=== PATIENT | female | born 1975 | race Caucasian/White ===

== ENCOUNTER 2017-05-04 18:22 | Emergency (ER) | payer MEDICARE, MEDICAID ==
[~2017-05-04] VITALS: Ht 162.6 cm; Wt 65.1 kg
[~2017-05-04 18:22] MED LIST: /CELE20CA OR; /DULO30CA OR; ALLEGRA; AMBI10TA OR; AMBI12.52 PO; AMBI5TAB PO; ATARAX OR; BCP PO; BUPRPOW2; BUTRAN PO; BUTRANS PATCH TOP; CALC500T49; CELE50CA PO; CLOB-25 TOP; COLA100C2 OR; COLA100C5 PO; COLO500C PO; CYPROHEPTADINE PO; DHA; DIFLUCAN; DOCU10ELUD PO; ELID1CRE11 TOP; EVENING PRIMROSE; FLEXERIL PO; GABA300C2 PO; GLUCPOW24 PO; HYALCAP PO; HYDR25TA8; HYDR50TA8; IBUP600T OR; IMIT5SPR; IRON27TA2 PO; LAMO10TA PO; LIDO5DIS; LIDO5DIS EX; LIDO5DIS TOP; LOCO0.1C TOP; LUTEIN; LYRI150C; LYRI150C PO; MAGN400C2 PO; MILK140C PO; MULTLIQ7 PO; NAPR500T OR; NORT75CA2 PO; PREG25CA; PROV90AE; ROZE8TAB16 PO; SINGULAR; SOMA350T; SOMA350T PO; STROCRY11 PO; SUBO4MIS PO; SUBOXONE; SUBOXONE PO; Suboxone PO; THERGRAN; TOPI25TA2 PO; TUMERIC PO; VIIBRYD PO; VITA100054 PO; VOLT1GEL EXT; VYVA30CA4 PO; Z PACK PO; ZANA4CAP OR; ZANA4CAP PO; [UNRECOGNIZED DRUG - CODE] PO; [UNRECOGNIZED DRUG - OTHER]; [UNRECOGNIZED DRUG - OTHER] PO
[2017-05-04] MEDS ORDERED: SILVER SULFADIAZINE 1% CR 50 GM JAR TOP ONE (20:15)
[2017-05-04 20:27] VITALS: BP 111/77
[2017-09-05] MEDS ORDERED: MICR1TAB16 PO (10:22)
[2017-09-05] MEDS ORDERED: AMBI5TAB PO (10:22)
[2017-09-05] MEDS ORDERED: OMEP20TA PO (10:24)
[2017-09-05] MEDS ORDERED: PROBCAP4 PO (10:24)
== END 2017-05-04 20:34 | disposition home or self-care (01) ==
LOC: M ED 20:08
DX: J02.9 Acute pharyngitis, unspecified (principal); T24.131A Burn of first degree of right lower leg, initial encounter; X19.XXXA Contact with other heat and hot substances, initial encounter; Y92.89 Other specified places as the place of occurrence of the external cause; Y93.89 Activity, other specified; Y99.8 Other external cause status; F99 Mental disorder, not otherwise specified; G89.4 Chronic pain syndrome; Z79.899 Other long term (current) drug therapy; Z88.8 Allergy status to other drugs, medicaments and biological substances

== ENCOUNTER → 2017-08-06 | Outpatient (CLI) | payer MEDICARE, MEDICAID ==
[~2017-08-06] MED LIST changes: +E-Z-GAS II EFFERVESCENT PACKET (SODIUM BICARB./CITRIC ACID/SIMETHICONE) As Ordered ONE; +E-Z-HD 98% w/w 340GM SUSP BTL As Ordered ONE; +E-Z-PAQUE 96% w/w SUSP 176GM BTL As Ordered ONE; +MICR1TAB16 PO; +OMEP20TA PO; +PROBCAP4 PO
--- NOTE | 2017-08-06 10:01 | REP ---
GALLBLADDER ULTRASOUND: HISTORY: Epigastric pain. There are no filling defects in the gallbladder. The gallbladder wall measures 2.2 mm. The common bile duct measures 5.3 mm. The liver and pancreas are normal in echogenicity. The right kidney measures 4.7 cm in transverse by 4.1 cm in AP by 9.2 cm in cephalocaudal dimensions. There is no hydronephrosis or mass. IMPRESSION: Normal gallbladder ultrasound. Signed by Daniel Bhagat MD 08/06/2017 10:19 A
--- NOTE | 2017-08-08 17:03 | REP ---
UPPER GI SERIES: The procedure was performed by ARPIT Decker under the direct supervision of Dr. Flores. All imaging was reviewed with Dr. Flores prior to dictation. The pattern lease inspector film showed no organomegaly or pathological masses. The patient was able to ingest liquid barium and air in a quantity sufficient to produce a double contrast examination. The oral and pharyngeal stages of deglutition appeared unremarkable. Esophageal transport was prompt and efficient. There was no evidence of esophagitis, stricture, or mucosal ring. There was a small hiatal hernia. Gastroesophageal reflux was not observed on this exam. The stomach aguero were normally outlined. The rugal folds were smooth and regular. There was no evidence of gastritis, neoplasm or ulcerative disease. The duodenal aguero were normally outlined. There was no evidence of duodenitis, peptic ulcer disease, or neoplasm. The visualized portion of the proximal small bowel was normal in course and caliber. IMPRESSION: Small sliding hiatal hernia, otherwise unremarkable double-contrast upper GI examination. Fluoroscopy time: 2 minutes and 57 seconds. Reviewed by ARPIT Moore 08/08/2017 05:10 PEdited and Signed by Shar Flores MD 08/08/2017 08:02 P
== END ==
LOC: M RAD 08:34
PROVIDERS: ATTEND Family Medicine
DX: K46.0 Unspecified abdominal hernia with obstruction, without gangrene (principal); R10.13 Epigastric pain

== ENCOUNTER → 2017-08-30 | Outpatient (REF) | payer MEDICARE ==
[~2017-08-30] MED LIST changes: -E-Z-GAS II EFFERVESCENT PACKET (SODIUM BICARB./CITRIC ACID/SIMETHICONE) As Ordered ONE; -E-Z-HD 98% w/w 340GM SUSP BTL As Ordered ONE; -E-Z-PAQUE 96% w/w SUSP 176GM BTL As Ordered ONE
[2017-08-30 12:19] LABS: MEAN CORPUSCULAR HEMOGLOBIN 30.5 pg (27.0-33.0); MEAN CORPUSCULAR HGB CONC 32.3 g/dl (32.0-36.5); MEAN CORPUSCULAR VOLUME 94.5 fl (80.0-96.0); PLATELET COUNT, AUTOMATED 227 10^3/uL (150-450); RED CELL DISTRIBUTION WIDTH 12.8 % (11.5-14.5); WHITE BLOOD COUNT 6.5 10^3/uL (4.0-10.0)
[2017-08-30 13:21] LABS: ALBUMIN 4.2 GM/DL (3.2-5.2); ALKALINE PHOSPHATASE 59 U/L (45-117); ALT/SGPT 23 U/L (12-78); ANION GAP 11 MEQ/L (8-16); AST/SGOT 11 U/L (15-37); BILIRUBIN,TOTAL 0.5 MG/DL (0.2-1.0); BLOOD UREA NITROGEN 11 MG/DL (7-18); CALCIUM LEVEL 9.9 MG/DL (8.5-10.1); CARBON DIOXIDE LEVEL 25 MEQ/L (21-32); CHLORIDE LEVEL 104 MEQ/L (98-107); CHOLESTEROL LEVEL 272 MG/DL (<200); CREATININE FOR GFR 0.96 MG/DL (0.55-1.02); GLOMERULAR FILTRATION RATE > 60.0 (>58); GLUCOSE, FASTING 78 MG/DL (70-105); PERCENT SATURATION 38.7 % (13.2-45.0); POTASSIUM SERUM 3.9 MEQ/L (3.5-5.1); SODIUM LEVEL 140 MEQ/L (136-145); TOTAL IRON BINDING CAPACITY 318 UG/DL (250-450); TOTAL PROTEIN 7.7 GM/DL (6.4-8.2); TRIGLYCERIDES LEVEL 162 MG/DL (<150)
== END ==
LOC: M LABDRAW1 08:07
PROVIDERS: ATTEND Family Medicine
DX: D64.9 Anemia, unspecified (principal); R53.83 Other fatigue

== ENCOUNTER 2018-01-15 01:21 | Inpatient (IN) | payer MEDICARE, MEDICAID ==
[2018-01-15] MEDS: CHARCOAL ACTIVATED LIQUID 25 GM/120 ML BTL PO (01:45)
[2018-01-15 02:02] LABS: BASO % 0.3 % (0.0-1.0); EOS % 0.2 % (0.0-3.0); HEMATOCRIT 38.8 % (36.0-47.0); HEMOGLOBIN 13.3 g/dl (12.0-16.0); IMMATURE GRANULOCYTE % 0.3 % (0-3.0); LYMPH # 1.1 10^3/uL (1.5-4.5); LYMPH % 16.7 % (24.0-44.0); MEAN CORPUSCULAR HEMOGLOBIN 30.4 pg (27.0-33.0); MEAN CORPUSCULAR HGB CONC 34.3 g/dl (32.0-36.5); MEAN CORPUSCULAR VOLUME 88.6 fl (80.0-96.0); MONO # 0.3 10^3/uL (0.0-0.8); NEUTROPHILS # 5.1 10^3/uL (1.8-7.7); NEUTROPHILS % 78.5 % (36.0-66.0); PLATELET COUNT, AUTOMATED 281 10^3/uL (150-450); RED BLOOD COUNT 4.38 10^6/uL (4.00-5.40); RED CELL DISTRIBUTION WIDTH 12.6 % (11.5-14.5); WHITE BLOOD COUNT 6.5 10^3/uL (4.0-10.0)
[2018-01-15 02:07] LABS: BEDSIDE GLUCOSE 115 MG/DL (70-105)
[2018-01-15 02:26] LABS: ALBUMIN 3.9 GM/DL (3.2-5.2); ALBUMIN/GLOBULIN RATIO 1.18 (1.00-1.93); ALKALINE PHOSPHATASE 62 U/L (45-117); ALT/SGPT 12 U/L (12-78); ANION GAP 11 MEQ/L (8-16); AST/SGOT 15 U/L (7-37); BILIRUBIN,DIRECT 0.1 MG/DL (0.0-0.2); BILIRUBIN,TOTAL 0.3 MG/DL (0.2-1.0); BLOOD UREA NITROGEN 11 MG/DL (7-18); CALCIUM LEVEL 8.8 MG/DL (8.5-10.1); CARBON DIOXIDE LEVEL 22 MEQ/L (21-32); CHLORIDE LEVEL 102 MEQ/L (98-107); CPK CREATINE PHOSPHOKINASE 70 U/L (26-192); CREATININE FOR GFR 0.76 MG/DL (0.55-1.30); ETHYL ALCOHOL (ETHANOL) < 0.003 % (0.000-0.010); GLOMERULAR FILTRATION RATE > 60.0 (>58); GLUCOSE, FASTING 109 MG/DL (70-100); POTASSIUM SERUM 3.8 MEQ/L (3.5-5.1); SALICYLATE LEVEL < 1.7 MG/DL (5.0-30.0); SODIUM LEVEL 135 MEQ/L (136-145); TOTAL PROTEIN 7.2 GM/DL (6.4-8.2)
[2018-01-15 02:31] LABS: ACETAMINOPHEN LEVEL < 2.0 UG/ML (10.0-30.0)
[2018-01-15 02:35] LABS: THYROID STIMULATING HORMONE 0.753 uIU/ML (0.358-3.740)
[2018-01-15 02:35] LABS: AMPHETAMINES LEVEL URINE NEGATIVE (NEGATIVE); BARBITURATES URINE NEGATIVE (NEGATIVE); BENZODIAZEPINES URINE POSITIVE (NEGATIVE); CANNABINOIDS URINE NEGATIVE (NEGATIVE); COCAINE METABOLITE URINE NEGATIVE (NEGATIVE); METHADONE URINE NEGATIVE (NEGATIVE); OPIATES URINE NEGATIVE (NEGATIVE); PHENCYCLIDINE URINE NEGATIVE (NEGATIVE)
[2018-01-15] MEDS: ONDANSETRON 4 MG ORAL DISINTEGRATING TAB (S0181) PO (07:31)
[2018-01-15] MEDS ORDERED: MOM 30ML SUSPENSION UDC PO (12:00)
[2018-01-15] MEDS ORDERED: MAALOX 30 ML SUSP *UDC PO (12:00)
[2018-01-15] MEDS ORDERED: OLANZapine ORAL DISINTEGRATING TAB 5MG PO (12:00)
[2018-01-15] MEDS ORDERED: ACETAMINOPHEN TAB 650MG DOSE (2X325MG) PO (12:00)
[2018-01-15] MEDS: EXCEDRIN MIGRAINE TABLET PO (22:35)
[2018-01-16] MEDS: OMEPRAZOLE 20 MG CAP PO (08:50)
[2018-01-16 10:13] LABS: CONTROL LINE HCG INT CTR LINE PRESENT; HCG, SERUM QUALITATIVE NEGATIVE (NEGATIVE)
[2018-01-16] MEDS ORDERED: traZODone 50 MG TAB PO (11:15)
[2018-01-16 11:17] LABS: ESTIMATED AVERAGE GLUCOSE 105 MG/DL (60-110); HEMOGLOBIN A1c 5.3 %
[2018-01-16] MEDS: EXCEDRIN MIGRAINE TABLET PO (12:27)
[2018-01-17] MEDS ORDERED: ENTER DRUG NAME HERE (PATIENT'S OWN MED) PO (09:00)
[2018-01-18] MEDS ORDERED: EXCEDRIN MIGRAINE TABLET PO (21:00)
[2018-01-18] MEDS ORDERED: MOM 30ML SUSPENSION UDC PO (21:00)
[2018-01-18] MEDS ORDERED: OLANZapine ORAL DISINTEGRATING TAB 5MG PO (21:00)
[2018-01-18] MEDS ORDERED: MAALOX 30 ML SUSP *UDC PO (21:00)
[2018-01-19] MEDS: OMEPRAZOLE 20 MG CAP PO (08:36)
[2018-01-19] MEDS: OXAZEPAM 10 MG CAP PO ×2 (08:36→22:11)
[2018-01-19] MEDS: carBAMazepine XR 200 MG TAB PO ×2 (08:36→22:11)
[2018-01-19] MEDS: K-PHOS NEUTRAL 250MG TABLET (SOD.PHOSPHATE/POT.PHOSPHATE) PO ×3 (08:36→22:11)
[2018-01-19] MEDS: MICROGESTIN FE PO (08:37)
[2018-01-19] MEDS ORDERED: BUTRANS 20 MCG/HR TD (09:00)
[2018-01-19 12:03] LABS: BEDSIDE GLUCOSE 131 MG/DL (70-105)
[2018-01-19] MEDS: traZODone 50 MG TAB PO (22:12)
[2018-01-20] MEDS: MICROGESTIN FE PO (08:34)
[2018-01-20] MEDS: carBAMazepine XR 200 MG TAB PO ×2 (08:34→21:15)
[2018-01-20] MEDS: OXAZEPAM 10 MG CAP PO (08:34)
[2018-01-20] MEDS: OMEPRAZOLE 20 MG CAP PO (08:34)
[2018-01-20] MEDS: K-PHOS NEUTRAL 250MG TABLET (SOD.PHOSPHATE/POT.PHOSPHATE) PO ×3 (08:34→21:15)
[2018-01-20] MEDS: chlordiazePOXIDE 25 MG CAP PO (21:15)
[2018-01-20] MEDS: traZODone 50 MG TAB PO (21:15)
[2018-01-20] MEDS: IBUPROFEN 400 MG TAB PO (21:16)
[2018-01-21] MEDS: carBAMazepine XR 200 MG TAB PO ×2 (08:54→21:16)
[2018-01-21] MEDS: MICROGESTIN FE PO (08:54)
[2018-01-21] MEDS: K-PHOS NEUTRAL 250MG TABLET (SOD.PHOSPHATE/POT.PHOSPHATE) PO ×3 (08:54→21:16)
[2018-01-21] MEDS: chlordiazePOXIDE 25 MG CAP PO ×2 (08:54→21:16)
[2018-01-21] MEDS: OMEPRAZOLE 20 MG CAP PO (08:54)
[2018-01-21] MEDS: IBUPROFEN 400 MG TAB PO ×2 (14:27→21:16)
[2018-01-21] MEDS: traZODone 50 MG TAB PO (21:16)
[2018-01-22] MEDS: MICROGESTIN FE PO (10:03)
[2018-01-22] MEDS: chlordiazePOXIDE 25 MG CAP PO (10:03)
[2018-01-22] MEDS: IBUPROFEN 400 MG TAB PO ×3 (10:03→22:55)
[2018-01-22] MEDS: OMEPRAZOLE 20 MG CAP PO (10:03)
[2018-01-22] MEDS: K-PHOS NEUTRAL 250MG TABLET (SOD.PHOSPHATE/POT.PHOSPHATE) PO ×3 (10:03→21:42)
[2018-01-22] MEDS: carBAMazepine XR 200 MG TAB PO ×2 (10:03→21:42)
[2018-01-22] MEDS: traZODone 50 MG TAB PO (22:54)
[2018-01-23] MEDS: carBAMazepine XR 200 MG TAB PO (08:23)
[2018-01-23] MEDS: MICROGESTIN FE PO (08:23)
[2018-01-23] MEDS: K-PHOS NEUTRAL 250MG TABLET (SOD.PHOSPHATE/POT.PHOSPHATE) PO ×2 (08:23→14:45)
[2018-01-23] MEDS: OMEPRAZOLE 20 MG CAP PO (08:23)
[2018-01-23] MEDS: IBUPROFEN 400 MG TAB PO (08:23)
[2018-01-24] MEDS ORDERED: BUTRANS 20 MCG/HR TD (09:00)
== END 2018-01-23 15:35 | disposition home or self-care (01) | DRG 881 ==
LOC: M PSY 01-19 03:41 → M ED 01:21 → M ED INP 11:51 → M PSY 13:00
PROVIDERS: Psychiatry & Neurology Psychiatry
DX: F32.9 Major depressive disorder, single episode, unspecified (principal); F11.20 Opioid dependence, uncomplicated; F19.94 Other psychoactive substance use, unspecified with psychoactive substance-induced mood disorder; G89.29 Other chronic pain; G43.909 Migraine, unspecified, not intractable, without status migrainosus; K21.9 Gastro-esophageal reflux disease without esophagitis; D64.9 Anemia, unspecified; F41.9 Anxiety disorder, unspecified; J45.909 Unspecified asthma, uncomplicated; M54.5 Low back pain; G47.00 Insomnia, unspecified; L40.8 Other psoriasis; Z79.899 Other long term (current) drug therapy; Z88.8 Allergy status to other drugs, medicaments and biological substances

== ENCOUNTER 2018-01-16 17:52 | Observation (INO) | payer MEDICARE, MEDICAID ==
[2018-01-16] MEDS: D5W/0.45% SODIUM CHLORIDE 1,000 ML IV (16:16)
[2018-01-16 18:41] LABS: HEMATOCRIT 37.8 % (36.0-47.0); HEMOGLOBIN 12.8 g/dl (12.0-16.0); MEAN CORPUSCULAR HEMOGLOBIN 31.5 pg (27.0-33.0); MEAN CORPUSCULAR HGB CONC 33.9 g/dl (32.0-36.5); MEAN CORPUSCULAR VOLUME 93.1 fl (80.0-96.0); PLATELET COUNT, AUTOMATED 295 10^3/uL (150-450); RED BLOOD COUNT 4.06 10^6/uL (4.00-5.40); WHITE BLOOD COUNT 12.6 10^3/uL (4.0-10.0)
[2018-01-16 19:07] LABS: AMMONIA 23 uMOL/L (<32)
[2018-01-16 19:10] LABS: ALBUMIN 4.1 GM/DL (3.2-5.2); ALBUMIN/GLOBULIN RATIO 1.14 (1.00-1.93); ALKALINE PHOSPHATASE 67 U/L (45-117); ALT/SGPT 13 U/L (12-78); ANION GAP 12 MEQ/L (8-16); AST/SGOT 11 U/L (7-37); BILIRUBIN,TOTAL 0.4 MG/DL (0.2-1.0); BLOOD UREA NITROGEN 14 MG/DL (7-18); CALCIUM LEVEL 9.4 MG/DL (8.5-10.1); CARBON DIOXIDE LEVEL 20 MEQ/L (21-32); CHLORIDE LEVEL 107 MEQ/L (98-107); CPK CREATINE PHOSPHOKINASE 99 U/L (26-192); GLOMERULAR FILTRATION RATE > 60.0 (>58); GLUCOSE, FASTING 120 MG/DL (70-100); MAGNESIUM LEVEL 2.3 MG/DL (1.8-2.4); POTASSIUM SERUM 3.8 MEQ/L (3.5-5.1); SODIUM LEVEL 139 MEQ/L (136-145); TOTAL PROTEIN 7.7 GM/DL (6.4-8.2); TROPONIN I < 0.02 NG/ML (< 0.10)
[2018-01-16 19:14] LABS: PROLACTIN 5.8 NG/ML
[2018-01-16 19:16] LABS: CK-MB VALUE MASS 1.8 NG/ML (0.0-3.6); MB/CK RELATIVE INDEX 1.81 (< OR =4); THYROID STIMULATING HORMONE 0.356 uIU/ML (0.358-3.740)
[2018-01-16] MEDS: ONDANSETRON 4MG/2ML VIAL (J2405) IV (20:18)
[2018-01-16] MEDS ORDERED: MAALOX 30 ML SUSP *UDC PO (22:15)
[2018-01-16] MEDS ORDERED: OLANZapine ORAL DISINTEGRATING TAB 5MG PO (22:15)
[2018-01-16] MEDS ORDERED: EXCEDRIN MIGRAINE TABLET PO (22:15)
[2018-01-16] MEDS ORDERED: traZODone 50 MG TAB PO ×2 (22:15→22:30)
[2018-01-17] MEDS: LORazepam 2 MG/ML VIAL (J2060) IV (00:24)
[2018-01-17 00:45] LABS: BEDSIDE GLUCOSE 154 MG/DL (70-105)
[2018-01-17] MEDS: levETIRAcetam INJection 1,000 MG in D5W 100 ML IV (01:08)
[2018-01-17] MEDS: D5W/0.45% SODIUM CHLORIDE 1,000 ML IV (05:22)
[2018-01-17 06:05] LABS: HEMOGLOBIN 11.9 g/dl (12.0-16.0); MEAN CORPUSCULAR HEMOGLOBIN 30.8 pg (27.0-33.0); MEAN CORPUSCULAR VOLUME 90.7 fl (80.0-96.0); PLATELET COUNT, AUTOMATED 298 10^3/uL (150-450); RED BLOOD COUNT 3.86 10^6/uL (4.00-5.40); RED CELL DISTRIBUTION WIDTH 12.9 % (11.5-14.5); WHITE BLOOD COUNT 11.2 10^3/uL (4.0-10.0)
[2018-01-17 06:21] LABS: ANION GAP 11 MEQ/L (8-16); BLOOD UREA NITROGEN 12 MG/DL (7-18); CALCIUM LEVEL 8.9 MG/DL (8.5-10.1); CARBON DIOXIDE LEVEL 21 MEQ/L (21-32); CHLORIDE LEVEL 108 MEQ/L (98-107); CREATININE FOR GFR 0.63 MG/DL (0.55-1.30); GLOMERULAR FILTRATION RATE > 60.0 (>58); GLUCOSE, FASTING 128 MG/DL (70-100); POTASSIUM SERUM 3.1 MEQ/L (3.5-5.1); SODIUM LEVEL 140 MEQ/L (136-145)
[2018-01-17] MEDS: ENOXAPARIN 40 MG/0.4 ML SYRINGE (J1650) SC (09:00)
[2018-01-17] MEDS: MICROGESTIN FE PO (09:00)
[2018-01-17] MEDS ORDERED: ENOXAPARIN 40 MG/0.4 ML SYRINGE (J1650) SC (09:00)
[2018-01-17] MEDS: BUTRANS 20 MCG/HR TOP (09:00)
[2018-01-17 09:29] LABS: MAGNESIUM LEVEL 2.1 MG/DL (1.8-2.4); PHOSPHORUS LEVEL 1.3 MG/DL (2.5-4.9)
[2018-01-17] MEDS: OXAZEPAM 10 MG CAP PO ×2 (09:53→20:26)
[2018-01-17] MEDS: carBAMazepine XR 200 MG TAB PO ×2 (09:53→20:26)
[2018-01-17] MEDS: OMEPRAZOLE 20 MG CAP PO (09:53)
[2018-01-17] MEDS: POTASSIUM CHLORIDE 10 MEQ SR TABLET PO (09:54)
[2018-01-17] MEDS ORDERED: levETIRAcetam 250MG TABLET (KEPPRA) PO (12:00)
[2018-01-17 13:01] LABS: APPEARANCE, URINE CLEAR (CLEAR); BACTERIA, URINE AUTO 2+ (NEGATIVE); BILIRUBIN, URINE AUTO NEGATIVE (NEGATIVE); BLOOD, URINE BLOOD NEGATIVE (NEGATIVE); COLOR, URINE STRAW (YELLOW); GLUCOSE, URINE (UA) AUTO NEGATIVE (NEGATIVE); KETONE, URINE AUTO NEGATIVE (NEGATIVE); LEUKOCYTE ESTERASE, URINE AUTO NEGATIVE (NEGATIVE); NITRITE, URINE AUTO NEGATIVE (NEGATIVE); PROTEIN, URINE AUTO NEGATIVE (NEGATIVE); RBC, URINE AUTO 1 /HPF (0-3); SPECIFIC GRAVITY URINE AUTO 1.004 (1.002-1.035); SQUAMOUS EPITHELIAL CELL UR AU 1 /HPF (0-6); UROBILINOGEN, URINE AUTO 0.2 mg/dL (0.0-2.0); WBC, URINE AUTO 4 /HPF (0-3)
[2018-01-17] MEDS: K-PHOS NEUTRAL 250MG TABLET (SOD.PHOSPHATE/POT.PHOSPHATE) PO ×2 (17:37→20:26)
[2018-01-18 05:53] LABS: HEMATOCRIT 34.4 % (36.0-47.0); HEMOGLOBIN 11.5 g/dl (12.0-16.0); MEAN CORPUSCULAR HEMOGLOBIN 30.5 pg (27.0-33.0); MEAN CORPUSCULAR HGB CONC 33.4 g/dl (32.0-36.5); MEAN CORPUSCULAR VOLUME 91.2 fl (80.0-96.0); PLATELET COUNT, AUTOMATED 278 10^3/uL (150-450); RED BLOOD COUNT 3.77 10^6/uL (4.00-5.40); WHITE BLOOD COUNT 6.7 10^3/uL (4.0-10.0)
[2018-01-18 06:14] LABS: ANION GAP 9 MEQ/L (8-16); BLOOD UREA NITROGEN 14 MG/DL (7-18); CALCIUM LEVEL 8.7 MG/DL (8.5-10.1); CARBON DIOXIDE LEVEL 24 MEQ/L (21-32); CHLORIDE LEVEL 110 MEQ/L (98-107); CREATININE FOR GFR 0.55 MG/DL (0.55-1.30); GLOMERULAR FILTRATION RATE > 60.0 (>58); GLUCOSE, FASTING 87 MG/DL (70-100); MAGNESIUM LEVEL 2.1 MG/DL (1.8-2.4); PHOSPHORUS LEVEL 2.8 MG/DL (2.5-4.9); SODIUM LEVEL 143 MEQ/L (136-145)
[2018-01-18] MEDS: POTASSIUM CHLORIDE 10 MEQ SR TABLET PO ×2 (08:59→12:26)
[2018-01-18] MEDS: OMEPRAZOLE 20 MG CAP PO (09:00)
[2018-01-18] MEDS: ENOXAPARIN 40 MG/0.4 ML SYRINGE (J1650) SC (09:00)
[2018-01-18] MEDS: MICROGESTIN FE PO (09:00)
[2018-01-18] MEDS: K-PHOS NEUTRAL 250MG TABLET (SOD.PHOSPHATE/POT.PHOSPHATE) PO ×3 (09:00→20:09)
[2018-01-18] MEDS: OXAZEPAM 10 MG CAP PO ×2 (09:01→20:09)
[2018-01-18] MEDS: carBAMazepine XR 200 MG TAB PO ×2 (09:01→20:09)
== END 2018-01-18 20:13 ==
LOC: M MSPAV 17:52
DX: G40.89 Other seizures (principal); F13.230 Sedative, hypnotic or anxiolytic dependence with withdrawal, uncomplicated; G43.709 Chronic migraine without aura, not intractable, without status migrainosus; G89.29 Other chronic pain; F32.9 Major depressive disorder, single episode, unspecified; K21.9 Gastro-esophageal reflux disease without esophagitis; E83.39 Other disorders of phosphorus metabolism; E87.6 Hypokalemia; T42.4X2A Poisoning by benzodiazepines, intentional self-harm, initial encounter; T42.8X2A Poisoning by antiparkinsonism drugs and other central muscle-tone depressants, intentional self-harm, initial encounter; X58.XXXA Exposure to other specified factors, initial encounter; Y92.89 Other specified places as the place of occurrence of the external cause; F41.9 Anxiety disorder, unspecified; D64.9 Anemia, unspecified; M54.9 Dorsalgia, unspecified; M79.7 Fibromyalgia; Z87.19 Personal history of other diseases of the digestive system; K59.00 Constipation, unspecified; G47.00 Insomnia, unspecified; L40.9 Psoriasis, unspecified; J45.909 Unspecified asthma, uncomplicated; Z87.891 Personal history of nicotine dependence; Z79.899 Other long term (current) drug therapy; Z88.8 Allergy status to other drugs, medicaments and biological substances; Z91.5 Personal history of self-harm
CPT/HCPCS: J2405

== ENCOUNTER → 2018-05-02 | Outpatient (CLI) | payer MEDICARE, MEDICAID | LOC: M PAIN 15:00 | DX: M96.1 Postlaminectomy syndrome, not elsewhere classified (principal); M54.5 Low back pain; G89.29 Other chronic pain; G43.909 Migraine, unspecified, not intractable, without status migrainosus; G62.9 Polyneuropathy, unspecified; J45.909 Unspecified asthma, uncomplicated; R56.9 Unspecified convulsions; G47.00 Insomnia, unspecified; F32.9 Major depressive disorder, single episode, unspecified; Q79.6 Ehlers-Danlos syndromes; Z79.899 Other long term (current) drug therapy; Z88.8 Allergy status to other drugs, medicaments and biological substances; Z86.59 Personal history of other mental and behavioral disorders | CPT/HCPCS: G0463 ==

== ENCOUNTER → 2018-07-01 | Outpatient (CLI) | payer MEDICARE, MEDICAID ==
[~2018-07-01] MED LIST changes: -/CELE20CA OR; -/DULO30CA OR; -ALLEGRA; -AMBI10TA OR; -AMBI12.52 PO; -AMBI5TAB PO; -ATARAX OR; -BCP PO; +BUPIVACAINE HCL 0.25% 10 ML VIAL As Ordered; +BUPIVACAINE HCL 0.25% 30 ML VIAL As Ordered; -BUPRPOW2; -BUTRAN PO; -BUTRANS PATCH TOP; -CALC500T49; -CELE50CA PO; -CLOB-25 TOP; -COLA100C2 OR; -COLA100C5 PO; -COLO500C PO; -CYPROHEPTADINE PO; -DHA; -DIFLUCAN; -DOCU10ELUD PO; -ELID1CRE11 TOP; -EVENING PRIMROSE; -FLEXERIL PO; -GABA300C2 PO; -GLUCPOW24 PO; -HYALCAP PO; -HYDR25TA8; -HYDR50TA8; -IBUP600T OR; -IMIT5SPR; -IRON27TA2 PO; -LAMO10TA PO; -LIDO5DIS; -LIDO5DIS EX; -LIDO5DIS TOP; -LOCO0.1C TOP; -LUTEIN; -LYRI150C; -LYRI150C PO; -MAGN400C2 PO; -MICR1TAB16 PO; -MILK140C PO; -MULTLIQ7 PO; -NAPR500T OR; -NORT75CA2 PO; -OMEP20TA PO; -PREG25CA; -PROBCAP4 PO; -PROV90AE; -ROZE8TAB16 PO; -SINGULAR; -SOMA350T; -SOMA350T PO; -STROCRY11 PO; -SUBO4MIS PO; -SUBOXONE; -SUBOXONE PO; -Suboxone PO; -THERGRAN; -TOPI25TA2 PO; +TRIAMCINOLONE ACETONIDE SUSP 40 MG/ML VIAL (J3301) As Ordered; -TUMERIC PO; -VIIBRYD PO; -VITA100054 PO; -VOLT1GEL EXT; -VYVA30CA4 PO; -Z PACK PO; -ZANA4CAP OR; -ZANA4CAP PO; -[UNRECOGNIZED DRUG - CODE] PO; -[UNRECOGNIZED DRUG - OTHER]; -[UNRECOGNIZED DRUG - OTHER] PO; +diazePAM 5 MG TAB As Ordered; +diphenhydrAMINE 25 MG CAP As Ordered; +oxyCODONE 5MG TAB As Ordered
== END ==
LOC: M PAIN 14:15
DX: M79.1 Myalgia (principal); G43.709 Chronic migraine without aura, not intractable, without status migrainosus; M54.5 Low back pain; G62.9 Polyneuropathy, unspecified; G47.00 Insomnia, unspecified; F32.9 Major depressive disorder, single episode, unspecified; J45.909 Unspecified asthma, uncomplicated; R56.9 Unspecified convulsions; M54.2 Cervicalgia; Q79.6 Ehlers-Danlos syndromes; Z79.899 Other long term (current) drug therapy; Z88.8 Allergy status to other drugs, medicaments and biological substances
CPT/HCPCS: J3301

== ENCOUNTER 2018-08-01 09:49 | Inpatient (IN) | payer MEDICARE, MEDICAID ==
[2018-08-01 10:35] LABS: BASO % 0.6 % (0.0-1.0); EOS # 0.2 10^3/uL (0.0-0.50); EOS % 2.6 % (0.0-3.0); HEMATOCRIT 32.7 % (36.0-47.0); HEMOGLOBIN 10.8 g/dl (12.0-15.5); IMMATURE GRANULOCYTE % 0.5 % (0-3.0); LYMPH % 30.6 % (24.0-44.0); MEAN CORPUSCULAR HEMOGLOBIN 31.9 pg (27.0-33.0); MEAN CORPUSCULAR VOLUME 96.5 fl (80.0-96.0); MONO # 0.5 10^3/uL (0.0-0.8); NEUTROPHILS # 3.8 10^3/uL (1.8-7.7); NEUTROPHILS % 57.7 % (36.0-66.0); PLATELET COUNT, AUTOMATED 241 10^3/uL (150-450); RED BLOOD COUNT 3.39 10^6/uL (4.00-5.40); RED CELL DISTRIBUTION WIDTH 14.2 % (11.5-14.5); WHITE BLOOD COUNT 6.5 10^3/uL (4.0-10.0)
[2018-08-01 10:50] LABS: AMPHETAMINES LEVEL URINE NEGATIVE (NEGATIVE); BARBITURATES URINE NEGATIVE (NEGATIVE); BENZODIAZEPINES URINE POSITIVE (NEGATIVE); CANNABINOIDS URINE NEGATIVE (NEGATIVE); COCAINE METABOLITE URINE NEGATIVE (NEGATIVE); METHADONE URINE NEGATIVE (NEGATIVE); OPIATES URINE NEGATIVE (NEGATIVE); PHENCYCLIDINE URINE NEGATIVE (NEGATIVE)
[2018-08-01 11:06] LABS: ACETAMINOPHEN LEVEL 2.3 UG/ML (10.0-30.0); ALBUMIN 3.2 GM/DL (3.2-5.2); ALKALINE PHOSPHATASE 45 U/L (45-117); ALT/SGPT 42 U/L (12-78); ANION GAP 9 MEQ/L (8-16); AST/SGOT 22 U/L (7-37); BILIRUBIN,DIRECT < 0.1 MG/DL (0.0-0.2); BILIRUBIN,TOTAL 0.2 MG/DL (0.2-1.0); BLOOD UREA NITROGEN 13 MG/DL (7-18); CALCIUM LEVEL 8.9 MG/DL (8.5-10.1); CARBON DIOXIDE LEVEL 25 MEQ/L (21-32); CHLORIDE LEVEL 107 MEQ/L (98-107); CPK CREATINE PHOSPHOKINASE 50 U/L (26-192); CREATININE FOR GFR 0.64 MG/DL (0.55-1.30); ETHYL ALCOHOL (ETHANOL) < 0.003 % (0.000-0.010); GLOMERULAR FILTRATION RATE > 60.0 (>58); GLUCOSE, FASTING 83 MG/DL (70-100); POTASSIUM SERUM 4.2 MEQ/L (3.5-5.1); SALICYLATE LEVEL < 1.7 MG/DL (5.0-30.0); SODIUM LEVEL 141 MEQ/L (136-145); TOTAL PROTEIN 6.1 GM/DL (6.4-8.2)
[2018-08-01 11:28] LABS: CARBAMAZEPINE (TEGRETOL) LEVEL 8.9 UG/ML (4.0-10.0)
[2018-08-01 11:45] LABS: KETONE, URINE AUTO RFX NEGATIVE (NEGATIVE); LEUKOCYTE ESTERASE UR AUTO RFX NEGATIVE (NEGATIVE); MUCUS, URINE RFX SMALL (NEGATIVE); NITRITE, URINE AUTO RFX NEGATIVE (NEGATIVE); RBC, URINE AUTO RFX 4 /HPF (0-3); SPECIFIC GRAVITY UR AUTO RFX 1.012 (1.002-1.035); SQUAM EPITHELIAL CELL UR AURFX 0 /HPF (0-6); WBC, URINE AUTO RFX 0 /HPF (0-3)
[2018-08-01] MEDS: NS 1,000 ML IV ×3 (11:45→16:53)
[2018-08-01 14:59] LABS: LACTIC ACID SEPSIS PROTOCOL 1.7 MMOL/L (0.4-2.0)
[2018-08-01] MEDS ORDERED: ONDANSETRON 4MG/2ML VIAL (J2405) IV (16:00)
[2018-08-01] MEDS: OXcarbazepine 300 MG TAB PO (23:55)
[2018-08-02] MEDS: NS 1,000 ML IV ×3 (03:11→10:18)
[2018-08-02 05:31] LABS: BASO % 0.7 % (0.0-1.0); EOS # 0.1 10^3/uL (0.0-0.50); EOS % 2.5 % (0.0-3.0); HEMATOCRIT 31.9 % (36.0-47.0); HEMOGLOBIN 10.5 g/dl (12.0-15.5); IMMATURE GRANULOCYTE % 0.4 % (0-3.0); LYMPH # 2.2 10^3/uL (1.5-4.5); MEAN CORPUSCULAR HEMOGLOBIN 31.9 pg (27.0-33.0); MEAN CORPUSCULAR HGB CONC 32.9 g/dl (32.0-36.5); MONO # 0.4 10^3/uL (0.0-0.8); MONO % 7.2 % (0.0-5.0); NEUTROPHILS # 2.9 10^3/uL (1.8-7.7); NEUTROPHILS % 50.2 % (36.0-66.0); PLATELET COUNT, AUTOMATED 231 10^3/uL (150-450); RED BLOOD COUNT 3.29 10^6/uL (4.00-5.40); WHITE BLOOD COUNT 5.7 10^3/uL (4.0-10.0)
[2018-08-02 05:49] LABS: ALBUMIN 2.9 GM/DL (3.2-5.2); ALKALINE PHOSPHATASE 47 U/L (45-117); ALT/SGPT 38 U/L (12-78); ANION GAP 8 MEQ/L (8-16); AST/SGOT 20 U/L (7-37); BILIRUBIN,TOTAL 0.2 MG/DL (0.2-1.0); BLOOD UREA NITROGEN 10 MG/DL (7-18); CALCIUM LEVEL 8.4 MG/DL (8.5-10.1); CARBON DIOXIDE LEVEL 24 MEQ/L (21-32); CHLORIDE LEVEL 108 MEQ/L (98-107); CREATININE FOR GFR 0.46 MG/DL (0.55-1.30); GLOMERULAR FILTRATION RATE > 60.0 (>58); GLUCOSE, FASTING 79 MG/DL (70-100); MAGNESIUM LEVEL 2.2 MG/DL (1.8-2.4); SODIUM LEVEL 140 MEQ/L (136-145); TOTAL PROTEIN 5.8 GM/DL (6.4-8.2)
[2018-08-02 08:01] LABS: AMMONIA 33 uMOL/L (<32)
[2018-08-02] MEDS: OXcarbazepine 300 MG TAB PO ×2 (08:33→20:14)
[2018-08-02] MEDS: IBUPROFEN 600 MG TAB PO (22:20)
[2018-08-03 06:21] LABS: BASO # 0.1 10^3/uL (0.0-0.2); BASO % 0.8 % (0.0-1.0); EOS # 0.1 10^3/uL (0.0-0.50); EOS % 1.5 % (0.0-3.0); HEMATOCRIT 44.2 % (36.0-47.0); IMMATURE GRANULOCYTE % 0.8 % (0-3.0); LYMPH # 1.9 10^3/uL (1.5-4.5); LYMPH % 27.2 % (24.0-44.0); MEAN CORPUSCULAR HEMOGLOBIN 31.6 pg (27.0-33.0); MEAN CORPUSCULAR HGB CONC 32.4 g/dl (32.0-36.5); MEAN CORPUSCULAR VOLUME 97.6 fl (80.0-96.0); MONO # 0.5 10^3/uL (0.0-0.8); MONO % 6.7 % (0.0-5.0); NEUTROPHILS # 4.5 10^3/uL (1.8-7.7); PLATELET COUNT, AUTOMATED 248 10^3/uL (150-450); RED BLOOD COUNT 4.53 10^6/uL (4.00-5.40); RED CELL DISTRIBUTION WIDTH 13.5 % (11.5-14.5); WHITE BLOOD COUNT 7.1 10^3/uL (4.0-10.0)
[2018-08-03 06:29] LABS: HEMOGLOBIN 14.3 g/dl (12.0-15.5)
[2018-08-03 06:36] LABS: ALBUMIN 3.9 GM/DL (3.2-5.2); ALBUMIN/GLOBULIN RATIO 1.05 (1.00-1.93); ALKALINE PHOSPHATASE 64 U/L (45-117); ALT/SGPT 49 U/L (12-78); ANION GAP 8 MEQ/L (8-16); AST/SGOT 28 U/L (7-37); BILIRUBIN,TOTAL 0.1 MG/DL (0.2-1.0); BLOOD UREA NITROGEN 12 MG/DL (7-18); CALCIUM LEVEL 8.8 MG/DL (8.5-10.1); CARBON DIOXIDE LEVEL 23 MEQ/L (21-32); CHLORIDE LEVEL 108 MEQ/L (98-107); CREATININE FOR GFR 0.61 MG/DL (0.55-1.30); GLOMERULAR FILTRATION RATE > 60.0 (>58); GLUCOSE, FASTING 95 MG/DL (70-100); MAGNESIUM LEVEL 2.5 MG/DL (1.8-2.4); POTASSIUM SERUM 3.8 MEQ/L (3.5-5.1); SODIUM LEVEL 139 MEQ/L (136-145); TOTAL PROTEIN 7.6 GM/DL (6.4-8.2)
[2018-08-03] MEDS: OXcarbazepine 300 MG TAB PO (08:44)
== END 2018-08-03 09:40 | disposition home or self-care (01) | DRG 918 ==
LOC: M MSPAV 08-02 16:17 → M ED 09:49 → M ED INP 16:00 → M PCU 23:17
DX: T42.4X1A Poisoning by benzodiazepines, accidental (unintentional), initial encounter (principal); F11.20 Opioid dependence, uncomplicated; I95.9 Hypotension, unspecified; F32.9 Major depressive disorder, single episode, unspecified; F41.9 Anxiety disorder, unspecified; M79.7 Fibromyalgia; G40.909 Epilepsy, unspecified, not intractable, without status epilepticus; R41.82 Altered mental status, unspecified; Z79.899 Other long term (current) drug therapy; Z88.8 Allergy status to other drugs, medicaments and biological substances

== ENCOUNTER 2018-08-12 15:44 | Emergency (ER) | payer MEDICARE, MEDICAID ==
[2018-08-12 16:59] LABS: HEMATOCRIT 40.8 % (36.0-47.0); HEMOGLOBIN 13.7 g/dl (12.0-15.5); MEAN CORPUSCULAR HEMOGLOBIN 32.2 pg (27.0-33.0); MEAN CORPUSCULAR HGB CONC 33.6 g/dl (32.0-36.5); MEAN CORPUSCULAR VOLUME 95.8 fl (80.0-96.0); PLATELET COUNT, AUTOMATED 335 10^3/uL (150-450); RED BLOOD COUNT 4.26 10^6/uL (4.00-5.40); RED CELL DISTRIBUTION WIDTH 12.4 % (11.5-14.5); WHITE BLOOD COUNT 8.4 10^3/uL (4.0-10.0)
[2018-08-12 17:27] LABS: AMPHETAMINES LEVEL URINE NEGATIVE (NEGATIVE); BARBITURATES URINE NEGATIVE (NEGATIVE); BENZODIAZEPINES URINE POSITIVE (NEGATIVE); CANNABINOIDS URINE NEGATIVE (NEGATIVE); COCAINE METABOLITE URINE NEGATIVE (NEGATIVE); METHADONE URINE NEGATIVE (NEGATIVE); OPIATES URINE NEGATIVE (NEGATIVE); PHENCYCLIDINE URINE NEGATIVE (NEGATIVE)
[2018-08-12 17:57] LABS: ACETAMINOPHEN LEVEL < 2.0 UG/ML (10.0-30.0); ALBUMIN 4.6 GM/DL (3.2-5.2); ALBUMIN/GLOBULIN RATIO 1.28 (1.00-1.93); ALKALINE PHOSPHATASE 70 U/L (45-117); ALT/SGPT 16 U/L (12-78); ANION GAP 12 MEQ/L (8-16); AST/SGOT 11 U/L (7-37); BILIRUBIN,DIRECT 0.1 MG/DL (0.0-0.2); BILIRUBIN,TOTAL 0.3 MG/DL (0.2-1.0); BLOOD UREA NITROGEN 7 MG/DL (7-18); CALCIUM LEVEL 9.8 MG/DL (8.5-10.1); CARBON DIOXIDE LEVEL 23 MEQ/L (21-32); CHLORIDE LEVEL 106 MEQ/L (98-107); CREATININE FOR GFR 0.66 MG/DL (0.55-1.30); ETHYL ALCOHOL (ETHANOL) < 0.003 % (0.000-0.010); GLOMERULAR FILTRATION RATE > 60.0 (>58); GLUCOSE, FASTING 107 MG/DL (70-100); POTASSIUM SERUM 3.7 MEQ/L (3.5-5.1); SALICYLATE LEVEL 2.2 MG/DL (5.0-30.0); SODIUM LEVEL 141 MEQ/L (136-145); THYROID STIMULATING HORMONE 0.429 uIU/ML (0.358-3.740); TOTAL PROTEIN 8.2 GM/DL (6.4-8.2)
== END 2018-08-12 21:31 | disposition home or self-care (01) ==
LOC: M ED 15:44
DX: F11.20 Opioid dependence, uncomplicated (principal); F31.9 Bipolar disorder, unspecified; F25.9 Schizoaffective disorder, unspecified; Z88.8 Allergy status to other drugs, medicaments and biological substances; Z79.899 Other long term (current) drug therapy
CPT/HCPCS: G0480

== ENCOUNTER → 2018-08-12 | Outpatient (CLI) | payer MEDICARE, MEDICAID | LOC: M PAIN 14:15 | DX: M96.1 Postlaminectomy syndrome, not elsewhere classified (principal); M54.5 Low back pain; G89.29 Other chronic pain; G43.909 Migraine, unspecified, not intractable, without status migrainosus; F32.9 Major depressive disorder, single episode, unspecified; J45.909 Unspecified asthma, uncomplicated; R56.9 Unspecified convulsions; M79.7 Fibromyalgia; G47.00 Insomnia, unspecified; G62.9 Polyneuropathy, unspecified; Q79.6 Ehlers-Danlos syndromes; Z79.899 Other long term (current) drug therapy; Z88.8 Allergy status to other drugs, medicaments and biological substances; Z86.59 Personal history of other mental and behavioral disorders | CPT/HCPCS: G0463 ==

== ENCOUNTER 2018-08-18 21:27 | Inpatient (IN) | payer MEDICARE, MEDICAID ==
[2018-08-18 22:43] LABS: KETONE, URINE AUTO RFX NEGATIVE (NEGATIVE); LEUKOCYTE ESTERASE UR AUTO RFX NEGATIVE (NEGATIVE); MUCUS, URINE RFX SMALL (NEGATIVE); NITRITE, URINE AUTO RFX NEGATIVE (NEGATIVE); RBC, URINE AUTO RFX 1 /HPF (0-3); SPECIFIC GRAVITY UR AUTO RFX 1.013 (1.002-1.035); SQUAM EPITHELIAL CELL UR AURFX 0 /HPF (0-6); WBC, URINE AUTO RFX 1 /HPF (0-3)
[2018-08-18 22:44] LABS: BEDSIDE GLUCOSE 60 MG/DL (70-105)
[2018-08-18 22:46] LABS: ABG BASE EXCESS -3.3 (-2.0-2.0); ABG HCO3 20.5 MEQ/L (22.0-26.0); ABG O2 SATURATION 99.9 % (95.0-99.0); ABG PARTIAL PRESSURE CO2 32.8 mmHg (35.0-45.0); ABG PARTIAL PRESSURE O2 470.4 mmHg (75.0-100.0); ABG STANDARD HCO3 21.8 MEQ/L (22.0-26.0); ABG TOTAL CO2 21.5 MEQ/L (22.0-29.0); ABG pH (ARTERIAL) 7.414 UNITS (7.350-7.450)
[2018-08-18 23:00] LABS: AMPHETAMINES LEVEL URINE NEGATIVE (NEGATIVE); BARBITURATES URINE NEGATIVE (NEGATIVE); BENZODIAZEPINES URINE POSITIVE (NEGATIVE); CANNABINOIDS URINE NEGATIVE (NEGATIVE); COCAINE METABOLITE URINE NEGATIVE (NEGATIVE); METHADONE URINE NEGATIVE (NEGATIVE); OPIATES URINE NEGATIVE (NEGATIVE); PHENCYCLIDINE URINE NEGATIVE (NEGATIVE)
[2018-08-18] MEDS: DEXTROSE 50% 50 ML SYRINGE IV (23:00)
[2018-08-18] MEDS: NS 1,000 ML IV (23:00)
[2018-08-18 23:02] LABS: BASO % 0.5 % (0.0-1.0); EOS # 0.2 10^3/uL (0.0-0.50); EOS % 2.5 % (0.0-3.0); HEMATOCRIT 32.3 % (36.0-47.0); HEMOGLOBIN 10.9 g/dl (12.0-15.5); IMMATURE GRANULOCYTE % 0.3 % (0-3.0); LYMPH % 32.7 % (24.0-44.0); MEAN CORPUSCULAR HEMOGLOBIN 32.1 pg (27.0-33.0); MEAN CORPUSCULAR HGB CONC 33.7 g/dl (32.0-36.5); MONO # 0.5 10^3/uL (0.0-0.8); MONO % 7.8 % (0.0-5.0); NEUTROPHILS # 3.4 10^3/uL (1.8-7.7); NEUTROPHILS % 56.2 % (36.0-66.0); PLATELET COUNT, AUTOMATED 191 10^3/uL (150-450); RED CELL DISTRIBUTION WIDTH 12.2 % (11.5-14.5); WHITE BLOOD COUNT 6.1 10^3/uL (4.0-10.0)
[2018-08-18 23:25] LABS: CONTROL LINE HCG INT CTR LINE PRESENT; HCG, SERUM QUALITATIVE NEGATIVE (NEGATIVE)
[2018-08-18 23:33] LABS: ALKALINE PHOSPHATASE 42 U/L (45-117); ALT/SGPT 11 U/L (12-78); ANION GAP 7 MEQ/L (8-16); AST/SGOT 9 U/L (7-37); BILIRUBIN,DIRECT < 0.1 MG/DL (0.0-0.2); BILIRUBIN,TOTAL 0.2 MG/DL (0.2-1.0); BLOOD UREA NITROGEN 7 MG/DL (7-18); CALCIUM LEVEL 7.4 MG/DL (8.5-10.1); CARBON DIOXIDE LEVEL 22 MEQ/L (21-32); CHLORIDE LEVEL 110 MEQ/L (98-107); CPK CREATINE PHOSPHOKINASE 92 U/L (26-192); CREATININE FOR GFR 0.49 MG/DL (0.55-1.30); ETHYL ALCOHOL (ETHANOL) < 0.003 % (0.000-0.010); GLOMERULAR FILTRATION RATE > 60.0 (>58); GLUCOSE, FASTING 82 MG/DL (70-100); POTASSIUM SERUM 3.6 MEQ/L (3.5-5.1); SALICYLATE LEVEL < 1.7 MG/DL (5.0-30.0); SODIUM LEVEL 139 MEQ/L (136-145); THYROID STIMULATING HORMONE 0.427 uIU/ML (0.358-3.740); TOTAL PROTEIN 5.5 GM/DL (6.4-8.2)
[2018-08-18 23:53] LABS: BEDSIDE GLUCOSE 117 MG/DL (70-105)
[2018-08-19 00:43] LABS: BEDSIDE GLUCOSE 133 MG/DL (70-105)
[2018-08-19 01:40] LABS: BEDSIDE GLUCOSE 95 MG/DL (70-105)
[2018-08-19] MEDS: NS 1,000 ML IV (02:25)
[2018-08-19 02:47] LABS: BEDSIDE GLUCOSE 82 MG/DL (70-105)
[2018-08-19 04:13] LABS: BEDSIDE GLUCOSE 60 MG/DL (70-105)
[2018-08-19] MEDS ORDERED: GLUCOSE 4 GM CHEW TABLET PO (04:30)
[2018-08-19] MEDS ORDERED: DEXTROSE 50% 50 ML SYRINGE IV (04:30)
[2018-08-19] MEDS ORDERED: GLUCAGON FOR INJ 1 MG VIAL (J1610) SC (04:30)
[2018-08-19] MEDS: D5W/0.45% SODIUM CHLORIDE 1,000 ML IV (04:41)
[2018-08-19 05:11] LABS: HEMATOCRIT 39.2 % (36.0-47.0); HEMOGLOBIN 12.8 g/dl (12.0-15.5); MEAN CORPUSCULAR HEMOGLOBIN 31.4 pg (27.0-33.0); MEAN CORPUSCULAR HGB CONC 32.7 g/dl (32.0-36.5); MEAN CORPUSCULAR VOLUME 96.3 fl (80.0-96.0); PLATELET COUNT, AUTOMATED 223 10^3/uL (150-450); RED BLOOD COUNT 4.07 10^6/uL (4.00-5.40); RED CELL DISTRIBUTION WIDTH 12.1 % (11.5-14.5); WHITE BLOOD COUNT 5.8 10^3/uL (4.0-10.0)
[2018-08-19 05:36] LABS: BEDSIDE GLUCOSE 92 MG/DL (70-105)
[2018-08-19 05:38] LABS: ALBUMIN 3.4 GM/DL (3.2-5.2); ALKALINE PHOSPHATASE 49 U/L (45-117); ALT/SGPT 13 U/L (12-78); ANION GAP 8 MEQ/L (8-16); AST/SGOT 14 U/L (7-37); BILIRUBIN,TOTAL 0.2 MG/DL (0.2-1.0); BLOOD UREA NITROGEN 5 MG/DL (7-18); CALCIUM LEVEL 8.1 MG/DL (8.5-10.1); CARBON DIOXIDE LEVEL 22 MEQ/L (21-32); CHLORIDE LEVEL 113 MEQ/L (98-107); CREATININE FOR GFR 0.57 MG/DL (0.55-1.30); GLOMERULAR FILTRATION RATE > 60.0 (>58); GLUCOSE, FASTING 69 MG/DL (70-100); POTASSIUM SERUM 3.8 MEQ/L (3.5-5.1); SODIUM LEVEL 143 MEQ/L (136-145); TOTAL PROTEIN 6.5 GM/DL (6.4-8.2)
[2018-08-19] MEDS ORDERED: ACETAMINOPHEN TAB 650MG DOSE (2X325MG) PO (05:45)
[2018-08-19] MEDS: NAPROXEN 250 MG TAB PO (06:08)
[2018-08-19 07:39] LABS: BEDSIDE GLUCOSE 145 MG/DL (70-105)
[2018-08-19] MEDS: THIAMINE 100 MG TAB PO ×2 (09:00→09:35)
[2018-08-19] MEDS: FOLIC ACID 1 MG TAB PO ×2 (09:00→09:35)
[2018-08-19] MEDS: HEPARIN SOD (PORCINE) 5000 UNITS/ML VIAL SQ (09:00)
[2018-08-19] MEDS: MULTIVITAMINS/MINERALS THERAP 1 TAB PO (09:35)
[2018-08-19] MEDS: PREGABALIN 75 MG CAP(LYRICA) PO ×2 (09:35→15:44)
[2018-08-19 10:06] LABS: CPK CREATINE PHOSPHOKINASE 132 U/L (26-192); MB/CK RELATIVE INDEX 0.76 (< OR =4); TROPONIN I < 0.02 NG/ML (< 0.10)
[2018-08-19] MEDS: OXcarbazepine 300 MG TAB PO (10:20)
[2018-08-19 15:12] LABS: CPK CREATINE PHOSPHOKINASE 135 U/L (26-192); MB/CK RELATIVE INDEX 0.74 (< OR =4); TROPONIN I < 0.02 NG/ML (< 0.10)
[2018-08-19] MEDS ORDERED: MELOXICAM (MOBIC) 7.5 MG TAB PO (21:00)
== END 2018-08-19 20:43 | DRG 917 ==
LOC: M ED INP 08-19 02:25 → M ICU 08-19 03:54 → M MSPAV 08-19 14:36 → M ED 21:27
DX: T42.4X1A Poisoning by benzodiazepines, accidental (unintentional), initial encounter (principal); G92 Toxic encephalopathy; F33.2 Major depressive disorder, recurrent severe without psychotic features; F11.20 Opioid dependence, uncomplicated; F41.1 Generalized anxiety disorder; F60.3 Borderline personality disorder; G89.29 Other chronic pain; G40.909 Epilepsy, unspecified, not intractable, without status epilepticus; Z88.8 Allergy status to other drugs, medicaments and biological substances; Z79.899 Other long term (current) drug therapy; Z79.1 Long term (current) use of non-steroidal anti-inflammatories (NSAID)

== ENCOUNTER 2018-08-19 20:50 | Inpatient (IN) | payer MEDICARE, MEDICAID ==
[~2018-08-19 20:50] MED LIST changes: -BUPIVACAINE HCL 0.25% 10 ML VIAL As Ordered; -BUPIVACAINE HCL 0.25% 30 ML VIAL As Ordered; +MAALOX 30 ML SUSP *UDC PO; +MOM 30ML SUSPENSION UDC PO; -TRIAMCINOLONE ACETONIDE SUSP 40 MG/ML VIAL (J3301) As Ordered; -diazePAM 5 MG TAB As Ordered; -diphenhydrAMINE 25 MG CAP As Ordered; -oxyCODONE 5MG TAB As Ordered
[2018-08-19] MEDS: OXcarbazepine 300 MG TAB PO (22:07)
[2018-08-19] MEDS: MELOXICAM (MOBIC) 7.5 MG TAB PO (22:08)
[2018-08-19] MEDS: PREGABALIN 75 MG CAP(LYRICA) PO (22:08)
[2018-08-19] MEDS: ACETAMINOPHEN TAB 650MG DOSE (2X325MG) PO (22:09)
[2018-08-20] MEDS: PREGABALIN 75 MG CAP(LYRICA) PO ×3 (09:00→21:42)
[2018-08-20] MEDS: MULTIVITAMINS/MINERALS THERAP 1 TAB PO (13:56)
[2018-08-20] MEDS: MELOXICAM (MOBIC) 7.5 MG TAB PO ×2 (13:56→21:42)
[2018-08-20] MEDS: DULoxetine 30 MG CAP (CYMBALTA) PO (13:56)
[2018-08-20] MEDS: OXcarbazepine 300 MG TAB PO ×2 (13:56→21:42)
[2018-08-20] MEDS: THIAMINE 100 MG TAB PO (13:57)
[2018-08-20] MEDS: traZODone 50 MG TAB PO (21:42)
[2018-08-21] MEDS: MULTIVITAMINS/MINERALS THERAP 1 TAB PO (09:00)
[2018-08-21] MEDS: THIAMINE 100 MG TAB PO (09:00)
[2018-08-21] MEDS: MELOXICAM (MOBIC) 7.5 MG TAB PO ×2 (09:38→21:05)
[2018-08-21] MEDS: DULoxetine 30 MG CAP (CYMBALTA) PO (09:38)
[2018-08-21] MEDS: OXcarbazepine 300 MG TAB PO ×2 (09:38→21:05)
[2018-08-21] MEDS: PREGABALIN 75 MG CAP(LYRICA) PO ×3 (09:39→21:04)
[2018-08-21] MEDS: COAL TAR 1% SHAMPOO 180 ML BTL TOP (14:05)
[2018-08-21] MEDS: IBUPROFEN 600 MG TAB PO ×2 (15:52→21:59)
[2018-08-21] MEDS: traZODone 100 MG TAB PO (21:04)
[2018-08-22] MEDS: MULTIVITAMINS/MINERALS THERAP 1 TAB PO (09:00)
[2018-08-22] MEDS: THIAMINE 100 MG TAB PO (09:00)
[2018-08-22] MEDS: DULoxetine 30 MG CAP (CYMBALTA) PO ×2 (09:27→21:42)
[2018-08-22] MEDS: MELOXICAM (MOBIC) 7.5 MG TAB PO ×2 (09:27→21:43)
[2018-08-22] MEDS: PREGABALIN 75 MG CAP(LYRICA) PO ×3 (09:27→21:42)
[2018-08-22] MEDS: OXcarbazepine 300 MG TAB PO ×2 (09:27→21:43)
[2018-08-22] MEDS: ACETAMINOPHEN TAB 650MG DOSE (2X325MG) PO ×2 (14:37→22:24)
[2018-08-22] MEDS: COAL TAR 1% SHAMPOO 180 ML BTL TOP (21:43)
[2018-08-22] MEDS: traZODone 50 MG TAB PO (22:22)
[2018-08-23] MEDS: MULTIVITAMINS/MINERALS THERAP 1 TAB PO (09:00)
[2018-08-23] MEDS ORDERED: DULoxetine 30 MG CAP (CYMBALTA) PO (09:00)
[2018-08-23] MEDS: THIAMINE 100 MG TAB PO (09:00)
[2018-08-23] MEDS: MELOXICAM (MOBIC) 7.5 MG TAB PO ×2 (09:13→21:20)
[2018-08-23] MEDS: PREGABALIN 75 MG CAP(LYRICA) PO ×3 (09:14→21:20)
[2018-08-23] MEDS: OXcarbazepine 300 MG TAB PO ×2 (09:14→21:20)
[2018-08-23] MEDS: DULoxetine 30 MG CAP (CYMBALTA) PO ×2 (09:14→21:20)
[2018-08-23] MEDS: ACETAMINOPHEN TAB 650MG DOSE (2X325MG) PO (17:13)
[2018-08-24] MEDS: traZODone 50 MG TAB PO ×2 (00:02→22:49)
[2018-08-24] MEDS: ACETAMINOPHEN TAB 650MG DOSE (2X325MG) PO ×4 (00:03→22:50)
[2018-08-24] MEDS: MULTIVITAMINS/MINERALS THERAP 1 TAB PO (09:00)
[2018-08-24] MEDS: THIAMINE 100 MG TAB PO (09:00)
[2018-08-24] MEDS: DULoxetine 30 MG CAP (CYMBALTA) PO ×2 (09:14→21:09)
[2018-08-24] MEDS: PREGABALIN 75 MG CAP(LYRICA) PO ×3 (09:15→21:09)
[2018-08-24] MEDS: OXcarbazepine 300 MG TAB PO ×2 (09:15→21:09)
[2018-08-24] MEDS: MELOXICAM (MOBIC) 7.5 MG TAB PO ×2 (09:15→21:09)
[2018-08-24] MEDS: CICLOPIROX TOP (21:08)
[2018-08-24] MEDS: JUNEL FE PO (21:08)
[2018-08-24] MEDS: KETOCONAZOLE 2% TOP (21:08)
[2018-08-25] MEDS: MULTIVITAMINS/MINERALS THERAP 1 TAB PO (08:13)
[2018-08-25] MEDS: THIAMINE 100 MG TAB PO (08:13)
[2018-08-25] MEDS: JUNEL FE PO (08:16)
[2018-08-25] MEDS: OXcarbazepine 300 MG TAB PO ×2 (08:16→20:56)
[2018-08-25] MEDS: PREGABALIN 75 MG CAP(LYRICA) PO ×3 (08:16→20:55)
[2018-08-25] MEDS: MELOXICAM (MOBIC) 7.5 MG TAB PO ×2 (08:16→20:56)
[2018-08-25] MEDS: DULoxetine 30 MG CAP (CYMBALTA) PO ×2 (08:16→20:56)
[2018-08-25] MEDS: ACETAMINOPHEN TAB 650MG DOSE (2X325MG) PO ×3 (08:26→22:15)
[2018-08-25] MEDS: KETOCONAZOLE 2% TOP (20:56)
[2018-08-25] MEDS: CICLOPIROX TOP (20:56)
[2018-08-25] MEDS: [UNRECOGNIZED DRUG - OTHER] TOP (20:57)
[2018-08-25] MEDS: traZODone 50 MG TAB PO (22:14)
[2018-08-26] MEDS: MULTIVITAMINS/MINERALS THERAP 1 TAB PO (09:00)
[2018-08-26] MEDS: THIAMINE 100 MG TAB PO (09:00)
[2018-08-26] MEDS: DULoxetine 30 MG CAP (CYMBALTA) PO (09:39)
[2018-08-26] MEDS: OXcarbazepine 300 MG TAB PO (09:39)
[2018-08-26] MEDS: JUNEL FE PO (09:39)
[2018-08-26] MEDS: MELOXICAM (MOBIC) 7.5 MG TAB PO (09:39)
[2018-08-26] MEDS: PREGABALIN 75 MG CAP(LYRICA) PO (09:39)
== END 2018-08-26 12:00 | disposition home or self-care (01) | DRG 885 ==
LOC: M PSY 20:50
DX: F33.1 Major depressive disorder, recurrent, moderate (principal); F40.01 Agoraphobia with panic disorder; F41.1 Generalized anxiety disorder; F60.3 Borderline personality disorder; F11.10 Opioid abuse, uncomplicated; M79.7 Fibromyalgia; G89.29 Other chronic pain; L40.9 Psoriasis, unspecified; G47.00 Insomnia, unspecified; G40.909 Epilepsy, unspecified, not intractable, without status epilepticus; Z91.5 Personal history of self-harm; Z79.899 Other long term (current) drug therapy; Z88.8 Allergy status to other drugs, medicaments and biological substances

== ENCOUNTER 2018-09-02 18:05 | Observation (INO) | payer MEDICARE, MEDICAID ==
[2018-09-02] MEDS: NS 1,000 ML IV ×3 (18:20→22:37)
[2018-09-02 18:26] LABS: BASO % 0.2 % (0.0-1.0); EOS # 0.2 10^3/uL (0.0-0.50); EOS % 2.1 % (0.0-3.0); HEMATOCRIT 33.4 % (36.0-47.0); IMMATURE GRANULOCYTE % 0.3 % (0-3.0); LYMPH # 2.5 10^3/uL (1.5-4.5); LYMPH % 28.7 % (24.0-44.0); MEAN CORPUSCULAR HEMOGLOBIN 32.2 pg (27.0-33.0); MEAN CORPUSCULAR HGB CONC 32.9 g/dl (32.0-36.5); MEAN CORPUSCULAR VOLUME 97.7 fl (80.0-96.0); MONO # 0.5 10^3/uL (0.0-0.8); MONO % 5.2 % (0.0-5.0); NEUTROPHILS # 5.6 10^3/uL (1.8-7.7); NEUTROPHILS % 63.5 % (36.0-66.0); PLATELET COUNT, AUTOMATED 203 10^3/uL (150-450); RED BLOOD COUNT 3.42 10^6/uL (4.00-5.40); WHITE BLOOD COUNT 8.8 10^3/uL (4.0-10.0)
[2018-09-02 18:36] LABS: BEDSIDE GLUCOSE 85 MG/DL (70-105)
[2018-09-02 18:37] LABS: ABG BASE EXCESS -2.8 (-2.0-2.0); ABG O2 SATURATION 98.2 % (95.0-99.0); ABG PARTIAL PRESSURE CO2 32.9 mmHg (35.0-45.0); ABG STANDARD HCO3 22.2 MEQ/L (22.0-26.0); ABG pH (ARTERIAL) 7.422 UNITS (7.350-7.450)
[2018-09-02 18:51] LABS: CONTROL LINE HCG INT CTR LINE PRESENT; HCG, SERUM QUALITATIVE NEGATIVE (NEGATIVE)
[2018-09-02 19:47] LABS: BLOOD UREA NITROGEN 16 MG/DL (7-18); CREATININE FOR GFR 0.61 MG/DL (0.55-1.30); GLOMERULAR FILTRATION RATE > 60.0 (>58); GLUCOSE, FASTING 90 MG/DL (70-100); POTASSIUM SERUM 4.4 MEQ/L (3.5-5.1); SODIUM LEVEL 143 MEQ/L (136-145)
[2018-09-02 19:48] LABS: ALKALINE PHOSPHATASE 45 U/L (45-117); ALT/SGPT 21 U/L (12-78); AST/SGOT 12 U/L (7-37); BILIRUBIN,DIRECT < 0.1 MG/DL (0.0-0.2); BILIRUBIN,TOTAL 0.1 MG/DL (0.2-1.0); CALCIUM LEVEL 8.7 MG/DL (8.5-10.1); CARBON DIOXIDE LEVEL 27 MEQ/L (21-32); CHLORIDE LEVEL 110 MEQ/L (98-107)
[2018-09-02 19:49] LABS: ALBUMIN 3.4 GM/DL (3.2-5.2); ALBUMIN/GLOBULIN RATIO 1.31 (1.00-1.93); ANION GAP 6 MEQ/L (8-16)
[2018-09-02 19:59] LABS: AMPHETAMINES LEVEL URINE NEGATIVE (NEGATIVE); BARBITURATES URINE NEGATIVE (NEGATIVE); BENZODIAZEPINES URINE POSITIVE (NEGATIVE); CANNABINOIDS URINE NEGATIVE (NEGATIVE); COCAINE METABOLITE URINE NEGATIVE (NEGATIVE); METHADONE URINE NEGATIVE (NEGATIVE); OPIATES URINE NEGATIVE (NEGATIVE); PHENCYCLIDINE URINE NEGATIVE (NEGATIVE)
[2018-09-02] MEDS ORDERED: NALOXONE INJ 0.4 MG/1 ML VIAL (J2310) IV (20:09)
[2018-09-02 20:15] LABS: ACETAMINOPHEN LEVEL < 2.0 UG/ML (10.0-30.0); CPK CREATINE PHOSPHOKINASE 34 U/L (26-192); ETHYL ALCOHOL (ETHANOL) < 0.003 % (0.000-0.010); SALICYLATE LEVEL < 1.7 MG/DL (5.0-30.0); THYROID STIMULATING HORMONE 0.383 uIU/ML (0.358-3.740)
[2018-09-02 21:06] LABS: LACTIC ACID SEPSIS PROTOCOL 2.7 MMOL/L (0.4-2.0)
[2018-09-02] MEDS: NS IV (21:15)
[2018-09-02] MEDS: DILUENT IV (21:15)
[2018-09-02] MEDS: CEFEPIME HCL 2 GM in D5W MINI-BAG PLUS 50 ML IV (21:29)
[2018-09-02 21:32] LABS: AMORPHOUS SEDIMENT RFX SMALL (NEGATIVE); CALCIUM OXALATE CRYSTALS RFX SMALL; KETONE, URINE AUTO RFX NEGATIVE (NEGATIVE); LEUKOCYTE ESTERASE UR AUTO RFX NEGATIVE (NEGATIVE); MUCUS, URINE RFX SMALL (NEGATIVE); NITRITE, URINE AUTO RFX NEGATIVE (NEGATIVE); RBC, URINE AUTO RFX 1 /HPF (0-3); SPECIFIC GRAVITY UR AUTO RFX 1.027 (1.002-1.035); SQUAM EPITHELIAL CELL UR AURFX 2 /HPF (0-6); WBC, URINE AUTO RFX 1 /HPF (0-3)
[2018-09-02 22:09] LABS: C REACTIVE PROTEIN QUANTITATIV < 0.30 MG/DL (0.00-0.30)
[2018-09-02 22:09] LABS: AMYLASE 56 U/L (25-115)
[2018-09-02 23:32] LABS: INR 0.97
[2018-09-02 23:33] LABS: PARTIAL THROMBOPLASTIN TIME 26.8 SECONDS (25.4-37.6)
[2018-09-03 07:34] LABS: HEMATOCRIT 31.4 % (36.0-47.0); HEMOGLOBIN 10.4 g/dl (12.0-15.5); MEAN CORPUSCULAR HEMOGLOBIN 31.8 pg (27.0-33.0); MEAN CORPUSCULAR HGB CONC 33.1 g/dl (32.0-36.5); PLATELET COUNT, AUTOMATED 183 10^3/uL (150-450); RED BLOOD COUNT 3.27 10^6/uL (4.00-5.40); RED CELL DISTRIBUTION WIDTH 12.9 % (11.5-14.5)
[2018-09-03 08:07] LABS: ANION GAP 7 MEQ/L (8-16); BLOOD UREA NITROGEN 8 MG/DL (7-18); CARBON DIOXIDE LEVEL 23 MEQ/L (21-32); CHLORIDE LEVEL 114 MEQ/L (98-107); CREATININE FOR GFR 0.49 MG/DL (0.55-1.30); GLOMERULAR FILTRATION RATE > 60.0 (>58); GLUCOSE, FASTING 83 MG/DL (70-100); POTASSIUM SERUM 4.2 MEQ/L (3.5-5.1); SODIUM LEVEL 144 MEQ/L (136-145)
[2018-09-03] MEDS: ACETAMINOPHEN TAB 650MG DOSE (2X325MG) PO (18:52)
[2018-09-04] MEDS: ACETAMINOPHEN TAB 650MG DOSE (2X325MG) PO ×2 (03:03→07:56)
[2018-09-04] MEDS: INFLUENZA QUADRIVALENT PF VACCINE 0.5ML SYRINGE (90686) IM (09:00)
[2018-09-04] MEDS: traZODone 50 MG TAB PO (20:47)
[2018-09-04] MEDS: DULoxetine 30 MG CAP (CYMBALTA) PO (20:47)
[2018-09-04] MEDS: hydrOXYzine 50 MG TAB PO (20:48)
[2018-09-04] MEDS: MELOXICAM (MOBIC) 7.5 MG TAB PO (20:48)
[2018-09-04] MEDS: OXcarbazepine 150 MG TAB PO (20:48)
[2018-09-04] MEDS ORDERED: PREGABALIN 75 MG CAP(LYRICA) PO (21:00)
[2018-09-04] MEDS ORDERED: CARISOPRODOL 350 MG TAB PO (21:00)
[2018-09-04] MEDS: IBUPROFEN 800 MG TAB PO (23:21)
[2018-09-05] MEDS: DULoxetine 30 MG CAP (CYMBALTA) PO (08:28)
[2018-09-05] MEDS: hydrOXYzine 50 MG TAB PO (08:28)
[2018-09-05] MEDS: OXcarbazepine 150 MG TAB PO (08:28)
[2018-09-05] MEDS: MELOXICAM (MOBIC) 7.5 MG TAB PO (08:28)
== END 2018-09-05 14:39 | disposition other institution (70) ==
LOC: M MS5PR 09-03 16:30 → M ED 18:05 → M ED INP 22:37
DX: T42.4X2A Poisoning by benzodiazepines, intentional self-harm, initial encounter (principal); F41.9 Anxiety disorder, unspecified; F32.9 Major depressive disorder, single episode, unspecified; T14.91XA Suicide attempt, initial encounter; R45.851 Suicidal ideations; Z79.899 Other long term (current) drug therapy; Z88.8 Allergy status to other drugs, medicaments and biological substances
CPT/HCPCS: J0692

== ENCOUNTER 2018-09-05 14:44 | Inpatient (IN) | payer MEDICARE, MEDICAID ==
[2018-09-05] MEDS: ACETAMINOPHEN TAB 650MG DOSE (2X325MG) PO (17:56)
[2018-09-05] MEDS ORDERED: MAALOX 30 ML SUSP *UDC PO (18:00)
[2018-09-05] MEDS ORDERED: MOM 30ML SUSPENSION UDC PO (18:00)
[2018-09-05] MEDS: DULoxetine 30 MG CAP (CYMBALTA) PO ×4 (21:00→22:46)
[2018-09-05] MEDS: hydrOXYzine 50 MG TAB PO (22:17)
[2018-09-05] MEDS: OXcarbazepine 150 MG TAB PO (22:17)
[2018-09-05] MEDS: MELOXICAM (MOBIC) 7.5 MG TAB PO (22:18)
[2018-09-05] MEDS: IBUPROFEN 800 MG TAB PO (22:45)
[2018-09-06] MEDS: hydrOXYzine 50 MG TAB PO ×3 (09:16→21:31)
[2018-09-06] MEDS: MELOXICAM (MOBIC) 7.5 MG TAB PO ×2 (09:16→21:31)
[2018-09-06] MEDS: OXcarbazepine 150 MG TAB PO ×2 (09:16→21:31)
[2018-09-06] MEDS: IBUPROFEN 800 MG TAB PO (15:13)
[2018-09-06] MEDS: traZODone 50 MG TAB PO (21:31)
[2018-09-06] MEDS: DULoxetine 30 MG CAP (CYMBALTA) PO ×2 (21:32)
[2018-09-07] MEDS: OXcarbazepine 150 MG TAB PO ×2 (09:03→21:03)
[2018-09-07] MEDS: MELOXICAM (MOBIC) 7.5 MG TAB PO ×2 (09:03→21:03)
[2018-09-07] MEDS: hydrOXYzine 50 MG TAB PO ×3 (09:03→21:03)
[2018-09-07] MEDS: INFLUENZA QUADRIVALENT PF VACCINE 0.5ML SYRINGE (90686) IM (09:04)
[2018-09-07] MEDS: IBUPROFEN 800 MG TAB PO ×2 (10:21→21:03)
[2018-09-07] MEDS: DULoxetine 30 MG CAP (CYMBALTA) PO ×2 (21:03→21:04)
[2018-09-07] MEDS: traZODone 50 MG TAB PO (21:05)
[2018-09-08] MEDS: OXcarbazepine 150 MG TAB PO ×2 (09:51→20:28)
[2018-09-08] MEDS: PILL CRUSHER/CUTTER 1 EACH XX (09:51)
[2018-09-08] MEDS: hydrOXYzine 50 MG TAB PO ×3 (09:51→20:27)
[2018-09-08] MEDS: MELOXICAM (MOBIC) 7.5 MG TAB PO ×2 (09:51→20:28)
[2018-09-08] MEDS: GABAPENTIN 100 MG CAP PO ×2 (15:38→20:28)
[2018-09-08] MEDS: DULoxetine 30 MG CAP (CYMBALTA) PO (20:28)
[2018-09-08] MEDS: traZODone 50 MG TAB PO (20:29)
[2018-09-08] MEDS: ACETAMINOPHEN TAB 650MG DOSE (2X325MG) PO (20:29)
[2018-09-08] MEDS ORDERED: DULoxetine 30 MG CAP (CYMBALTA) PO (21:00)
[2018-09-09] MEDS ORDERED: CICLOPIROX TOP (07:00)
[2018-09-09] MEDS: GABAPENTIN 100 MG CAP PO ×3 (09:28→21:05)
[2018-09-09] MEDS: DULoxetine 30 MG CAP (CYMBALTA) PO ×2 (09:29→21:05)
[2018-09-09] MEDS: OXcarbazepine 150 MG TAB PO ×2 (09:29→21:04)
[2018-09-09] MEDS: hydrOXYzine 50 MG TAB PO ×3 (09:29→21:05)
[2018-09-09] MEDS: MELOXICAM (MOBIC) 7.5 MG TAB PO ×2 (09:29→21:04)
[2018-09-09] MEDS: ACETAMINOPHEN TAB 650MG DOSE (2X325MG) PO (09:30)
[2018-09-09] MEDS: [UNRECOGNIZED DRUG - OTHER] TOP (22:42)
[2018-09-09] MEDS: KETOCONAZOLE SHAMPOO TOP (22:42)
[2018-09-10] MEDS: GABAPENTIN 100 MG CAP PO ×3 (08:08→21:12)
[2018-09-10] MEDS: MELOXICAM (MOBIC) 7.5 MG TAB PO ×2 (08:08→21:12)
[2018-09-10] MEDS: DULoxetine 30 MG CAP (CYMBALTA) PO ×2 (08:08→21:12)
[2018-09-10] MEDS: OXcarbazepine 150 MG TAB PO ×2 (08:09→21:12)
[2018-09-10] MEDS: ACETAMINOPHEN TAB 650MG DOSE (2X325MG) PO ×3 (08:09→21:12)
[2018-09-10] MEDS: hydrOXYzine 50 MG TAB PO ×3 (08:09→21:12)
[2018-09-10] MEDS: traZODone 50 MG TAB PO (21:12)
[2018-09-11] MEDS: MELOXICAM (MOBIC) 7.5 MG TAB PO (08:01)
[2018-09-11] MEDS: DULoxetine 30 MG CAP (CYMBALTA) PO ×2 (08:01→22:05)
[2018-09-11] MEDS: hydrOXYzine 50 MG TAB PO ×3 (08:01→22:03)
[2018-09-11] MEDS: OXcarbazepine 150 MG TAB PO ×2 (08:01→22:05)
[2018-09-11] MEDS: GABAPENTIN 100 MG CAP PO ×2 (08:01→15:07)
[2018-09-11] MEDS: ACETAMINOPHEN TAB 650MG DOSE (2X325MG) PO ×2 (08:02→15:07)
[2018-09-11] MEDS ORDERED: IBUPROFEN 800 MG TAB PO (16:30)
[2018-09-11] MEDS: IBUPROFEN 800 MG TAB PO (22:04)
[2018-09-11] MEDS: GABAPENTIN 300 MG CAP PO (22:05)
[2018-09-11] MEDS: traZODone 50 MG TAB PO (23:24)
[2018-09-12] MEDS: DULoxetine 30 MG CAP (CYMBALTA) PO ×2 (08:06→21:07)
[2018-09-12] MEDS: OXcarbazepine 150 MG TAB PO ×2 (08:06→21:07)
[2018-09-12] MEDS: hydrOXYzine 50 MG TAB PO (08:06)
[2018-09-12] MEDS: GABAPENTIN 300 MG CAP PO (08:06)
[2018-09-12] MEDS: IBUPROFEN 800 MG TAB PO ×2 (08:07→14:31)
[2018-09-12] MEDS: hydrOXYzine 25 MG TAB PO (15:24)
[2018-09-12] MEDS: GABAPENTIN 400 MG CAP PO ×2 (15:24→21:07)
[2018-09-12] MEDS: KETOCONAZOLE SHAMPOO TOP (21:09)
[2018-09-12] MEDS: [UNRECOGNIZED DRUG - OTHER] TOP (21:09)
[2018-09-13] MEDS: hydrOXYzine 25 MG TAB PO ×4 (00:06→23:52)
[2018-09-13] MEDS: traZODone 50 MG TAB PO ×2 (00:06→23:52)
[2018-09-13] MEDS: IBUPROFEN 800 MG TAB PO ×4 (00:07→23:54)
[2018-09-13] MEDS: DULoxetine 30 MG CAP (CYMBALTA) PO ×2 (09:33→23:53)
[2018-09-13] MEDS: GABAPENTIN 400 MG CAP PO ×3 (09:33→23:53)
[2018-09-13] MEDS: OXcarbazepine 150 MG TAB PO ×2 (09:33→23:53)
[2018-09-13] MEDS ORDERED: hydrOXYzine 25 MG TAB PO (12:00)
[2018-09-14] MEDS: DULoxetine 30 MG CAP (CYMBALTA) PO ×2 (08:57→21:16)
[2018-09-14] MEDS: hydrOXYzine 25 MG TAB PO ×2 (08:58→21:16)
[2018-09-14] MEDS: GABAPENTIN 400 MG CAP PO ×3 (08:58→21:16)
[2018-09-14] MEDS: IBUPROFEN 800 MG TAB PO ×2 (08:59→15:56)
[2018-09-14] MEDS: OXcarbazepine 150 MG TAB PO ×2 (08:59→21:15)
[2018-09-14] MEDS: [UNRECOGNIZED DRUG - OTHER] TOP (09:01)
[2018-09-14] MEDS: KETOCONAZOLE SHAMPOO TOP (09:01)
[2018-09-14] MEDS: traZODone 50 MG TAB PO (22:22)
[2018-09-15] MEDS: GABAPENTIN 400 MG CAP PO ×3 (08:03→20:46)
[2018-09-15] MEDS: OXcarbazepine 150 MG TAB PO ×2 (08:03→20:46)
[2018-09-15] MEDS: DULoxetine 30 MG CAP (CYMBALTA) PO ×2 (08:03→20:46)
[2018-09-15] MEDS: hydrOXYzine 25 MG TAB PO ×3 (08:04→21:48)
[2018-09-15] MEDS: IBUPROFEN 800 MG TAB PO ×3 (08:04→22:10)
[2018-09-15] MEDS: traZODone 50 MG TAB PO (21:48)
[2018-09-16] MEDS: IBUPROFEN 800 MG TAB PO ×2 (08:05→20:56)
[2018-09-16] MEDS: OXcarbazepine 150 MG TAB PO ×2 (08:05→20:54)
[2018-09-16] MEDS: hydrOXYzine 25 MG TAB PO ×2 (08:05→20:55)
[2018-09-16] MEDS: GABAPENTIN 400 MG CAP PO ×3 (08:05→20:55)
[2018-09-16] MEDS: DULoxetine 30 MG CAP (CYMBALTA) PO ×2 (08:05→20:55)
[2018-09-16] MEDS: traZODone 50 MG TAB PO (20:55)
[2018-09-17] MEDS: DULoxetine 30 MG CAP (CYMBALTA) PO (08:48)
[2018-09-17] MEDS: OXcarbazepine 150 MG TAB PO (08:48)
[2018-09-17] MEDS: IBUPROFEN 800 MG TAB PO (08:49)
[2018-09-17] MEDS: hydrOXYzine 25 MG TAB PO (08:49)
[2018-09-17] MEDS: GABAPENTIN 400 MG CAP PO (08:49)
== END 2018-09-17 11:55 | DRG 885 ==
LOC: M PSY 14:44
DX: F33.1 Major depressive disorder, recurrent, moderate (principal); F40.01 Agoraphobia with panic disorder; F60.3 Borderline personality disorder; F11.10 Opioid abuse, uncomplicated; F41.1 Generalized anxiety disorder; G40.909 Epilepsy, unspecified, not intractable, without status epilepticus; G89.29 Other chronic pain; Z88.8 Allergy status to other drugs, medicaments and biological substances; Z81.8 Family history of other mental and behavioral disorders; Z79.899 Other long term (current) drug therapy

== ENCOUNTER → 2018-11-13 | Outpatient (CLI) | payer MEDICARE, MEDICAID ==
[~2018-11-13] MED LIST changes: +/CELE20CA OR; +/DULO30CA OR; +ALLEGRA; +ALPR0.5T3 PO; +ALPR2TAB3 PO; +AMBI10TA OR; +AMBI12.52 PO; +AMBI5TAB PO; +ATARAX OR; +Acetaminophen Tab PO; +BCP PO; +BUPRPOW2; +BUTR20DI TD; +BUTR20DI TOP; +BUTRAN PO; +BUTRANS PATCH TOP; +CALC500T49; +CARB20TAXR PO; +CARI1TAB7 PO; +CELE50CA PO; +CHLOR5CA PO; +CLOB-25 TOP; +COLA100C2 OR; +COLA100C5 PO; +COLO500C PO; +CYPROHEPTADINE PO; +DHA; +DIFLUCAN; +DOCU10ELUD PO; +DULO1CAP2 PO; +DULO1CAP3 PO; +DULO30CA PO; +ELID1CRE11 TOP; +EVENING PRIMROSE; +EXCEDTAB PO; +EXCETAB80 PO; +FLEXERIL PO; +GABA-845 PO; +GABA300C2 PO; +GLUCPOW24 PO; +HYALCAP PO; +HYDR-3363 PO; +HYDR25TA8; +HYDR50TA8; +IBUP-1114 PO; +IBUP600T OR; +IBUP80TA PO; +IMIT5SPR; +IRON27TA2 PO; +JUNE1TAB PO; +KETO2SH TOP; +LAMO10TA PO; +LIDO5DIS; +LIDO5DIS EX; +LIDO5DIS TOP; +LOCO0.1C TOP; +LUNE2TAB23 PO; +LUTEIN; +LYRI150C; +LYRI150C PO; -MAALOX 30 ML SUSP *UDC PO; +MAG-LIQ PO; +MAGN400C2 PO; +MELO7.5T7 PO; +MICR1TAB16 PO; +MILK120011 PO; +MILK140C PO; -MOM 30ML SUSPENSION UDC PO; +MULTLIQ7 PO; +MYLASSUD PO; +NAPR500T OR; +NORT75CA2 PO; +OLAN5ZYD PO; +OMEP20CA3 PO; +OMEP20TA PO; +OXAZ10CA3 PO; +OXCA150T21 PO; +OXCA300T14 PO; +PHOS1TAB3 PO; +PREG25CA; +PROBCAP4 PO; +PROV90AE; +Patient Own Medication TD; +ROZE8TAB16 PO; +SINGULAR; +SOMA350T; +SOMA350T PO; +STROCRY11 PO; +SUBO4MIS PO; +SUBOXONE; +SUBOXONE PO; +SUMA6INJ16 PO; +SUMA6INJ16 SC; +Suboxone PO; +THERGRAN; +TOPI25TA2 PO; +TRAZ-160 PO; +TRAZ1TAB14 PO; +TRAZO50TA PO; +TUMERIC PO; +VIIBRYD PO; +VITA100054 PO; +VOLT1GEL EXT; +VYVA30CA4 PO; +XANA0.25 PO; +Z PACK PO; +ZANA4CAP OR; +ZANA4CAP PO; +[UNRECOGNIZED DRUG - CODE] PO; +[UNRECOGNIZED DRUG - OTHER]; +[UNRECOGNIZED DRUG - OTHER] PO
--- NOTE | 2018-12-03 00:33 | ECWPNPC ---
PATIENT NAME: ASHWINI YOUNGBLOOD : 1975 GENDER: FEMALE VISIT DATE: 11/13/2018 DISCHARGE DATE: 11/13/18 1411 VISIT LOCKED DATE TIME: PHYSICIAN: MOOK MACKEY RESOURCE: MOOK MACKEY REASON FOR APPOINTMENT 1. SW PATIENT,NOT BE LOOKING TO USE ANY PHARMACOLOGICAL AGENTS BACK PAIN HISTORY OF PRESENT ILLNESS HISTORY OF PRESENT ILLNESS: HERE FOR F/U OF CHRONIC NECK AND HEAD PAIN.ALSO SUFFERS FROM CHRONIC LOW BACK AND RIGHT LEG PAIN.HISTORY OF MIGRAINE HEADACHE AND WAS RESPONDING WELL TO BOTOX INJECTIONS IN PAST BUT HAD TO STOP DUE TO MISSING AN APPOINTMENT.HAS TRIALED MULTIPLE MEDICATIONS TO INCLUDE TRYPTAN CLASS,ANTIDEPRESSANTS,ABORTIVES AND PAIN MEDICATION WITHOUT IMPROVEMENT OR WITH SIDE EFFECTS.TRYPTANS CAUSE INCREASE IN HEADACHES OTHERS ARE INEFFECTIVE.REPORTS >14 HEADACHE DAYS PER MONTH WITH HEADACHES LASTING >4HRS.RATING HEADACHE PAIN 6/10 VAS. PAIN THE PATIENT DESCRIBES THE PAIN... FALL RISK SCREENING: SCREENING :NO FALLS IN THE PAST YEAR CURRENT MEDICATIONS TAKING IBUPROFEN 200 MG TABLET 1 TABLET WITH FOOD OR MILK NEEDED ORALLY THREE TIMES A DAY TAKING LIDODERM 5 % PATCH 1 PATCH TO INTACT SKIN REMOVE AFTER 12 HOURS EXTERNALLY DIRECTED TAKING LYRICA 150 MG CAPSULE 1 CAPSULE ORALLY THREE TIMES A DAY TAKING SOMA 350 MG 30 350 MG TQBLET ONE TABLET ORALLY EVERY 8 HOURS NEEDED FOR PAIN TAKING DULOXETINE HCL 60 MG CAPSULE DELAYED RELEASE PARTICLES 1 TAB ORALLY BID TAKING GABAPENTIN 800 MG TABLET 1 TAB ORALLY TID NOT-TAKING BUTRANS 20 MCG/HR PATCH WEEKLY 1 PATCH TO SKIN TRANSDERMAL EVERY 7 DAYS NOT-TAKING COLACE 100 MG CAPSULE 1 CAPSULE NEEDED ORALLY TID NOT-TAKING XANAX 1 MG TABLET 1 TABLET ORALLY QID NOT-TAKING AMBIEN CR 12.5 MG TABLET EXTENDED RELEASE 1 TABLET AT BEDTIME NEEDED ORALLY PRN NOT-TAKING CELEBREX 100 MG CAPSULE 1 CAPSULE ORALLY TWICE A DAY NOT-TAKING FLEXERIL 10 MG TABLET 1 TABLET ORALLY BID PRN NOT-TAKING SUBOXONE 8.5MG TABLET SUBLINGUAL 1 TABLET UNDER THE TONGUE AND ALLOW TO DISSOLVE SUBLINGUAL TID NOT-TAKING TOPAMAX 100 MG TABLET 1 TABLET ORALLY BID NOT-TAKING VIIBRYD 40 MG TABLET 1 TAB WITH FOOD PO ONCE DAILY NOT-TAKING PROBIOTIC CAPSULE DIRECTED ORALLY NOT-TAKING VALIUM 10 MG TABLET 1 TABLET NEEDED ORALLY 1 HOUR PRIOR MRI NOT-TAKING OXYCODONE HCL 5 MG TABLET 1 TABLET NEEDED ORALLY 1 HOUR PRIOR MRI MEDICATION LIST REVIEWED AND RECONCILED WITH THE PATIENT PAST MEDICAL HISTORY CHRONIC MIGRAINE HEADACHES CHRONIC LOW BACK PAIN NEUROPATHY DRUG ABUSE- 2006 INSOMNIA DEPRESSION ASTHMA SEIZURES CHRONIC NECK PAIN FIBROMYALGIA TRISTIN- DANLOS SYNDROME ALLERGIES CELEXA: HIVES: ALLERGY WELLBUTRIN: SEIZURES: ALLERGY SEASONAL ALLERGIES: RUNNY NOSE, ITCHY EYES, ASTHMA LAMICTAL: NEUROLOGICAL DISRUPTION: ALLERGY SURGICAL HISTORY BACK SURGERY 03/2007 TONSILLECTOMY 1989 ADENOIDECTOMY- TUBES PLACED 1981 BILAT BREAST REDUCTION SOCIAL HISTORY GENERAL: TOBACCO USE ARE YOU A:: NEVER SMOKER . RECREATIONAL DRUG USE DENIES- CURRENT. HAD PAST DRUG ADDICTION IN 2006. CAFFEINE NONE. UATSDIN [id number] OTHER LANGUAGE LANGUAGES SPOKEN:ALGERIAN EDUCATION LEVEL OF EDUCATION:PROFESSIONAL SCHOOLS/MASTERS/PHD LEARNING BARRIERS / SPECIAL NEEDS BARRIERS TO LEARNING?NO HEARING IMPAIRED?NO VISION IMPAIRED?YES :CORRECTIVE LENSES COGNITIVELY IMPAIRED?NO READINESS TO LEARN?YES LEARNING PREFERENCES?NO EMOTIONAL BARRIERS?NO SPECIAL DEVICES?YES :CANE OCCUPATION: UNEMPLOYED. EXERCISE: NONE. MARITAL STATUS: SINGLE X1 CHILD. PAIN CLINIC PFS, CLERGY, PUBLIC HEALTH REFERRALS HAS THE PATIENT BEEN EDUCATED REGARDING HIS/HER PLAN OF CARE?YES HAS THE PATIENT BEEN EDUCATED REGARDING PAIN, THE RISK FOR PAIN, THE IMPORTANCE OF EFFECTIVE PAIN MANAGEMENT, AND THE PAIN ASSESSMENT PROCESS?YES ADVANCE DIRECTIVE ADVANCE DIRECTIVE DISCUSSED WITH PATIENT:YES DECLINED REVIEWED WITH PT 07/01/18 1505 LASREVIEWED WITH PATIENT 08/12/18 1421 JS. HOSPITALIZATION/MAJOR DIAGNOSTIC PROCEDURE SURGERY RELATED SEIZURES 2003 DETOX 03/2007 FALL/LOW BP 07/2018 IMHU 07/2018 SEIZURE 07/2018 REVIEW OF SYSTEMS REVIEWED BY: PROVIDER: MOOK CRISTINA . CONSTITUTIONAL: ANY CHANGE IN YOUR MEDICAL CONDITION? NO . CHILLS NO . FEVER NO . INFECTION: DO YOU HAVE NEW INFECTIONS? NO . DO YOU HAVE HISTORY OF MRSA? NO . MUSCULOSKELETAL: ANY NEW PATTERNS OF PAIN OR NUMBNESS? NO . GASTROENTEROLOGY: ANY NEW CHANGE IN BOWEL CONTROL? NO . GENITOURINARY: ANY NEW CHANGE IN BLADDER CONTROL? NO . IS THERE A CHANCE YOU COULD BE ? NO . HEMATOLOGY/LYMPH: DO YOU TAKE ANY BLOOD THINNERS? (FOR EXAMPLE- COUMADIN, PLAVIX, AGGRENOX, PLATEL, PRADAXA, OR XARELTO) NO . WHEN WAS YOUR LAST DOSE? DATE: TIME: . NEUROLOGY: HAVE YOU FALLEN IN THE PAST 6 MONTHS? YES, FELL 09/2018 FROM WEAKNESS, DENIES INJURIES . ANY NEW EXTREMITY NUMBNESS OR WEAKNESS? NO . CARDIOLOGY: DO YOU HAVE A PACEMAKER OR DEFIBRILLATOR? NO . RESPIRATORY: HAVE YOU BEEN SICK IN THE PAST WEEK? YES . FEVER NO . FLU LIKE SYMPTOMS? NO . COUGH YES, PRODUCTIVE GREEN MUCOUS . INTEGUMENTARY: DO YOU HAVE ANY RASHES OR OPEN SORES? NO . ALLERGIC/IMMUNO: ARE YOU ALLERGIC TO SHELLFISH OR IV DYE? NO . ANY NEW ALLERGIES? NO . PSYCHIATRIC: DO YOU HAVE THOUGHTS OF HURTING YOURSELF OR SOMEONE ELSE? NO . ARE YOU ABUSED, NEGLECTED, OR IN AN UNSAFE ENVIRONMENT? NO . ENDOCRINOLOGY: ARE YOU DIABETIC? NO . OTHER: DO YOU NEED ANY PRESCRIPTIONS? NO . IF YES, PLEASE LIST: ____ . ANY NEW PROBLEMS WITH YOUR MEDICATIONS? NO . WHEN DID YOU LAST EAT? ____ . WHEN DID YOU LAST DRINK? ____ . WHAT DID YOU LAST DRINK? ____ . NAME OF PERSON DRIVING YOU HOME? ____ . DO YOU HAVE ANY OTHER QUESTIONS OR CONCERNS NO . VITAL SIGNS WT 165.2 LBS, HT 5'3" 1/, BMI 29.26 INDEX, BP 134/79 MM HG, HR 113 /MIN, RR 16 /MIN, TEMP 97.9 F, OXYGEN SAT % 97%, NA INITIALS SC 13:04. EXAMINATION GENERAL EXAMINATION: GENERAL APPEARANCE:ALERT.ORIENTED . PSYCHAFFECT NORMAL . HEENT:ATRAUMATIC, WITHIN NORMAL LIMITS . NECK:TRACHEA MIDLINE. NO CERVICAL OR SUPRACLAVICULAR LYMPHADENOPATHY NOTED . LUNGS:LUNG TALLEY ARE CLEAR TO AUSCULTATION BILATERALLY. GOOD MOVEMENT OF AIR . HEART:S1, S2 IN A REGULAR RATE AND RHYTHM. NO SIGNIFICANT MURMURS, RUBS OR GALLOPS NOTED . ABDOMEN:SOFT, NON-TENDER/NON-DISTENDED, BOWEL SOUNDS PRESENT . NEUROLOGIC EXAM:CN'S II-XII GROSSLY INTACT . ASSESSMENTS CHRONIC MIGRAINE WITHOUT AURA WITHOUT STATUS MIGRAINOSUS, NOT INTRACTABLE - G43.709 (PRIMARY) TREATMENT CHRONIC MIGRAINE WITHOUT AURA WITHOUT STATUS MIGRAINOSUS, NOT INTRACTABLE NOTES: BOTOX. PROCEDURE CODES FA211 ESTABILISHED PATIENT [facility] FACILITY CHARGE DISPOSITION & COMMUNICATION FOLLOW UP 3 MONTHS (REASON: BOTOX) ELECTRONICALLY SIGNED BY IBETH TRUONG ON 12/02/2018 AT 04:22 PM EST DISCLAIMER : THIS IS A VISIT SUMMARY EXTRACTED FROM THE [employer] CHART. IT IS NOT A COPY OF THE [employer] PROGRESS NOTE. ANTOINE
== END ==
LOC: M PAIN 13:00
PROVIDERS: ATTEND Nurse Practitioner Family
DX: G43.709 Chronic migraine without aura, not intractable, without status migrainosus (principal); G62.9 Polyneuropathy, unspecified; J45.909 Unspecified asthma, uncomplicated; R56.9 Unspecified convulsions; M79.7 Fibromyalgia; F32.9 Major depressive disorder, single episode, unspecified; Q79.6 Ehlers-Danlos syndromes; Z79.899 Other long term (current) drug therapy; Z88.8 Allergy status to other drugs, medicaments and biological substances; Z86.59 Personal history of other mental and behavioral disorders

== ENCOUNTER → 2018-12-10 | Outpatient (CLI) | payer MEDICARE, MEDICAID ==
[~2018-12-10] MED LIST changes: +BOTULINUM INJ 100 UNITS (J0585) IM ONE
--- NOTE | 2018-12-27 23:53 | ECWPNPC ---
PATIENT NAME: ASHWINI YOUNGBLOOD : 1975 GENDER: FEMALE VISIT DATE: 12/10/2018 DISCHARGE DATE: 12/10/18 1521 VISIT LOCKED DATE TIME: PHYSICIAN: CAROL BERRIOS MD RESOURCE: CAROL BERRIOS MD REASON FOR APPOINTMENT 1. BOTOX HISTORY OF PRESENT ILLNESS HISTORY OF PRESENT ILLNESS: PAIN THE PATIENT DESCRIBES THE PAIN... FALL RISK SCREENING: SCREENING :NO FALLS IN THE PAST YEAR CURRENT MEDICATIONS TAKING IBUPROFEN 200 MG TABLET 1 TABLET WITH FOOD OR MILK NEEDED ORALLY THREE TIMES A DAY, NOTES: 12/10/18929 TAKING LIDODERM 5 % PATCH 1 PATCH TO INTACT SKIN REMOVE AFTER 12 HOURS EXTERNALLY DIRECTED, NOTES: NONE LATELY TAKING LYRICA 150 MG CAPSULE 1 CAPSULE ORALLY THREE TIMES A DAY, NOTES: 12/10/18929 TAKING SOMA 350 MG 30 350 MG TQBLET ONE TABLET ORALLY EVERY 8 HOURS NEEDED FOR PAIN, NOTES: 12/10/18929 TAKING DULOXETINE HCL 60 MG CAPSULE DELAYED RELEASE PARTICLES 1 TAB ORALLY BID, NOTES: 12/10/18929 TAKING GABAPENTIN 800 MG TABLET 1 TAB ORALLY TID, NOTES: NONE LATELY TAKING LIDOCAINE 4 % CREAM SMALL AMOUNT EXTERNALLY DIRECTED, NOTES: 12/10/18 1130 NOT-TAKING BUTRANS 20 MCG/HR PATCH WEEKLY 1 PATCH TO SKIN TRANSDERMAL EVERY 7 DAYS NOT-TAKING COLACE 100 MG CAPSULE 1 CAPSULE NEEDED ORALLY TID NOT-TAKING XANAX 1 MG TABLET 1 TABLET ORALLY QID NOT-TAKING AMBIEN CR 12.5 MG TABLET EXTENDED RELEASE 1 TABLET AT BEDTIME NEEDED ORALLY PRN NOT-TAKING CELEBREX 100 MG CAPSULE 1 CAPSULE ORALLY TWICE A DAY NOT-TAKING FLEXERIL 10 MG TABLET 1 TABLET ORALLY BID PRN NOT-TAKING SUBOXONE 8.5MG TABLET SUBLINGUAL 1 TABLET UNDER THE TONGUE AND ALLOW TO DISSOLVE SUBLINGUAL TID NOT-TAKING TOPAMAX 100 MG TABLET 1 TABLET ORALLY BID NOT-TAKING VIIBRYD 40 MG TABLET 1 TAB WITH FOOD PO ONCE DAILY NOT-TAKING PROBIOTIC CAPSULE DIRECTED ORALLY NOT-TAKING VALIUM 10 MG TABLET 1 TABLET NEEDED ORALLY 1 HOUR PRIOR MRI NOT-TAKING OXYCODONE HCL 5 MG TABLET 1 TABLET NEEDED ORALLY 1 HOUR PRIOR MRI MEDICATION LIST REVIEWED AND RECONCILED WITH THE PATIENT PAST MEDICAL HISTORY CHRONIC MIGRAINE HEADACHES CHRONIC LOW BACK PAIN NEUROPATHY DRUG ABUSE- 2007 INSOMNIA DEPRESSION ASTHMA SEIZURES CHRONIC NECK PAIN FIBROMYALGIA TRISTIN- DANLOS SYNDROME ALLERGIES CELEXA: HIVES: ALLERGY WELLBUTRIN: SEIZURES: ALLERGY SEASONAL ALLERGIES: RUNNY NOSE, ITCHY EYES, ASTHMA LAMICTAL: NEUROLOGICAL DISRUPTION: ALLERGY SURGICAL HISTORY BACK SURGERY 03/2007 TONSILLECTOMY 1989 ADENOIDECTOMY- TUBES PLACED 1981 BILAT BREAST REDUCTION FAMILY HISTORY FATHER: ALIVE 61 YRS, DIAGNOSED WITH HYPERTENSION MOTHER: ALIVE 62 YRS, HTN, DIAGNOSED WITH DIABETES, HYPERTENSION, PSYCHIATRIC CONDITIONS, SUBSTANCE ABUSE MATERNAL GRAND MOTHER: DIABETES MATERNAL AUNT: CERVICAL CANCER 1 SISTER(S) . 1 SON(S) . NO FAMILY HX OF BLADDER OR KIDNEY DANIELLE HAS TRISTIN-DANLOS SYNDROME. SOCIAL HISTORY GENERAL: TOBACCO USE ARE YOU A:: NEVER SMOKER . RECREATIONAL DRUG USE DENIES- CURRENT. HAD PAST DRUG ADDICTION IN 2006. CAFFEINE NONE. ZOROASTRIANISM [id number] OTHER LANGUAGE LANGUAGES SPOKEN:CROATIAN EDUCATION LEVEL OF EDUCATION:PROFESSIONAL SCHOOLS/MASTERS/PHD LEARNING BARRIERS / SPECIAL NEEDS BARRIERS TO LEARNING?NO HEARING IMPAIRED?NO VISION IMPAIRED?YES :CORRECTIVE LENSES COGNITIVELY IMPAIRED?NO READINESS TO LEARN?YES LEARNING PREFERENCES?NO EMOTIONAL BARRIERS?NO SPECIAL DEVICES?YES :CANE OCCUPATION: UNEMPLOYED. EXERCISE: NONE. MARITAL STATUS: SINGLE X1 CHILD. PAIN CLINIC PFS, CLERGY, PUBLIC HEALTH REFERRALS HAS THE PATIENT BEEN EDUCATED REGARDING HIS/HER PLAN OF CARE?YES HAS THE PATIENT BEEN EDUCATED REGARDING PAIN, THE RISK FOR PAIN, THE IMPORTANCE OF EFFECTIVE PAIN MANAGEMENT, AND THE PAIN ASSESSMENT PROCESS?YES ADVANCE DIRECTIVE ADVANCE DIRECTIVE DISCUSSED WITH PATIENT:YES DECLINED REVIEWED WITH PT 07/01/18 1505 LASREVIEWED WITH PATIENT 08/12/18 1429 JS. HOSPITALIZATION/MAJOR DIAGNOSTIC PROCEDURE SURGERY RELATED SEIZURES 2003 DETOX 03/2007 FALL/LOW BP 07/2018 IMHU 07/2018 SEIZURE 07/2018 REVIEW OF SYSTEMS REVIEWED BY: PROVIDER: . CONSTITUTIONAL: ANY CHANGE IN YOUR MEDICAL CONDITION? NO . CHILLS NO . FEVER NO . INFECTION: DO YOU HAVE NEW INFECTIONS? NO . DO YOU HAVE HISTORY OF MRSA? NO . MUSCULOSKELETAL: ANY NEW PATTERNS OF PAIN OR NUMBNESS? NO . GASTROENTEROLOGY: ANY NEW CHANGE IN BOWEL CONTROL? NO . GENITOURINARY: ANY NEW CHANGE IN BLADDER CONTROL? NO . IS THERE A CHANCE YOU COULD BE ? NO . HEMATOLOGY/LYMPH: DO YOU TAKE ANY BLOOD THINNERS? (FOR EXAMPLE- COUMADIN, PLAVIX, AGGRENOX, PLATEL, PRADAXA, OR XARELTO) NO . WHEN WAS YOUR LAST DOSE? DATE: TIME: . NEUROLOGY: HAVE YOU FALLEN IN THE PAST 12 MONTHS? YES, PT STATES SHE FELL 11/2018 FROM PAIN, WEAKNESS, LOSS OF BALANCE. PT DENIES INJURIES REQUIRING MEDICAL [place] . ANY NEW EXTREMITY NUMBNESS OR WEAKNESS? NO . CARDIOLOGY: DO YOU HAVE A PACEMAKER OR DEFIBRILLATOR? NO . RESPIRATORY: HAVE YOU BEEN SICK IN THE PAST WEEK? NO . FEVER NO . FLU LIKE SYMPTOMS? NO . COUGH NO . INTEGUMENTARY: DO YOU HAVE ANY RASHES OR OPEN SORES? NO . ALLERGIC/IMMUNO: ARE YOU ALLERGIC TO IV DYE? NO . ANY NEW ALLERGIES? NO . PSYCHIATRIC: DO YOU HAVE THOUGHTS OF HURTING YOURSELF OR SOMEONE ELSE? NO . ARE YOU ABUSED, NEGLECTED, OR IN AN UNSAFE ENVIRONMENT? NO . ENDOCRINOLOGY: ARE YOU DIABETIC? NO . OTHER: DO YOU NEED ANY PRESCRIPTIONS? NO . IF YES, PLEASE LIST: ____ . ANY NEW PROBLEMS WITH YOUR MEDICATIONS? NO . WHEN DID YOU LAST EAT? 12-10-18 1130 . WHEN DID YOU LAST DRINK? 12-10-18 1150 . WHAT DID YOU LAST DRINK? DIET PEPSI . NAME OF PERSON DRIVING YOU HOME? ZAK DOTSON . DO YOU HAVE ANY OTHER QUESTIONS OR CONCERNS NO . VITAL SIGNS WT 160.6 LBS, HT 5'3" 1/2, BMI 28.45 INDEX, BP 119/68 MM HG, HR 94 /MIN, RR 16 /MIN, TEMP 98.3 F, OXYGEN SAT % 97%, NA INITIALS SC 11:42, REVIEWED BY: LS. ASSESSMENTS CHRONIC MIGRAINE - G43.709 (PRIMARY) PROCEDURES PN BOTOX INJECTIONS FIRST INJECTION PRE PROCEDURE DIAGNOSIS CHRONIC MIGRAINE HEADACHES. POST PROCEDURE DIAGNOSIS CHRONIC MIGRAINE HEADACHES. PROCEDURE BOTOX INJECTION AT THE HEAD, NECK AND SHOULDERS SURGEON DR. CAROL BERRIOS PARALEGAL INSTRUCTOR NONE ANESTHESIA NONE PRE PROCEDURE NOTE THE PATIENT WITH HISTORY OF CHRONIC MIGRAINE HEADACHES. I EVALUATE THE PATIENT AND REVIEWED THE CHART. I WENT OVER THE RISKS, ALTERNATIVES, AND BENEFITS ASSOCIATED WITH THIS PROCEDURE. THE PATIENT WOULD LIKE TO PROCEED AND GIVE CONSENT TO PERFORMED THE PROCEDURE. THE PATIENT DENIES UNEXPLAINABLE WEIGHT LOSS, FEVER, CHILLS, OR NEW CHANGES IN URINARY OR BOWEL CONTROL. THE PATIENT EXPRESSED SUFFERING OF HEADACHES EVERY DAY OF THE MONTH. THESE HEADACHES LAST MORE THAN 4 HOURS PER DAY. THE PATIENT HAS USED THE MEDICATIONS LISTED IN THE CHART TO TREAT THE HEADACHES FOR MANY MONTHS AND THE HEADACHES PERSIST DESCRIBED ABOVE DESCRIPTION OF PROCEDURE THE PATIENTS WAS BROUGHT TO THE PROCEDURE ROOM AND PLACED IN THE SUPINE POSITION. I CHECKED LATERALITY AND THE AREAS WHERE THE PROCEDURE WAS GOING TO BE PERFORMED WITH THE PATIENT AND THE SUPPORTING STAFF AT THE MOMENT OF THE TIME OUT IN THE PROCEDURE ROOM. FOR THE PROCEDURE I USED A SOLUTION OF 5 UNITS OF BOTOX PER EACH 0.1 ML OF THE SOLUTION. I USED A 30-GAUGE NEEDLE TO INJECT THE SOLUTION AT THE SELECTED LOCATIONS. I INJECTED FIRST THE RIGHT AND LEFT CONGRESSIONAL REPRESENTATIVE MUSCLES. THE LANDMARK FOR BOTH INJECTIONS WAS APPROXIMATELY 1 CM ABOVE THE SUPERIOR MEDIAL EDGE OF THE EYEBROW. AFTER THESE TWO INJECTIONS, I INJECTED THE PROCERUS MUSCLE AT THE MIDLINE POINT BETWEEN THESE FIRST TWO INJECTIONS. THEN I PROCEEDED TO INJECT THE RIGHT AND LEFT FRONTALIS MUSCLE. TWO INJECTIONS WERE DONE IN EACH SIDE. THE FIRST INJECTION WAS DONE APPROXIMATELY 2 CM ABOVE THE FIRST INJECTION OF THE CONGRESSIONAL REPRESENTATIVE. THE SECOND INJECTION WAS DONE APPROXIMATELY 1.5 CM LATERAL TO THIS FIST INJECTION OF THE FRONTALIS OF EACH SIDE. AFTER THE INJECTIONS OVER THE FOREHEAD WERE DONE, THE PATIENT'S HEAD WAS TURNED TO THE LEFT SIDE AND WE STARTED TO WORK WITH THE RIGHT TEMPORALIS MUSCLE. FIRST INJECTION WAS DONE IN A VERTICAL LINE OF THE TRAGUS APPROXIMATELY 3 CM ABOVE THE TRAGUS. THE SECOND INJECTION WAS DONE APPROXIMATELY 2 CM ABOVE THE FIRST INJECTION. THE THIRD INJECTION WAS DONE APPROXIMATELY 1 CM FRONT FAYE FROM THIS VERTICAL LINE CREATED AT THE LEVEL OF THE TRAGUS, USP BETWEEN THESE TWO INJECTIONS. THE FOURTH INJECTION WAS DONE APPROXIMATELY 1.5 CM BACK FROM THE SECOND INJECTION TO THE TEMPORALIS IN LINE TO THE MIDPORTION OF THE EAR. THEN, WE PROCEEDED TO INJECT THE LEFT TEMPORALIS MUSCLE. WE CLEANED THE AREA WITH ALCOHOL AND PROCEEDED TO PERFORM THE SAME FOR INJECTIONS DESCRIBED ABOVE BUT IN THE LEFT TEMPORALIS MUSCLE USING THE SAME LANDMARKS. AFTER THESE INJECTIONS WERE DONE, THE PATIENT WAS SEATED. FIRST, WE STARTED TO INJECT THE LEFT AND RIGHT OCCIPITALIS MUSCLE. I INJECTED AT THE FOLLOWING PLACES IN THE RIGHT AND LEFT MUSCLE. THE FIRST INJECTION WAS DONE AT THE MIDPOINT POSITION BETWEEN THE MASTOID PROCESS AND THE INION OF THE OCCIPITAL PROTUBERANCE. THE SECOND INJECTION WAS DONE APPROXIMATELY 1.5 CM SUPERIOR AND LATERAL OF THIS POINT. THE THIRD INJECTION WAS DONE APPROXIMATELY 1.5 CM SUPERIOR AND MEDIAL TO THIS FIRST INJECTION. THEN, I PROCEEDED TO INJECT THE RIGHT AND LEFT PARASPINAL MUSCLES. LANDMARK OF THE INJECTION WERE APPROXIMATELY: FIRST INJECTION 3 CM BELOW THE INION AND 1 CM LATERAL TO THE MIDLINE AND SECOND INJECTION AT EACH SIDE WAS DONE APPROXIMATELY 1.5 CM SUPERIOR AND LATERAL OF THE FIRST INJECTION. THE LAST GROUP OF INJECTIONS WAS DONE OVER THE RIGHT AND LEFT TRAPEZIUS MUSCLE OVER THE SHOULDERS AREA. THE FIRST INJECTION WAS DONE AT THE MIDPOINT BETWEEN THE INFLECTION POINT BETWEEN THE NECK AND SHOULDER AND THE ACROMION. THE SECOND AND THIRD INJECTIONS WERE DONE APPROXIMATELY 2.5 CM LATERAL AND MEDIAL FROM THIS FIRST INJECTION. SAME TARGETS WERE USED IN THE RIGHT AND LEFT SIDE. IN TOTAL, I INJECTED 155 UNITS OF BOTOX. PROCEDURE WAS DONE WITHOUT EVIDENCE OF PARESTHESIA, PNEUMOTHORAX, OR ANY COMPLICATIONS. THE PATIENT TOLERATED THE PROCEDURE VERY WELL. THE PATIENT WAS SENT TO THE RECOVERY ROOM FOR OBSERVATIONS. INJECTIONS WERE DONE AFTER CLEANING WITH ALCOHOL, USING ASEPTIC TECHNIQUES POST PROCEDURE NOTE THE PROCEDURE DONE WAS DISCUSSED WITH THE PATIENT. THE PATIENT WILL BE SEEN IN A FOLLOW UP IN THE NEXT FEW WEEKS. INSTRUCTIONS WERE GIVEN, QUESTIONS WERE ANSWERED, AND THE PATIENT EXPRESSED UNDERSTANDING AND AGREES WITH THE PLAN. I, NANCIE DESOUZA, DOCUMENTED THE ABOVE INFORMATION ACTING A SCRIBE FOR DR. BERRIOS. I HAVE REVIEWED THE ABOVE DOCUMENT, WRITTEN BY NANCIE DIANEIBPeggy AND I VERIFY THAT IT IS ACCURATE. PROCEDURE CODES 66039 CHEMODENERV [facility] MIGRAINE DISPOSITION & COMMUNICATION FOLLOW UP 3 WEEKS ELECTRONICALLY SIGNED BY CAROL BERRIOS MD, MD ON 12/27/2018 AT 03:53 PM EST DISCLAIMER : THIS IS A VISIT SUMMARY EXTRACTED FROM THE [employer] CHART. IT IS NOT A COPY OF THE [employer] PROGRESS NOTE. ANTOINE
== END ==
LOC: M PAIN 11:30
PROVIDERS: ATTEND Anesthesiology
DX: G43.709 Chronic migraine without aura, not intractable, without status migrainosus (principal); J45.909 Unspecified asthma, uncomplicated; R56.9 Unspecified convulsions; M79.7 Fibromyalgia; F41.9 Anxiety disorder, unspecified; G47.00 Insomnia, unspecified; Q79.6 Ehlers-Danlos syndromes; Z79.899 Other long term (current) drug therapy; Z88.8 Allergy status to other drugs, medicaments and biological substances; Z86.59 Personal history of other mental and behavioral disorders
CPT/HCPCS: 64615; J0585

== ENCOUNTER 2019-02-02 12:52 | Inpatient (IN) | payer MEDICARE, MEDICAID ==
[~2019-02-02] VITALS: Ht 162.6 cm; Wt 79.4 kg
[~2019-02-02 12:52] MED LIST changes: -BOTULINUM INJ 100 UNITS (J0585) IM ONE
--- NOTE | 2019-02-02 13:47 | REP ---
CT Head without contrast HISTORY: Altered mental status COMPARISON: None There is no intraparenchymal hemorrhage, acute infarct, mass or midline shift. The ventricular system is normal in appearance. There is no extra cerebral collection. There is no fracture. The visualized sinuses are clear. IMPRESSION: There is no intracranial lesion. Electronically Signed by Daniel Bhagat MD 02/02/2019 01:39 P
[2019-02-02 14:18] LABS: BASO % 0.5 % (0.0-1.0); EOS # 0.1 10^3/uL (0.0-0.50); EOS % 1.5 % (0.0-3.0); HEMATOCRIT 37.3 % (36.0-47.0); HEMOGLOBIN 12.2 g/dl (12.0-15.5); LYMPH # 1.7 10^3/uL (1.5-4.5); LYMPH % 29.2 % (24.0-44.0); MEAN CORPUSCULAR HGB CONC 32.7 g/dl (32.0-36.5); MEAN CORPUSCULAR VOLUME 94.9 fl (80.0-96.0); MONO # 0.5 10^3/uL (0.0-0.8); MONO % 8.5 % (0.0-5.0); NEUTROPHILS # 3.5 10^3/uL (1.8-7.7); NEUTROPHILS % 59.8 % (36.0-66.0); PLATELET COUNT, AUTOMATED 308 10^3/uL (150-450); RED BLOOD COUNT 3.93 10^6/uL (4.00-5.40); WHITE BLOOD COUNT 5.9 10^3/uL (4.0-10.0)
--- NOTE | 2019-02-02 14:40 | REP ---
Oral chest x-ray: Single view. History: Altered mental status. Comparison chest x-ray: September 02, 2018. Findings: EKG monitoring electrodes overlie the chest. Heart is not felt to be enlarged. Today's views exposed at a lesser level of inspiration. Pleural angles are sharp. Impression: Low level of inspiration. Otherwise no acute disease. Electronically Signed by Kalyan Gupta MD 02/02/2019 02:31 P
[2019-02-02 14:47] LABS: AMPHETAMINES LEVEL URINE NEGATIVE (NEGATIVE); BARBITURATES URINE NEGATIVE (NEGATIVE); BENZODIAZEPINES URINE NEGATIVE (NEGATIVE); CANNABINOIDS URINE NEGATIVE (NEGATIVE); COCAINE METABOLITE URINE NEGATIVE (NEGATIVE); METHADONE URINE NEGATIVE (NEGATIVE); OPIATES URINE NEGATIVE (NEGATIVE); PHENCYCLIDINE URINE NEGATIVE (NEGATIVE)
[2019-02-02 14:55] LABS: ACETAMINOPHEN LEVEL < 2.0 UG/ML (10.0-30.0); ALBUMIN 3.8 GM/DL (3.2-5.2); ALT/SGPT 21 U/L (12-78); BILIRUBIN,DIRECT < 0.1 MG/DL (0.0-0.2); BILIRUBIN,TOTAL 0.3 MG/DL (0.2-1.0); BLOOD UREA NITROGEN 13 MG/DL (7-18); CALCIUM LEVEL 8.5 MG/DL (8.5-10.1); CARBON DIOXIDE LEVEL 26 MEQ/L (21-32); CHLORIDE LEVEL 107 MEQ/L (98-107); CPK CREATINE PHOSPHOKINASE 245 U/L (26-192); ETHYL ALCOHOL (ETHANOL) < 0.003 % (0.000-0.010); GLOMERULAR FILTRATION RATE > 60.0 (>58); GLUCOSE, FASTING 99 MG/DL (70-100); MB/CK RELATIVE INDEX 0.49 (< OR =4); POTASSIUM SERUM 3.8 MEQ/L (3.5-5.1); SALICYLATE LEVEL < 1.7 MG/DL (5.0-30.0); SODIUM LEVEL 139 MEQ/L (136-145); THYROID STIMULATING HORMONE 0.789 uIU/ML (0.358-3.740); TOTAL PROTEIN 6.9 GM/DL (6.4-8.2); TROPONIN I < 0.02 NG/ML (< 0.10)
[2019-02-02] MEDS ORDERED: NS 1,000 ML IV ONE (15:00)
[2019-02-02] MEDS ORDERED: LYRI150C PO (15:30)
[2019-02-02] MEDS ORDERED: MICR1TAB18 PO (15:30)
[2019-02-02] MEDS ORDERED: CARI1TAB7 PO (15:30)
[2019-02-02] MEDS ORDERED: GABA800T4 PO (15:30)
[2019-02-02] MEDS ORDERED: SUMA6KIT SC (15:30)
[2019-02-02] MEDS ORDERED: CYCL10TA PO (15:30)
[2019-02-02] MEDS ORDERED: DULO1CAP2 PO (15:30)
[2019-02-02] MEDS ORDERED: IBUP80TA PO (15:30)
[2019-02-02] MEDS ORDERED: RISP0.5T3 PO (15:30)
[2019-02-02] MEDS ORDERED: MED REC COMMENT (15:33)
[2019-02-02] MEDS ORDERED: NS 1,000 ML IV SCH (16:52)
[2019-02-02 17:55] VITALS: BP 129/83
--- NOTE | 2019-02-02 18:30 | HPEPDOC ---
[facility] Medical History & Physical Date of Admission Feb 02, 2019 Attending Physician: FARRUKH RIDDLE MD History and Physical CHIEF COMPLAINT: Altered Mental Status HISTORY OF PRESENT ILLNESS: Patient is a 43 year old female with a past medical history significant for multiple psychiatric hospitalizations due to benzodiazep ine and opiate overdoses, major depression, panic and anxiety disorder, borderline personality disorder, and chronic pain of back who presented to the [facility] Emergency Department by EMS after being found by family to have altered mental status. The patient herself is unable to give a history as she is confused and speaking incoherently and tangentially. Her father is present in the room but is unable to provide much of a history other than stating that this is different from her baseline and she has a history of drug overdose. A review of the patients medical record shows that she was last admitted to [facility] on September 05 2018 for drug overdose. At that time her medications were changed to Lyrica, Gabapentin, Cymbalta, Atarax, and Trazadone. In the Emergency room she did receive a toxicology which was overall negative. She received a head CT which was negative as well as a chest X-ray which did not demonstrate acute disease. It was suspected that the patient may have over dosed on her prescribed medications. Poison Control was contacted and recommended 24 hour observation. Hospitalist service was contacted and the patient was admitted for further evaluation and treatment. PAST MEDICAL HISTORY: 1. History of Benzodiazepine and Opiate overdose 2. Major Depression 3. Panic and Anxiety Disorder 4. Borderline Personality Disorder 5. Chronic Pain Back PAST SURGICAL HISTORY: 1. Tonsillectomy 2. Discectomy 3. Laminectomy 4. Breast Reduction Surgery SOCIAL HISTORY: Patient is altered and unable to provide FAMILY HISTORY: Noncontributory ALLERGIES: Please see below. REVIEW OF SYSTEMS: Unable to obtain patient altered mental status HOME MEDICATIONS: Please see below. PHYSICAL EXAMINATION: VITAL SIGNS: Temperature 97.7, pulse 94, respiratory rate 20, blood pressure 106/66, pulse oximetry 100% on room air. GENERAL APPEARANCE: Patient is awake and alert. She is oriented to person. She is not oriented to place and time. She is lying in bed comfortably. She is not in acute distress HEENT: Atraumatic normocephalic. Eyes are non-icteric. Trachea is midline. Mucous membranes are pink and moist bilaterally. CARDIOVASCULAR: Normal S1, S2. Slightly tachycardic. Regular rhythm. No clicks, rubs, murmurs. LUNGS: Clear vesicular lung sounds bilaterally with good respiratory effort. No wheezes, rhonci, or rales. ABDOMEN: Soft, nondistended. Nontender to palpation in all 4 quadrants. Positive bowel sounds. EXTREMITIES: No edema NEUROLOGICAL: Patient has altered mental status. No focal neurological deficits PSYCHIATRIC: Tangential thought process. LABORATORY DATA: See below. IMAGING: CT Head without contrast HISTORY: Altered mental status COMPARISON: None There is no intraparenchymal hemorrhage, acute infarct, mass or midline shift. The ventricular system is normal in appearance. There is no extra cerebral collection. There is no fracture. The visualized sinuses are clear. IMPRESSION: There is no intracranial lesion. Electronically Signed by Daniel Bhagat MD 02/02/2019 01:39 P Oral chest x-ray: Single view. History: Altered mental status. Comparison chest x-ray: September 02, 2018. Findings: EKG monitoring electrodes overlie the chest. Heart is not felt to be enlarged. Today's views exposed at a lesser level of inspiration. Pleural angles are sharp. Impression: Low level of inspiration. Otherwise no acute disease. Electronically Signed by Kalyan Gupta MD 02/02/2019 02:31 P MICROBIOLOGY: Please see below. ASSESSMENT: Patient is a 43year old female with a past medical history significant for multiple psychiatric hospitalizations for drug overdose, borderline personality disorder, anxiety and panic disorder, and major depression who presented to the [facility] ER with altered mental status. Patient was believed to have overdosed on her home medications. She had a negative drug screen in the ER. . PLAN: 1. Metabolic Encephalopathy vs hypoactive delirium secondary to medication -Patient has a history of drug overdose. She is currently on Trazodone, Attarax, and Gabapentin. -Patient does not appear lethargic but does appear to have hypoactive delirium -Poison control was contacted and suggested 24 hour observation -Patient has sitter -Psych consultation once medically cleared -Patient is currently on Risperdone. She does not have a history of Bipolar or Schizophrenia although she does appear to have tangential thinking. Will continue Risperdone. Consider acute psychosis as a differential 2. Panic and Anxiety disorder -Holding sedative medications due to possible drug overdose 3. Chronic Pain -Currently holding Gabapentin and Lyrica Disposition: Likely 24 hour observation with psych evaluation and consult in AM Vital Signs Vital Signs Date Time Temp Pulse Resp B/P (MAP) Pulse Ox O2 Delivery O2 Flow Rate FiO2 02/02/19 17:33 98.7 103 17 106/66 (79) 100 Room Air Laboratory Data Labs 24H Laboratory Tests 2 02/02/19 13:27: Bedside Glucose (Misc Panel) 87 02/02/19 14:08: Immature Granulocyte % (Auto) 0.5, White Blood Count 5.9, Red Blood Count 3.93L, Hemoglobin 12.2, Hematocrit 37.3, Mean Corpuscular Volume 94.9, Mean Corpuscular Hemoglobin 31.0, Mean Corpuscular Hemoglobin Concent 32.7, Red Cell Distribution Width 13.2, Platelet Count 308, Neutrophils (%) (Auto) 59.8, Lymphocytes (%) (Auto) 29.2, Monocytes (%) (Auto) 8.5H, Eosinophils (%) (Auto) 1.5, Basophils (%) (Auto) 0.5, Neutrophils # (Auto) 3.5, Lymphocytes # (Auto) 1.7, Monocytes # (Auto) 0.5, Eosinophils # (Auto) 0.1, Basophils # (Auto) 0.0, Nucleated Red Blood Cells % (auto) 0.0, Anion Gap 6L, Glomerular Filtration Rate > 60.0, Calcium Level 8.5, Aspartate Amino Transf (AST/SGOT) 21, Alanine Aminotransferase (ALT/SGPT) 21, Alkaline Phosphatase 50, Total Bilirubin 0.3, Direct Bilirubin < 0.1, Total Creatine Kinase 245H, Creatine Kinase MB 1.0, Creatine Kinase MB Relative Index 0.49, Troponin I < 0.02, Total Protein 6.9, Albumin 3.8, Albumin/Globulin Ratio 1.23, Thyroid Stimulating Hormone (TSH) 0.789, Salicylates Level < 1.7L, Acetaminophen Level < 2.0L, Ethyl Alcohol Level < 0.003 02/02/19 14:17: Urine Amphetamines Screen NEGATIVE, Urine Benzodiazepines Screen NEGATIVE, Urine Opiates Screen NEGATIVE, Urine Methadone Screen NEGATIVE, Urine Barbiturates Screen NEGATIVE, Urine Phencyclidine Screen NEGATIVE, Urine Cocaine Metabolite Screen NEGATIVE, Urine Cannabinoids Screen NEGATIVE CBC/BMP Laboratory Tests 02/02/19 14:08 Red Blood Count 3.93 L, Mean Corpuscular Volume 94.9, Mean Corpuscular Hemoglobin 31.0, Mean Corpuscular Hemoglobin Concent 32.7, Red Cell Distribution Width 13.2, Neutrophils (%) (Auto) 59.8, Lymphocytes (%) (Auto) 29.2, Monocytes (%) (Auto) 8.5 H, Eosinophils (%) (Auto) 1.5, Basophils (%) (Auto) 0.5, Ne utrophils # (Auto) 3.5, Lymphocytes # (Auto) 1.7, Monocytes # (Auto) 0.5, Eosinophils # (Auto) 0.1, Basophils # (Auto) 0.0 Home Medications Scheduled (Risperidone) 0.5 Mg Tab, 0.5 MG PO DAILY (Microgestin 1.5/30 1.5-30 mg-Mcg) 1 Tab Tab, 1 TAB PO DAILY Carisoprodol (Carisoprodol) 350 Mg Tab, 350 MG PO TID Cyclobenzaprine HCl (Cyclobenzaprine HCl) 10 Mg Tab, 10 MG PO TID Duloxetine Hcl (Duloxetine HCl) 30 Mg Cap, 30 MG PO BID Gabapentin (Gabapentin) 800 Mg Tab, 800 MG PO TID Ibuprofen (Ibuprofen) 800 Mg Tab, 800 MG PO TID Pregabalin (Lyrica) 150 Mg Cap, 150 MG PO BID Scheduled PRN Sumatriptan Succinate (Sumatriptan Succinate Ref) 6 Mg/0.5 Ml Inj, 6 MG SC for MIGRAINE Miscellaneous Medications [Med Rec Comment] OBTAINED LIST FROM PHARMACY Allergies Coded Allergies: Citalopram (Verified Allergy, Intermediate, HIVES, 09/05/17) Bupropion (Verified Adverse Reaction, Intermediate, SEIZURE, 09/05/17) Lamotrigine (Verified Adverse Reaction, Intermediate, VISUAL DISTURBANCE AT HIGH DOSES, 02/02/19) Diphenhydramine (Verified Adverse Reaction, Mild, ITCHING IN 2006,BUT HAS TAKEN SINCE W/NO PROB, 02/02/19) GME ATTESTATION GME ATTESTATION My faculty preceptor for this patient encounter was physically present during the encounter and was fully available. All aspects of the patient interview, examination, medical decision making process, and medical care plan development were reviewed and approved by the faculty preceptor. The faculty preceptor is aware and concurs with the plan as stated in the body of this note and will attest to such by his/her cosignature. KASSIDY MANCILLA DO Feb 02, 2019 18:29
[2019-02-02 20:30] VITALS: BP 110/59
--- NOTE | 2019-02-02 21:17 | ECGEPIP ---
Stationary ECG Study [facility] - ED Test Date: 2019-02-02 Pat Name: ASHWINI YOUNGBLOOD Department: Room: - Gender: F Mail Officer: ONELIA : 1975 Requested By: Silvano Carter Order Number: [id number] Reading MD: Tigist Ovalles Measurements Intervals [place] Rate: 97 P: 32 VT: 165 QRS: 19 QRSD: 94 T: 30 QT: 357 QTc: 455 Interpretive Statements SINUS RHYTHM NONSPECIFIC T-WAVE ABNORMALITY SIMILAR 09/02/18 Electronically Signed On 02-02-2019 21:17:21 EDT by Tigist Ovalles
[2019-02-02] MEDS: HEPARIN SOD (PORCINE) 5000 UNITS/ML VIAL SC SCH (22:38)
[2019-02-02 22:40] VITALS: BP 110/64
[2019-02-03] MEDS: HEPARIN SOD (PORCINE) 5000 UNITS/ML VIAL SC SCH ×3 (05:22→21:47)
[2019-02-03 06:00] VITALS: BP 111/54; O2SAT 97
[2019-02-03 06:36] LABS: BASO % 0.5 % (0.0-1.0); EOS # 0.1 10^3/uL (0.0-0.50); HEMATOCRIT 32.5 % (36.0-47.0); HEMOGLOBIN 10.4 g/dl (12.0-15.5); LYMPH # 1.9 10^3/uL (1.5-4.5); LYMPH % 43.2 % (24.0-44.0); MEAN CORPUSCULAR HEMOGLOBIN 30.8 pg (27.0-33.0); MEAN CORPUSCULAR VOLUME 96.2 fl (80.0-96.0); MONO # 0.4 10^3/uL (0.0-0.8); MONO % 9.2 % (0.0-5.0); NEUTROPHILS # 1.9 10^3/uL (1.8-7.7); NEUTROPHILS % 43.6 % (36.0-66.0); PLATELET COUNT, AUTOMATED 264 10^3/uL (150-450); RED BLOOD COUNT 3.38 10^6/uL (4.00-5.40); WHITE BLOOD COUNT 4.3 10^3/uL (4.0-10.0)
[2019-02-03 06:57] LABS: BLOOD UREA NITROGEN 12 MG/DL (7-18); CALCIUM LEVEL 7.9 MG/DL (8.5-10.1); CARBON DIOXIDE LEVEL 22 MEQ/L (21-32); CHLORIDE LEVEL 116 MEQ/L (98-107); CREATININE FOR GFR 0.66 MG/DL (0.55-1.30); GLOMERULAR FILTRATION RATE > 60.0 (>58); GLUCOSE, FASTING 93 MG/DL (70-100); POTASSIUM SERUM 3.9 MEQ/L (3.5-5.1); SODIUM LEVEL 145 MEQ/L (136-145)
[2019-02-03] MEDS: risperiDONE 0.5 MG TAB PO SCH (09:03)
[2019-02-03 14:00] VITALS: BP 117/72
--- NOTE | 2019-02-03 14:32 | IPNPDOC ---
Date Seen The patient was seen on 02/03/19. Progress Note SUBJECTIVE: Patient was seen and examined this morning. She is awake this morning although she is drowsy. She states that she does not feel confused this morning. She states that before coming into the hospital she had not taken any medication other than what she was prescribed. She also states that she has not had any thoughts of hurting herself or others in the past 30 days. Overnight, nursing had noticed that the patient was more lethargic than her initial presentation at beginning of shift. The patient was arousable at the time and was oriented to person place and time however, this was inconsistent. OBJECTIVE PHYSICAL EXAMINATION: VITAL SIGNS: Please see below. GENERAL: Awake, alert, and oriented to person, place, and time. She appears in no acute distress. She does not appears confused as she did on previous exam. She does appear tired HEENT: Atraumatic, normocephalic. Trachea is midline. Eyes nonicteric CARDIOVASCULAR: Normal S1, S2, regular rate and rhythm. No clicks, rubs or murmurs. RESPIRATORY:. Clear vesicular lung sounds bilaterally with good respiratory effort. No wheezes, rhonchi or rales. ABDOMINAL:. Soft, nondistended, nontender. Palpation of 4 quadrants. Positive bowel sounds EXTREMITIES:. No edema, 2+ posterior tibial pulses bilaterally, 2+ radial pulses bilaterally NEUROLOGICAL:. No focal neurological deficits. Patient appears less lethargic today. Patient does not appear to be delirious this morning PSYCHOLOGICAL:. Insight and judgment questionable. mood and affect appears normal LABORATORY DATA, IMAGING STUDIES, MICROBIOLOGY: Please see below. DVT prophylaxis ordered?: YES ASSESSMENT AND PLAN: Patient is a 43year old female with a past medical history significant for multiple psychiatric hospitalizations for drug overdose, borderline personality disorder, anxiety and panic disorder, and major depression who presented to the [facility] ER with altered mental status. Patient was believed to have overdosed on her home medications. She had a negative drug screen in the ER. PROBLEMS: 1. Metabolic Encephalopathy vs hypoactive delirium secondary to medication -Patient has a history of drug overdose. She is currently on Trazodone, Atarax, and Gabapentin. -Patient does not appear lethargic but does appear to have hypoactive delirium -Poison control was contacted and suggested 24 hour observation -Patient has sitter -Psych consultation was placed and Psychiatry will evaluate the patient -Autism Tutor consult placed to determine which medications the patient is prescribed and how long and from where she is getting these medications -Patient is currently on Risperdone. She does not have a history of Bipolar or Schizophrenia although she does appear to have tangential thinking. Will continue Risperdone. -Patient toxicology was negative however this does not exclude synthetics 2. Panic and Anxiety disorder -Holding sedative medications due to possible drug overdose 3. Chronic Pain -Currently holding Gabapentin and Lyrica DISPOSITION: Pending Psychiatric evaluation VS, I&O, 24H, Fishbone Vital Signs/I&O Vital Signs Date Time Temp Pulse Resp B/P (MAP) Pulse Ox O2 Delivery O2 Flow Rate FiO2 02/03/19 06:00 97 Room Air 02/03/19 06:00 98.6 85 18 111/54 (73) I&O- Last 24 Hours up to 6 AM 02/03/19 06:00 Intake Total 2120 ml Balance 2120 ml Laboratory Data 24H LABS Laboratory Tests 2 02/02/19 13:27: Bedside Glucose (Misc Panel) 87 02/02/19 14:08: Immature Granulocyte % (Auto) 0.5, White Blood Count 5.9, Red Blood Count 3.93L, Hemoglobin 12.2, Hematocrit 37.3, Mean Corpuscular Volume 94.9, Mean Corpuscular Hemoglobin 31.0, Mean Corpuscular Hemoglobin Concent 32.7, Red Cell Distribution Width 13.2, Platelet Count 308, Neutrophils (%) (Auto) 59.8, Lymphocytes (%) (Auto) 29.2, Monocytes (%) (Auto) 8.5H, Eosinophils (%) (Auto) 1.5, Basophils (%) (Auto) 0.5, Neutrophils # (Auto) 3.5, Lymphocytes # (Auto) 1.7, Monocytes # (Auto) 0.5, Eosinophils # (Auto) 0.1, Basophils # (Auto) 0.0, Nucleated Red Blood Cells % (auto) 0.0, Anion Gap 6L, Glomerular Filtration Rate > 60.0, Calcium Level 8.5, Aspartate Amino Transf (AST/SGOT) 21, Alanine Aminotransferase (ALT/SGPT) 21, Alkaline Phosphatase 50, Total Bilirubin 0.3, Direct Bilirubin < 0.1, Total Creatine Kinase 245H, Creatine Kinase MB 1.0, C reatine Kinase MB Relative Index 0.49, Troponin I < 0.02, Total Protein 6.9, Albumin 3.8, Albumin/Globulin Ratio 1.23, Thyroid Stimulating Hormone (TSH) 0.789, Salicylates Level < 1.7L, Acetaminophen Level < 2.0L, Ethyl Alcohol Level < 0.003 02/02/19 14:17: Urine Amphetamines Screen NEGATIVE, Urine Benzodiazepines Screen NEGATIVE, Urine Opiates Screen NEGATIVE, Urine Methadone Screen NEGATIVE, Urine Barbiturates Screen NEGATIVE, Urine Phencyclidine Screen NEGATIVE, Urine Cocaine Metabolite Screen NEGATIVE, Urine Cannabinoids Screen NEGATIVE 02/03/19 05:53: Immature Granulocyte % (Auto) 0.5, White Blood Count 4.3, Red Blood Count 3.38L, Hemoglobin 10.4L, Hematocrit 32.5L, Mean Corpuscular Volume 96.2H, Mean Corpuscular Hemoglobin 30.8, Mean Corpuscular Hemoglobin Concent 32.0, Red Cell Distribution Width 13.5, Platelet Count 264, Neutrophils (%) (Auto) 43.6, Lymphocytes (%) (Auto) 43.2, Monocytes (%) (Auto) 9.2H, Eosinophils (%) (Auto) 3.0, Basophils (%) (Auto) 0.5, Neutrophils # (Auto) 1.9, Lymphocytes # (Auto) 1.9, Monocytes # (Auto) 0.4, Eosinophils # (Auto) 0.1, Basophils # (Auto) 0.0, Nucleated Red Blood Cells % (auto) 0.0, Anion Gap 7L, Glomerular Filtration Rate > 60.0, Calcium Level 7.9L, Blood Urea Nitrogen 12, Creatinine 0.66, Sodium Level 145, Potassium Level 3.9, Chloride Level 116H, Carbon Dioxide Level 22 CBC/BMP Laboratory Tests 02/02/19 14:08 Red Blood Count 3.93 L, Mean Corpuscular Volume 94.9, Mean Corpuscular Hemoglobin 31.0, Mean Corpuscular Hemoglobin Concent 32.7, Red Cell Distribution Width 13.2, Neutrophils (%) (Auto) 59.8, Lymphocytes (%) (Auto) 29.2, Monocytes (%) (Auto) 8.5 H, Eosinophils (%) (Auto) 1.5, Basophils (%) (Auto) 0.5, Neutrophils # (Auto) 3.5, Lymphocytes # (Auto) 1.7, Monocytes # (Auto) 0.5, Eosinophils # (Auto) 0.1, Basophils # (Auto) 0.0 02/03/19 05:53 Red Blood Count 3.38 L, Mean Corpuscular Volume 96.2 H, Mean Corpuscular Hemoglobin 30.8, Mean Corpuscular Hemoglobin Concent 32.0, Red Cell Distribution Width 13.5, Neutrophils (%) (Auto) 43.6, Lymphocytes (%) (Auto) 43.2, Monocytes (%) (Auto) 9.2 H, Eosinophils (%) (Auto) 3.0, Basophils (%) (Auto) 0.5, Neutrophils # (Auto) 1.9, Lymphocytes # (Auto) 1.9, Monocytes # (Auto) 0.4, Eosinophils # (Auto) 0.1, Basophils # (Auto) 0.0, Calcium Level 7.9 L GME ATTESTATION GME ATTESTATION My faculty preceptor for this patient encounter was physically present during the encounter and was fully available. All aspects of the patient interview, examination, medical decision making process, and medical care plan development were reviewed and approved by the faculty preceptor. The faculty preceptor is aware and concurs with the plan as stated in the body of this note and will attest to such by his/her cosignature. ATTENDING NOTE I, Lay Riddle, have both independently examined this patient as well as reviewed the documentation. I have discussed in detail with the resident the findings and plan of treatment as documented in the residents documentation. I will continue to follow the patient and offer further guidance to the patients care as necessary during this hospital stay. KASSIDY MANCILLA DO Feb 03, 2019 13:08 LAY RIDDLE MD Feb 03, 2019 20:29
[2019-02-03 16:22] VITALS: O2SAT 99
[2019-02-03] MEDS: ACETAMINOPHEN TAB 650MG DOSE (2X325MG) PO PRN (21:47)
[2019-02-03 22:00] VITALS: BP 124/68
[2019-02-04 05:09] VITALS: O2SAT 99
[2019-02-04 06:00] VITALS: BP 122/75
[2019-02-04] MEDS: ACETAMINOPHEN TAB 650MG DOSE (2X325MG) PO PRN ×2 (06:20→12:49)
[2019-02-04] MEDS: HEPARIN SOD (PORCINE) 5000 UNITS/ML VIAL SC SCH ×2 (06:20→14:54)
[2019-02-04 06:55] LABS: BASO % 0.4 % (0.0-1.0); EOS # 0.2 10^3/uL (0.0-0.50); EOS % 3.2 % (0.0-3.0); HEMATOCRIT 34.3 % (36.0-47.0); HEMOGLOBIN 11.2 g/dl (12.0-15.5); LYMPH # 2.3 10^3/uL (1.5-4.5); LYMPH % 40.1 % (24.0-44.0); MEAN CORPUSCULAR HEMOGLOBIN 30.4 pg (27.0-33.0); MEAN CORPUSCULAR HGB CONC 32.7 g/dl (32.0-36.5); MEAN CORPUSCULAR VOLUME 93.2 fl (80.0-96.0); MONO # 0.4 10^3/uL (0.0-0.8); NEUTROPHILS # 2.8 10^3/uL (1.8-7.7); NEUTROPHILS % 48.9 % (36.0-66.0); PLATELET COUNT, AUTOMATED 280 10^3/uL (150-450); RED BLOOD COUNT 3.68 10^6/uL (4.00-5.40); WHITE BLOOD COUNT 5.6 10^3/uL (4.0-10.0)
[2019-02-04 07:18] LABS: BLOOD UREA NITROGEN 12 MG/DL (7-18); CALCIUM LEVEL 8.2 MG/DL (8.5-10.1); CARBON DIOXIDE LEVEL 22 MEQ/L (21-32); CHLORIDE LEVEL 113 MEQ/L (98-107); CREATININE FOR GFR 0.74 MG/DL (0.55-1.30); GLOMERULAR FILTRATION RATE > 60.0 (>58); GLUCOSE, FASTING 96 MG/DL (70-100); POTASSIUM SERUM 3.7 MEQ/L (3.5-5.1); SODIUM LEVEL 143 MEQ/L (136-145)
[2019-02-04] MEDS: risperiDONE 0.5 MG TAB PO SCH (08:43)
--- NOTE | 2019-02-04 10:12 | CR ---
DATE OF CONSULTATION: 02/03/2019 CHIEF COMPLAINT: Feels okay. SUBJECTIVE: She is 43 years old. Has a history of psychiatric difficulties, major depressive disorder, panic disorder, has also been diagnosed with borderline personality disorder and benzodiazepine and opiates use disorder. Has had multiple presentations in the past with overdosing on benzodiazepines and opiates, seen for chronic back pain at the pain clinic, sees Dr. Hernandez, and just started receiving Botox injections, says she have received in the past as well for her headaches. She attends [facility], goes there daily, at the intensive outpatient portion, and was there yesterday, but she was found to be quite confused without shoes, lethargic, distinct altered mental status, and the ambulance was called and she was brought to the hospital. She was found to be confused, speaking coherently, tangentially. Per the record, her father was present in the room, and could not provide much of a history, other than this was different from her baseline, and that she has a history of overdosing. It should be noted, has had several inpatient hospitalizations in psychiatry last year, most recently late August, discharged in September, after a drug overdose. She is currently on risperidone, says it is relatively new and was also prescribed Lyrica, gabapentin, Cymbalta, Atarax and trazodone. Urine toxicology was negative upon admission. Says she does not remember much of the last couple of days, vaguely remembers being at her place, stays at a hotel, at a room at the [facility], has been there for almost a month, and says just recently found an apartment, which she will be moving into. Says remembers feeling tired the better part of last week, and toward the end as well. Says is starting to work her way to getting to see her son, who is 10 and lives with the boy's father, so she can see him unsupervised. Currently, has supervised visits, sees him regularly, says gets along reasonably well with the boy's father. Says sees her parents as well, and siblings but was vague on how often she tends to do that. Please refer to the previous summaries, including Dr. Perales's summary, from last year, also, and Dr. Pedro and Dr. Turcois and Dr. Malloy's assessment, all when she was admitted to the inpatient psychiatric unit on several occasions last year. Says moods have been okay, denies that she has felt suicidal, denies that she overdosed. She also suggests that she may have been confused after starting risperidone, she takes it at night. She was seen for her psychiatric at [facility] as well, in addition to substance abuse. The medication list includes: Gabapentin 800 mg three times a day, Ibuprofen 800 mg three times a day, rizatriptan 6 mg subcutaneous, risperidone 2.5 mg daily, Lyrica 150 mg twice a day, carisoprodol 350 mg three times a day, cyclobenzaprine 10 mg three times a day. This list apparently was obtained from the pharmacy, it also includes duloxetine at 30 mg twice a day. PAST PSYCHIATRIC HISTORY: As indicated above, has had several inpatient hospitalizations, last year most recent was discharged in September. Goes to outpatient care [facility]. PAST MEDICAL HISTORY: As indicated above, has chronic back pain, also has headaches, is treated at the pain clinic. SOCIAL HISTORY: Lives on her own in a room at the [facility], says found an apartment, which she will be moving into soon. Has a child who is 10, whom she does not have unsupervised access, only supervised. She gets along reasonably well with his father. MENTAL STATUS EXAMINATION: She is lying in bed. She is cooperative, no agitation, no psychomotor retardation, no abnormal movement noted. Appears a bit guarded, possibly disinterested, answers questions briefly, logically, coherently, affect is restricted in range, it is incongruent with mood. She denies any suicidal thoughts or intents. No homicidal ideas or intents. Currently, there is no evidence of any psychosis. Cognition is grossly intact. She is able to maintain and shifts attention adequately. Intellect average. No fluctuation of consciousness. Judgment and insight are quite questionable. ASSESSMENT: Delirium possibly secondary to overdose. Major depressive disorder. Panic disorder. Benzodiazepine use disorder. Opiate use disorder. She has been depressed, anxious, currently denies any suicidal thoughts or intents. The current presentation, with delirium is quite in keeping with previous ones, when she has overdosed, including the recent past over the last few months. Collateral information is not available at present. Has limited contact with others, seemingly. It is quite possible she may have overdosed on her regular medications, which could present with this picture of delirium, and not on any benzodiazepines, urine toxicology was negative. Was quite confused, delirious, lethargic when seen at [facility], brought here, does not remember much of the last few days. She denies taking an overdose, or feeling suicidal. She is currently alert and oriented, appears depressed, denies suicidal thoughts or intents. Judgment and insight are compromised. This is similar to previous presentations when she has overdosed, and the picture upon this presentation may well be secondary to the overdose, on her medicines. RECOMMENDATION: Given the above, and limited supports, previous recent presentations, poor insight, I would suggest inpatient psychiatric hospitalizations for further evaluation and management, when she is fully medically cleared. A DCS application will be made. Thank you for the consult. If you have any questions please call. The assessment took 35 minutes.
--- NOTE | 2019-02-04 11:35 | IPNPDOC ---
Date Seen The patient was seen on 02/04/19. Progress Note SUBJECTIVE: Patient patient was seen and examined this morning. She currently reports no complaints. She was evaluated by psychiatry yesterday believe that her delirium was possible secondary to overdose. However, she does have compromised insight and judgment and recommendations for inpatient psychiatric Hospitalization was made. Patient currently denies any confusion. OBJECTIVE PHYSICAL EXAMINATION: VITAL SIGNS: Please see below. GENERAL: Awake, alert, and oriented to person, place, and time. She appears in no acute distress. She does not appears confused as she did on previous exam. S he does appear tired HEENT: Atraumatic, normocephalic. Trachea is midline. Eyes nonicteric CARDIOVASCULAR: Normal S1, S2, regular rate and rhythm. No clicks, rubs or murmurs. RESPIRATORY:. Clear vesicular lung sounds bilaterally with good respiratory effort. No wheezes, rhonchi or rales. ABDOMINAL:. Soft, nondistended, nontender. Palpation of 4 quadrants. Positive bowel sounds EXTREMITIES:. No edema, 2+ posterior tibial pulses bilaterally, 2+ radial pulses bilaterally NEUROLOGICAL:. No focal neurological deficits. Patient appears less lethargic today. Patient does not appear to be delirious this morning PSYCHOLOGICAL:. Insight and judgment poor. Patient seems irritated by questions. Answers are short and often deflected LABORATORY DATA, IMAGING STUDIES, MICROBIOLOGY: Please see below. DVT prophylaxis ordered?: YES ASSESSMENT AND PLAN: Patient is a 43year old female with a past medical history significant for multiple psychiatric hospitalizations for drug overdose, borderline personality disorder, anxiety and panic disorder, and major depression who presented to the [facility] ER with altered mental status. Patient was believed to have overdosed on her home medications. She had a negative drug screen in the ER. PROBLEMS: 1. Metabolic Encephalopathy vs hypoactive delirium secondary to medication -Patient has a history of drug overdose. -Patient no longer appears to be delirious. However, her insight and judgment continued to appear impaired -Patient has sitter -In Store Marketer consult placed to determine which medications the patient is prescribed and how long and from where she is getting these medications -Patient is currently on Risperdone. She does not have a history of Bipolar or Schizophrenia although she does appear to have tangential thinking. Will continue Risperdone. -Patient toxicology was negative however this does not exclude synthetics -Psychiatry has seen and evaluated the patient with recommendations for inpatient psychiatric hospitalization when medically cleared. The patient has been medically cleared and is currently awaiting a bed at the inpatient mental health unit. 2. Panic and Anxiety disorder -Holding sedative medications due to possible drug overdose 3. Chronic Pain -Currently holding Gabapentin and Lyrica DISPOSITION: Currently awaiting an available bed at the inpatient health unit at which time patient will be discharged to [facility] VS, I&O, 24H, Fishbone Vital Signs/I&O Vital Signs Date Time Temp Pulse Resp B/P (MAP) Pulse Ox O2 Delivery O2 Flow Rate FiO2 02/04/19 06:00 99.2 64 18 122/75 (91) 97 02/04/19 05:09 Room Air I&O- Last 24 Hours up to 6 AM 02/04/19 06:00 Intake Total 1800 ml Output Total 1500 ml Balance 300 ml Laboratory Data 24H LABS Laboratory Tests 2 02/04/19 06:42: Immature Granulocyte % (Auto) 0.4, White Blood Count 5.6, Red Blood Count 3.68L, Hemoglobin 11.2L, Hematocrit 34.3L, Mean Corpuscular Volume 93.2, Mean Corpuscular Hemoglobin 30.4, Mean Corpuscular Hemoglobin Concent 32.7, Red Cell Distribution Width 13.3, Platelet Count 280, Neutrophils (%) (Auto) 48.9, Lymphocytes (%) (Auto) 40.1, Monocytes (%) (Auto) 7.0H, Eosinophils (%) (Auto) 3.2H, Basophils (%) (Auto) 0.4, Neutrophils # (Auto) 2.8, Lymphocytes # (Auto) 2.3, Monocytes # (Auto) 0.4, Eosinophils # (Auto) 0.2, Basophils # (Auto) 0.0, Nucleated Red Blood Cells % (auto) 0.0, Anion Gap 8, Glomerular Filtration Rate > 60.0, Blood Urea Nitrogen 12, Creatinine 0.74, Sodium Level 143, Potassium Level 3.7, Chloride Level 113H, Carbon Dioxide Level 22, Calcium Level 8.2L CBC/BMP Laboratory Tests 02/04/19 06:42 Red Blood Count 3.68 L, Mean Corpuscular Volume 93.2, Mean Corpuscular Hemoglobin 30.4, Mean Corpuscular Hemoglobin Concent 32.7, Red Cell Distribution Width 13.3, Neutrophils (%) (Auto) 48.9, Lymphocytes (%) (Auto) 40.1, Monocytes (%) (Auto) 7.0 H, Eosinophils (%) (Auto) 3.2 H, Basophils (%) (Auto) 0.4, Neutrophils # (Auto) 2.8, Lymphocytes # (Auto) 2.3, Monocytes # (Auto) 0.4, Eosinophils # (Auto) 0.2, Basophils # (Auto) 0.0, Calcium Level 8.2 L GME ATTESTATION GME ATTESTATION My faculty preceptor for this patient encounter was physically present during t he encounter and was fully available. All aspects of the patient interview, examination, medical decision making process, and medical care plan development were reviewed and approved by the faculty preceptor. The faculty preceptor is aware and concurs with the plan as stated in the body of this note and will attest to such by his/her cosignature. KASSIDY MANCILLA DO Feb 04, 2019 11:35
--- NOTE | 2019-02-04 13:25 | DS.PDOC ---
Discharge Summary General Date of Admission Feb 02, 2019 at 16:20 Date of Discharge 02/04/19 Attending Physician: FARRUKH RIDDLE MD Specialist/Consultants Involve: Soco Aguilar MD Discharge Summary PROCEDURES PERFORMED DURING STAY: [None]. ADMITTING DIAGNOSES: 1. Hypomanic Delirium secondary to likely drug overdose DISCHARGE DIAGNOSES: 1. Hypoactive Delirium 2/2 drug overdose 2. Borderline Personality Disorder 3. Major Depression COMPLICATIONS/CHIEF COMPLAINT: Altered Mental Status. HISTORY OF PRESENT ILLNESS: Patient is a 43 year old female with a past medical history significant for multiple psychiatric hospitalizations due to benzodiazepine and opiate overdoses, major depression, panic and anxiety disorder, borderline personality disorder, and chronic pain of back who presented to the [facility] Emergency Department by EMS after being found by family to have altered mental status. At the time of presentation, the patient was unable to provide a history as she was speaking incoherently and tangentially. The patient was found to be prescribed several medications with sedating effects including gabapentin, lyrica, soma, and attarax. Her toxicology screen in the ER was negative however, this did not include synthetics. In the emergency department, poison control was contacted who suggested 24 hour observation. Patient was subsequently admitted to hospitalist service for medical management. HOSPITAL COURSE: The following day, the patient appeared less lethargic and less confused. She had denied taking any illicit drugs or overdosing on any of her home medications. She stated that the previous day she had gone to [facility] at which point she was confused and found to be without shoes. The patient was medically cleared however, continued to exhibit poor insight and judgement. Psychiatric consultation was placed. The patient was evaluated by Psychiatry who suggested based on exam that the patient be admitted to the [facility] for further evaluation and management. DISCHARGE MEDICATIONS: Please see below. ALLERGIES: Please see below. PHYSICAL EXAMINATION ON DISCHARGE: VITAL SIGNS: Please see below. GENERAL: Awake, alert, and oriented to person, place, and time. She appears in no acute distress. She does not appears confused as she did on previous exam. She does appear tired HEENT: Atraumatic, normocephalic. Trachea is midline. Eyes nonicteric CARDIOVASCULAR: Normal S1, S2, regular rate and rhythm. No clicks, rubs or murmurs. RESPIRATORY:. Clear vesicular lung sounds bilaterally with good respiratory effo rt. No wheezes, rhonchi or rales. ABDOMINAL:. Soft, nondistended, nontender. Palpation of 4 quadrants. Positive bowel sounds EXTREMITIES:. No edema, 2+ posterior tibial pulses bilaterally, 2+ radial pulses bilaterally NEUROLOGICAL:. No focal neurological deficits. Patient appears less lethargic today. Patient does not appear to be delirious this morning PSYCHIATRIC EXAMINATION:. Insight and judgment poor. Patient seems irritated by questions. Answers are short and often deflected LABORATORY DATA: Please see below. IMAGING: CT Head without contrast HISTORY: Altered mental status COMPARISON: None There is no intraparenchymal hemorrhage, acute infarct, mass or midline shift. The ventricular system is normal in appearance. There is no extra cerebral collection. There is no fracture. The visualized sinuses are clear. IMPRESSION: There is no intracranial lesion. Electronically Signed by Daniel Bhagat MD 02/02/2019 01:39 P Oral chest x-ray: Single view. History: Altered mental status. Comparison chest x-ray: September 02, 2018. Findings: EKG monitoring electrodes overlie the chest. Heart is not felt to be enlarged. Today's views exposed at a lesser level of inspiration. Pleural angles are sharp. Impression: Low level of inspiration. Otherwise no acute disease. Electronically Signed by Kalyan Gupta MD 02/02/2019 02:31 P PROGNOSIS: GOOD ACTIVITY: [As tolerated]. DIET: As tolerated DISCHARGE PLAN: Patient is to be discharged to [facility] for further evaluation and management. Her sedating medications have been discontinued until further evaluation by psychiatry. She is to F/U with her PCP upon discharge from [facility]. She is to follow up with Mental Health as directed. DISPOSITION: . DISCHARGE INSTRUCTIONS: 1. Discharge to [facility] 2. F/U with PCP upon discharge from [facility] DISCHARGE CONDITION: [Stable]. TIME SPENT ON DISCHARGE: Greater than 45 minutes. Vital Signs/I&Os Vital Signs Date Time Temp Pulse Resp B/P (MAP) Pulse Ox O2 Delivery O2 Flow Rate FiO2 02/04/19 06:00 99.2 64 18 122/75 (91) 97 02/04/19 05:09 Room Air I&O- Last 24 Hours up to 6 AM 02/04/19 06:00 Intake Total 1800 ml Output Total 1500 ml Balance 300 ml Laboratory Data Labs 24H Laboratory Tests 2 02/04/19 06:42: Immature Granulocyte % (Auto) 0.4, White Blood Count 5.6, Red Blood Count 3.68L, Hemoglobin 11.2L, Hematocrit 34.3L, Mean Corpuscular Volume 93.2, Mean Corpuscular Hemoglobin 30.4, Mean Corpuscular Hemoglobin Concent 32.7, Red Cell Distribution Width 13.3, Platelet Count 280, Neutrophils (%) (Auto) 48.9, Lymphocytes (%) (Auto) 40.1, Monocytes (%) (Auto) 7.0H, Eosinophils (%) (Auto) 3.2H, Basophils (%) (Auto) 0.4, Neutrophils # (Auto) 2.8, Lymphocytes # (Auto) 2.3, Monocytes # (Auto) 0.4, Eosinophils # (Auto) 0.2, Basophils # (Auto) 0.0, Nucleated Red Blood Cells % (auto) 0.0, Anion Gap 8, Glomerular Filtration Rate > 60.0, Blood Urea Nitrogen 12, Creatinine 0.74, Sodium Level 143, Potassium Level 3.7, Chloride Level 113H, Carbon Dioxide Level 22, Calcium Level 8.2L CBC/BMP Laboratory Tests 02/04/19 06:42 Red Blood Count 3.68 L, Mean Corpuscular Volume 93.2, Mean Corpuscular Hemoglobin 30.4, Mean Corpuscular Hemoglobin Concent 32.7, Red Cell Distribution Width 13.3, Neutrophils (%) (Auto) 48.9, Lymphocytes (%) (Auto) 40.1, Monocytes (%) (Auto) 7.0 H, Eosinophils (%) (Auto) 3.2 H, Basophils (%) (Auto) 0.4, Neutrophils # (Auto) 2.8, Lymphocytes # (Auto) 2.3, Monocytes # (Auto) 0.4, Eosinophils # (Auto) 0.2, Basophils # (Auto) 0.0, Calcium Level 8.2 L Discharge Medications Scheduled (Risperidone) 0.5 Mg Tab, 0.5 MG PO DAILY, (Reported) (Microgestin 1.5/30 1.5-30 mg-Mcg) 1 Tab Tab, 1 TAB PO DAILY, (Reported) Duloxetine Hcl (Duloxetine HCl) 30 Mg Cap, 30 MG PO BID, (Reported) Ibuprofen (Ibuprofen) 800 Mg Tab, 800 MG PO TID, (Reported) Miscellaneous Medications [Med Rec Comment] , (Reported) OBTAINED LIST FROM PHARMACY Allergies Coded Allergies: citalopram (Verified Allergy, Intermediate, hives, 02/04/19) diphenhydramine (Verified Allergy, Mild, itching in 2006, but pt has taken since w/ no issues, 02/04/19) bupropion (Verified Adverse Reaction, Severe, seizure, 02/04/19) lamotrigine (Verified Adverse Reaction, Intermediate, visual disturbances at high doses, 02/04/19) GME ATTESTATION GME ATTESTATION My faculty preceptor for this patient encounter was physically present during the encounter and was fully available. All aspects of the patient interview, examination, medical decision making process, and medical care plan development were reviewed and approved by the faculty preceptor. The faculty preceptor is aware and concurs with the plan as stated in the body of this note and will attest to such by his/her cosignature. KASSIDY MANCILLA DO Feb 04, 2019 13:25
[2019-02-04 14:00] VITALS: BP 132/88
[2019-02-04] MEDS ORDERED: ACETAMINOPHEN TAB 650MG DOSE (2X325MG) PO PRN (15:45)
[2019-02-04] MEDS ORDERED: traZODone 50 MG TAB PO PRN (15:45)
[2019-02-04] MEDS ORDERED: MOM 30ML SUSPENSION UDC PO PRN (15:45)
[2019-02-04] MEDS ORDERED: MAALOX 30 ML SUSP *UDC PO PRN (15:45)
[2019-02-05 11:54] LABS: HCG, SERUM QUALITATIVE NEGATIVE (NEGATIVE)
== END 2019-02-04 16:18 | DRG 918 ==
LOC: M ED 12:52 → EDBD 12:52 → M ED INP 16:20 → M MSPAV 17:46
PROVIDERS: ADMIT Internal Medicine; ATTEND Internal Medicine
DX: T50.904A Poisoning by unspecified drugs, medicaments and biological substances, undetermined, initial encounter (principal); F19.921 Other psychoactive substance use, unspecified with intoxication with delirium; F32.9 Major depressive disorder, single episode, unspecified; F41.0 Panic disorder [episodic paroxysmal anxiety]; F60.3 Borderline personality disorder; M54.9 Dorsalgia, unspecified; F11.10 Opioid abuse, uncomplicated; G89.29 Other chronic pain; Z79.1 Long term (current) use of non-steroidal anti-inflammatories (NSAID); Z79.899 Other long term (current) drug therapy; Z88.8 Allergy status to other drugs, medicaments and biological substances; Y92.9 Unspecified place or not applicable

== ENCOUNTER 2019-02-04 15:19 | Inpatient (IN) | payer MEDICARE, MEDICAID ==
[~2019-02-04] VITALS: Ht 162.6 cm; Wt 77.7 kg
[~2019-02-04 15:19] MED LIST changes: -/CELE20CA OR; -/DULO30CA OR; +CELE1CAP4 OR; +CYCL10TA PO; +CYMB1CAP5 OR; -DOCU10ELUD PO; +DOCU5LIQ PO; -DULO30CA PO; +DULO30CA9 PO; +GABA800T4 PO; +LAMO100T80 PO; -LAMO10TA PO; +MED REC COMMENT; +MICR1TAB18 PO; +RISP0.5T3 PO; +SUMA6KIT SC
[2019-02-04 16:20] VITALS: BP 138/84
[2019-02-04] MEDS ORDERED: MAALOX 30 ML SUSP *UDC PO PRN (18:45)
[2019-02-04] MEDS ORDERED: ACETAMINOPHEN TAB 650MG DOSE (2X325MG) PO PRN (18:45)
[2019-02-04] MEDS ORDERED: MOM 30ML SUSPENSION UDC PO PRN (18:45)
[2019-02-04] MEDS ORDERED: traZODone 50 MG TAB PO PRN (18:45)
[2019-02-04] MEDS ORDERED: QUEtiapine FUMARATE 25 MG TAB PO SCH (21:00)
[2019-02-04] MEDS: GABAPENTIN 400 MG CAP PO SCH (21:34)
[2019-02-04] MEDS: IBUPROFEN 800 MG TAB PO PRN (21:34)
[2019-02-05 06:24] VITALS: BP 100/53
[2019-02-05] MEDS ORDERED: DULoxetine 30 MG CAP (CYMBALTA) PO SCH (09:00)
[2019-02-05] MEDS: GABAPENTIN 400 MG CAP PO SCH ×3 (09:07→22:05)
[2019-02-05] MEDS: IBUPROFEN 800 MG TAB PO PRN ×2 (09:08→22:06)
--- NOTE | 2019-02-05 10:24 | HPEPDOC ---
[facility] Medical History & Physical Date of Admission Feb 04, 2019 History and Physical PCP: Dr. Nhan Myers ATTENDING: Dr. Yahaira Olivia HPI: 43 yo F admitted to [facility] for unspecified depressive disorder, being medically examined today. No acute medical complaints today. Patient was admitted 02/02/19-02/04/19 at [facility] related to altered mental status. The patient was medically stabilized, poison control was consulted, the patient was transferred to [facility] 02/04/19. The patient is noted to be a poor historian. Provides little history. States she does not recall when she had her last seizure. Avoids eye contact. Denies any fevers, chills, weakness, fatigue, MCHUGH, CP, SOB, cough, palpitations, abdominal pain, N/V/D or changes in bowel or bladder habits. PAST MEDICAL HISTORY: 1. History of Benzodiazepine and Opiate overdose 2. Major Depression 3. Panic and Anxiety Disorder 4. Borderline Personality Disorder 5. Chronic Pain, Back pain. PAST SURGICAL HISTORY: 1. Tonsillectomy. 2. Discectomy. 3. Laminectomy. 4. Breast reduction surgery. Family history Mother. Diabetes, hypertension Father. COPD, hypertension One sister, well Child well SOCHX: Resides in: [facility] Marital Status: Single Employment: Unemployed Tobacco use: Denies ETOH: Denies Illicit Drugs: Denies IV Drug Use: Denies Tattoos done unprofessionally: Denies ROS: As noted in HPI, otherwise 11pt ROS of systems reviewed and unremarkable. LMP unknown. PE: GEN: 43 yo F, appears stated age. Appears unkept. No acute distress. Alert and oriented x 3. Provide short answers, avoids eye contact, appears agitated. HEENT: Normocephalic, atraumatic. Pupils are equal, round, and reactive to light. Extraocular movements are intact. No nystagmus appreciated. Sclera are nonicteric. Conjunctiva without injection. Nose midline. Nasal turbinates without bogginess. EACs both patent BL. TMs both visualized and prado with good cone of light, no bulging or erythema. No facial asymmetry. Moist mucous membranes. Dentition fair. Pharynx pink and moist, no cobblestoning. Neck supple, trachea midline. No lymphadenopathy or thyromegaly appreciated. CHEST: Regular rate and rhythm, +S1, +S2 LUNGS: Clear to auscultation bilaterally. No wheezes, rales, or rhonchi. Breathing appears symmetric and easy. Patient is speaking in full sentences. No accessory muscle use. ABD: Round, soft, non-tender, non-distended. +Bowel sounds throughout. No rebound or guarding. No costovertebral angle tenderness. EXT: Pulses 2+ bilaterally dorsalis pedis and radial. No lower extremity edema appreciated. SKIN: [place], dry, warm. Capillary refill <2sec. No rashes. NEURO: Alert and oriented x 3. Cranial nerves III-XII are intact. No focal deficits appreciated. EKG: SINUS RHYTHM NONSPECIFIC T-WAVE ABNORMALITY SIMILAR 09/02/18 Electronically Signed On 02-02-2019 21:17:21 EDT by Tigist Ovalles CXR Low level of inspiration. Otherwise no acute disease. Electronically Signed by Kalyan Gupta MD 02/02/2019 02:31 P CTH There is no intracranial lesion. Electronically Signed by Daniel Bhagat MD 02/02/2019 01:39 P A&P: 42 yo F admitted to [facility] for unspecified depressive disorder 1. Psych. Plan per Psychiatry. EKG on file. 2. Add Hcg to adm labs. 3. Chronic pain. Continue Tylenol 650 mg every 6 hours as needed. Continue ibuprofen 800 mg every 8 hours as needed. Patient remains on Cymbalta 30 mg daily and gabapentin 400 mg by mouth 3 times a day. Consider pain management consultation if needed. 4. Follow up with PCP on discharge. 5. Substance use. Management per psychiatry. Continue with MVI, Thiamine, and Folic Acid supplementation. 6. Staff member Sharmaine BEVERLY present throughout exam. Vital Signs Vital Signs Date Time Temp Pulse Resp B/P (MAP) Pulse Ox O2 Delivery O2 Flow Rate FiO2 02/05/19 06:24 99.2 82 12 100/53 (69) Laboratory Data Labs 24H Item Value Date Time White Blood Count 5.6 10^3/uL 02/04/19 0642 Red Blood Count 3.68 10^6/uL L 02/04/19 0642 Hemoglobin 11.2 g/dl L 02/04/19 0642 Hematocrit 34.3 % L 02/04/19 06 Mean Corpuscular Volume 93.2 fl 02/04/19 0642 Mean Corpuscular Hemoglobin 30.4 pg 02/04/19 0642 Mean Corpuscular Hemoglobin Concent 32.7 g/dl 02/04/19 0642 Red Cell Distribution Width 13.3 % 02/04/19 0642 Platelet Count 280 10^3/uL 02/04/19 0642 Sodium Level 143 MEQ/L 02/04/19 0642 Potassium Level 3.7 MEQ/L 02/04/19 0642 Chloride Level 113 MEQ/L H 02/04/19 0642 Carbon Dioxide Level 22 MEQ/L 02/04/19 0642 Anion Gap 8 MEQ/L 02/04/19 0642 Blood Urea Nitrogen 12 MG/DL 02/04/19 0642 Creatinine 0.74 MG/DL 02/04/19 0642 Glomerular Filtration Rate > 60.0 02/04/19 0642 Fasting Glucose 96 MG/DL 02/04/19 0642 Calcium Level 8.2 MG/DL L 02/04/19 0642 Total Bilirubin 0.3 MG/DL 02/02/19 1408 Direct Bilirubin < 0.1 MG/DL 02/02/19 1408 Aspartate Amino Transf (AST/SGOT) 21 U/L 02/02/19 1408 Alanine Aminotransferase (ALT/SGPT) 21 U/L 02/02/19 1408 Alkaline Phosphatase 50 U/L 02/02/19 1408 Total Creatine Kinase 245 U/L H 02/02/19 1408 Creatine Kinase MB 1.0 NG/ML 02/02/19 1408 Creatine Kinase MB Relative Index 0.49 02/02/19 1408 Troponin I < 0.02 NG/ML 02/02/19 1408 Total Protein 6.9 GM/DL 02/02/19 1408 Albumin 3.8 GM/DL 02/02/19 1408 Albumin/Globulin Ratio 1.23 02/02/19 1408 Thyroid Stimulating Hormone (TSH) 0.789 uIU/ML 02/02/19 1408 Home Medications Scheduled (Risperidone) 0.5 Mg Tab, 0.5 MG PO DAILY (Microgestin 1.530 1.5-30 mg-Mcg) 1 Tab Tab, 1 TAB PO DAILY Duloxetine Hcl (Duloxetine HCl) 30 Mg Cap, 30 MG PO BID Ibuprofen (Ibuprofen) 800 Mg Tab, 800 MG PO TID Miscellaneous Medications [Med Rec Comment] OBTAINED LIST FROM PHARMACY Allergies Coded Allergies: citalopram (Verified Allergy, Intermediate, hives, 02/04/19) diphenhydramine (Verified Allergy, Mild, itching in 2006, but pt has taken since w/ no issues, 02/04/19) bupropion (Verified Adverse Reaction, Severe, seizure, 02/04/19) lamotrigine (Verified Adverse Reaction, Intermediate, visual disturbances at high doses, 02/04/19) Maria Luisa Trujillo Feb 05, 2019 10:24
--- NOTE | 2019-02-05 12:17 | MHHPEPDOC ---
General Date Of Admission: Feb 04, 2019 Legal Status: 9.39 Chief Complaint Altered Mental Status History of Present Illness HISTORY OF THE PRESENT ILLNESS: Patient is a 43 -year-old , female, who as per Dr. Bowling: "Patient is a 43 year old female with a past medical history significant for multiple psychiatric hospitalizations due to benzodiazepine and opiate overdoses, major depression, panic and anxiety disorder, borderline personality disorder, and chronic pain of back who presented to the [facility] Emergency Department by EMS after being found by family to have altered mental status. The patient herself is unable to give a history as she is confused and speaking incoherently and tangentially. Her father is present in the room but is unable to provide much of a history other than stating that this is different from her baseline and she has a history of drug overdose. A review of the patients medical record shows that she was last admitted to [facility] on September 05 2018 for drug overdose. At that time her medications were changed to Lyrica, Gabapentin, Cymbalta, Atarax, and Trazadone. In the Emergency room she did receive a toxicology which was overall negative. She received a head CT which was negative as well as a chest X-ray which did not demonstrate acute d isease. It was suspected that the patient may have over dosed on her prescribed medications. Poison Control was contacted and recommended 24 hour observation. Hospitalist service was contacted and the patient was admitted for further evaluation and treatment. " Psychiatric Review of Systems Depression (2 or more weeks): insomnia/hypersomnia, feelings of excess/guilt, decreased energy (from not sleepinh), difficulty concentrating (sometimes-she thinks it is secondary to pain. Pain takes over) Ivanna (4 or more days of): denies Psychosis: denies PTSD: denies Anxiety: gen/non-specific anxiety, situational anxiety, stressor related anxiety, panic attacks (She had one last week (at least)) Anxiety/ 6 months or more of: restlessness, keyed up, easily fatigued, difficulty concentrating, irritability (usually with his ex, she says she doesn't feel irritable all time), sleep disturbance Past Psychiatric History Previous Psychiatric Diagnosis: Borderline personality, PTSD, depression, anxiety, panic attacks Previous Psychiatric Admissions: August-September 2018 Suicide Attempts: yes but she denies. she says the previous overdoses were accidental Psychiatric Follow-up: [facility] Psychiatric medications: has been compliant: Cymbalta, Gabapentin. Tried Risperdal for sleep, it didn't work. Had Soma, Lyrica and Ibuprofen Past Medical History Head Injury: Yes (At a young age. She doesn't remember if she lost consciousness) Seizures: Yes (yes, with Wellbutrin) Hospitalizations: Yes Surgeries: Yes (back surgery, breast reduction, tubes put in her ears, tonsillectomy, adenoidectomy) Family Medical/Psychiatric HX Medical Problems diabetes, high blood pressure Psychiatric Disorders: Yes (Mom diagnosed with depression and patient thinks she has a personality disorder, she thinks her mom is "super narcissistic') Addiction: Yes (Mom and dad. Dad had 5 DWI's. Dad doesn't drin but mom does and she says that one glass of wine just goes to her head and then she becomes beligerent) Suicide Attemps/Completions: No Addiction History cocaine (when she was in her 20's she did cocaine), opioids (prescribed opioids) Social History Childhood: Not supervised very much. she considered that her neighbors two houses down from her's were unsupervised too, she grew up very close to them and she considers that they were like one big family.His father worked for months in a row and be laid off for months in a row. Mom had issues with pain (a bad back) and she always was laying back, always had an ice pack on. It was her grandparents who supervised them. she has one sister, they get along, the relationship has gotten better. Abuse/Trauma: Neglected by mother, she describes than when she goes in her parents house, she clenches, she doesn't like going there because her parents used to fight a lot. Her father would come home drunk and he would wake them up because he was teaching them karate, he used to share marijuana with her and alcohol too. Current Living Situation: Lives by herself, has an apartment. 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 Employment: Disability, unemployed for several years. Social Support: "several friends that I can talk to" Legal: Denies Marital: single, from ex boyfriend, her son stays between her parents house and his ex boyfriend's house.. Mental Status Examination General Appearance: well groomed, appears stated age, hospital scubs/clothing Build: average Demeanor: average Eye Contact: average Activity: average Behavior: cooperative Speech: clear, spontaneous, reg/rate,rhythm,volume Mood: depressed, anxious Affect: appropriate, congruent, anxious Thought Process: logical/linear Thought Content (Delusions): none reported Thought Content (Other): none reported Thought Content (Aggressive): none reported Perception (Hallucinations): none reported Perception (Other): none reported Cognition (Impairment of): none reported Cognition(Intelligence Est.): average Oriented: Awake, Alert, Oriented times three Insight: fair Judgment: Poor Psychosis: Denies Diagnoses Persistent depressive disorder, r/o other specified depressive disorder Panic disorder Agoraphobia. Generalized anxiety disorder. Borderline personality disorder. Benzodiazepine use disorder Opioid use disorder by history Assessment Patient seems to be doing fine, she doesn't look depressed, she is not as anxious asn she was on previous admissions. miguelangel has a history of OD Initial Treatment Plan 1. Patient was admitted on a [9.39] status. 2. Complete history was obtained. 3. With patients permission, family will be contacted and database will be expanded. 4. Patients medication regimen will be reviewed and changed accordingly. 5. Patient will be provided with protected environment. 6. Patient will be treated with individual, group, and milieu therapies. 7. Patient will receive supportive psych-education. 8. Discharge planning will commence immediately. 9. Outpatient follow-up treatment will be strongly recommended. 10. The initial treatment plan will focus initially on: * Depression. * Risk for suicide. * Substance abuse. ESTIMATED LENGTH OF STAY: - DAYS. TIME SPENT COUNSELING AND COORDINATING INITIAL CARE: minutes. Vital Signs Vital Signs Date Time Temp Pulse Resp B/P (MAP) Pulse Ox O2 Delivery O2 Flow Rate FiO2 02/05/19 06:24 99.2 82 12 100/53 (69) Medications Scheduled (Risperidone) 0.5 Mg Tab, 0.5 MG PO DAILY, (Reported) (Microgestin 1.5/30 1.5-30 mg-Mcg) 1 Tab Tab, 1 TAB PO DAILY, (Reported) Duloxetine Hcl (Duloxetine HCl) 30 Mg Cap, 30 MG PO BID, (Reported) Ibuprofen (Ibuprofen) 800 Mg Tab, 800 MG PO TID, (Reported) Miscellaneous Medications [Med Rec Comment] , (Reported) OBTAINED LIST FROM PHARMACY Allergies Coded Allergies: citalopram (Verified Allergy, Intermediate, hives, 02/04/19) diphenhydramine (Verified Allergy, Mild, itching in 2006, but pt has taken since w/ no issues, 02/04/19) bupropion (Verified Adverse Reaction, Severe, seizure, 02/04/19) lamotrigine (Verified Adverse Reaction, Intermediate, visual disturbances at high doses, 02/04/19) PEREZ GUEVARA MD Feb 05, 2019 12:17
[2019-02-05] MEDS ORDERED: KETOCONAZOLE SHAMPOO TOP PRN (13:00)
[2019-02-05] MEDS: risperiDONE 1 MG TAB PO PRN ×2 (16:16→22:05)
[2019-02-05 18:00] VITALS: BP 124/76
[2019-02-05] MEDS ORDERED: QUEtiapine FUMARATE 100 MG TAB PO SCH (21:00)
[2019-02-06 06:45] VITALS: BP 136/71
[2019-02-06] MEDS: GABAPENTIN 400 MG CAP PO SCH (08:46)
[2019-02-06] MEDS: IBUPROFEN 800 MG TAB PO PRN (08:47)
[2019-02-06] MEDS ORDERED: CICLOPIROX TOP PRN (09:00)
[2019-02-06] MEDS ORDERED: CICLOPIROX TOP SCH (09:00)
[2019-02-06] MEDS ORDERED: DULoxetine 30 MG CAP (CYMBALTA) PO SCH (09:00)
[2019-02-06] MEDS ORDERED: GABA-845 PO (11:15)
[2019-02-06] MEDS ORDERED: QUET1TAB8 PO (11:15)
[2019-02-06] MEDS ORDERED: DULO1CAP2 PO (11:15)
[2019-02-06] MEDS ORDERED: RISP1TAB42 PO (11:15)
--- NOTE | 2019-02-14 13:51 | MHDSPDOC ---
[facility] Discharge Summary Discharge Summary DATE OF ADMISSION: Feb 04, 2019 at 16:29 DATE OF DISCHARGE: Feb 06, 2019 at 14:35 DISCHARGE DIAGNOSES: Persistent depressive disorder, r/o other specified depressive disorder Panic disorder Agoraphobia. Generalized anxiety disorder. Borderline personality disorder. Benzodiazepine use disorder Opioid use disorder by history REASON FOR ADMISSION: Patient is a 43 -year-old , female, who as per Dr. Bowling: "Patient is a 43 year old female with a past medical history significant for multiple psychiatric hospitalizations due to benzodiazepine and opiate overdoses, major depression, panic and anxiety disorder, borderline personality disorder, and chronic pain of back who presented to the [facility] Emergency Department by EMS after being found by family to have altered mental status. The patient herself is unable to give a history as she is confused and speaking incoherently and tangentially. Her father is present in the room but is unable to provide much of a history other than stating that this is different from her baseline and she has a history of drug overdose. A review of the patients medical record shows that she was last admitted to [facility] on September 05 2018 for drug overdose. At that time her medications were changed to Lyrica, Gabapentin, Cymbalta, Atarax, and Trazadone. In the Emergency room she did receive a toxicology which was overall negative. She received a head CT which was negative as well as a chest X-ray which did not demonstrate acute disease. It was suspected that the patient may have over dosed on her prescribed medications. Poison Control was contacted and recommended 24 hour observation. Hospitalist service was contacted and the patient was admitted for further evaluation and treatment. " CONSULTANTS INVOLVED: None TREATMENT AND PROGRESS ON THE UNIT : Mrs. Bobby, presented fairly stable this time, compared to previous hospitalizations. She was not anxious, was calm, did n't exhibit drug seeking behavior. She adamantly denied that she had tried to kill herself, said she had been Ok since she was on Cymbalta (since last hospitalization during the fall). She said she didn't know why she had experienced altered mental status and nothing was found on CT scan of her head, her urine toxicology was negative and her x rays were negative. She said she had been attending [facility], denied feeling depressed, denied feeling anxious, denied PTSD or psychotic symptoms. She was not suicidal/homicidal ideation. she was not responding to internal stimuli, was not violent, aggressive, didn't exhibit angry outbursts, didn't exhibit splitting behavior. HOSPITAL COURSE: As above DISCHARGE ASSESSMENT: At the time of her discharge, she was not suicidal/homicidal ideation. She was not responding to internal stimuli, was not violent, aggressive, didn't exhibit angry outbursts, didn't exhibit splitting behavior. She denied medication side effects, including but not limited to EPS or NMS. she was goal oriented and her mood and affect were bright. MENTAL STATUS EXAMINATION ON DISCHARGE: General Appearance: well groomed, appears stated age, hospital scubs/clothing Build: average Demeanor: average Eye Contact: average Activity: average Behavior: cooperative Speech: clear, spontaneous, reg/rate,rhythm,volume Mood: depressed, anxious Affect: appropriate, congruent, anxious Thought Process: logical/linear Thought Content (Delusions): none reported Thought Content (Other): none reported Thought Content (Aggressive): none reported Perception (Hallucinations): none reported Perception (Other): none reported Cognition (Impairment of): none reported Cognition(Intelligence Est.): average Oriented: Awake, Alert, Oriented times three Insight: fair Judgment: Poor Psychosis: Denies MEDICATIONS ON DISCHARGE: Scheduled (Microgestin 1.5/30 1.5-30 mg-Mcg) 1 Tab Tab, 1 TAB PO DAILY, (Reported) Duloxetine Hcl (Duloxetine HCl) 30 Mg Cap, 30 MG PO BID for DEPRESSION AND PAIN, #14 Gabapentin (Gabapentin) 400 Mg Cap, 800 MG PO TID for PAIN/ANXIETY, #21 Ibuprofen (Ibuprofen) 800 Mg Tab, 800 MG PO TID, (Reported) Quetiapine Fumerate (Quetiapine Fumarate) 100 Mg Tab, 100 MG PO QHS for IN SOMNIA/MOOD, #7 Scheduled PRN Risperidone (Risperdal) 1 Mg Tab, 1 MG PO TIDP PRN for anxiety/agitaton for 7 Days, #21 Miscellaneous Medications [Med Rec Comment] , (Reported) OBTAINED LIST FROM PHARMACY PLAN/FOLLOWUP ARRANGEMENTS: Follow Up Care Education Label * Mental Health Appt 1 * Mental Health [facility] * Established With This Provider Yes Follow Up Care Education Label * Medical * Medical Follow Up DR. WALTER MERCER * Established With This Provider Yes * Therapist DR. WALTER MERCER * Phone Number [phone] * Additional information Your doctor's office is closed today (02/06/19). We will call first thing Saturday morning (02/09/19) to get your medical appointment scheduled. Once we have the appointment, we will contact you to let you know the appointment date/time. The amount of time spent in the coordination of care for this patient was approximately 30 minutes. Medications Scheduled (Microgestin .5/30 1.5-30 mg-Mcg) 1 Tab Tab, 1 TAB PO DAILY, (Reported) Duloxetine Hcl (Duloxetine HCl) 30 Mg Cap, 30 MG PO BID for DEPRESSION AND PAIN, #14 Gabapentin (Gabapentin) 400 Mg Cap, 800 MG PO TID for PAIN/ANXIETY, #21 Ibuprofen (Ibuprofen) 800 Mg Tab, 800 MG PO TID, (Reported) Quetiapine Fumerate (Quetiapine Fumarate) 100 Mg Tab, 100 MG PO QHS for INSOMNIA/MOOD, #7 Scheduled PRN Risperidone (Risperdal) 1 Mg Tab, 1 MG PO TIDP PRN for anxiety/agitaton for 7 Days, #21 Miscellaneous Medications [Med Rec Comment] , (Reported) OBTAINED LIST FROM PHARMACY Allergies Coded Allergies: citalopram (Verified Allergy, Intermediate, hives, 02/04/19) diphenhydramine (Verified Allergy, Mild, itching in 2006, but pt has taken since w/ no issues, 02/04/19) bupropion (Verified Adverse Reaction, Severe, seizure, 02/04/19) lamotrigine (Verified Adverse Reaction, Intermediate, visual disturbances at high doses, 02/04/19) PEREZ GUEVARA MD Feb 14, 2019 13:42
== END 2019-02-06 14:35 | disposition home or self-care (01) | DRG 881 ==
LOC: M PSY 16:29
PROVIDERS: ADMIT Psychiatry & Neurology Psychiatry; ATTEND Psychiatry & Neurology Psychiatry
DX: F34.1 Dysthymic disorder (principal); F40.01 Agoraphobia with panic disorder; F41.1 Generalized anxiety disorder; G89.29 Other chronic pain; F60.3 Borderline personality disorder; F11.10 Opioid abuse, uncomplicated; F19.10 Other psychoactive substance abuse, uncomplicated; Z81.8 Family history of other mental and behavioral disorders; Z79.899 Other long term (current) drug therapy; Z88.6 Allergy status to analgesic agent; Z88.8 Allergy status to other drugs, medicaments and biological substances

== ENCOUNTER → 2019-03-04 | Outpatient (CLI) | payer MEDICARE, MEDICAID ==
[~2019-03-04] MED LIST changes: -KETO2SH TOP; +KETO2SHA9 TOP; +QUET1TAB8 PO; +RISP1TAB42 PO
--- NOTE | 2019-03-18 23:55 | ECWPNPC ---
PATIENT NAME: ASHWINI YOUNGBLOOD : 1975 GENDER: FEMALE VISIT DATE: 03/04/2019 DISCHARGE DATE: 03/04/19 1403 VISIT LOCKED DATE TIME: PHYSICIAN: MOOK MACKEY RESOURCE: MOOK MACKEY DISCLAIMER : THIS IS A VISIT SUMMARY EXTRACTED FROM THE [facility] CHART. IT IS NOT A COPY OF THE [employer] PROGRESS NOTE. ANTOINE
== END ==
LOC: M PAIN 13:15
PROVIDERS: ATTEND Nurse Practitioner Family
DX: G43.709 Chronic migraine without aura, not intractable, without status migrainosus (principal); G62.9 Polyneuropathy, unspecified; G47.00 Insomnia, unspecified; Z86.59 Personal history of other mental and behavioral disorders; J45.909 Unspecified asthma, uncomplicated; R56.9 Unspecified convulsions; M79.7 Fibromyalgia; Z98.890 Other specified postprocedural states; Z88.8 Allergy status to other drugs, medicaments and biological substances; Z79.899 Other long term (current) drug therapy

== ENCOUNTER → 2019-06-09 | Outpatient (CLI) | payer MEDICARE, MEDICAID ==
[~2019-06-09] MED LIST changes: +BOTULINUM INJ 100 UNITS (J0585) IM ONE; -DULO1CAP2 PO; -DULO1CAP3 PO; +DULO1CAP5 PO; +DULO1CAP6 PO; -OMEP20CA3 PO; +OMEP20CA4 PO; -TRAZ-160 PO; +TRAZ-252 PO; +TRAZ1TAB10 PO; -TRAZO50TA PO; +diazePAM 5 MG TAB As Ordered ONE; +oxyCODONE 5MG TAB As Ordered ONE
--- NOTE | 2019-06-17 00:55 | ECWPNPC ---
PATIENT NAME: ASHWINI YOUNGBLOOD : 1975 GENDER: FEMALE VISIT DATE: 06/09/2019 DISCHARGE DATE: 06/09/19 1350 VISIT LOCKED DATE TIME: PHYSICIAN: CAROL BERRIOS MD RESOURCE: CAROL BERRIOS MD REASON FOR APPOINTMENT 1. BOTOX HISTORY OF PRESENT ILLNESS HISTORY OF PRESENT ILLNESS: PAIN THE PATIENT DESCRIBES THE PAIN... FALL RISK SCREENING: SCREENING :NO FALLS REPORTED IN THE LAST YEAR CURRENT MEDICATIONS TAKING IBUPROFEN 200 MG TABLET 1 TABLET WITH FOOD OR MILK NEEDED ORALLY THREE TIMES A DAY, NOTES: 06/09/19899 TAKING SOMA 350 MG 30 350 MG TQBLET ONE TABLET ORALLY EVERY 8 HOURS NEEDED FOR PAIN, NOTES: 06/09/19899 TAKING CLONIDINE HCL 0.3 MG TABLET 2 TABLET ORALLY THREE TIMES DAILY NEEDED, NOTES: 2 NIGHTS AGO TAKING SUMATRIPTAN SUCCINATE 6 MG/0.5ML SOLUTION AUTO-INJECTOR 0.5 ML NEEDED SUBCUTANEOUS TWICE A DAY IF NEEDED FOR MIGRAINE HEADACHE, NOTES: NONE RECENT TAKING TOPAMAX 100 MG TABLET 1 TABLET ORALLY BID, NOTES: 06/09/19899 TAKING TRINTELLIX 10 MG TABLET 1 TABLET ORALLY ONCE A DAY, NOTES: 06/09/19899 TAKING GABAPENTIN 600 MG TABLET 1 TAB ORALLY TID, NOTES: 06/09/19899 TAKING JUNEL 1.5/30 1.5-30 MG-MCG TABLET 1 TABLET ORALLY ONCE A DAY, NOTES: CONTROL 06/09/19899 NOT-TAKING LIDODERM 5 % PATCH 1 PATCH TO INTACT SKIN REMOVE AFTER 12 HOURS EXTERNALLY DIRECTED, NOTES: NONE RECENT NOT-TAKING LYRICA 150 MG CAPSULE 1 CAPSULE ORALLY THREE TIMES A DAY NOT-TAKING DULOXETINE HCL 60 MG CAPSULE DELAYED RELEASE PARTICLES 1 TAB ORALLY BID NOT-TAKING LIDOCAINE 4 % CREAM SMALL AMOUNT EXTERNALLY DIRECTED NOT-TAKING BUTRANS 20 MCG/HR PATCH WEEKLY 1 PATCH TO SKIN TRANSDERMAL EVERY 7 DAYS NOT-TAKING COLACE 100 MG CAPSULE 1 CAPSULE NEEDED ORALLY TID NOT-TAKING XANAX 1 MG TABLET 1 TABLET ORALLY QID NOT-TAKING AMBIEN CR 12.5 MG TABLET EXTENDED RELEASE 1 TABLET AT BEDTIME NEEDED ORALLY PRN NOT-TAKING CELEBREX 100 MG CAPSULE 1 CAPSULE ORALLY TWICE A DAY NOT-TAKING FLEXERIL 10 MG TABLET 1 TABLET ORALLY BID PRN NOT-TAKING SUBOXONE 8.5MG TABLET SUBLINGUAL 1 TABLET UNDER THE TONGUE AND ALLOW TO DISSOLVE SUBLINGUAL TID NOT-TAKING VIIBRYD 40 MG TABLET 1 TAB WITH FOOD PO ONCE DAILY NOT-TAKING PROBIOTIC CAPSULE DIRECTED ORALLY NOT-TAKING VALIUM 10 MG TABLET 1 TABLET NEEDED ORALLY 1 HOUR PRIOR MRI NOT-TAKING OXYCODONE HCL 5 MG TABLET 1 TABLET NEEDED ORALLY 1 HOUR PRIOR MRI MEDICATION LIST REVIEWED AND RECONCILED WITH THE PATIENT PAST MEDICAL HISTORY CHRONIC MIGRAINE HEADACHES CHRONIC LOW BACK PAIN NEUROPATHY DRUG ABUSE- 2006 INSOMNIA DEPRESSION ASTHMA SEIZURES CHRONIC NECK PAIN FIBROMYALGIA TRISTIN- DANLOS SYNDROME ALLERGIES CELEXA: HIVES - ALLERGY WELLBUTRIN: SEIZURES - ALLERGY SEASONAL ALLERGIES: RUNNY NOSE, ITCHY EYES, ASTHMA LAMICTAL: NEUROLOGICAL DISRUPTION - ALLERGY SURGICAL HISTORY BACK SURGERY 03/2007 TONSILLECTOMY 1989 ADENOIDECTOMY- TUBES PLACED 1981 BILAT BREAST REDUCTION FAMILY HISTORY FATHER: ALIVE 61 YRS, DIAGNOSED WITH HYPERTENSION MOTHER: ALIVE 62 YRS, HTN, PSYCHIATRIC CONDITIONS, SUBSTANCE ABUSE, DIABETES, HYPERTENSION MATERNAL GRAND MOTHER: DIABETES MATERNAL AUNT: CERVICAL CANCER 1 SISTER(S) . 1 SON(S) . NO FAMILY HX OF BLADDER OR KIDNEY CA\\NSON HAS TRISTIN-DANLOS SYNDROME. SOCIAL HISTORY GENERAL: TOBACCO USE ARE YOU A:: NEVER SMOKER. 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 HAD PAST DRUG ADDICTION IN 2006. EXERCISE: NONE. LEARNING BARRIERS / SPECIAL NEEDS BARRIERS TO LEARNING?NO HEARING IMPAIRED?NO VISION IMPAIRED?YES :CORRECTIVE LENSES COGNITIVELY IMPAIRED?NO READINESS TO LEARN?YES LEARNING PREFERENCES?NO EMOTIONAL BARRIERS?NO SPECIAL DEVICES?YES :[facility] PFS, CLERGY, PUBLIC HEALTH REFERRALS WAS THE PROVIDER NOTIFIED OF ANY PERTINENT INFO?YES HAS THE PATIENT BEEN EDUCATED REGARDING HIS/HER PLAN OF CARE?YES HAS THE PATIENT BEEN EDUCATED REGARDING PAIN, THE RISK FOR PAIN, THE IMPORTANCE OF EFFECTIVE PAIN MANAGEMENT, AND THE PAIN ASSESSMENT PROCESS?YES LATEX QUESTIONNAIRE LATEX ALLERGY : HAVE YOU EVER DEVELOPED ANY TYPE OF REACTION AFTER HANDLING LATEX PRODUCTS SUCH RUBBER GLOVES, CONDOMS, DIAPHRAGMS, BALLOONS, SOCKS, OR UNDERWEAR?NO LATEX ALLERGY : HAVE YOU EVER DEVELOPED ANY TYPE OF REACTION DURING OR AFTER DENTAL APPOINTMENT, VAGINAL/RECTAL EXAMINATION, SURGICAL PROCEDURE, OR ANY OTHER EXPOSURE?NO LATEX RISK : HAVE YOU EVER HAD ANY DIFFICULTY BREATHING OR HIVES AFTER EATING OR HANDLING ANY FRUITS, OR VEGETABLES; SUCH KIWI, BANANAS, STONE FRUITS, OR CHESTNUTSNO LATEX RISK : DO YOU HAVE A PREVIOUS PERSONAL HISTORY OF MORE THAN NINE SURGERIES, SPINA BIFIDA, OR REPEATED CATHERIZATIONS? NO LATEX RISK : ARE YOU FREQUENTLY EXPOSED TO LATEX PRODUCTS IN YOUR OCCUPATION?NO DATE ASKED : 03/04/2019 CAFFEINE NONE. ADVANCE DIRECTIVE ADVANCE DIRECTIVE DISCUSSED WITH PATIENT:YES PT DECLINED PAPERWORK AND DECLINED ASSISTANCE WITH FILLING OUT PAPERWORK 06/09/19 MORMON [id number] OTHER MARITAL STATUS: SINGLE X1 CHILD. OCCUPATION: UNEMPLOYED. REVIEWED WITH PT 07/01/18 1505 LASREVIEWED WITH PATIENT 08/12/18 1429 JSREVIEWED WITH PT 06/09/19 1156 BV. HOSPITALIZATION/MAJOR DIAGNOSTIC PROCEDURE SURGERY RELATED SEIZURES 2002 DETOX 03/2007 FALL/LOW BP 07/2018 IMHU 07/2018 SEIZURE 07/2018 REVIEW OF SYSTEMS REVIEWED BY: PROVIDER: . CONSTITUTIONAL: ANY CHANGE IN YOUR MEDICAL CONDITION? NO . CHILLS NO . FEVER NO . INFECTION: DO YOU HAVE NEW INFECTIONS? NO . DO YOU HAVE HISTORY OF MRSA? NO . MUSCULOSKELETAL: ANY NEW PATTERNS OF PAIN OR NUMBNESS? NO . GASTROENTEROLOGY: ANY NEW CHANGE IN BOWEL CONTROL? NO . GENITOURINARY: ANY NEW CHANGE IN BLADDER CONTROL? NO . IS THERE A CHANCE YOU COULD BE ? NO . HEMATOLOGY/LYMPH: DO YOU TAKE ANY BLOOD THINNERS? (FOR EXAMPLE- COUMADIN, PLAVIX, AGGRENOX, PLATEL, PRADAXA, OR XARELTO) NO . WHEN WAS YOUR LAST DOSE? DATE: TIME: . NEUROLOGY: HAVE YOU FALLEN IN THE PAST 12 MONTHS? YES, PT STATES SHE HAS OCCASIONAL FALLS DUE TO RIGHT LEG WEAKNESS. STATES SHE HAD A FALL RECENTLY AND FELL ON RIGHT SHOULDER. STATES SHE IS BEING TREATED AT [facility] FOR THE RIGHT SHOULDER . ANY NEW EXTREMITY NUMBNESS OR WEAKNESS? NO . CARDIOLOGY: DO YOU HAVE A PACEMAKER OR DEFIBRILLATOR? NO . RESPIRATORY: HAVE YOU BEEN SICK IN THE PAST WEEK? NO . FEVER NO . FLU LIKE SYMPTOMS? NO . COUGH NO . INTEGUMENTARY: DO YOU HAVE ANY RASHES OR OPEN SORES? NO . ALLERGIC/IMMUNO: ARE YOU ALLERGIC TO IV DYE? NO . ANY NEW ALLERGIES? NO . PSYCHIATRIC: DO YOU HAVE THOUGHTS OF HURTING YOURSELF OR SOMEONE ELSE? NO . ARE YOU ABUSED, NEGLECTED, OR IN AN UNSAFE ENVIRONMENT? NO . ENDOCRINOLOGY: ARE YOU DIABETIC? NO . OTHER: DO YOU NEED ANY PRESCRIPTIONS? NO . IF YES, PLEASE LIST: ____ . ANY NEW PROBLEMS WITH YOUR MEDICATIONS? NO . WHEN DID YOU LAST EAT? 06/08/19 AM . WHEN DID YOU LAST DRINK? ____06/09/19 0900 WATER . WHAT DID YOU LAST DRINK? WATER . NAME OF PERSON DRIVING YOU HOME? PHIL YOUNGBLOOD . DO YOU HAVE ANY OTHER QUESTIONS OR CONCERNS NO . VITAL SIGNS WT 166 LBS, HT 5'3" 1/2, BMI 29.40 INDEX, BP 104/60 MM HG, HR 85 /MIN, RR 16 /MIN, TEMP 98.2 F, OXYGEN SAT % 100%, NA INITIALS SC 11:38, REVIEWED BY: BV. ASSESSMENTS CHRONIC MIGRAINE - G43.709 (PRIMARY) PROCEDURES PN BOTOX INJECTIONS SUBSEQUENT INJECTIONS PRE PROCEDURE DIAGNOSIS CHRONIC MIGRAINE HEADACHES. POST PROCEDURE DIAGNOSIS CHRONIC MIGRAINE HEADACHES. PROCEDURE BOTOX INJECTION AT THE HEAD, NECK, AND SHOULDERS. SURGEON DR. CAROL BERRIOS ASSISTANT INFANT TODDLER TEACHER NONE ANESTHESIA NONE PRE PROCEDURE NOTE THE PATIENT HAS HISTORY OF CHRONIC MIGRAINE HEADACHES. I EVALUATED THE PATIENT AND REVIEWED THE CHART. I WENT OVER THE RISKS, ALTERNATIVES, AND BENEFITS ASSOCIATED WITH THIS PROCEDURE. THE PATIENT WOULD LIKE TO PROCEED AND GIVE CONSENT TO PERFORMED THE PROCEDURE. THE PATIENT DENIES UNEXPLAINABLE WEIGHT LOSS, FEVER, CHILLS, OR NEW CHANGES IN URINARY OR BOWEL CONTROL. THE PATIENT DID A BOTOX INJECTION AT THE HEAD, NECK AND SHOULDERS 3 MONTHS AGO AND EXPRESSED MORE THAN 50% REDUCTION ON THE FREQUENCY AND INTENSITY OF THE HEADACHES. AFTER BOTOX SHE WAS HAVING 8 HEADACHES PER MOTH. LAST BOTOX WAS DONE 8 MONTHS AGO. NOW SHE IS EXPERIENCING HEADACHES 20 TIMES PER MONTH. THE PATIENT EXPRESS THAT THE USE OF BOTOX HAS REDUCE SIGNIFICANTLY THE SEVERITY OF THE HEADACHES IN THE PAST AND EXPRESSED THAT WANT TO RECEIVE THIS PROCEDURE AGAIN TODAY DESCRIPTION OF PROCEDURE THE PATIENTS WAS BROUGHT TO THE PROCEDURE ROOM AND PLACED IN THE SUPINE POSITION. I CHECKED LATERALITY AND THE AREAS WHERE THE PROCEDURE WAS GOING TO BE PERFORMED WITH THE PATIENT AND THE SUPPORTING STAFF AT THE MOMENT OF THE TIME OUT IN THE PROCEDURE ROOM. FOR THE PROCEDURE I USED A SOLUTION OF 5 UNITS OF BOTOX PER EACH 0.1 ML OF THE SOLUTION. I USED A 30-GAUGE NEEDLE TO INJECT THE SOLUTION AT THE SELECTED LOCATIONS. I INJECTED FIRST THE RIGHT AND LEFT DECKHAND SPONGE BOAT MUSCLES. THE LANDMARK FOR BOTH INJECTIONS WAS APPROXIMATELY 1 CM ABOVE THE SUPERIOR MEDIAL EDGE OF THE EYEBROW. AFTER THESE TWO INJECTIONS, I INJECTED THE PROCERUS MUSCLE AT THE MIDLINE POINT BETWEEN THESE FIRST TWO INJECTIONS. THEN I PROCEEDED TO INJECT THE RIGHT AND LEFT FRONTALIS MUSCLE. TWO INJECTIONS WERE DONE IN EACH SIDE. THE FIRST INJECTION WAS DONE APPROXIMATELY 2 CM ABOVE THE FIRST INJECTION OF THE DECKHAND SPONGE BOAT. THE SECOND INJECTION WAS DONE APPROXIMATELY 1.5 CM LATERAL TO THIS FIST INJECTION OF THE FRONTALIS OF EACH SIDE. AFTER THE INJECTIONS OVER THE FOREHEAD WERE DONE, THE PATIENT'S HEAD WAS TURNED TO THE LEFT SIDE AND WE STARTED TO WORK WITH THE RIGHT TEMPORALIS MUSCLE. FIRST INJECTION WAS DONE IN A VERTICAL LINE OF THE TRAGUS APPROXIMATELY 3 CM ABOVE THE TRAGUS. THE SECOND INJECTION WAS DONE APPROXIMATELY 2 CM ABOVE THE FIRST INJECTION. THE THIRD INJECTION WAS DONE APPROXIMATELY 1 CM FRONT FAYE FROM THIS VERTICAL LINE CREATED AT THE LEVEL OF THE TRAGUS, SKILLED NURSING BETWEEN THESE TWO INJECTIONS. THE FOURTH INJECTION WAS DONE APPROXIMATELY 1.5 CM BACK FROM THE SECOND INJECTION TO THE TEMPORALIS IN LINE TO THE MIDPORTION OF THE EAR. THEN, WE PROCEEDED TO INJECT THE LEFT TEMPORALIS MUSCLE. WE CLEANED THE AREA WITH ALCOHOL AND PROCEEDED TO PERFORM THE SAME FOR INJECTIONS DESCRIBED ABOVE BUT IN THE LEFT TEMPORALIS MUSCLE USING THE SAME LANDMARKS. AFTER THESE INJECTIONS WERE DONE, THE PATIENT WAS SEATED. FIRST, WE STARTED TO INJECT THE LEFT AND RIGHT OCCIPITALIS MUSCLE. I INJECTED AT THE FOLLOWING PLACES IN THE RIGHT AND LEFT MUSCLE. THE FIRST INJECTION WAS DONE AT THE MIDPOINT POSITION BETWEEN THE MASTOID PROCESS AND THE INION OF THE OCCIPITAL PROTUBERANCE. THE SECOND INJECTION WAS DONE APPROXIMATELY 1.5 CM SUPERIOR AND LATERAL OF THIS POINT. THE THIRD INJECTION WAS DONE APPROXIMATELY 1.5 CM SUPERIOR AND MEDIAL TO THIS FIRST INJECTION. THEN, I PROCEEDED TO INJECT THE RIGHT AND LEFT PARASPINAL MUSCLES. LANDMARK OF THE INJECTION WERE APPROXIMATELY: FIRST INJECTION 3 CM BELOW THE INION AND 1 CM LATERAL TO THE MIDLINE AND SECOND INJECTION AT EACH SIDE WAS DONE APPROXIMATELY 1.5 CM SUPERIOR AND LATERAL OF THE FIRST INJECTION. THE LAST GROUP OF INJECTIONS WAS DONE OVER THE RIGHT AND LEFT TRAPEZIUS MUSCLE OVER THE SHOULDERS AREA. THE FIRST INJECTION WAS DONE AT THE MIDPOINT BETWEEN THE INFLECTION POINT BETWEEN THE NECK AND SHOULDER AND THE ACROMION. THE SECOND AND THIRD INJECTIONS WERE DONE APPROXIMATELY 2.5 CM LATERAL AND MEDIAL FROM THIS FIRST INJECTION. SAME TARGETS WERE USED IN THE RIGHT AND LEFT SIDE. IN TOTAL, I INJECTED 155 UNITS OF BOTOX. PROCEDURE WAS DONE WITHOUT EVIDENCE OF PARESTHESIA, PNEUMOTHORAX, OR ANY COMPLICATIONS. THE PATIENT TOLERATED THE PROCEDURE VERY WELL. THE PATIENT WAS SENT TO THE RECOVERY ROOM FOR OBSERVATIONS. INJECTIONS WERE DONE AFTER CLEANING WITH ALCOHOL, USING ASEPTIC TECHNIQUES POST PROCEDURE NOTE THE PROCEDURE DONE WAS DISCUSSED WITH THE PATIENT. THE PATIENT WILL BE SEEN IN A FOLLOW UP IN THE NEXT FEW WEEKS. INSTRUCTIONS WERE GIVEN, QUESTIONS WERE ANSWERED, AND THE PATIENT EXPRESSED UNDERSTANDING AND AGREES WITH THE PLAN. I, QUANG ALBARADO, DOCUMENTED THE ABOVE INFORMATION ACTING A SCRIBE FOR DR. BERRIOS. I HAVE REVIEWED THE ABOVE DOCUMENT, WRITTEN BY QUANG ALBARADO SCRIBPeggy AND I VERIFY THAT IT IS ACCURATE. PROCEDURE CODES 49538 CHEMODENERV MUSC MIGRAINE DISPOSITION & COMMUNICATION FOLLOW UP 3 WEEKS ELECTRONICALLY SIGNED BY CAROL BERRIOS MD, MD ON 06/16/2019 AT 03:34 PM EDT DISCLAIMER : THIS IS A VISIT SUMMARY EXTRACTED FROM THE [employer] CHART. IT IS NOT A COPY OF THE [employer] PROGRESS NOTE. ANTOINE
== END ==
LOC: M PAIN 11:30
PROVIDERS: ATTEND Anesthesiology
DX: G43.709 Chronic migraine without aura, not intractable, without status migrainosus (principal); M54.2 Cervicalgia; G62.9 Polyneuropathy, unspecified; G47.00 Insomnia, unspecified; F32.9 Major depressive disorder, single episode, unspecified; J45.909 Unspecified asthma, uncomplicated; R56.9 Unspecified convulsions; M79.7 Fibromyalgia; Q79.6 Ehlers-Danlos syndromes; Z79.899 Other long term (current) drug therapy; Z88.8 Allergy status to other drugs, medicaments and biological substances
CPT/HCPCS: 64615; J0585

== ENCOUNTER 2019-07-15 12:21 | Emergency (ER) | payer MEDICARE, MEDICAID ==
[~2019-07-15 12:21] MED LIST changes: -BOTULINUM INJ 100 UNITS (J0585) IM ONE; -diazePAM 5 MG TAB As Ordered ONE; -oxyCODONE 5MG TAB As Ordered ONE
[2019-07-15] MEDS ORDERED: BRIN10TA4 PO (12:42)
[2019-07-15] MEDS ORDERED: CARI1TAB7 PO (12:47)
[2019-07-15] MEDS ORDERED: CLON-412 PO (12:47)
--- NOTE | 2019-07-15 20:25 | ECGEPIP ---
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
== END 2019-07-15 13:53 | disposition left against medical advice (07) ==
LOC: M ED 12:21
DX: F32.9 Major depressive disorder, single episode, unspecified (principal)

== ENCOUNTER 2019-08-03 10:50 | Observation (INO) | payer MEDICARE, MEDICAID ==
[~2019-08-03] VITALS: Ht 162.6 cm; Wt 75.5 kg
[~2019-08-03 10:50] MED LIST changes: +BRIN10TA4 PO; +CLON-412 PO
[2019-08-03] MEDS ORDERED: NS 1,000 ML IV ONE ×3 (11:30→15:30)
[2019-08-03 11:31] LABS: BASO % 0.2 % (0.0-1.0); EOS % 0.1 % (0.0-3.0); LYMPH # 1.1 10^3/uL (1.5-5.0); LYMPH % 8.7 % (24.0-44.0); MEAN CORPUSCULAR HGB CONC 34.1 g/dl (32.0-36.5); MEAN CORPUSCULAR VOLUME 93.8 fl (80.0-96.0); MONO # 0.9 10^3/uL (0.0-0.8); MONO % 7.2 % (0.0-5.0); NEUTROPHILS # 10.6 10^3/uL (1.5-8.5); NEUTROPHILS % 83.3 % (36.0-66.0); PLATELET COUNT, AUTOMATED 357 10^3/uL (150-450); RED BLOOD COUNT 4.37 10^6/uL (4.00-5.40); WHITE BLOOD COUNT 12.7 10^3/uL (4.0-10.0)
[2019-08-03 11:52] LABS: HCG, SERUM QUALITATIVE NEGATIVE (NEGATIVE)
[2019-08-03 12:10] LABS: ACETAMINOPHEN LEVEL < 2.0 UG/ML (10.0-30.0); ALBUMIN 3.7 GM/DL (3.2-5.2); ALT/SGPT 31 U/L (12-78); BILIRUBIN,DIRECT 0.1 MG/DL (0.0-0.2); BILIRUBIN,TOTAL 0.3 MG/DL (0.2-1.0); BLOOD UREA NITROGEN 16 MG/DL (7-18); CALCIUM LEVEL 9.6 MG/DL (8.5-10.1); CARBON DIOXIDE LEVEL 16 MEQ/L (21-32); CHLORIDE LEVEL 108 MEQ/L (98-107); CPK CREATINE PHOSPHOKINASE 402 U/L (26-192); CREATININE FOR GFR 0.96 MG/DL (0.55-1.30); ETHYL ALCOHOL (ETHANOL) < 0.003 % (0.000-0.010); GLOMERULAR FILTRATION RATE > 60.0 (>58); GLUCOSE, FASTING 115 MG/DL (70-100); POTASSIUM SERUM 3.7 MEQ/L (3.5-5.1); SALICYLATE LEVEL < 1.7 MG/DL (5.0-30.0); SODIUM LEVEL 138 MEQ/L (136-145); TOTAL PROTEIN 7.4 GM/DL (6.4-8.2)
[2019-08-03] MEDS ORDERED: CLON0.3T PO (12:51)
[2019-08-03 12:55] LABS: AMPHETAMINES LEVEL URINE NEGATIVE (NEGATIVE); BARBITURATES URINE NEGATIVE (NEGATIVE); BENZODIAZEPINES URINE NEGATIVE (NEGATIVE); CANNABINOIDS URINE NEGATIVE (NEGATIVE); COCAINE METABOLITE URINE NEGATIVE (NEGATIVE); METHADONE URINE NEGATIVE (NEGATIVE); OPIATES URINE NEGATIVE (NEGATIVE); PHENCYCLIDINE URINE NEGATIVE (NEGATIVE)
[2019-08-03] MEDS ORDERED: NORE1TAB7 PO (12:58)
[2019-08-03] MEDS ORDERED: CICL1SHA2 TOP (12:59)
[2019-08-03] MEDS ORDERED: KETO2SHA9 TOP (12:59)
[2019-08-03] MEDS ORDERED: GABA600T4 PO (12:59)
[2019-08-03] MEDS ORDERED: TOPI100T9 PO (12:59)
[2019-08-03] MEDS ORDERED: ADACEL/BOOSTRIX VACCINE (DIPHTH/PERTUSS/ACELL/TETANUS)0.5ML SYR (90715) IM ONE (13:00)
--- NOTE | 2019-08-03 13:12 | REP ---
CT of the brain without IV contrast: Comparison is 02/02/2019. There is no intracranial hemorrhage. There is no edema, mass effect or midline shift. Ventricles are normal size and midline. The cortical stripe is unremarkable. The visualized paranasal sinuses and mastoid air cells are clear. Impression: Essentially negative CT study of the brain. There is no interval change. Electronically Signed by Shar Aaron MD 08/03/2019 01:04 P
[2019-08-03] MEDS ORDERED: HALOPERIDOL 5 MG/ML VIAL (J1630) IV PRN (13:15)
[2019-08-03 15:35] VITALS: BP 123/79
[2019-08-03] MEDS: IBUPROFEN 800 MG TAB PO SCH ×2 (16:00→21:34)
[2019-08-03 16:08] LABS: FREE T3 2.4 PG/ML (2.2-4.0); FREE T4 1.34 NG/DL (0.76-1.46)
[2019-08-03 16:11] LABS: TOTAL T3 125.4 NG/DL (60.0-181.0)
--- NOTE | 2019-08-03 17:37 | REP ---
Portable chest x-ray: Single view: History: Attention overdose, rule out aspiration. Comparison study: February 02, 2019. Findings: Right hemidiaphragm remains somewhat elevated. This is unchanged. The heart is not enlarged. Lungs are symmetrically aerated and clear. EKG electrodes are seen. Pulmonary vasculature is not increased. Impression: No acute disease. Electronically Signed by Kalyan Gupta MD 08/04/2019 08:47 A
[2019-08-03 20:00] VITALS: BP 132/78
[2019-08-03] MEDS: TOPIRAMATE (TopAMAX) 100 MG TAB PO SCH (21:34)
[2019-08-03] MEDS: ACETAMINOPHEN TAB 650MG DOSE (2X325MG) PO PRN (21:38)
--- NOTE | 2019-08-03 21:43 | ECGEPIP ---
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
[2019-08-04] VITALS: BP 132/87
[2019-08-04 04:00] VITALS: BP 136/84
[2019-08-04] MEDS: ACETAMINOPHEN TAB 650MG DOSE (2X325MG) PO PRN ×2 (05:05→13:17)
[2019-08-04 05:30] LABS: HEMATOCRIT 35.2 % (36.0-47.0); MEAN CORPUSCULAR HEMOGLOBIN 30.9 pg (27.0-33.0); MEAN CORPUSCULAR VOLUME 93.9 fl (80.0-96.0); PLATELET COUNT, AUTOMATED 296 10^3/uL (150-450); RED BLOOD COUNT 3.75 10^6/uL (4.00-5.40); WHITE BLOOD COUNT 7.4 10^3/uL (4.0-10.0)
[2019-08-04 05:35] LABS: HEMOGLOBIN 11.6 g/dl (12.0-15.5)
[2019-08-04 05:42] LABS: BLOOD UREA NITROGEN 8 MG/DL (7-18); CALCIUM LEVEL 8.2 MG/DL (8.5-10.1); CARBON DIOXIDE LEVEL 16 MEQ/L (21-32); CHLORIDE LEVEL 120 MEQ/L (98-107); CREATININE FOR GFR 0.72 MG/DL (0.55-1.30); GLOMERULAR FILTRATION RATE > 60.0 (>58); GLUCOSE, FASTING 93 MG/DL (70-100); MAGNESIUM LEVEL 2.3 MG/DL (1.8-2.4); POTASSIUM SERUM 3.1 MEQ/L (3.5-5.1); SODIUM LEVEL 148 MEQ/L (136-145)
[2019-08-04] MEDS ORDERED: POTASSIUM CHLORIDE 10 MEQ SR TABLET PO ONE (06:15)
[2019-08-04 08:00] VITALS: BP 141/91
--- NOTE | 2019-08-04 08:25 | HPE ---
DATE: 08/03/2019 at approximately 1 p.m. CHIEF COMPLAINT: Altered mental status. HISTORY OF PRESENT ILLNESS: Ms. Ward is a 43-year-old woman who has a past medical history notable for chronic back pain syndrome, borderline personality disorder, anxiety disorder, and major depression. She has had multiple hospitalizations for intentional benzo and opioid overdoses. Her last hospitalization was in February of 2019, at that time she had been discharged to inpatient psychiatry. She presents today with altered mental status after being found by her mom. Patient is unable to provide any creditable history as she is acutely intoxicated from her intentional overdose. Patient follows with the [facility], she was recently prescribed Soma for treatment of her chronic back pain issues and was found today by her mom. Her father is at the bedside and tells me that the patient and his were due to go to some event today and when the mom went to pick her up she found her lying down and surrounded by pill bottles and she was incoherent. She was brought to the emergency room. She was noted to have a small contusion to her forehead. She underwent a CT scan of her head without contrast which did not show any acute intracranial events. Preliminary diagnostic work-up has not found any metabolic cause for this altered mental status. Urine drug screen is negative at this time, ethyl alcohol was less than 0.03, acetaminophen level was less than 2, salicylates are less than 1.7. Her CMP was otherwise unremarkable. She was found to have a low normal TSH. A free T4 is pending at this time. Patient was hydrated with IV fluids. Poison control was contacted. The patient was recommended for supportive care and observation over the next 24 hours before she can be cleared from a mental status standpoint for transfer to inpatient psych. ALLERGIES: CITALOPRAM which causes hives, BENADRYL which causes itching, but she has taken it is the past, BUPROPION causes seizures, LAMICTAL causes visual disturbances at high doses. CURRENT HOME MEDICATIONS: - Soma 350 mg by mouth three times a day - ciclopirox shampoo apply to scalp - clonidine 0.7 mg at bedtime - gabapentin 600 mg by mouth three times a day - ibuprofen 800 mg by mouth three times a day - ketoconazole shampoo - Norethin Estrad tablet daily - Topamax 100 mg twice a day - Trintellix 10 mg by mouth daily PAST MEDICAL HISTORY: Notable for chronic back pain syndrome. She is on hormone replacement therapy. She has history of major depression and anxiety disorder. History of borderline personality disorder. She has history of multiple admissions for both benzodiazepine and narcotic intentional overdoses. PAST SURGICAL HISTORY: Notable for discectomy, tonsillectomy, laminectomy, and breast reduction surgery. SOCIAL HISTORY: Patient is single, she lives alone. She was never . She has one child who resides with his father. Her surrogate medical decision maker would be her parents. She is currently a full code as she is unable to make decisions for herself. REVIEW OF SYSTEMS: Twelve systems cannot be obtained secondary to patient's acute toxic metabolic encephalopathy. FAMILY HISTORY: Notable for mom who has diabetes and hypertension. Dad has chronic obstructive pulmonary artery disease (COPD) and hypertension. PHYSICAL EXAMINATION: On examination today the patient's blood pressure is 131/64, pulse 119, temperature 99.6, respiratory rate 30, oxygen saturation 96% on room air. General: The patient is incoherent. She is a middle aged female who is unable to provide any history secondary to acute encephalopathy. She has a small bruise at the confluence of the bridge of her nose and her forehead. She otherwise exhibits no other head trauma. Her pupils are equal and reactive to light, unable to test for accommodation given her level of cooperation. Her tympanic membranes are visualized bilaterally without any evidence of perforation of her eardrum or ear canal erythema or drainage. Nares are patent bilaterally. She has no facial asymmetry. Her speech is slurred. Tongue is midline. Oral mucosa is dry at this time. Neck is supple. No nuchal rigidity. Cervical spine tenderness to palpation. She has no palpable thyroid gland tenderness nor thyromegaly. Lungs sounds are appreciated. She has symmetric chest wall rise. No adventitious lung sounds are appreciated on examination. Heart S1, S2, she is tachycardic without any audible murmurs or gallops. Her abdomen is soft, nondistended, mildly tender to palpation without any palpable organomegaly. Her extremities are without any significant cyanosis, clubbing, or edema. Neurologic exam is difficult to assess given her level of uncooperativeness due to her acute encephalopathy, but she withdrawals all four limbs to noxious stimuli. Deep tendon reflexes are difficult to elicit secondary to her height and muscle tone due to her agitation. Psychiatric exam unable to assess secondary to acute toxic metabolic encephalopathy. PERTINENT DIAGNOSTIC IMAGES DONE IN THE ER: A CT scan of the head without contrast was unremarkable and not showing any acute pathology. A chest x-ray has not been done, we will obtain one to rule out aspiration. EKG showed a sinus tachycardia with nonspecific ST and T wave changes. White count was 12.7, hemoglobin 14, hematocrit 41, platelet count 357, fluid was 138, potassium 3.7, chloride 108, bicarbonate is 116, anion gap is 14, BUN 16, creatinine 0.96, calcium is 9.6, total bilirubin 0.3, direct bilirubin 0.1, AST 22, ALT 31, alkaline phosphatase 64, CPK is 402, albumin 3.7, TSH is 0.25. IMPRESSION: 1. Suicide attempt by intentional overdose of Soma. Patient will be admitted to an observation status so she can be cleared from a medical standpoint to proceed to inpatient psychiatry. Patient will be placed in the PCS with telemetry. She will receive both seizure and suicide precautions. She will be hydrated with IV fluids. Once she is medically stable patient will be evaluated by psychiatry likely tomorrow. 2. Non-anion gap metabolic acidosis. Likely secondary to Soma over ingestion. 3. Possible subclinical hyperthyroidism. We will check a free T4 as well as T3 levels. Further recommendations to follow based on test results. 4. Chronic pain syndrome. Patient's Neurontin will be held as we will avoid any medications that can cause LICENSED BONDSMAN depression. 5. History of major depression. We will hold the Trintellix until she is stable. 6. History of seizure disorder. Patient will be placed on seizure precautions. We will check a magnesium level and resume her Topamax. 7. Deep venous thrombosis (DVT) prophylaxis. Patient will be placed on Lovenox as well as sequential compression devices (SCDs) for DVT prophylaxis.
[2019-08-04] MEDS: IBUPROFEN 800 MG TAB PO SCH ×3 (08:31→19:56)
[2019-08-04] MEDS: TOPIRAMATE (TopAMAX) 100 MG TAB PO SCH ×2 (08:31→19:56)
[2019-08-04] MEDS ORDERED: NORETHINDRONE PO SCH (09:00)
[2019-08-04] MEDS ORDERED: ETHINYL ESTRADIOL PO SCH (09:00)
[2019-08-04] MEDS ORDERED: ENOXAPARIN 40 MG/0.4 ML SYRINGE (J1650) SC SCH (09:00)
[2019-08-04 12:00] VITALS: BP 144/66
--- NOTE | 2019-08-04 13:39 | IPNPDOC ---
Text Note Date of Service The patient was seen on 08/04/19. NOTE Subjective: No symptoms this morning. Feels back at baseline. Reports that her ingestion was not exactly a suicide attempt, she was trying to feel better on the anniversary of a bad event. Objective: Vitals: see below General: middle aged with small bruise at bridge of nose HEENT: Bruise at forehead and nose otherwise NCAT. EOMI, PERRLA, anicteric Neuro: No facial asymmetry, fluent speech, tongue is midline, cranial nerves 2- 12 grossly intact, normal gait Neck: No palpable thyromegaly. Pulm: CTAB, symmetric chest wall rise, no wheezing or crackles Heart: RRR, S1, S2, no murmurs or gallops. Abdomen: soft, non distended, non tender to palpation without any palpable organomegaly. Extremities: WWP, no edema, 2+ DP pulses Psychiatric exam: AOx3, normal affect Labs: see below Imaging 08/03/2019: CT head without contrast was unremarkable and not showing any acute pathology. 08/03/2019: Chest x-ray: No acute pulmonary pathology 08/03/2019: EKG showed a sinus tachycardia with nonspecific ST and T wave changes. Assessment: 43-year-old woman who has a past medical history notable for chronic back pain syndrome, borderline personality disorder, anxiety disorder, major depression and multiple hospitalizations for intentional benzo and opioid overdoses with prior inpatient psychiatry stays who was brought in after being found unresponsive by her mother and determined to have intentionally overdosed on her soma nad gabapentin and admitted to the ICU with NAGMA and metabolic encephalopathy that has since resolved with IV fluids and holding her psychotropes, except for her topamax. 1. Suicide attempt by intentional overdose of Soma. -Admitted as observation and now cleared from a medical standpoint to proceed to inpatient psychiatry. -No abnormal events on telemetry -continue seizure and suicide precautions. -s/p IV fluids, now taking good PO -Pending psychiatry evaluation, per Dr. Aguilar will be admitted to [facility] after his evaluation. 2. Non-anion gap metabolic acidosis. Likely secondary to Soma over ingestion, resolved 3. Possible subclinical hyperthyroidism. normal free T4 4. Chronic pain syndrome. continue holding neurontin at this time 5. History of major depression. We will hold the Trintellix until she is assessed by psychiatry 6. History of seizure disorder. -seizure precautions, continue topamax 7. Deep venous thrombosis (DVT) prophylaxis. Lovenox and SCDs Dispo: Pending psych eval for [facility] admission [facility], I+O V[facility]ar I+O Laboratory Tests 08/04/19 04:55 Red Blood Count 3.75 L, Mean Corpuscular Volume 93.9, Mean Corpuscular Hemoglobin 30.9, Mean Corpuscular Hemoglobin Concent 33.0, Red Cell Distribution Width 14.8 H, Calcium Level 8.2 L Vital Signs Date Time Temp Pulse Resp B/P (MAP) Pulse Ox O2 Delivery O2 Flow Rate FiO2 08/04/19 12:00 98.4 90 17 144/66 (92) 98 08/03/19 11:03 Room Air I&O- Last 24 Hours up to 6 AM 08/04/19 06:00 Intake Total 3600 ml Output Total 1400 ml Balance 2200 ml RUBÉN PATEL MD Aug 04, 2019 13:39
[2019-08-04 16:00] VITALS: BP 157/74
[2019-08-04] MEDS ORDERED: MOM 30ML SUSPENSION UDC PO ONE (17:00)
[2019-08-04 19:26] VITALS: BP 124/89
--- NOTE | 2019-08-04 19:30 | DS.PDOC ---
Discharge Summary General Date of Admission Aug 03, 2019 at 10:51 Date of Discharge 08.04.19 Attending Physician: RUBÉN PATEL MD Specialist/Consultants Involve: A Discharge Summary Time of service 7:35 PM ADMITTING DIAGNOSES: Suicide attempt by potential overdose of Soma. Non-anion gap metabolic acidosis secondary to Soma ingestion. Abnormal TSH. DISCHARGE DIAGNOSES: Suicide attempt by potential overdose of Soma - Resolved Non-anion gap metabolic acidosis secondary to Soma ingestion. - Resolved Abnormal TSH, possibly due to subclinical hypothyroidism COMPLICATIONS/CHIEF COMPLAINT: Overdose. HISTORY OF PRESENT ILLNESS: Per HPI this is a 43-year-old female who was found altered by her mother after intentionally ingesting an excessive amount of Soma. Per history of present illness the patient was to confused to provide additional history. She had a contusion on the head and CT was obtained which was negative for any acute process. HOSPITAL COURSE: She was admitted to the ICU for management, and received IV fluids. Shortly thereafter altered mental status resolved and she was cleared by psychiatry for transfer to the inpatient psych unit. At the time of exam. She denied suicidal or homicidal ideation. DISCHARGE MEDICATIONS: Please see below. ALLERGIES: Please see below. PHYSICAL EXAMINATION ON DISCHARGE: VITAL SIGNS: Please see below. GENERAL: Well-nourished, well-developed, no apparent distress HEENT: normocephalic, atraumatic. Mucous members moist and pink CARDIOVASCULAR EXAMINATION: Rate and rhythm. No murmurs, rubs or gallops RESPIRATORY EXAMINATION: Clear to auscultation bilaterally on room air PSYCHIATRIC EXAMINATION: Alert and oriented to person, place and time, able to understand and follow all commands LABORATORY DATA: Please see below. IMAGING: CT of the head and chest x-ray was unremarkable PROGNOSIS: Fair ACTIVITY: [As tolerated]. DIET: Regular DISCHARGE PLAN: Transfer to inpatient psych unit DISPOSITION: Transfer to inpatient psych unit DISCHARGE INSTRUCTIONS: 1. Continue with Topamax rest of medications per psychiatrist ITEMS TO FOLLOWUP ON ON OUTPATIENT: 1. Follow-up with PCP to repeat TFTs and Psychiatrist DISCHARGE CONDITION: [Stable]. TIME SPENT ON DISCHARGE: approximately 15 minutes. Vital Signs/I&Os Vital Signs Date Time Temp Pulse Resp B/P (MAP) Pulse Ox O2 Delivery O2 Flow Rate FiO2 08/04/19 16:00 98.7 93 17 157/74 (101) 96 08/03/19 11:03 Room Air I&O- Last 24 Hours up to 6 AM 08/04/19 06:00 Intake Total 3600 ml Output Total 1400 ml Balance 2200 ml Laboratory Data Labs 24H Laboratory Tests 2 08/04/19 04:55: Nucleated Red Blood Cells % (auto) 0.0, Anion Gap 12, Glomerular Filtration Rate > 60.0, Blood Urea Nitrogen 8, Creatinine 0.72, Sodium Level 148#H, Potassium Level 3.1L, Chloride Level 120H, Carbon Dioxide Level 16L, Calcium Level 8.2L, Magnesium Level 2.3 CBC/BMP Laboratory Tests 08/04/19 04:55 Red Blood Count 3.75 L, Mean Corpuscular Volume 93.9, Mean Corpuscular Hemoglobin 30.9, Mean Corpuscular Hemoglobin Concent 33.0, Red Cell Distribution Width 14.8 H, Calcium Level 8.2 L Discharge Medications Scheduled Carisoprodol (Carisoprodol) 350 Mg Tablet, 350 MG PO TID, (Reported) Ciclopirox (Ciclopirox) 120 Ml Shampoo, 1 APLCT TOP 2XW, (Reported) APPLY TO SCALP Clonidine HCl (Clonidine HCl) 0.1 Mg Tablet, 0.1 MG PO QHS, (Reported) TAKES 0.3MG TABLETS Clonidine HCl (Clonidine HCl) 0.3 Mg Tablet, 0.6 MG PO QHS, (Reported) TAKES WITH 0.1MG TAB Gabapentin (Gabapentin) 600 Mg Tablet, 600 MG PO TID, (Reported) Ibuprofen (Ibuprofen) 800 Mg Tab, 800 MG PO TID, (Reported) Ketoconazole (Ketoconazole) 120 Ml Shampoo, 1 APLCT TOP DAILY, (Reported) APPLY TO SCALP Norethindrone AC-Eth Estradiol (Norethind-Eth Estrad 1-0.02 mg) 1 Each Tablet, 1 TAB PO DAILY, (Reported) Topiramate (Topiramate) 100 Mg Tablet, 100 MG PO BID, (Reported) Vortioxetine Hydrobromide (Trintellix) 10 Mg Tablet, 10 MG PO DAILY, (Reported) Miscellaneous Medications [Med Rec Comment] , (Reported) OBTAINED LIST FROM PHARMACY Allergies Coded Allergies: citalopram (Verified Allergy, Intermediate, hives, 02/04/19) diphenhydramine (Verified Allergy, Mild, itching in 2006, but pt has taken since w/ no issues, 02/04/19) bupropion (Verified Adverse Reaction, Severe, seizure, 02/04/19) lamotrigine (Verified Adverse Reaction, Intermediate, visual disturbances at high doses, 02/04/19) JUSTINE DIAS MD Aug 04, 2019 19:30
[2019-08-04] MEDS ORDERED: INFLUENZA QUADRIVALENT PF VACCINE 0.5ML SYRINGE (90686) IM PRN (19:42)
[2019-08-05] MEDS ORDERED: BRIN10TA4 PO (05:01)
[2019-08-05] MEDS ORDERED: CARI1TAB7 PO (05:01)
[2019-08-05] MEDS ORDERED: IBUP1TAB7 PO (05:01)
[2019-08-05] MEDS ORDERED: GABA600T4 PO (05:01)
[2019-08-05] MEDS ORDERED: CLON0.3T PO (05:01)
[2019-08-05] MEDS ORDERED: CLON-412 PO (05:01)
[2019-08-05] MEDS ORDERED: NORE1TAB7 PO (05:01)
[2019-08-05] MEDS ORDERED: KETO2SHA9 TOP (05:01)
[2019-08-05] MEDS ORDERED: CICL1SHA2 EXT (05:01)
[2019-08-05] MEDS ORDERED: TOPI100T9 PO (05:01)
[2019-08-05] MEDS ORDERED: KETOCONAZOLE 2% TOP SCH (09:00)
[2019-08-05] MEDS ORDERED: CICLOPIROX TOP SCH (09:00)
--- NOTE | 2019-08-05 10:18 | MHCR ---
DATE OF CONSULTATION: 08/04/2019 CHIEF COMPLAINT: She took an overdose. SUBJECTIVE: She is 43 years old and she has a son, who is almost 11, the patient has a significant history of psychiatric difficulties, overdoses, has had several overdoses in the past, and most recently was admitted to inpatient psychiatry here at [facility] about six month ago, almost to the day in fact, though she insists it was about a year ago. Dr. Andrews's summary is reviewed, and the patient was discharged with a diagnosis of persistent depressive disorder, generalized anxiety disorder, borderline personality disorder, benzodiazepine use disorder and opiate use disorder by history. I had seen her on consultation, under similar circumstances, after an overdose, during that time. Please refer to the consultation summary at that time for information regarding background history, previous attempts, and mental status examination at that time. Says she had taken to much Soma, which she is prescribed by clinicians and she feels that led the presentation, denies that this was a suicide attempt, though this is in contrast with what had been observed and she had informed others at the time of her coming to the hospital. She was apparently found by her mother, with her medication bottles around her, and was quite confused. Does not remember that, nor the journey to the hospital, vaguely remembers being downstairs at the emergency room. There were bottles of some and gabapentin around the room, and apparently she had been noted to be shaking, and not responding verbally, and her mother called the ambulance. She says that she had been doing okay, but acknowledges was affected by the of a friend a year ago, was by suicide. She does not go into any details. She is seen at [facility] for substance abuse as well as mental health, says sees a counselor, attends groups there, and has been attending regularly, per the patient. She is on various medicines, please see the list, this includes Trintellix, clonidine, carisoprodol (takes 350 mg three times a day), gabapentin 600 mg three times a day, Topamax 100 mg twice a day. PAST PSYCHIATRIC HISTORY: As indicated above, has had several inpatient hospitalizations, several overdoses, and she generally tends to minimize their importance, tends to rationalize them. MEDICAL HISTORY: History of seizures secondary to Wellbutrin. Chronic back pain syndrome. Hormone replacement therapy. Has had several surgeries including tonsillectomy and laminectomies. SUBSTANCE ABUSE HISTORY: Has a history of difficulties with benzodiazepines and opiates, has overdosed on them as well. SOCIAL HISTORY: Has a son, son is almost 11. She has parents around her, unclear if she lives with them, says does not get along very well with her mother. MENTAL STATUS EXAMINATION: She is lying in bed, hospital clothes, is cooperative, no agitation, no psychomotor retardation. She is coherent. There is good eye contact. Affect was fairly broad for a while, but when matters related to the recent past, and prior hospitalizations are raised she tends to get tearful. Denies any suicidal thoughts or intents at present. No homicidal ideas or intents. Sensorium is clear. No evidence of any psychosis. Cognition is grossly intact. Judgment and insight are compromised. VITAL SIGNS: Blood pressure 157/74, pulse 93, temperature 98.7. She had a CT scan of the head, without contrast, and it was essentially negative. ASSESSMENT: Generalized anxiety disorder. Status post overdose. Other specified depressive disorder. Borderline personality disorder. Benzodiazepine use disorder by history. Opioid use disorder by history. She has been distressed, depressed, and further saddened by a friends anniversary, friend by suicide a year ago. The patient took a substantial overdose, had expressed it was intentional, or alluded to it, and came in quite confused, delirious. Now her sensorium is clear, she denies it was an overdose, suggests it was because of taking "to much Soma," minimizes the overdose and attempt, which is in keeping with previous overdoses, and attempts and presentations, including the one six months ago, when I saw her. RECOMMENDATIONS: Needs inpatient hospitalization for further management and stabilization, as she remains at risk of harming herself. She has been stabilized by the hospitalist, and is deemed medically cleared by them. Thank you for the consulted. The admission application (involuntary) is made. The assessment took 30 minutes. If you have any questions, please called.
== END 2019-08-04 21:59 ==
LOC: EDBD 10:50 → M ED 10:50 → M ED INP 10:51 → M ICU 15:23
PROVIDERS: ADMIT Internal Medicine; ATTEND Internal Medicine
DX: T42.8X2A Poisoning by antiparkinsonism drugs and other central muscle-tone depressants, intentional self-harm, initial encounter (principal); T14.91XA Suicide attempt, initial encounter; N25.89 Other disorders resulting from impaired renal tubular function; R94.6 Abnormal results of thyroid function studies; R41.82 Altered mental status, unspecified; S00.83XA Contusion of other part of head, initial encounter; X58.XXXA Exposure to other specified factors, initial encounter; Y92.098 Other place in other non-institutional residence as the place of occurrence of the external cause; G92 Toxic encephalopathy; F32.9 Major depressive disorder, single episode, unspecified; F41.1 Generalized anxiety disorder; F60.3 Borderline personality disorder; G89.4 Chronic pain syndrome; G40.909 Epilepsy, unspecified, not intractable, without status epilepticus; Z79.899 Other long term (current) drug therapy; Z79.1 Long term (current) use of non-steroidal anti-inflammatories (NSAID); Z79.890 Hormone replacement therapy; Z91.5 Personal history of self-harm; Z88.8 Allergy status to other drugs, medicaments and biological substances

== ENCOUNTER 2019-08-04 21:06 | Inpatient (IN) | payer MEDICARE, MEDICAID ==
[~2019-08-04] VITALS: Ht 160 cm; Wt 73.2 kg
[~2019-08-04 21:06] MED LIST changes: +CICL1SHA2 TOP; +CLON0.3T PO; +GABA600T4 PO; +NORE1TAB7 PO; +TOPI100T9 PO
[2019-08-04] MEDS ORDERED: MAALOX 30 ML SUSP *UDC PO PRN (21:15)
[2019-08-04] MEDS ORDERED: traZODone 50 MG TAB PO PRN (21:15)
[2019-08-04] MEDS ORDERED: ACETAMINOPHEN TAB 650MG DOSE (2X325MG) PO PRN (21:15)
[2019-08-04] MEDS ORDERED: MOM 30ML SUSPENSION UDC PO PRN (21:15)
[2019-08-04 23:17] VITALS: BP 134/83
[2019-08-05] MEDS ORDERED: ACETAMINOPHEN TAB 650MG DOSE (2X325MG) As Ordered ONE (01:17)
[2019-08-05] MEDS ORDERED: OLANZapine ORAL DISINTEGRATING TAB 5MG PO PRN (04:30)
[2019-08-05] MEDS ORDERED: CICL1SHA2 EXT (05:01)
[2019-08-05] MEDS ORDERED: TOPI100T9 PO (05:01)
[2019-08-05] MEDS ORDERED: CLON0.3T PO (05:01)
[2019-08-05] MEDS ORDERED: NORE1TAB7 PO (05:01)
[2019-08-05] MEDS ORDERED: BRIN10TA4 PO (05:01)
[2019-08-05] MEDS ORDERED: CLON-412 PO (05:01)
[2019-08-05] MEDS ORDERED: CARI1TAB7 PO (05:01)
[2019-08-05] MEDS ORDERED: KETO2SHA9 TOP (05:01)
[2019-08-05] MEDS ORDERED: GABA600T4 PO (05:01)
[2019-08-05] MEDS ORDERED: IBUP1TAB7 PO (05:01)
[2019-08-05 06:00] VITALS: BP 113/56
[2019-08-05] MEDS: TOPIRAMATE (TopAMAX) 100 MG TAB PO SCH ×2 (09:25→22:59)
[2019-08-05] MEDS: IBUPROFEN 800 MG TAB PO SCH ×3 (09:25→22:59)
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
[2019-08-05 15:27] VITALS: BP 129/70
[2019-08-05] MEDS: ETHINYL ESTRADIOL PO SCH (15:39)
[2019-08-05] MEDS: NORETHINDRONE PO SCH (15:39)
--- NOTE | 2019-08-05 15:56 | HPEPDOC ---
General Date of Admission Aug 04, 2019 at 21:57 Date of Service: Aug 05, 2019 Attending Physician: RUBÉN PATEL MD Chief Complaint The patient is a 43-year-old female admitted with a reason for visit of Unspecified Depressive Disorder. Source: Patient Exam Limitations: No limitations Timing/Duration: Other Severity: Other Associated Symptoms: Other History of Present Illness 43-year-old woman who has a past medical history notable for chronic back pain, chart diagnosis of borderline personality disorder, anxiety disorder, major depression and multiple hospitalizations for intentional benzo and opioid overdoses with prior inpatient psychiatry stays who was brought into the ED after being found unresponsive by her mother and was determined to have intentionally overdosed on her soma and gabapentin and admitted to the ICU with metabolic encephalopathy and a non gap acidosis that promptly resolved with IV fluids and holding her psychotropes, except for her topamax that she takes for epilepsy. On day 2 of her ICU admission, her metabolic encephalopathy resolved and she was back to her baseline, at which point she was evaluated by psychiatry and deemed appropriate for inpatient psychiatric admission. Today, she has no physical health complaints. Reports mild diarrhea that started after taking milk of magnesia but otherwise without any abdominal pain, chest pain, nausea, emesis, fever or chills. She reports feeling tired and has had poor sleep and would like some rest. Home Medications Scheduled Carisoprodol (Carisoprodol) 350 Mg Tablet, 350 MG PO TID for ., (Reported) Ciclopirox (Ciclopirox) 120 Ml Shampoo, 1 DOSE EXT 2XW for ., (Reported) APPLY TO SCALP Clonidine HCl (Clonidine HCl) 0.1 Mg Tablet, 0.1 MG PO QHS for ., (Reported) TAKES WITH THE TWO 0.3 TABLETS FOR 0.7MG TOTAL Clonidine HCl (Clonidine HCl) 0.3 Mg Tablet, 0.6 MG PO QHS for ., (Reported) TAKES WITH 0.1MG TABLET FOR 0.7MG TOTAL Gabapentin (Gabapentin) 600 Mg Tablet, 600 MG PO TID for ., (Reported) Ibuprofen (Ibuprofen) 800 Mg Tablet, 800 MG PO TID for ., (Reported) Ketoconazole (Ketoconazole) 120 Ml Shampoo, 1 DOSE TOP DAILY for ., (Reported) APPLY TO SCALP Norethindrone AC-Eth Estradiol (Norethind-Eth Estrad 1-0.02 mg) 1 Each Tablet, 1 TAB PO DAILY for ., (Reported) Topiramate (Topiramate) 100 Mg Tablet, 100 MG PO BID for ., (Reported) Vortioxetine Hydrobromide (Trintellix) 10 Mg Tablet, 10 MG PO DAILY for ., (Reported) Allergies Coded Allergies: citalopram (Verified Allergy, Intermediate, hives, 02/04/19) diphenhydramine (Verified Allergy, Mild, itching in 2006, but pt has taken since w/ no issues, 02/04/19) bupropion (Verified Adverse Reaction, Severe, seizure, 02/04/19) lamotrigine (Verified Adverse Reaction, Intermediate, visual disturbances at high doses, 02/04/19) Past Medical History Medical History Major depression Anxiety chronic back pain s/p remote laminectomies prior history of suicide attempts A-FIB/CHADSVASC A-FIB History Current/History of A-Fib/PAF?: No Current PO Anticoag Therapy: No Age/Risk Factor Scoring CHADSVASC: CHADSVASC Response (Comments) Value Age Risk Factor Age < 65 years old 0 Gender Risk Factor Female 1 Hx of CHF No 0 Hx of HTN No 0 Hx of Stroke/TIA/or VTE No 0 Hx of Diabetes No 0 Hx of Vascular Disease No 0 Total 1 Treatment Treatment ordered: NONE Reason Anticoagulant not given: Not indicated/[id number] Review of Systems Constitutional: Denies: Chills, Fever, Night Sweats Eyes: Denies: Pain, Vision change ENT: Denies: Head Aches, Ear Pain, Dysphagia Skin: Denies: Rash, Lesions, Breakdown Pulmonary: Denies: Dyspnea, Cough Cardiovascular: Denies: Chest Pain, Palpitations, Orthopnea, Paroxysmal Noc. Dyspnea, Lt Headedness Gastrointestinal: Reports: Diarrhea; Denies: Nausea, Vomiting, Abdominal Pain Genitourinary: Denies: Dysuria, Frequency, Incontinence, Retention Hematologic: Denies: Bruising, Bleeding Excessively Endocrine: Reports: Other Endocrine Sx; Denies: Polydipsia, Polyphagia, Polyuria, Heat Intolerance, Cold Intolerance Musculoskeletal: Reports: Back Pain; Denies: Neck Pain, Joint Pain, Muscle Pain, Spasms Neurological: Denies: Weakness, Numbness, Change in speech, Confusion Psych: Reports: Anxiety, Depression; Denies: Mood Normal, Thoughts of Self Harm, Anger, Thoughts of Harming Other Physical Examination General Exam: Positive: Alert, No Acute Distress Eye Exam: Positive: PERRLA, Conjunctiva & lids normal, EOMI; Negative: Sclera icteric ENT Exam: Positive: Atraumatic, Mucous membr. moist/pink, Pharynx Normal Neck Exam: Positive: Supple; Negative: JVD, thyromegaly Chest Exam: Positive: Clear to auscultation, Normal air movement Heart Exam: Positive: Rate Normal, Regular Rhythm, Normal S1, Normal S2; Negative: Murmurs, Rubs Abdomen Exam: Positive: Normal bowel sounds, Soft; Negative: Tenderness, Hepatospenomegaly Extremity Exam: Positive: Normal pulses; Negative: Clubbing, Cyanosis, Edema Skin Exam: Positive: Nl turgor and temperature; Negative: Breakdown, Lesion Neuro Exam: Positive: Normal Gait, Normal Speech, Cranial Nerves 3-12 NL, Reflexes 2+ Psych Exam: Positive: Mental status NL, Oriented x 3 Vital Signs Vital Signs Date Time Temp Pulse Resp B/P (MAP) Pulse Ox O2 Delivery O2 Flow Rate FiO2 08/05/19 15:27 97.3 87 18 129/70 (89) 08/04/19 23:17 96 Laboratory Data Labs 24H Vital Signs Date Time Temp Pulse Resp B/P (MAP) Pulse Ox O2 Delivery O2 Flow Rate FiO2 08/05/19 15:27 97.3 87 18 129/70 (89) 08/05/19 06:00 98.8 66 12 113/56 (75) 08/04/19 23:17 98.7 103 14 134/83 (100) 96 Current Medications Medications (Trade) Dose Ordered Sig/Lion Route PRN Reason Start Time Stop Time Status Last Admin Dose Admin Acetaminophen (Tylenol Tab) 650 mg Q6HP PRN PO HEADACHE or DISCOMFORT 08/04/19 21:15 08/05/19 03:28 650 MG Ibuprofen (Advil) 800 mg TID PO 08/05/19 09:00 08/05/19 09:25 800 MG Topiramate (TopAMAX) 100 mg BID PO 08/05/19 09:00 08/05/19 09:25 100 MG Assessment/Plan 43-year-old woman who has a past medical history notable for chronic back pain on soma nad gabapentin, migraines on topamax, chart diagnosis of borderline personality disorder, anxiety disorder, major depression and multiple h ospitalizations for intentional benzo and opioid overdoses with prior inpatient psychiatry stays who was brought into the ED after being found unresponsive by her mother and was determined to have intentionally overdosed on her soma and gabapentin and treated supportively in the ICU and discharged to [facility]. At this time, she is at baseline without complaints and has no acute medical needs and receiving appropriate psychiatric treatment. Will sign off. Please reach out with any medical concerns. Plan / VTE VTE Prophylaxis Ordered?: No VTE Exclusion Mechanical Proph: Low Risk for VTE VTE Exclusion Pharmacological: At Low Risk for VTE RUBÉN APTEL MD Aug 05, 2019 15:56
[2019-08-05] MEDS ORDERED: GABAPENTIN 300 MG CAP PO SCH (16:00)
[2019-08-05] MEDS ORDERED: CICLOPIROX TOP SCH (21:00)
[2019-08-05] MEDS ORDERED: cloNIDine 0.1 MG TAB PO SCH (21:00)
[2019-08-05] MEDS: KETOCONAZOLE SHAMPOO TOP SCH (22:05)
[2019-08-05] MEDS: risperiDONE 0.5 MG TAB PO SCH (22:59)
[2019-08-06 06:24] VITALS: BP 130/64
[2019-08-06] MEDS: NORETHINDRONE PO SCH (08:18)
[2019-08-06] MEDS: TOPIRAMATE (TopAMAX) 100 MG TAB PO SCH ×2 (08:18→21:23)
[2019-08-06] MEDS: ETHINYL ESTRADIOL PO SCH (08:18)
[2019-08-06] MEDS: IBUPROFEN 800 MG TAB PO SCH ×3 (08:18→21:22)
[2019-08-06] MEDS ORDERED: ENTER DRUG NAME HERE (PATIENT'S OWN MED) PO SCH (09:00)
--- NOTE | 2019-08-06 11:25 | MHIPNPDOC ---
[facility] Progress Note Progress Note DATE OF SERVICE: 08/06/19 HISTORY: The patient is a 43-year-old woman with a history of opioid use disorder and depression, presents to [facility] where she had overdosed on Soma. She was admitted to the medical floor and subsequently assessed by Dr. Aguilar on the medical unit. After meeting with the patient, she described she had had difficulty with her depression becoming worse, becoming more fatigued, losing interest, having guilt and difficulties focusing. She reports that she has had more recent stress. She reportedly was found by her mother after she had overdosed. She reported that she was not attempting to injure herself, but had been seeking pain relief and had "overdone it." She reports having significant trouble around this time of year due to a of a friend one year prior. VITAL SIGNS: See below. NEW TEST RESULTS: See below. CURRENT MEDICATIONS: See below. MENTAL STATUS EXAMINATION: General: Fair hygiene. Speech: Spontaneous and fluid Thought processes: Linear and logical MSK: Smooth and coordinated gait, no signs of tremors or involuntary orofacial movements Thought content: depressed, avolition Abstract reasoning, and computation: Intact Description of associations: Intact Description of abnormal or psychotic thoughts: Denies any suicidal or homicidal ideation. Denies any auditory or visual hallucinations. Does not appear to be responding to internal stimuli. Does not appear to be endorsing any bizarre or paranoid ideation. Judgment: Limited. Insight: Limited. Orientation: Alert and orientated 3 Cognition: Grossly normal Recent and remote memory: Intact Attention span and concentration: Intact Fund of knowledge: Adequate Mood: "I just want to leave" Affect: Dysthymic, irritable, constricted range. DIAGNOSES: Unspecified depressive disorder. Rule out adjustment versus MDD. Borderline personality disorder. Unspecified trauma/stress related disorder. Rule out PTSD. ASSESSMENT: pt seen and states she's feeling better today and just took too much of her medicine although denies it was intensional or that she was suicidal. STates now "all I need is rest" and would like to go home soon as it's hard for her to rest here with the sound of construction and "other people." Encouraged to go to groups during the day rather than sleeping thru the day as it would be beneficial for her. States she's tolerating her medications and finding them beneficial. Denies SI/HI, hallucinations, delusions. Denies depressed mood but when seen is withdrawn and irritable. Feels safe here. MANAGEMENT PLAN: continues current plan risperidone 0.5 mg nightly Trintellix 10 mg daily TIME SPENT: 30 minutes. Vital Signs Vital Signs Date Time Temp Pulse Resp B/P (MAP) Pulse Ox O2 Delivery O2 Flow Rate FiO2 08/06/19 06:24 99.0 95 20 130/64 (86) 08/04/19 23:17 96 Current Medications Current Medications Medications (Trade) Dose Ordered Sig/Lino Route PRN Reason Start Time Stop Time Status Last Admin Dose Admin Acetaminophen (Tylenol Tab) 650 mg Q6HP PRN PO HEADACHE or DISCOMFORT 08/04/19 21:15 08/05/19 03:28 Al Hydrox/Mg Hydrox/Simethicone (Mylanta) 30 ml Q4HP PRN PO HEARTBURN/INDIGESTION 08/04/19 21:15 Clonidine HCl (Catapres) 0.6 mg QHS PO 08/05/19 21:00 08/05/19 14:16 DC Gabapentin (Neurontin) 600 mg TID PO 08/05/19 16:00 08/05/19 14:16 DC Home Med (Med Rec Complete!) ASDIRECTED XX 08/05/19 05:15 08/05/19 05:09 DC Ibuprofen (Advil) 800 mg TID PO 08/05/19 09:00 08/06/19 08:18 Magnesium Hydroxide (Milk Of Magnesia) 30 ml DAILYPRN PRN PO CONSTIPATION 08/04/19 21:15 Miscellaneous (Unresolved Patient Own Med Order) SEE LABEL COMMENTS DAILY XX 08/05/19 09:00 Olanzapine (ZyPREXA ZYDIS) 5 mg TIDP PRN PO AGITATION 08/05/19 04:30 Patient Own Medication (Patient'S Own Med) 1 TABLET DAILY PO 08/05/19 09:00 08/06/19 08:18 Patient Own Medication (Patient'S Own Med) APPLY TO SCALP QHS TOP 08/05/19 21:00 08/05/19 22:05 Patient Own Medication (Patient'S Own Med) APPLY TO SCALP WeSa@2100 TOP 08/05/19 21:00 08/05/19 22:04 Patient Own Medication (Patient'S Own Med) Trintellex 10mg daily DAILY PO 08/06/19 09:00 UNV Risperidone (RisperDAL) 0.5 mg QHS PO 08/05/19 21:00 08/05/19 22:59 Topiramate (TopAMAX) 100 mg BID PO 08/05/19 09:00 08/06/19 08:18 Trazodone HCl (Desyrel) 50 mg QHSP PRN PO INSOMNIA 08/04/19 21:15 Allergies Coded Allergies: citalopram (Verified Allergy, Intermediate, hives, 02/04/19) diphenhydramine (Verified Allergy, Mild, itching in 2006, but pt has taken since w/ no issues, 02/04/19) bupropion (Verified Adverse Reaction, Severe, seizure, 02/04/19) lamotrigine (Verified Adverse Reaction, Intermediate, visual disturbances at high doses, 02/04/19) MILA HARVEY DO Aug 06, 2019 11:25 am
[2019-08-06] MEDS: KETOCONAZOLE SHAMPOO TOP SCH (21:00)
[2019-08-06] MEDS: risperiDONE 0.5 MG TAB PO SCH (21:23)
[2019-08-07 06:01] VITALS: BP 126/72
[2019-08-07] MEDS: IBUPROFEN 800 MG TAB PO SCH (09:18)
[2019-08-07] MEDS: NORETHINDRONE PO SCH (09:18)
[2019-08-07] MEDS: TOPIRAMATE (TopAMAX) 100 MG TAB PO SCH (09:18)
[2019-08-07] MEDS: ETHINYL ESTRADIOL PO SCH (09:18)
[2019-08-07] MEDS ORDERED: RISP0.5T21 PO (09:37)
--- NOTE | 2019-08-07 09:38 | MHDSPDOC ---
[facility] Discharge Summary Discharge Summary DATE OF ADMISSION: Aug 04, 2019 at 9:57 pm DATE OF DISCHARGE: Aug 07, 2019 DISCHARGE DIAGNOSES: Unspecified depressive disorder. Rule out adjustment versus MDD. Borderline personality disorder. Unspecified trauma/stress related disorder. Rule out PTSD. REASON FOR ADMISSION: The patient is a 43-year-old woman with a history of opioid use disorder and depression, presents to [facility] where she had overdosed on Soma. She was admitted to the medical floor and subsequently assessed by Dr. Aguilar on the medical unit. After meeting with the patient, she described she had had difficulty with her depression becoming worse, becoming more fatigued, losing interest, having guilt and difficulties focusing. She reports that she has had more recent stress. She reportedly was found by her mother after she had overdosed. She reported that she was not attempting to injure herself, but had been seeking pain relief and had "overdone it." She reports having significant trouble around this time of year due to a of a friend one year prior. CONSULTANTS INVOLVED: none TREATMENT AND PROGRESS ON THE UNIT : Pt was admitted to [facility], seen for psychiatric assessment and restarted on her outpatient risperidone 0.5mg qhs and Trintellix 10 mg daily for mood. She was provided trazodone 50mg qhs prn insomnia. Pt found her medications beneficial and tolerated them well. She attended groups daily during her stay. Her symptoms improved with treatment. On day of discharge she denied depression, anxiety, insomnia, SI/HI, hallucinati ons, delusions. She was discharged home with follow-up at [facility]. She felt safe for discharge. DISCHARGE ASSESSMENT: Pt seen and states she's feels good today. She denies SI and states she never was just accidently took too much medicine prior admission unintentionally. She has been going to groups during the day and find beneficial for her. States she's tolerating her medications and finding them beneficial. Denies depression, anxiety, insomnia, SI/HI, hallucinations, delusions. Feels safe to be discharged home. MENTAL STATUS EXAMINATION ON DISCHARGE: General: Fair hygiene. Speech: Spontaneous and fluid Thought processes: Linear and logical MSK: Smooth and coordinated gait, no signs of tremors or involuntary orofacial movements Thought content: denies SI/HI Abstract reasoning, and computation: Intact Description of associations: Intact Description of abnormal or psychotic thoughts: Denies any suicidal or homicidal ideation. Denies any auditory or visual hallucinations. Does not appear to be responding to internal stimuli. Does not appear to be endorsing any bizarre or paranoid ideation. Judgment: Limited - fair Insight: Limited - fair Orientation: Alert and orientated 3 Cognition: Grossly normal Recent and remote memory: Intact Attention span and concentration: Intact Fund of knowledge: Adequate Mood: "fine" Affect: euthymic, congruent MEDICATIONS ON DISCHARGE: risperidone 0.5 mg nightly Trintellix 10 mg daily PLAN/FOLLOWUP ARRANGEMENTS: D/c home with follow-up at [facility]. The amount of time spent in the coordination of care for this patient was approximately 30 minutes. Vital Signs/I&Os Vital Signs Date Time Temp Pulse Resp B/P (MAP) Pulse Ox O2 Delivery O2 Flow Rate FiO2 08/07/19 06:01 99.4 93 18 126/72 (90) 08/04/19 23:17 96 Medications Scheduled Carisoprodol (Carisoprodol) 350 Mg Tablet, 350 MG PO TID for ., (Reported) Ciclopirox (Ciclopirox) 120 Ml Shampoo, 1 DOSE EXT 2XW for ., (Reported) APPLY TO SCALP Clonidine HCl (Clonidine HCl) 0.1 Mg Tablet, 0.1 MG PO QHS for ., (Reported) TAKES WITH THE TWO 0.3 TABLETS FOR 0.7MG TOTAL Clonidine HCl (Clonidine HCl) 0.3 Mg Tablet, 0.6 MG PO QHS for ., (Reported) TAKES WITH 0.1MG TABLET FOR 0.7MG TOTAL Gabapentin (Gabapentin) 600 Mg Tablet, 600 MG PO TID for ., (Reported) Ibuprofen (Ibuprofen) 800 Mg Tablet, 800 MG PO TID for ., (Reported) Ketoconazole (Ketoconazole) 120 Ml Shampoo, 1 DOSE TOP DAILY for ., (Reported) APPLY TO SCALP Norethindrone AC-Eth Estradiol (Norethind-Eth Estrad 1-0.02 mg) 1 Each Tablet, 1 TAB PO DAILY for ., (Reported) Topiramate (Topiramate) 100 Mg Tablet, 100 MG PO BID for ., (Reported) Vortioxetine Hydrobromide (Trintellix) 10 Mg Tablet, 10 MG PO DAILY for ., (Reported) Allergies Coded Allergies: citalopram (Verified Allergy, Intermediate, hives, 02/04/19) diphenhydramine (Verified Allergy, Mild, itching in 2006, but pt has taken since w/ no issues, 02/04/19) bupropion (Verified Adverse Reaction, Severe, seizure, 02/04/19) lamotrigine (Verified Adverse Reaction, Intermediate, visual disturbances at high doses, 02/04/19) MILA HARVEY DO Aug 07, 2019 9:38 am
== END 2019-08-07 10:45 | disposition home or self-care (01) | DRG 881 ==
LOC: M PSY 21:57
PROVIDERS: ADMIT Psychiatry & Neurology Psychiatry; ATTEND Psychiatry & Neurology Psychiatry
DX: F32.9 Major depressive disorder, single episode, unspecified (principal); G92 Toxic encephalopathy; F43.21 Adjustment disorder with depressed mood; F60.3 Borderline personality disorder; M54.9 Dorsalgia, unspecified; F41.1 Generalized anxiety disorder; F43.10 Post-traumatic stress disorder, unspecified; Z91.5 Personal history of self-harm; Z88.8 Allergy status to other drugs, medicaments and biological substances; Z79.899 Other long term (current) drug therapy; Z63.8 Other specified problems related to primary support group; T14.91XA Suicide attempt, initial encounter; T42.8X2A Poisoning by antiparkinsonism drugs and other central muscle-tone depressants, intentional self-harm, initial encounter; N25.89 Other disorders resulting from impaired renal tubular function; R94.6 Abnormal results of thyroid function studies; R41.82 Altered mental status, unspecified; S00.83XA Contusion of other part of head, initial encounter; X58.XXXA Exposure to other specified factors, initial encounter; Y92.098 Other place in other non-institutional residence as the place of occurrence of the external cause; G89.4 Chronic pain syndrome; G40.909 Epilepsy, unspecified, not intractable, without status epilepticus; Z79.890 Hormone replacement therapy; F11.10 Opioid abuse, uncomplicated; G43.909 Migraine, unspecified, not intractable, without status migrainosus

== ENCOUNTER → 2019-10-13 | Outpatient (CLI) | payer MEDICARE, MEDICAID ==
[~2019-10-13] MED LIST changes: +CICL1SHA2 EXT; +IBUP1TAB7 PO; +OMEP-172 PO; +OMEP-358 PO; -OMEP20CA4 PO; -OMEP20TA PO; +RISP0.5T21 PO
--- NOTE | 2019-10-28 02:47 | ECWPNPC ---
PATIENT NAME: ASHWINI YOUNGBLOOD : 1975 GENDER: FEMALE VISIT DATE: 10/13/2019 DISCHARGE DATE: 10/13/19 1519 VISIT LOCKED DATE TIME: PHYSICIAN: MOOK MACKEY RESOURCE: MOOK MACKEY REASON FOR APPOINTMENT 1. POST BOTOX HISTORY OF PRESENT ILLNESS HISTORY OF PRESENT ILLNESS: HERE FOR POST BOTOX F/U.HAD BOTOX ON 06/09/19.REPORTING TODAY LESS FREQUENT MIGRAINE HEADACHES SINCE INJECTION.HARD TO ASSESS RESPONSE SHE RECENTLY HAD [facility] STAY IN DUE TO OVERDOSE.TODAY SHE STATES SHE IS DOING MUCH BETTER.ATTENDING PSYCHOTHERAPY AND [facility] ON A REGULAR BASIS.COTINUES TO SUFFER FROM CHRONIC LBP WITH RIGHT LEG RADICULOPATHY WITH HX OF POST LAMINECTOMY PAIN SYNDROME.SUFFERS FROM CHRONIC MIGRAINE HEADACHE.SHE IS ASKING TO CONTINUE TOPOMAX AND PRN IMITREX.RATING PAIN VAS7/10. PAIN THE PATIENT DESCRIBES THE PAIN... FALL RISK SCREENING: SCREENING :NO FALLS REPORTED IN THE LAST YEAR CURRENT MEDICATIONS TAKING IBUPROFEN 800 MG TABLET 1 TABLET WITH FOOD OR MILK NEEDED ORALLY 3 TIMES A DAY NEEDED TAKING SUMATRIPTAN SUCCINATE 6 MG/0.5ML SOLUTION AUTO-INJECTOR 0.5 ML NEEDED SUBCUTANEOUS TWICE A DAY IF NEEDED FOR MIGRAINE HEADACHE TAKING TOPAMAX 100 MG TABLET 1 TABLET ORALLY BID TAKING TRINTELLIX 20 MG TABLET 1 TABLET ORALLY ONCE A DAY TAKING JUNEL 1.5-30 MG-MCG TABLET 1 TABLET ORALLY ONCE A DAY, NOTES: CONTROL - UNSURE OF NAME NOT-TAKING SOMA 350 MG 30 350 MG TQBLET ONE TABLET ORALLY EVERY 8 HOURS NEEDED FOR PAIN NOT-TAKING CLONIDINE HCL 0.3 MG TABLET 2 TABLET ORALLY THREE TIMES DAILY NEEDED NOT-TAKING GABAPENTIN 800 MG TABLET 1 TAB ORALLY DIRECTED UP TO 3 TIMES A DAY NOT-TAKING LIDODERM 5 % PATCH 1 PATCH TO INTACT SKIN REMOVE AFTER 12 HOURS EXTERNALLY DIRECTED, NOTES: NONE RECENT NOT-TAKING LYRICA 150 MG CAPSULE 1 CAPSULE ORALLY THREE TIMES A DAY NOT-TAKING DULOXETINE HCL 60 MG CAPSULE DELAYED RELEASE PARTICLES 1 TAB ORALLY BID NOT-TAKING LIDOCAINE 4 % CREAM SMALL AMOUNT EXTERNALLY DIRECTED NOT-TAKING BUTRANS 20 MCG/HR PATCH WEEKLY 1 PATCH TO SKIN TRANSDERMAL EVERY 7 DAYS NOT-TAKING COLACE 100 MG CAPSULE 1 CAPSULE NEEDED ORALLY TID NOT-TAKING XANAX 1 MG TABLET 1 TABLET ORALLY QID NOT-TAKING AMBIEN CR 12.5 MG TABLET EXTENDED RELEASE 1 TABLET AT BEDTIME NEEDED ORALLY PRN NOT-TAKING CELEBREX 100 MG CAPSULE 1 CAPSULE ORALLY TWICE A DAY NOT-TAKING FLEXERIL 10 MG TABLET 1 TABLET ORALLY BID PRN NOT-TAKING SUBOXONE 8.5MG TABLET SUBLINGUAL 1 TABLET UNDER THE TONGUE AND ALLOW TO DISSOLVE SUBLINGUAL TID NOT-TAKING VIIBRYD 40 MG TABLET 1 TAB WITH FOOD PO ONCE DAILY NOT-TAKING PROBIOTIC CAPSULE DIRECTED ORALLY NOT-TAKING VALIUM 10 MG TABLET 1 TABLET NEEDED ORALLY 1 HOUR PRIOR MRI NOT-TAKING OXYCODONE HCL 5 MG TABLET 1 TABLET NEEDED ORALLY 1 HOUR PRIOR MRI MEDICATION LIST REVIEWED AND RECONCILED WITH THE PATIENT PAST MEDICAL HISTORY CHRONIC MIGRAINE HEADACHES CHRONIC LOW BACK PAIN NEUROPATHY DRUG ABUSE- 2006 INSOMNIA DEPRESSION ASTHMA SEIZURES CHRONIC NECK PAIN FIBROMYALGIA TRISTIN- DANLOS SYNDROME IBS ALLERGIES CELEXA: HIVES - ALLERGY WELLBUTRIN: SEIZURES - ALLERGY SEASONAL ALLERGIES: RUNNY NOSE, ITCHY EYES, ASTHMA LAMICTAL: NEUROLOGICAL DISRUPTION - ALLERGY SURGICAL HISTORY BACK SURGERY 03/2007 TONSILLECTOMY 1989 ADENOIDECTOMY- TUBES PLACED 1981 BILAT BREAST REDUCTION 2013 FAMILY HISTORY FATHER: ALIVE 61 YRS, DIAGNOSED WITH HYPERTENSION MOTHER: ALIVE 62 YRS, HTN, DIABETES, HYPERTENSION, UNSPECIFIED NONPSYCHOTIC MENTAL DISORDER FOLLOWING ORGANIC BRAIN DAMAGE, SUBSTANCE ABUSE MATERNAL GRAND MOTHER: DIABETES MATERNAL AUNT: CERVICAL CANCER 1 SISTER(S) . 1 SON(S) . NO FAMILY HX OF BLADDER OR KIDNEY CA\\NSON HAS TRISTIN-DANLOS SYNDROME. SOCIAL HISTORY GENERAL: TOBACCO USE ARE YOU A:: NEVER SMOKER. 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 HAD PAST DRUG ADDICTION IN 2006. EXERCISE: STRETCHES. LEARNING BARRIERS / SPECIAL NEEDS BARRIERS TO LEARNING?NO HEARING IMPAIRED?NO VISION IMPAIRED?YES COGNITIVELY IMPAIRED?NO :CORRECTIVE LENSES READINESS TO LEARN?YES LEARNING PREFERENCES?NO EMOTIONAL BARRIERS?NO SPECIAL DEVICES?YES :[facility] PFS, CLERGY, PUBLIC HEALTH REFERRALS WAS THE PROVIDER NOTIFIED OF ANY PERTINENT INFO?YES HAS THE PATIENT BEEN EDUCATED REGARDING HIS/HER PLAN OF CARE?YES HAS THE PATIENT BEEN EDUCATED REGARDING PAIN, THE RISK FOR PAIN, THE IMPORTANCE OF EFFECTIVE PAIN MANAGEMENT, AND THE PAIN ASSESSMENT PROCESS?YES LATEX QUESTIONNAIRE LATEX ALLERGY : HAVE YOU EVER DEVELOPED ANY TYPE OF REACTION AFTER HANDLING LATEX PRODUCTS SUCH RUBBER GLOVES, CONDOMS, DIAPHRAGMS, BALLOONS, SOCKS, OR UNDERWEAR?NO LATEX ALLERGY : HAVE YOU EVER DEVELOPED ANY TYPE OF REACTION DURING OR AFTER DENTAL APPOINTMENT, VAGINAL/RECTAL EXAMINATION, SURGICAL PROCEDURE, OR ANY OTHER EXPOSURE?NO DATE ASKED : 03/04/2019 LATEX RISK : HAVE YOU EVER HAD ANY DIFFICULTY BREATHING OR HIVES AFTER EATING OR HANDLING ANY FRUITS, OR VEGETABLES; SUCH KIWI, BANANAS, STONE FRUITS, OR CHESTNUTSNO LATEX RISK : DO YOU HAVE A PREVIOUS PERSONAL HISTORY OF MORE THAN NINE SURGERIES, SPINA BIFIDA, OR REPEATED CATHERIZATIONS? NO LATEX RISK : ARE YOU FREQUENTLY EXPOSED TO LATEX PRODUCTS IN YOUR OCCUPATION?NO CAFFEINE NONE. ADVANCE DIRECTIVE ADVANCE DIRECTIVE DISCUSSED WITH PATIENT:YES PT DECLINED PAPERWORK AND DECLINED ASSISTANCE WITH FILLING OUT PAPERWORK 06/09/19 VOODOO [id number] OTHER MARITAL STATUS: SINGLE X1 CHILD. OCCUPATION: UNEMPLOYED. REVIEWED WITH PT 07/01/18 1505 LASREVIEWED WITH PATIENT 08/12/18 1429 JSREVIEWED WITH PT 06/09/19 1156 BV. HOSPITALIZATION/MAJOR DIAGNOSTIC PROCEDURE SURGERY RELATED SEIZURES 2002 DETOX 03/2007 FALL/LOW BP 07/2018 IMHU 07/2018 SEIZURE 07/2018 OVERDOSE 07/2019 REVIEW OF SYSTEMS REVIEWED BY: PROVIDER: MOOK CRISTINA . CONSTITUTIONAL: ANY CHANGE IN YOUR MEDICAL CONDITION? NO . CHILLS NO . FEVER NO . INFECTION: DO YOU HAVE NEW INFECTIONS? NO . DO YOU HAVE HISTORY OF MRSA? NO . MUSCULOSKELETAL: ANY NEW PATTERNS OF PAIN OR NUMBNESS? NO . GASTROENTEROLOGY: ANY NEW CHANGE IN BOWEL CONTROL? NO . GENITOURINARY: ANY NEW CHANGE IN BLADDER CONTROL? NO . IS THERE A CHANCE YOU COULD BE ? NO . HEMATOLOGY/LYMPH: DO YOU TAKE ANY BLOOD THINNERS? (FOR EXAMPLE- COUMADIN, PLAVIX, AGGRENOX, PLATEL, PRADAXA, OR XARELTO) NO . WHEN WAS YOUR LAST DOSE? DATE: TIME: . NEUROLOGY: HAVE YOU FALLEN IN THE PAST 12 MONTHS? NO . ANY NEW EXTREMITY NUMBNESS OR WEAKNESS? NO . CARDIOLOGY: DO YOU HAVE A PACEMAKER OR DEFIBRILLATOR? NO . RESPIRATORY: HAVE YOU BEEN SICK IN THE PAST WEEK? NO . FEVER NO . FLU LIKE SYMPTOMS? NO . COUGH NO . INTEGUMENTARY: DO YOU HAVE ANY RASHES OR OPEN SORES? NO . ALLERGIC/IMMUNO: ARE YOU ALLERGIC TO IV DYE? NO . ANY NEW ALLERGIES? NO; HAD TWINRIX VACCINE 10-06-19 . PSYCHIATRIC: DO YOU HAVE THOUGHTS OF HURTING YOURSELF OR SOMEONE ELSE? NO . ARE YOU ABUSED, NEGLECTED, OR IN AN UNSAFE ENVIRONMENT? NO . ENDOCRINOLOGY: ARE YOU DIABETIC? NO . OTHER: DO YOU NEED ANY PRESCRIPTIONS? YES . IF YES, PLEASE LIST: SUMATRIPTAN, TOPAMAX . ANY NEW PROBLEMS WITH YOUR MEDICATIONS? NO . WHEN DID YOU LAST EAT? ____ . WHEN DID YOU LAST DRINK? ____ . WHAT DID YOU LAST DRINK? ____ . NAME OF PERSON DRIVING YOU HOME? ____ . DO YOU HAVE ANY OTHER QUESTIONS OR CONCERNS NO . VITAL SIGNS WT 157 LBS, HT 5'3" 1/2, BMI 27.81 INDEX, BP 125/78 MM HG, HR 118 /MIN, RR 18 /MIN, TEMP 98.0 F, OXYGEN SAT % 98%, NA INITIALS SC 13:56, REVIEWED BY: NINA. EXAMINATION GENERAL EXAMINATION: GENERAL AWAKE,ALERT ,PLEAASANT .WALKS WITH ASSIST OF CANE WITH LIMP OVER RIGHT LEG. PSYCH AFFECT NORMAL . NECK: NO LYMPHADENOPATHY. LUNGS: LUNG TALLEY ARE CLEAR TO AUSCULTATION BILATERALLY. GOOD MOVEMENT OF AIR . HEART: S1, S2 IN A REGULAR RATE AND RHYTHM. NO SIGNIFICANT MURMURS, RUBS OR GALLOPS NOTED . MUSCULOSKELETAL: MST 2/5 RIGHT. 5/5 LEFT LOWER EXTREMITIES. NEUROLOGIC EXAM: DECREASED SENSATION W PARATHESIAS TO LIGHT TOUCH OVER RIGHT LEG AND FOOT CRANIAL NERVES 2-53-[id number] INTACT. ASSESSMENTS CHRONIC MIGRAINE WITHOUT AURA WITHOUT STATUS MIGRAINOSUS, NOT INTRACTABLE - G43.709 (PRIMARY) POSTLAMINECTOMY SYNDROME, NOT ELSEWHERE CLASSIFIED - M96.1 TREATMENT CHRONIC MIGRAINE WITHOUT AURA WITHOUT STATUS MIGRAINOSUS, NOT INTRACTABLE REFILL SUMATRIPTAN SUCCINATE SOLUTION AUTO-INJECTOR, 6 MG/0.5ML, 0.5 ML NEEDED, SUBCUTANEOUS, TWICE A DAY IF NEEDED FOR MIGRAINE HEADACHE, 30 DAY(S), 15, REFILLS 2 REFILL TOPAMAX TABLET, 100 MG, 1 TABLET, ORALLY, BID, 30 DAY(S), 60, REFILLS 2 NOTES: BOTOX. PREVENTIVE MEDICINE PAIN CLINIC TEACHING: PROCEDURE TEACHING PRE BOTOX INSTRUCTIONS REVIEWED WITH PT. VERBALIZED UNDERSTANDING.. PROCEDURE CODES FA211 ESTABILISHED PATIENT [facility] CHARGE DISPOSITION & COMMUNICATION FOLLOW UP POST (REASON: BOTOX) ELECTRONICALLY SIGNED BY IBETH TRUONG ON 10/27/2019 AT 12:51 PM EST DISCLAIMER : THIS IS A VISIT SUMMARY EXTRACTED FROM THE [employer]ICALWORKS CHART. IT IS NOT A COPY OF THE [employer] PROGRESS NOTE. ANTOINE
== END ==
LOC: M PAIN 13:45
PROVIDERS: ATTEND Nurse Practitioner Family
DX: G43.709 Chronic migraine without aura, not intractable, without status migrainosus (principal); M96.1 Postlaminectomy syndrome, not elsewhere classified; G47.00 Insomnia, unspecified; Z86.59 Personal history of other mental and behavioral disorders; J45.909 Unspecified asthma, uncomplicated; M79.7 Fibromyalgia; Z88.8 Allergy status to other drugs, medicaments and biological substances; Z79.899 Other long term (current) drug therapy

== ENCOUNTER 2019-10-29 18:09 | Observation (INO) | payer MEDICARE, MEDICAID ==
[~2019-10-29] VITALS: Ht 162.6 cm; Wt 78.0 kg
[2019-10-29 18:51] LABS: BASO % 0.5 % (0.0-1.0); EOS # 0.2 10^3/uL (0.0-0.5); EOS % 2.7 % (0.0-3.0); HEMATOCRIT 41.6 % (36.0-47.0); HEMOGLOBIN 13.6 g/dl (12.0-15.5); LYMPH # 1.9 10^3/uL (1.5-5.0); LYMPH % 26.2 % (24.0-44.0); MEAN CORPUSCULAR HEMOGLOBIN 31.1 pg (27.0-33.0); MEAN CORPUSCULAR HGB CONC 32.7 g/dl (32.0-36.5); MONO # 0.5 10^3/uL (0.0-0.8); MONO % 6.7 % (0.0-5.0); NEUTROPHILS # 4.6 10^3/uL (1.5-8.5); NEUTROPHILS % 63.5 % (36.0-66.0); PLATELET COUNT, AUTOMATED 271 10^3/uL (150-450); RED BLOOD COUNT 4.38 10^6/uL (4.00-5.40); WHITE BLOOD COUNT 7.3 10^3/uL (4.0-10.0)
[2019-10-29 19:09] LABS: INR 1.06; PROTHROMBIN TIME 13.5 SECONDS (11.8-14.0)
[2019-10-29 19:13] LABS: ALBUMIN 3.6 GM/DL (3.2-5.2); ALT/SGPT 25 U/L (12-78); BILIRUBIN,DIRECT 0.1 MG/DL (0.0-0.2); BILIRUBIN,TOTAL 0.3 MG/DL (0.2-1.0); BLOOD UREA NITROGEN 14 MG/DL (7-18); CALCIUM LEVEL 9.1 MG/DL (8.5-10.1); CARBON DIOXIDE LEVEL 21 MEQ/L (21-32); CHLORIDE LEVEL 107 MEQ/L (98-107); CK-MB VALUE MASS 1.6 NG/ML (<3.6); CPK CREATINE PHOSPHOKINASE 114 U/L (26-192); GLOMERULAR FILTRATION RATE 57.2 (>58); GLUCOSE, FASTING 123 MG/DL (70-100); LIPASE 66 U/L (73-393); POTASSIUM SERUM 4.6 MEQ/L (3.5-5.1); SODIUM LEVEL 136 MEQ/L (136-145); TROPONIN I < 0.02 NG/ML (< 0.10)
[2019-10-29] MEDS ORDERED: NS 1,000 ML IV ONE ×2 (19:15→22:45)
[2019-10-29] MEDS ORDERED: ACETAMINOPHEN 325 MG TAB PO ONE (19:45)
[2019-10-29] MEDS ORDERED: BRIN1TAB (19:58)
[2019-10-29] MEDS ORDERED: BRIN1TAB3 PO (19:59)
--- NOTE | 2019-10-29 20:24 | REPVR ---
PROCEDURE INFORMATION: Exam: CT Head Without Contrast Exam date and time: 10/29/2019 7:41 PM Age: 44 years old Clinical indication: Injury or trauma; Fall; Initial encounter; Blunt trauma (contusions or hematomas); Consciousness not specified; Additional info: Fall injury; Head and neck pain TECHNIQUE: Imaging protocol: Computed tomography of the head without contrast. Axial and coronal reformatted images were created and reviewed. Radiation optimization: All CT scans at this facility use at least one of these dose optimization techniques: automated exposure control; mA and/or kV adjustment per patient size (includes targeted exams where dose is matched to clinical indication); or iterative reconstruction. COMPARISON: CT Head without contrast 08/03/2019 12:51 PM FINDINGS: Brain: No CT evidence of acute intracranial hemorrhage or acute territorial infarction. No significant mass effect or midline shift. Basal cisterns patent. Ventricles: Normal in size and configuration. Bones/joints: No acute osseous abnormality. Sinuses: Grossly unremarkable. Mastoid air cells: Grossly unremarkable. Soft tissues: Grossly unremarkable. IMPRESSION: No CT evidence of acute intracranial pathology. Electronically signed by: José Luis Carrasco On 10/29/2019 20:24:16 PM
--- NOTE | 2019-10-29 20:35 | REPVR ---
PROCEDURE INFORMATION: Exam: CT Cervical Spine Without Contrast Exam date and time: 10/29/2019 7:41 PM Age: 44 years old Clinical indication: Neck pain; Additional info: Fall injury; Head and neck pain TECHNIQUE: Imaging protocol: Computed tomography images of the cervical spine without contrast. Axial, coronal and sagittal reformatted images were created and reviewed. Radiation optimization: All CT scans at this facility use at least one of these dose optimization techniques: automated exposure control; mA and/or kV adjustment per patient size (includes targeted exams where dose is matched to clinical indication); or iterative reconstruction. COMPARISON: No relevant prior studies available. FINDINGS: Vertebrae: Mild straightening of the normal cervical lordosis. Alignment anatomic. Minimal levoscoliosis. No CT evidence of acute fracture, dislocation or subluxation. Vertebral body heights maintained. Discs/Spinal canal/Neural foramina: Mild multilevel spondylosis. No significant spinal canal or neural foraminal stenosis. Soft tissues: Grossly unremarkable. Lungs: Grossly unremarkable. IMPRESSION: 1. No CT evidence of acute cervical spine traumatic injury. 2. Additional findings, as above. Electronically signed by: José Luis Carrasco On 10/29/2019 20:32:29 PM
[2019-10-30] MEDS ORDERED: BRIN1TAB3 PO (00:35)
[2019-10-30] MEDS ORDERED: IBUP1TAB7 PO (00:35)
[2019-10-30] MEDS ORDERED: NORE1TAB7 PO (00:35)
[2019-10-30] MEDS ORDERED: IMIT6KIT SC (00:35)
[2019-10-30] MEDS ORDERED: KETO2SHA9 TOP (00:35)
[2019-10-30] MEDS ORDERED: PROAAER10 INH (00:35)
[2019-10-30] MEDS ORDERED: CICL1SHA2 EXT (00:35)
[2019-10-30] MEDS ORDERED: TOPI100T9 PO (00:35)
[2019-10-30 00:37] LABS: MAGNESIUM LEVEL 2.4 MG/DL (1.8-2.4)
[2019-10-30 01:32] LABS: AMPHETAMINES LEVEL URINE NEGATIVE (NEGATIVE); BARBITURATES URINE NEGATIVE (NEGATIVE); BENZODIAZEPINES URINE POSITIVE (NEGATIVE); CANNABINOIDS URINE NEGATIVE (NEGATIVE); COCAINE METABOLITE URINE NEGATIVE (NEGATIVE); METHADONE URINE NEGATIVE (NEGATIVE); OPIATES URINE NEGATIVE (NEGATIVE); PHENCYCLIDINE URINE NEGATIVE (NEGATIVE)
[2019-10-30 02:24] VITALS: BP 111/54
[2019-10-30 03:15] VITALS: BP 111/64
[2019-10-30] MEDS: ACETAMINOPHEN TAB 650MG DOSE (2X325MG) PO PRN ×2 (03:31→09:57)
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
[2019-10-30 08:00] VITALS: BP 94/50
[2019-10-30] MEDS ORDERED: HEPARIN SOD (PORCINE) 5000 UNITS/ML VIAL SC SCH (09:00)
--- NOTE | 2019-10-30 10:51 | REP ---
Portable chest x-ray: Single view. History: Chest pain. Comparison chest x-ray: August 03, 2019. Findings: Monitoring electrodes are seen. The lungs are well inflated and clear. The pleural angles are sharp. Heart size is normal. Pulmonary vasculature is not increased. No significant bony abnormality. Impression: No active disease. Electronically Signed by Kalyan Gupta MD 10/29/2019 07:03 P
[2019-10-30 12:44] LABS: BASO # 0.1 10^3/uL (0.0-0.2); BASO % 1.1 % (0.0-1.0); EOS # 0.2 10^3/uL (0.0-0.5); EOS % 4.3 % (0.0-3.0); HEMATOCRIT 38.5 % (36.0-47.0); HEMOGLOBIN 12.6 g/dl (12.0-15.5); LYMPH # 2.1 10^3/uL (1.5-5.0); LYMPH % 39.2 % (24.0-44.0); MEAN CORPUSCULAR HGB CONC 32.7 g/dl (32.0-36.5); MEAN CORPUSCULAR VOLUME 94.8 fl (80.0-96.0); MONO # 0.5 10^3/uL (0.0-0.8); NEUTROPHILS # 2.5 10^3/uL (1.5-8.5); PLATELET COUNT, AUTOMATED 244 10^3/uL (150-450); RED BLOOD COUNT 4.06 10^6/uL (4.00-5.40); WHITE BLOOD COUNT 5.4 10^3/uL (4.0-10.0)
[2019-10-30 13:11] LABS: ALT/SGPT 21 U/L (12-78); BILIRUBIN,TOTAL 0.4 MG/DL (0.2-1.0); BLOOD UREA NITROGEN 14 MG/DL (7-18); CALCIUM LEVEL 8.5 MG/DL (8.5-10.1); CARBON DIOXIDE LEVEL 19 MEQ/L (21-32); CHLORIDE LEVEL 114 MEQ/L (98-107); CREATININE FOR GFR 0.98 MG/DL (0.55-1.30); GLOMERULAR FILTRATION RATE > 60.0 (>58); GLUCOSE, FASTING 91 MG/DL (70-100); POTASSIUM SERUM 3.8 MEQ/L (3.5-5.1); SODIUM LEVEL 142 MEQ/L (136-145); TOTAL PROTEIN 6.1 GM/DL (6.4-8.2)
[2019-10-30 13:19] LABS: HEPATITIS B SURFACE ANTIBODY POSITIVE (POSITIVE)
[2019-10-30 13:29] LABS: HEPATITIS B SURFACE ANTIGEN NEGATIVE (NEGATIVE)
[2019-10-30 13:58] LABS: HEPATITIS B CORE ANTIBODY IGM NEGATIVE (NEGATIVE); HEPATITIS C VIRUS ABY INDEX 0.2 INDEX (<0.8); HIV SCREEN CENTAUR EXPOSED NEGATIVE (NEGATIVE)
--- NOTE | 2019-10-30 16:39 | DS.PDOC ---
Discharge Summary General Date of Admission Oct 29, 2019 at 18:10 Date of Discharge 10/30/19 Attending Physician: WILMAN REYES MD Discharge Summary PROCEDURES PERFORMED DURING STAY: None ADMITTING DIAGNOSES: 1. Sinus bradycardia DISCHARGE DIAGNOSES: 1. Sinus bradycardia COMPLICATIONS/CHIEF COMPLAINT: Sinus Bradycardia. HISTORY OF PRESENT ILLNESS: 44 y.o female w/ PMH of drug abuse, depression & chronic back pain was admitted for sinus bradycardia. Patient fell at home, p resented to the ED and was found to be hypotensive and bradycardic, BP stabilized after IV fluids but patient remained bradycardic in the 30s/40s overnight, asymptomatic throughout. She denies prior history of bradycardia or taking any drugs recently. She is adamant that the last time she took any drugs was over a few months ago; she is not on any medication at home that may cause bradycardia and her Utox was positive for benzos. She was monitored overnight, worked with PT during the day with appropriate rise in HR with physical exertion. She passed PT eval, remained asymptomatic throughout the entire hospital stay. Etiology for bradycardia unknown, questionable drug involvement but as patient has appropriate sympathetic response with activity, it is safe to discharge the patient with close outpatient follow up. Patient is clinically and hemodynamically stable for discharge home and follow up w/ Cardiology/PCP. Patient understands and agrees with discharge plan; she is advised to return to the ED/call her PCP if she develops CP, SOB, palpitations, syncope or falls. HOSPITAL COURSE: as above DISCHARGE MEDICATIONS: Please see below. ALLERGIES: Please see below. PHYSICAL EXAMINATION ON DISCHARGE: VITAL SIGNS: Please see below. GENERAL: no distress HEENT: normocephalic, atraumatic NECK: supple CARDIOVASCULAR EXAMINATION: S1, S2, bradycardic RESPIRATORY EXAMINATION: clear to auscultation ABDOMINAL EXAMINATION: soft, non-tender, non-distended, +BS EXTREMITIES: ROM intact SKIN: no rash NEUROLOGICAL EXAMINATION: no focal deficits PSYCHIATRIC EXAMINATION: calm LABORATORY DATA: Please see below. PROGNOSIS: fair ACTIVITY: As tolerated DIET: regular DISCHARGE PLAN: f/u with PCP & [employer] in 1-2 weeks DISPOSITION: 01 Home, Self-Care. DISCHARGE INSTRUCTIONS: 1. as above DISCHARGE CONDITION: Stable TIME SPENT ON DISCHARGE: Greater than 33 minutes. Vital Signs/I&Os Vital Signs Date Time Temp Pulse Resp B/P (MAP) Pulse Ox O2 Delivery O2 Flow Rate FiO2 12/20/19 08:00 98.4 67 18 94/50 (65) 96 Room Air I&O- Last 24 Hours up to 6 AM 10/30/19 06:00 Intake Total 1300 ml Output Total 2050 ml Balance -750 ml Laboratory Data Labs 24H Laboratory Tests 2 10/29/19 18:29: Immature Granulocyte % (Auto) 0.4, Neutrophils (%) (Auto) 63.5, Lymphocytes (%) (Auto) 26.2, Monocytes (%) (Auto) 6.7H, Eosinophils (%) (Auto) 2.7, Basophils (%) (Auto) 0.5, Neutrophils # (Auto) 4.6, Lymphocytes # (Auto) 1.9, Monocytes # (Auto) 0.5, Eosinophils # (Auto) 0.2, Basophils # (Auto) 0.0, Nucleated Red Blood Cells % (auto) 0.0, Prothrombin Time 13.5, Prothromb Time International Ratio 1.06, Anion Gap 8, Glomerular Filtration Rate 57.2L, Calcium Level 9.1, Magnesium Level 2.4, Total Bilirubin 0.3, Direct Bilirubin 0.1, Aspartate Amino Transf (AST/SGOT) 18, Alanine Aminotransferase (ALT/SGPT) 25, Alkaline Phosphatase 59, Total Creatine Kinase 114, Creatine Kinase MB 1.6, Creatine Kinase MB Relative Index 1.40, Troponin I < 0.02, Total Protein 7.0, Albumin 3.6, Albumin/Globulin Ratio 1.06, Lipase 66L, Thyroid Stimulating Hormone (TSH) 1.080 10/29/19 18:48: POC Glucose (Misc Panel) 128H, POC Sodium (Misc Panel) 134L, POC Potassium (Misc Panel) 4.8, POC Chloride (Misc Panel) 108, POC Total CO2 (Misc Panel) 19.0L, POC Blood Urea Nitrogen (Misc Panel 16, POC Ionized Calcium (Misc Panel) 5.1, POC Creatinine (Misc Panel) 1.0, POC Hematocrit (Misc Panel) 43.0 10/30/19 00:45: Urine Opiates Screen NEGATIVE, Urine Methadone Screen NEGATIVE, Urine Barbiturates Screen NEGATIVE, Urine Phencyclidine Screen NEGATIVE, Urine Amphetamines Screen NEGATIVE, Urine Benzodiazepines Screen POSITIVEH, Urine Cocaine Metabolite Screen NEGATIVE, Urine Cannabinoids Screen NEGATIVE 10/30/19 12:31: Immature Granulocyte % (Auto) 0.4, Neutrophils (%) (Auto) 46.0, Lymphocytes (%) (Auto) 39.2, Monocytes (%) (Auto) 9.0H, Eosinophils (%) (Auto) 4.3H, Basophils (%) (Auto) 1.1H, Neutrophils # (Auto) 2.5, Lymphocytes # (Auto) 2.1, Monocytes # (Auto) 0.5, Eosinophils # (Auto) 0.2, Basophils # (Auto) 0.1, Nucleated Red Blood Cells % (auto) 0.0, Anion Gap 9, Glomerular Filtration Rate > 60.0, Calcium Level 8.5, Total Bilirubin 0.4, Aspartate Amino Transf (AST/SGOT) 15, Alanine Aminotransferase (ALT/SGPT) 21, Alkaline Phosphatase 50, Total Protein 6.1L, Albumin 3.0L, Albumin/Globulin Ratio 0.97L, Hepatitis B Surface Antigen NEGATIVE, Hepatitis B Surface Antibody POSITIVE, Hepatitis B Core IgM Antibody NEGATIVE, Hepatitis C Antibody Index 0.2, HIV Antigen/Antibody Combo Qual NEGATIVE CBC/BMP Laboratory Tests 10/29/19 18:29 10/30/19 12:31 Discharge Medications Scheduled Ciclopirox (Ciclopirox) 120 Ml Shampoo, 1 DOSE EXT DAILY, (Reported) USES WITH KETOCONAZOLE SHAMPOO Ketoconazole (Ketoconazole) 120 Ml Shampoo, 1 DOSE TOP DAILY, (Reported) USES WITH CICLOPROX SHAMPOO Norethindrone AC-Eth Estradiol (Norethind-Eth Estrad 1-0.02 mg) 1 Each Tablet, 1 TAB PO QHS, (Reported) Topiramate (Topiramate) 100 Mg Tablet, 100 MG PO BID, (Reported) Vortioxetine Hydrobromide (Trintellix) 20 Mg Tablet, 20 MG PO QHS, (Reported) Scheduled PRN Albuterol Sulfate (Proair Hfa) 8.5 Gm Hfa.aer.ad, 2 PUFF INH QID PRN for SHORTNESS OF BREATH, (Reported) Ibuprofen (Ibuprofen) 800 Mg Tablet, 800 MG PO TID PRN for PAIN, (Reported) Sumatriptan Succinate (Imitrex) 6 Mg/0.5 Ml Cartridge, 6 MG SC BID PRN for MIGRAINE, (Reported) Allergies Coded Allergies: citalopram (Verified Allergy, Intermediate, hives, 02/04/19) bupropion (Verified Adverse Reaction, Severe, seizure, 02/04/19) lamotrigine (Verified Adverse Reaction, Intermediate, visual disturbances at high doses, 02/04/19) WILMAN REYES MD Oct 30, 2019 16:39
--- NOTE | 2019-10-30 22:30 | ECGEPIP ---
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
--- NOTE | 2019-10-30 22:37 | ECGEPIP ---
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
== END 2019-10-30 14:10 | disposition home or self-care (01) ==
LOC: M ED 18:09 → M ED INP 18:10 → M MSPAV 10-30 02:24 → M PCU 10-30 03:10
PROVIDERS: ADMIT Internal Medicine; ATTEND Internal Medicine
DX: R00.1 Bradycardia, unspecified (principal); I95.1 Orthostatic hypotension; S16.1XXA Strain of muscle, fascia and tendon at neck level, initial encounter; W19.XXXA Unspecified fall, initial encounter; Y92.091 Bathroom in other non-institutional residence as the place of occurrence of the external cause; T76.21XA Adult sexual abuse, suspected, initial encounter; F32.9 Major depressive disorder, single episode, unspecified; F19.11 Other psychoactive substance abuse, in remission; G89.4 Chronic pain syndrome; F41.9 Anxiety disorder, unspecified; F60.3 Borderline personality disorder; Z87.891 Personal history of nicotine dependence; M54.9 Dorsalgia, unspecified; Z88.8 Allergy status to other drugs, medicaments and biological substances; Z79.899 Other long term (current) drug therapy
CPT/HCPCS: 36415; 70450; 71045; 72125; 80047; 80048; 80053; 80076; 80307; 82550; 82553; 83690; 83735; 84443; 84484; 85025; 85610; 86705; 86706; 86803; 87340; 87389; 93005; 93041; 96360; 96372; 99285; G0378

== ENCOUNTER → 2019-11-20 | Outpatient (REF) | payer MEDICARE, MEDICAID ==
[~2019-11-20] MED LIST changes: +BRIN1TAB; +BRIN1TAB3 PO; +IMIT6KIT SC; -OMEP-172 PO; +OMEP1CAP73 PO; +PROAAER10 INH
== END ==
LOC: M LAB REF 09:07
PROVIDERS: ATTEND Radiology Diagnostic Radiology
DX: N63.0 Unspecified lump in unspecified breast (principal)

== ENCOUNTER → 2020-02-04 | Outpatient (CLI) | payer MEDICARE, MEDICAID ==
[~2020-02-04] MED LIST changes: +QUET100T2 PO; -QUET1TAB8 PO
--- NOTE | 2020-02-05 01:26 | ECWPNPC ---
PATIENT NAME: ASHWINI YOUNGBLOOD : 1975 GENDER: FEMALE VISIT DATE: 02/04/2020 DISCHARGE DATE: 02/04/20 1153 VISIT LOCKED DATE TIME: PHYSICIAN: MOOK MACKEY RESOURCE: MOOK MACKEY REASON FOR APPOINTMENT 1. BACK/NECK HISTORY OF PRESENT ILLNESS HISTORY OF PRESENT ILLNESS: HERE FOR FOLLOW-UP OF CHRONIC MIGRAINE HEADACHE. HAD TO MISS LAST BOTOX SESSION DUE TO ILLNESS. REPORTING AN INCREASE IN MIGRAINE HEADACHE ACTIVITY. CURRENTLY USING TOPAMAX 100 MG TWICE A DAY, WHICH IS SOMEWHAT HELPFUL. DISCUSSED MEDICATION AND TREATMENT OPTIONS. PAIN THE PATIENT DESCRIBES THE PAIN... FALL RISK SCREENING: SCREENING :NO FALLS REPORTED IN THE LAST YEAR CURRENT MEDICATIONS TAKING IBUPROFEN 800 MG TABLET 1 TABLET WITH FOOD OR MILK NEEDED ORALLY 3 TIMES A DAY NEEDED TAKING TRINTELLIX 20 MG TABLET 1 TABLET ORALLY ONCE A DAY TAKING JUNEL 5 1.5-30 MG-MCG TABLET 1 TABLET ORALLY ONCE A DAY, NOTES: CONTROL - UNSURE OF NAME TAKING SUMATRIPTAN SUCCINATE 6 MG/0.5ML SOLUTION AUTO-INJECTOR 0.5 ML NEEDED SUBCUTANEOUS TWICE A DAY IF NEEDED FOR MIGRAINE HEADACHE TAKING TOPAMAX 100 MG TABLET 1 TABLET ORALLY BID NOT-TAKING SOMA 350 MG 30 350 MG TQBLET ONE TABLET ORALLY EVERY 8 HOURS NEEDED FOR PAIN NOT-TAKING CLONIDINE HCL 0.3 MG TABLET 2 TABLET ORALLY THREE TIMES DAILY NEEDED NOT-TAKING GABAPENTIN 800 MG TABLET 1 TAB ORALLY DIRECTED UP TO 3 TIMES A DAY NOT-TAKING LIDODERM 5 % PATCH 1 PATCH TO INTACT SKIN REMOVE AFTER 12 HOURS EXTERNALLY DIRECTED, NOTES: NONE RECENT NOT-TAKING LYRICA 150 MG CAPSULE 1 CAPSULE ORALLY THREE TIMES A DAY NOT-TAKING DULOXETINE HCL 60 MG CAPSULE DELAYED RELEASE PARTICLES 1 TAB ORALLY BID NOT-TAKING LIDOCAINE 4 % CREAM SMALL AMOUNT EXTERNALLY DIRECTED NOT-TAKING BUTRANS 20 MCG/HR PATCH WEEKLY 1 PATCH TO SKIN TRANSDERMAL EVERY 7 DAYS NOT-TAKING COLACE 100 MG CAPSULE 1 CAPSULE NEEDED ORALLY TID NOT-TAKING XANAX 1 MG TABLET 1 TABLET ORALLY QID NOT-TAKING AMBIEN CR 12.5 MG TABLET EXTENDED RELEASE 1 TABLET AT BEDTIME NEEDED ORALLY PRN NOT-TAKING CELEBREX 100 MG CAPSULE 1 CAPSULE ORALLY TWICE A DAY NOT-TAKING FLEXERIL 10 MG TABLET 1 TABLET ORALLY BID PRN NOT-TAKING SUBOXONE 8.5MG TABLET SUBLINGUAL 1 TABLET UNDER THE TONGUE AND ALLOW TO DISSOLVE SUBLINGUAL TID NOT-TAKING VIIBRYD 40 MG TABLET 1 TAB WITH FOOD PO ONCE DAILY NOT-TAKING PROBIOTIC CAPSULE DIRECTED ORALLY NOT-TAKING VALIUM 10 MG TABLET 1 TABLET NEEDED ORALLY 1 HOUR PRIOR MRI NOT-TAKING OXYCODONE HCL 5 MG TABLET 1 TABLET NEEDED ORALLY 1 HOUR PRIOR MRI MEDICATION LIST REVIEWED AND RECONCILED WITH THE PATIENT PAST MEDICAL HISTORY CHRONIC MIGRAINE HEADACHES CHRONIC LOW BACK PAIN NEUROPATHY DRUG ABUSE- 2006 INSOMNIA DEPRESSION ASTHMA SEIZURES CHRONIC NECK PAIN FIBROMYALGIA TRISTIN- DANLOS SYNDROME IBS ALLERGIES CELEXA: HIVES - ALLERGY WELLBUTRIN: SEIZURES - ALLERGY SEASONAL ALLERGIES: RUNNY NOSE, ITCHY EYES, ASTHMA LAMICTAL: NEUROLOGICAL DISRUPTION - ALLERGY SURGICAL HISTORY BACK SURGERY 03/2007 TONSILLECTOMY 1989 ADENOIDECTOMY- TUBES PLACED 1981 BILAT BREAST REDUCTION 2013 FAMILY HISTORY FATHER: ALIVE 61 YRS, DIAGNOSED WITH HYPERTENSION MOTHER: ALIVE 62 YRS, HTN, DIABETES, HYPERTENSION, UNSPECIFIED NONPSYCHOTIC MENTAL DISORDER FOLLOWING ORGANIC BRAIN DAMAGE, SUBSTANCE ABUSE MATERNAL GRAND MOTHER: DIABETES MATERNAL AUNT: CERVICAL CANCER 1 SISTER(S) - HEALTHY. 1 SON(S) - HEALTHY. NO FAMILY HX OF BLADDER OR KIDNEY CA\\NSON HAS TRISTIN-DANLOS SYNDROME. SOCIAL HISTORY GENERAL: TOBACCO USE ARE YOU A:FORMER SMOKER HOW LONG HAS IT BEEN SINCE YOU LAST SMOKED?> 10 YEARS EDUCATION LEVEL OF EDUCATION:PROFESSIONAL SCHOOLS/MASTERS/PHD LANGUAGE LANGUAGES SPOKEN:DANISH NEW PATIENT PAIN DIARY TODAY'S VISITNOTES 02/04/2020 PATIENT DESCRIBES PAIN :ACHING, SHOOTING FROM 0-10, WHAT LEVEL IS YOUR PAIN TODAY?6 RECREATIONAL DRUG USE DENIES- CURRENT. HAD PAST DRUG ADDICTION IN 2006. EXERCISE: STRETCHES. 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 NEEDED?NO PAIN CLINIC PFS, CLERGY, PUBLIC HEALTH REFERRALS WAS THE PROVIDER NOTIFIED OF ANY PERTINENT INFO?YES HAS THE PATIENT BEEN EDUCATED REGARDING HIS/HER PLAN OF CARE?YES HAS THE PATIENT BEEN EDUCATED REGARDING PAIN, THE RISK FOR PAIN, THE IMPORTANCE OF EFFECTIVE PAIN MANAGEMENT, AND THE PAIN ASSESSMENT PROCESS?YES LATEX QUESTIONNAIRE LATEX ALLERGY : HAVE YOU EVER DEVELOPED ANY TYPE OF REACTION AFTER HANDLING LATEX PRODUCTS SUCH RUBBER GLOVES, CONDOMS, DIAPHRAGMS, BALLOONS, SOCKS, OR UNDERWEAR?NO LATEX ALLERGY : HAVE YOU EVER DEVELOPED ANY TYPE OF REACTION DURING OR AFTER DENTAL APPOINTMENT, VAGINAL/RECTAL EXAMINATION, SURGICAL PROCEDURE, OR ANY OTHER EXPOSURE?NO LATEX RISK : HAVE YOU EVER HAD ANY DIFFICULTY BREATHING OR HIVES AFTER EATING OR HANDLING ANY FRUITS, OR VEGETABLES; SUCH KIWI, BANANAS, STONE FRUITS, OR CHESTNUTSNO LATEX RISK : DO YOU HAVE A PREVIOUS PERSONAL HISTORY OF MORE THAN NINE SURGERIES, SPINA BIFIDA, OR REPEATED CATHERIZATIONS? NO LATEX RISK : ARE YOU FREQUENTLY EXPOSED TO LATEX PRODUCTS IN YOUR OCCUPATION?NO DATE ASKED : 03/04/2019 CAFFEINE NONE. ADVANCE DIRECTIVE ADVANCE DIRECTIVE DISCUSSED WITH PATIENT:YES PT HAS NO ADVANCED DIRECTIVES, DECLINES INFORMATION OR ASSISTANCE CONGREGATIONAL [id number] OTHER MARITAL STATUS: SINGLE X1 CHILD. ALCOHOL SCREENING DID YOU HAVE A DRINK CONTAINING ALCOHOL IN THE PAST YEAR?YES HOW OFTEN DID YOU HAVE A DRINK CONTAINING ALCOHOL IN THE PAST YEAR?MONTHLY OR LESS (1 POINT) HOW MANY DRINKS DID YOU HAVE ON A TYPICAL DAY WHEN YOU WERE DRINKING IN THE PAST YEAR?1 OR 2 (0 POINTS) HOW OFTEN DID YOU HAVE SIX OR MORE DRINKS ON ONE OCCASION IN THE PAST YEAR?NEVER (0 POINTS) POINTS1 INTERPRETATIONNEGATIVE OCCUPATION: UNEMPLOYED. HOSPITALIZATION/MAJOR DIAGNOSTIC PROCEDURE SURGERY RELATED SEIZURES 2002 DETOX 03/2007 FALL/LOW BP 07/2018 IMHU 07/2018 SEIZURE 07/2018 OVERDOSE 07/2019 REVIEW OF SYSTEMS REVIEWED BY: PROVIDER: MOOK CRISTINA . CONSTITUTIONAL: ANY CHANGE IN YOUR MEDICAL CONDITION? NO . CHILLS NO . FEVER NO . INFECTION: DO YOU HAVE NEW INFECTIONS? NO . DO YOU HAVE HISTORY OF MRSA? NO . MUSCULOSKELETAL: ANY NEW PATTERNS OF PAIN OR NUMBNESS? YES, NEW PAIN TO LEFT MID TO LOWER BACK SINCE NOVEMBER . GASTROENTEROLOGY: ANY NEW CHANGE IN BOWEL CONTROL? NO . GENITOURINARY: ANY NEW CHANGE IN BLADDER CONTROL? NO . IS THERE A CHANCE YOU COULD BE ? NO . HEMATOLOGY/LYMPH: DO YOU TAKE ANY BLOOD THINNERS? (FOR EXAMPLE- COUMADIN, PLAVIX, AGGRENOX, PLATEL, PRADAXA, OR XARELTO) NO . WHEN WAS YOUR LAST DOSE? DATE: TIME: . NEUROLOGY: HAVE YOU FALLEN IN THE PAST 12 MONTHS? YES, STATES PRIOR TO LAST VISIT, DISCUSSED AT PREVIOUS VISIT . ANY NEW EXTREMITY NUMBNESS OR WEAKNESS? YES, NEW BILATERAL HAND NUMBNESS FOR THE PAST COUPLE OF MONTHS . CARDIOLOGY: DO YOU HAVE A PACEMAKER OR DEFIBRILLATOR? NO . RESPIRATORY: HAVE YOU BEEN SICK IN THE PAST WEEK? NO . FEVER NO . FLU LIKE SYMPTOMS? NO . COUGH NO . INTEGUMENTARY: DO YOU HAVE ANY RASHES OR OPEN SORES? NO . ALLERGIC/IMMUNO: ARE YOU ALLERGIC TO IV DYE? NO . ANY NEW ALLERGIES? NO . PSYCHIATRIC: DO YOU HAVE THOUGHTS OF HURTING YOURSELF OR SOMEONE ELSE? NO . ARE YOU ABUSED, NEGLECTED, OR IN AN UNSAFE ENVIRONMENT? NO . ENDOCRINOLOGY: ARE YOU DIABETIC? NO . OTHER: DO YOU NEED ANY PRESCRIPTIONS? YES . IF YES, PLEASE LIST: ____TOPAMAX . ANY NEW PROBLEMS WITH YOUR MEDICATIONS? NO . WHEN DID YOU LAST EAT? ____ . WHEN DID YOU LAST DRINK? ____ . WHAT DID YOU LAST DRINK? ____ . NAME OF PERSON DRIVING YOU HOME? ____ . DO YOU HAVE ANY OTHER QUESTIONS OR CONCERNS YES, CANCELLED BOTOX DUE TO FLU IN NOVEMBER - WOULD LIKE TO SCHEDULE BOTOX AGAIN . VITAL SIGNS WT 178 LBS, HT 5'3" 11/12, BMI 31.53 INDEX, BP 143/93 MM HG, HR 126 /MIN, RR 18 /MIN, TEMP 98.0 F, OXYGEN SAT % 98%, SAFE IN ENV? (Y/N) YES, NA INITIALS AW 1108, REVIEWED BY: JACKI. EXAMINATION GENERAL EXAMINATION: GENERALNO ACUTE DISTRESS, WELL NOURISHED AND HYDRATED. PSYCHAPPROPRIATE MOOD AND AFFECT . HEENT:EOMI, NO SCLERAL ICTERUS, NARES PATENT, ORAL MUCOSA MOIST. LUNGS:CLEAR TO AUSCULTATION BILATERALLY, NO WHEEZES, RHONCHI, RALES. HEART:NO MURMURS, REGULAR RATE AND RHYTHM. ASSESSMENTS CHRONIC MIGRAINE WITHOUT AURA WITHOUT STATUS MIGRAINOSUS, NOT INTRACTABLE - G43.709 (PRIMARY) POSTLAMINECTOMY SYNDROME, NOT ELSEWHERE CLASSIFIED - M96.1 TREATMENT CHRONIC MIGRAINE WITHOUT AURA WITHOUT STATUS MIGRAINOSUS, NOT INTRACTABLE REFILL TOPAMAX TABLET, 100 MG, 1 TABLET, ORALLY, BID, 30 DAY(S), 60, REFILLS 2 NOTES: REQUEST BOTOX FOR MIGRAINE HEADACHE IN ACCORDANCE WITH TREATMENT GUIDELINES FOR CHRONIC MIGRAINE HEADACHE . PREVENTIVE MEDICINE PAIN CLINIC TEACHING: PROCEDURE TEACHING REVIEWED INFORMATION ON BOTOX PROCEDURE WITH PATIENT. ALSO REVIEWED PRE-PROCEDURE INSTRUCTIONS. PATIENT VERBALIZED AN UNDERSTANDING. BRENDON CHANEL Bre 02/04/2020 11:54:15 AM > . PROCEDURE CODES FA211 ESTABILISHED PATIENT [facility] CHARGE DISPOSITION & COMMUNICATION FOLLOW UP 2 MOS POST BOTOX (REASON: REQUEST BOTOX FOR MIGRAINE HEADACHE) ELECTRONICALLY SIGNED BY IBETH TRUONG ON 02/04/2020 AT 01:14 PM EDT DISCLAIMER : THIS IS A VISIT SUMMARY EXTRACTED FROM THE [employer] CHART. IT IS NOT A COPY OF THE [employer] PROGRESS NOTE. ANTOINE
== END ==
LOC: M PAIN 11:00
PROVIDERS: ATTEND Nurse Practitioner Family
DX: G43.709 Chronic migraine without aura, not intractable, without status migrainosus (principal); M96.1 Postlaminectomy syndrome, not elsewhere classified

== ENCOUNTER → 2020-03-08 | Outpatient (CLI) | payer MEDICARE, MEDICAID ==
[~2020-03-08] MED LIST changes: +BOTOX THERAPEUTIC 100 UNIT VIAL (J0585 PER 1 UNIT) IM ONE; +CYCL-707 PO; -CYCL10TA PO; +diazePAM 5 MG TAB As Ordered ONE; +oxyCODONE 5MG TAB As Ordered ONE
--- NOTE | 2020-03-11 00:20 | ECWPNPC ---
PATIENT NAME: ASHWINI YOUNGBLOOD : 1975 GENDER: FEMALE VISIT DATE: 03/08/2020 DISCHARGE DATE: 03/08/20 1604 VISIT LOCKED DATE TIME: PHYSICIAN: CAROL BERRIOS MD RESOURCE: CAROL BERRIOS MD REASON FOR APPOINTMENT 1. BOTOX - PAT COMPLETED HISTORY OF PRESENT ILLNESS HISTORY OF PRESENT ILLNESS: PAIN THE PATIENT DESCRIBES THE PAIN... FALL RISK SCREENING: SCREENING :NO FALLS REPORTED IN THE LAST YEAR CURRENT MEDICATIONS TAKING IBUPROFEN 800 MG TABLET 1 TABLET WITH FOOD OR MILK NEEDED ORALLY 3 TIMES A DAY NEEDED, NOTES: NONE RECENT TAKING TRINTELLIX 20 MG TABLET 1 TABLET ORALLY ONCE A DAY, NOTES: 03/07 1000 TAKING JUNEL 1.04/09 1.5-30 MG-MCG TABLET 1 TABLET ORALLY ONCE A DAY, NOTES: CONTROL - UNSURE OF NAME 03/07 2200 TAKING SUMATRIPTAN SUCCINATE 6 MG/0.5ML SOLUTION AUTO-INJECTOR 0.5 ML NEEDED SUBCUTANEOUS TWICE A DAY IF NEEDED FOR MIGRAINE HEADACHE, NOTES: 03/07 1700 TAKING TOPAMAX 100 MG TABLET 1 TABLET ORALLY BID, NOTES: 03/07 1700 TAKING MAY USE TORADOL 50 MG PRN, NOTES: LAST SATURDAY TAKING LIDOCAINE 4 % CREAM SMALL AMOUNT EXTERNALLY DIRECTED, NOTES: 03/08 NOT-TAKING SOMA 350 MG 30 350 MG TQBLET ONE TABLET ORALLY EVERY 8 HOURS NEEDED FOR PAIN NOT-TAKING CLONIDINE HCL 0.3 MG TABLET 2 TABLET ORALLY THREE TIMES DAILY NEEDED NOT-TAKING GABAPENTIN 800 MG TABLET 1 TAB ORALLY DIRECTED UP TO 3 TIMES A DAY NOT-TAKING LIDODERM 5 % PATCH 1 PATCH TO INTACT SKIN REMOVE AFTER 12 HOURS EXTERNALLY DIRECTED, NOTES: NONE RECENT NOT-TAKING LYRICA 150 MG CAPSULE 1 CAPSULE ORALLY THREE TIMES A DAY NOT-TAKING DULOXETINE HCL 60 MG CAPSULE DELAYED RELEASE PARTICLES 1 TAB ORALLY BID NOT-TAKING BUTRANS 20 MCG/HR PATCH WEEKLY 1 PATCH TO SKIN TRANSDERMAL EVERY 7 DAYS NOT-TAKING COLACE 100 MG CAPSULE 1 CAPSULE NEEDED ORALLY TID NOT-TAKING XANAX 1 MG TABLET 1 TABLET ORALLY QID NOT-TAKING AMBIEN CR 12.5 MG TABLET EXTENDED RELEASE 1 TABLET AT BEDTIME NEEDED ORALLY PRN NOT-TAKING CELEBREX 100 MG CAPSULE 1 CAPSULE ORALLY TWICE A DAY NOT-TAKING FLEXERIL 10 MG TABLET 1 TABLET ORALLY BID PRN NOT-TAKING SUBOXONE 8.5MG TABLET SUBLINGUAL 1 TABLET UNDER THE TONGUE AND ALLOW TO DISSOLVE SUBLINGUAL TID NOT-TAKING VIIBRYD 40 MG TABLET 1 TAB WITH FOOD PO ONCE DAILY NOT-TAKING PROBIOTIC CAPSULE DIRECTED ORALLY NOT-TAKING VALIUM 10 MG TABLET 1 TABLET NEEDED ORALLY 1 HOUR PRIOR MRI NOT-TAKING OXYCODONE HCL 5 MG TABLET 1 TABLET NEEDED ORALLY 1 HOUR PRIOR MRI MEDICATION LIST REVIEWED AND RECONCILED WITH THE PATIENT PAST MEDICAL HISTORY CHRONIC MIGRAINE HEADACHES CHRONIC LOW BACK PAIN NEUROPATHY DRUG ABUSE- 2006 INSOMNIA DEPRESSION ASTHMA SEIZURES- STATES SHE HAS HAD A COUP;E OF SEIZURES IN THE PAST STATES SHE IS NOT DIAGNOSED WITH SEIZURE DISORDER CHRONIC NECK PAIN FIBROMYALGIA TRISTIN- DANLOS SYNDROME IBS ALLERGIES CELEXA: HIVES - ALLERGY WELLBUTRIN: SEIZURES - ALLERGY SEASONAL ALLERGIES: RUNNY NOSE, ITCHY EYES, ASTHMA LAMICTAL: NEUROLOGICAL DISRUPTION - ALLERGY SURGICAL HISTORY BACK SURGERY 03/2007 TONSILLECTOMY 1989 ADENOIDECTOMY- TUBES PLACED 1981 BILAT BREAST REDUCTION 2013 FAMILY HISTORY FATHER: ALIVE 61 YRS, DIAGNOSED WITH HYPERTENSION MOTHER: ALIVE 62 YRS, HTN, DIABETES, HYPERTENSION, UNSPECIFIED NONPSYCHOTIC MENTAL DISORDER FOLLOWING ORGANIC BRAIN DAMAGE, SUBSTANCE ABUSE MATERNAL GRAND MOTHER: DIABETES MATERNAL AUNT: CERVICAL CANCER 1 SISTER(S) - HEALTHY. 1 SON(S) - HEALTHY. NO FAMILY HX OF BLADDER OR KIDNEY CA\\NSON HAS TRISTIN-DANLOS SYNDROME. SOCIAL HISTORY GENERAL: TOBACCO USE ARE YOU A:FORMER SMOKER HOW LONG HAS IT BEEN SINCE YOU LAST SMOKED?> 10 YEARS LATEX QUESTIONNAIRE LATEX ALLERGY : HAVE YOU EVER DEVELOPED ANY TYPE OF REACTION AFTER HANDLING LATEX PRODUCTS SUCH RUBBER GLOVES, CONDOMS, DIAPHRAGMS, BALLOONS, SOCKS, OR UNDERWEAR?NO LATEX ALLERGY : HAVE YOU EVER DEVELOPED ANY TYPE OF REACTION DURING OR AFTER DENTAL APPOINTMENT, VAGINAL/RECTAL EXAMINATION, SURGICAL PROCEDURE, OR ANY OTHER EXPOSURE?NO LATEX RISK : HAVE YOU EVER HAD ANY DIFFICULTY BREATHING OR HIVES AFTER EATING OR HANDLING ANY FRUITS, OR VEGETABLES; SUCH KIWI, BANANAS, STONE FRUITS, OR CHESTNUTSNO LATEX RISK : DO YOU HAVE A PREVIOUS PERSONAL HISTORY OF MORE THAN NINE SURGERIES, SPINA BIFIDA, OR REPEATED CATHERIZATIONS? NO LATEX RISK : ARE YOU FREQUENTLY EXPOSED TO LATEX PRODUCTS IN YOUR OCCUPATION?NO DATE ASKED : 03/04/2019 ALCOHOL SCREENING DID YOU HAVE A DRINK CONTAINING ALCOHOL IN THE PAST YEAR?YES HOW OFTEN DID YOU HAVE SIX OR MORE DRINKS ON ONE OCCASION IN THE PAST YEAR?NEVER (0 POINTS) HOW MANY DRINKS DID YOU HAVE ON A TYPICAL DAY WHEN YOU WERE DRINKING IN THE PAST YEAR?1 OR 2 (0 POINTS) HOW OFTEN DID YOU HAVE A DRINK CONTAINING ALCOHOL IN THE PAST YEAR?MONTHLY OR LESS (1 POINT) POINTS1 INTERPRETATIONNEGATIVE RECREATIONAL DRUG USE DENIES- CURRENT. HAD PAST DRUG ADDICTION IN 2006. CAFFEINE NONE. YAZDANISM [id number] OTHER LANGUAGE LANGUAGES SPOKEN:SLOVENIAN EDUCATION LEVEL OF EDUCATION:PROFESSIONAL SCHOOLS/MASTERS/PHD LEARNING BARRIERS / SPECIAL NEEDS BARRIERS TO LEARNING?NO HEARING IMPAIRED?NO VISION IMPAIRED?YES COGNITIVELY IMPAIRED?NO :CORRECTIVE LENSES READINESS TO LEARN?YES LEARNING PREFERENCES?NO EMOTIONAL BARRIERS?NO SPECIAL DEVICES?YES :CANE AEROSPACE MECHANIC NEEDED?NO OCCUPATION: UNEMPLOYED. EXERCISE: STRETCHES. MARITAL STATUS: SINGLE X1 CHILD. NEW PATIENT PAIN DIARY TODAY'S VISITNOTES 03/08/2020 PATIENT DESCRIBES PAIN :ACHING, IT COMES AND GOES, SHARP, STABBING, THROBBING, SORE, SHOOTING FROM 0-10, WHAT LEVEL IS YOUR PAIN TODAY?4 PRECIPITATING FACTORS NOTHING IN PARTICULAR ALLEVIATING FACTORS BOTOX INJECTIONS IMPACT ON FUNCTION UNABLE TO DO ANYTHING PAIN CLINIC PFS, CLERGY, PUBLIC HEALTH REFERRALS HAS THE PATIENT BEEN EDUCATED REGARDING HIS/HER PLAN OF CARE?YES HAS THE PATIENT BEEN EDUCATED REGARDING PAIN, THE RISK FOR PAIN, THE IMPORTANCE OF EFFECTIVE PAIN MANAGEMENT, AND THE PAIN ASSESSMENT PROCESS?YES ADVANCE DIRECTIVE ADVANCE DIRECTIVE DISCUSSED WITH PATIENT:YES 03/08/2020 PT DOES NOT HAVE ANY ADVANCED DIRECTIVES AND SHE DECLINES INFORMATION ON HCP AT THIS TIME. AD HOSPITALIZATION/MAJOR DIAGNOSTIC PROCEDURE SURGERY RELATED SEIZURES 2003 DETOX 03/2007 FALL/LOW BP 07/2018 IMHU 07/2018 SEIZURE 07/2018 OVERDOSE 07/2019 REVIEW OF SYSTEMS REVIEWED BY: PROVIDER: CAROL BERRIOS MD . CONSTITUTIONAL: ANY CHANGE IN YOUR MEDICAL CONDITION? NO . CHILLS NO . FEVER NO . INFECTION: DO YOU HAVE NEW INFECTIONS? NO . DO YOU HAVE HISTORY OF MRSA? NO . MUSCULOSKELETAL: ANY NEW PATTERNS OF PAIN OR NUMBNESS? NO . GASTROENTEROLOGY: ANY NEW CHANGE IN BOWEL CONTROL? NO . GENITOURINARY: ANY NEW CHANGE IN BLADDER CONTROL? NO . IS THERE A CHANCE YOU COULD BE ? NO . HEMATOLOGY/LYMPH: DO YOU TAKE ANY BLOOD THINNERS? (FOR EXAMPLE- COUMADIN, PLAVIX, AGGRENOX, PLATEL, PRADAXA, OR XARELTO) NO . WHEN WAS YOUR LAST DOSE? DATE: TIME: . NEUROLOGY: HAVE YOU FALLEN IN THE PAST 12 MONTHS? YES, IN NOV FELL IN HER BATHROOM, WAS EVALUATED IN ED AFTER AND WAS ADMITTED FOR HYPOTENSION . ANY NEW EXTREMITY NUMBNESS OR WEAKNESS? NO . CARDIOLOGY: DO YOU HAVE A PACEMAKER OR DEFIBRILLATOR? NO . RESPIRATORY: HAVE YOU BEEN SICK IN THE PAST WEEK? NO . FEVER NO . FLU LIKE SYMPTOMS? NO . COUGH NO . INTEGUMENTARY: DO YOU HAVE ANY RASHES OR OPEN SORES? NO . ALLERGIC/IMMUNO: ARE YOU ALLERGIC TO IV DYE? NO . ANY NEW ALLERGIES? NO . PSYCHIATRIC: DO YOU HAVE THOUGHTS OF HURTING YOURSELF OR SOMEONE ELSE? NO . ARE YOU ABUSED, NEGLECTED, OR IN AN UNSAFE ENVIRONMENT? NO . ENDOCRINOLOGY: ARE YOU DIABETIC? NO . OTHER: DO YOU NEED ANY PRESCRIPTIONS? NO . IF YES, PLEASE LIST: ____ . ANY NEW PROBLEMS WITH YOUR MEDICATIONS? NO . WHEN DID YOU LAST EAT? 03/07 2100 . WHEN DID YOU LAST DRINK? 03/08 0000 . WHAT DID YOU LAST DRINK? LEMONADE . NAME OF PERSON DRIVING YOU HOME? QUINTIN . DO YOU HAVE ANY OTHER QUESTIONS OR CONCERNS NO . VITAL SIGNS WT 177.6 LBS, HT 5'3" 1/2, BMI 31.46 INDEX, BP 135/82 MM HG, HR 115 /MIN, RR 18 /MIN, TEMP 97.8 F, OXYGEN SAT % 100%, NA INITIALS AW 1259, REVIEWED BY: AD. ASSESSMENTS CHRONIC MIGRAINE WITHOUT AURA, NOT INTRACTABLE, WITHOUT STATUS MIGRAINOSUS - G43.709 (PRIMARY) TREATMENT OTHERS NOTES: PRE PROCEDURE PHONE CALL COMPLETED. PATIENT VERBALIZES UNDERSTANDING OF COVID-19 PPRECAUTIONS REVIEWED, WELL PRE PROCEDURE INSTRUCTIONS REVIEWED. PT WISHES TO PROCEED WITH INJECTIONS. 03/04/2020 1553 NLJ. PROCEDURES PN BOTOX INJECTIONS FIRST INJECTION DATE OF PROCEDURE : PRE PROCEDURE DIAGNOSIS CHRONIC MIGRAINE HEADACHES. POST PROCEDURE DIAGNOSIS CHRONIC MIGRAINE HEADACHES. PROCEDURE BOTOX INJECTION AT THE HEAD, NECK AND SHOULDERS. SURGEON DR. CAROL BERRIOS CLIENT RELATIONSHIP MANAGER NONE ANESTHESIA NONE PRE PROCEDURE NOTE 44-YEAR-OLD PATIENT WITH HISTORY OF CHRONIC MIGRAINE HEADACHES. I EVALUATED THE PATIENT AND REVIEWED THE CHART. I WENT OVER THE RISKS, ALTERNATIVES, AND BENEFITS ASSOCIATED WITH THIS PROCEDURE. THE PATIENT WOULD LIKE TO PROCEED AND GAVE CONSENT TO PERFORM THE PROCEDURE. THE PATIENT DENIES UNEXPLAINABLE WEIGHT LOSS, FEVER, CHILLS, OR NEW CHANGES IN URINARY OR BOWEL CONTROL. THE PATIENT HAS BEEN SUFFERING FROM HEADACHES 30 DAYS A MONTH. THESE HEADACHES LAST MORE THAN 4 HOURS PER DAY. THE PATIENT HAS USED THE MEDICATIONS LISTED IN THE CHART TO TREAT THE HEADACHES FOR MANY MONTHS BUT THE HEADACHES PERSIST DESCRIBED ABOVE. THE PATIENT HAS HAD BOTOX IN THE PAST, WHICH HAVE WORKED WELL FOR HER. THE LAST INJECTION WAS MAY 2019. THE HEADACHES HAVE COME BACK DESCRIPTION OF PROCEDURE THE PATIENT WAS BROUGHT TO THE PROCEDURE ROOM AND PLACED IN THE SUPINE POSITION. I CHECKED LATERALITY AND THE AREAS WHERE THE PROCEDURE WAS GOING TO BE PERFORMED WITH THE PATIENT AND THE SUPPORTING STAFF AT THE MOMENT OF THE TIME OUT IN THE PROCEDURE ROOM. FOR THE PROCEDURE I USED A SOLUTION OF 5 UNITS OF BOTOX PER EACH 0.1 ML OF THE SOLUTION. I USED A 30-GAUGE NEEDLE TO INJECT THE SOLUTION AT THE SELECTED LOCATIONS. I INJECTED FIRST THE RIGHT AND LEFT EXPERIMENTAL MECHANIC MUSCLES. THE LANDMARK FOR BOTH INJECTIONS WAS APPROXIMATELY 1 CM ABOVE THE SUPERIOR MEDIAL EDGE OF THE EYEBROW. AFTER THESE TWO INJECTIONS, I INJECTED THE PROCERUS MUSCLE AT THE MIDLINE POINT BETWEEN THESE FIRST TWO INJECTIONS. THEN I PROCEEDED TO INJECT THE RIGHT AND LEFT FRONTALIS MUSCLE. TWO INJECTIONS WERE DONE IN EACH SIDE. THE FIRST INJECTION WAS DONE APPROXIMATELY 2 CM ABOVE THE FIRST INJECTION OF THE EXPERIMENTAL MECHANIC. THE SECOND INJECTION WAS DONE APPROXIMATELY 1.5 CM LATERAL TO THIS FIST INJECTION OF THE FRONTALIS OF EACH SIDE. AFTER THE INJECTIONS OVER THE FOREHEAD WERE DONE, THE PATIENT'S HEAD WAS TURNED TO THE LEFT SIDE AND WE STARTED TO WORK WITH THE RIGHT TEMPORALIS MUSCLE. FIRST INJECTION WAS DONE IN A VERTICAL LINE OF THE TRAGUS APPROXIMATELY 3 CM ABOVE THE TRAGUS. THE SECOND INJECTION WAS DONE APPROXIMATELY 2 CM ABOVE THE FIRST INJECTION. THE THIRD INJECTION WAS DONE APPROXIMATELY 1 CM FRONTWARD FROM THIS VERTICAL LINE CREATED AT THE LEVEL OF THE TRAGUS, HALF-WAY BETWEEN THESE TWO INJECTIONS. THE FOURTH INJECTION WAS DONE APPROXIMATELY 1.5 CM BACK FROM THE SECOND INJECTION TO THE TEMPORALIS IN LINE TO THE MIDPORTION OF THE EAR. THEN, WE PROCEEDED TO INJECT THE LEFT TEMPORALIS MUSCLE. WE CLEANED THE AREA WITH ALCOHOL AND PROCEEDED TO PERFORM THE SAME FOR INJECTIONS DESCRIBED ABOVE BUT IN THE LEFT TEMPORALIS MUSCLE USING THE SAME LANDMARKS. AFTER THESE INJECTIONS WERE DONE, THE PATIENT WAS SEATED. FIRST, WE STARTED TO INJECT THE LEFT AND RIGHT OCCIPITALIS MUSCLE. I INJECTED AT THE FOLLOWING PLACES IN THE RIGHT AND LEFT MUSCLE. THE FIRST INJECTION WAS DONE AT THE MIDPOINT POSITION BETWEEN THE MASTOID PROCESS AND THE INION OF THE OCCIPITAL PROTUBERANCE. THE SECOND INJECTION WAS DONE APPROXIMATELY 1.5 CM SUPERIOR AND LATERAL OF THIS POINT. THE THIRD INJECTION WAS DONE APPROXIMATELY 1.5 CM SUPERIOR AND MEDIAL TO THIS FIRST INJECTION. NEXT, I PROCEEDED TO INJECT THE RIGHT AND LEFT PARASPINAL MUSCLES. LANDMARK OF THE INJECTION WERE APPROXIMATELY: FIRST INJECTION 3 CM BELOW THE INION AND 1 CM LATERAL TO THE MIDLINE AND SECOND INJECTION AT EACH SIDE WAS DONE APPROXIMATELY 1.5 CM SUPERIOR AND LATERAL OF THE FIRST INJECTION. THE LAST GROUP OF INJECTIONS WAS DONE OVER THE RIGHT AND LEFT TRAPEZIUS MUSCLE OVER THE SHOULDERS AREA. THE FIRST INJECTION WAS DONE AT THE MIDPOINT BETWEEN THE INFLECTION POINT BETWEEN THE NECK AND SHOULDER AND THE ACROMION. THE SECOND AND THIRD INJECTIONS WERE DONE APPROXIMATELY 2.5 CM LATERAL AND MEDIAL FROM THIS FIRST INJECTION. SAME TARGETS WERE USED IN THE RIGHT AND LEFT SIDE. IN TOTAL, I INJECTED 155 UNITS OF BOTOX. PROCEDURE WAS DONE WITHOUT EVIDENCE OF PARESTHESIA, PNEUMOTHORAX, OR ANY COMPLICATIONS. THE PATIENT TOLERATED THE PROCEDURE VERY WELL. THE PATIENT WAS SENT TO THE RECOVERY ROOM FOR OBSERVATIONS. INJECTIONS WERE DONE AFTER CLEANING WITH ALCOHOL, USING ASEPTIC TECHNIQUES. POST PROCEDURE NOTE THE PROCEDURE DONE WAS DISCUSSED WITH THE PATIENT. THE PATIENT WILL BE SEEN IN A FOLLOW UP IN THE NEXT FEW WEEKS. I AM LOOKING FOR LONG LASTING PAIN RELIEF FOR THE PATIENT WITH THIS INJECTION. INSTRUCTIONS WERE GIVEN, QUESTIONS WERE ANSWERED, AND THE PATIENT EXPRESSED UNDERSTANDING AND AGREES WITH THE PLAN. I, ERLIN BEARD , DOCUMENTED THE ABOVE INFORMATION ACTING A SCRIBE FOR DR. BERRIOS. I HAVE REVIEWED THE ABOVE DOCUMENT, WRITTEN BY ERLIN BEARD, NOELLE, AND I VERIFY THAT IT IS ACCURATE. PROCEDURE CODES [id number] CHEMODENERV MUSC MIGRAINE DISPOSITION & COMMUNICATION FOLLOW UP F/UP DEBONER (REASON: POST-PROCEDURE F/UP) ELECTRONICALLY SIGNED BY CAROL BERRIOS MD, MD ON 03/10/2020 AT 01:34 PM EDT DISCLAIMER : THIS IS A VISIT SUMMARY EXTRACTED FROM THE [employer] CHART. IT IS NOT A COPY OF THE [employer] PROGRESS NOTE. ANTOINE
== END ==
LOC: M PAIN 13:00
PROVIDERS: ATTEND Anesthesiology
DX: G43.709 Chronic migraine without aura, not intractable, without status migrainosus (principal); G47.00 Insomnia, unspecified; Z86.59 Personal history of other mental and behavioral disorders; J45.909 Unspecified asthma, uncomplicated; M79.7 Fibromyalgia; Z87.891 Personal history of nicotine dependence; Z88.8 Allergy status to other drugs, medicaments and biological substances; Z79.899 Other long term (current) drug therapy
CPT/HCPCS: 64615; J0585

== ENCOUNTER → 2020-07-26 | Outpatient (CLI) | payer OTHER, MEDICAID ==
[~2020-07-26] MED LIST changes: -BOTOX THERAPEUTIC 100 UNIT VIAL (J0585 PER 1 UNIT) IM ONE; +KETO2SHA8 TOP; -KETO2SHA9 TOP; -diazePAM 5 MG TAB As Ordered ONE; -oxyCODONE 5MG TAB As Ordered ONE
== END ==
LOC: M PAIN 13:59
PROVIDERS: ATTEND Nurse Practitioner Family
DX: G43.909 Migraine, unspecified, not intractable, without status migrainosus (principal)

== ENCOUNTER → 2020-08-18 | Outpatient (CLI) | payer MEDICARE, MEDICAID | LOC: M LABSMTC 10:18 | PROVIDERS: ATTEND Anesthesiology | DX: Z20.828 Contact with and (suspected) exposure to other viral communicable diseases (principal) | CPT/HCPCS: C9803; U0003 ==

== ENCOUNTER → 2020-08-23 | Outpatient (CLI) | payer OTHER, MEDICAID ==
[~2020-08-23] MED LIST changes: +BOTOX THERAPEUTIC 100 UNIT VIAL (J0585 PER 1 UNIT) INJ ONE; +diazePAM 5 MG TAB As Ordered ONE; +oxyCODONE 5MG TAB As Ordered ONE
--- NOTE | 2020-08-24 11:32 | ECWPNPC ---
PATIENT NAME: ASHWINI YOUNGBLOOD : 1975 GENDER: FEMALE VISIT DATE: 08/23/2020 DISCHARGE DATE: 08/23/20 1640 VISIT LOCKED DATE TIME: PHYSICIAN: CAROL BERRIOS MD RESOURCE: CAROL BERRIOS MD REASON FOR APPOINTMENT 1. BOTOX HISTORY OF PRESENT ILLNESS GENERAL: -. FALL RISK SCREENING: SCREENING :ONE FALL WITH INJURY IN THE PAST YEAR PT STATES EVALUATED IN ER/PCP. PAIN SCREENING: PATIENT HAS A COMPLAINT OF ACUTE OR CHRONIC PAIN :YES LOCATION OF PAIN:HEAD INTENSITY OF PAIN (SCALE OF 1 TO 10):2 WHAT DOES YOUR PAIN FEEL LIKE:ACHING, CONTINOUS DURATION:CONSTANT PAIN IS INCREASED BY:OTHERS LIGHT/STRESS PAIN IS DECREASED BY:USE OF PAIN MEDICATIONS ON TOPAMAX TREATMENT/MEDICATIONS USED TO MANAGE PAIN:OTC PAIN RELIEVERS TOPAMAX LEVEL OF RELIEF FROM PAIN TREATMENTS IN THE PAST:50% NURSING NOTE: -. PAIN CENTER INTAKE QUESTIONS: DO YOU HAVE A HISTORY OF MRSA? :NO DO YOU TAKE A BLOOD THINNERS? :NO DO YOU HAVE ANY BLEEDING DISORDERS? :NO ANY NEW NUMBNESS OR WEAKNESS IN YOUR LEGS OR ARMS? :NO ANY PACEMAKER,DEFIBRILLATOR, OR DORSAL COLUMN STIMULATOR? :NO DO YOU HAVE ANY RASHES OR OPEN SORES? :NO ARE YOU ALLERGIC TO IV DYE? :NO ARE YOU DIABETIC? :NO ANY NEW PROBLEMS WITH YOUR MEDICATIONS? :NO HAVE YOU RECEIVED A VACCINE IN THE PAST 30 DAYS? :NO DO YOU PLAN TO RECEIVE A VACCINE IN THE NEXT 21 DAYS? :NO DO YOU TAKE ANY IMMUNOSUPPRESSIVE MEDICATIONS? :NO ANY HISTORY OF SEIZURES? :NO ANY HISTORY OF CARDIAC ISSUES OR EVENTS? :NO DO YOU HAVE SLEEP APNEA? :NO ANY RECENT HEAD INJURY? :NO DO YOU HAVE ANY NEW INFECTIONS? :NO IS THERE A CHANCE YOU COULD BE ? :NO ARE YOU BREAST FEEDING? :NO WHEN DID YOU LAST EAT? : -08/22 2100 WHEN DID YOU LAST DRINK? : -08/23 1000 WHAT DID YOU LAST DRINK? : -WATER NAME OF PERSON DRIVING YOU HOME? : -ZAK DO YOU HAVE ANY OTHER QUESTIONS OR CONCERNS? : - CURRENT MEDICATIONS TAKING .04/09 1.5-30 MG-MCG TABLET 1 TABLET ORALLY ONCE A DAY, NOTES: 08/22 1700 TAKING SUMATRIPTAN SUCCINATE 6 MG/0.5ML SOLUTION AUTO-INJECTOR 0.5 ML NEEDED SUBCUTANEOUS TWICE A DAY IF NEEDED FOR MIGRAINE HEADACHE, NOTES: NEVER USED TAKING TOPAMAX 100 MG TABLET 1 TABLET ORALLY BID, NOTES: 08/22 1700 TAKING MAY USE DIRECTED TORADOL 50 MG PRN, NOTES: 08/21 TAKING LIDOCAINE 4 % CREAM SMALL AMOUNT EXTERNALLY DIRECTED NOT-TAKING TRINTELLIX 20 MG TABLET 1 TABLET ORALLY ONCE A DAY NOT-TAKING SOMA 350 MG 30 350 MG TQBLET ONE TABLET ORALLY EVERY 8 HOURS NEEDED FOR PAIN NOT-TAKING CLONIDINE HCL 0.3 MG TABLET 2 TABLET ORALLY THREE TIMES DAILY NEEDED NOT-TAKING GABAPENTIN 800 MG TABLET 1 TAB ORALLY DIRECTED UP TO 3 TIMES A DAY NOT-TAKING LIDODERM 5 % PATCH 1 PATCH TO INTACT SKIN REMOVE AFTER 12 HOURS EXTERNALLY DIRECTED, NOTES: NONE RECENT NOT-TAKING LYRICA 150 MG CAPSULE 1 CAPSULE ORALLY THREE TIMES A DAY NOT-TAKING DULOXETINE HCL 60 MG CAPSULE DELAYED RELEASE PARTICLES 1 TAB ORALLY BID NOT-TAKING BUTRANS 20 MCG/HR PATCH WEEKLY 1 PATCH TO SKIN TRANSDERMAL EVERY 7 DAYS NOT-TAKING COLACE 100 MG CAPSULE 1 CAPSULE NEEDED ORALLY TID NOT-TAKING XANAX 1 MG TABLET 1 TABLET ORALLY QID NOT-TAKING AMBIEN CR 12.5 MG TABLET EXTENDED RELEASE 1 TABLET AT BEDTIME NEEDED ORALLY PRN NOT-TAKING CELEBREX 100 MG CAPSULE 1 CAPSULE ORALLY TWICE A DAY NOT-TAKING FLEXERIL 10 MG TABLET 1 TABLET ORALLY BID PRN NOT-TAKING SUBOXONE 8.5MG TABLET SUBLINGUAL 1 TABLET UNDER THE TONGUE AND ALLOW TO DISSOLVE SUBLINGUAL TID NOT-TAKING VIIBRYD 40 MG TABLET 1 TAB WITH FOOD PO ONCE DAILY NOT-TAKING PROBIOTIC CAPSULE DIRECTED ORALLY NOT-TAKING VALIUM 10 MG TABLET 1 TABLET NEEDED ORALLY 1 HOUR PRIOR MRI NOT-TAKING OXYCODONE HCL 5 MG TABLET 1 TABLET NEEDED ORALLY 1 HOUR PRIOR MRI UNKNOWN IBUPROFEN 800 MG TABLET 1 TABLET WITH FOOD OR MILK NEEDED ORALLY 3 TIMES A DAY NEEDED, NOTES: 4 DAYS MEDICATION LIST REVIEWED AND RECONCILED WITH THE PATIENT PAST MEDICAL HISTORY CHRONIC MIGRAINE HEADACHES CHRONIC LOW BACK PAIN NEUROPATHY DRUG ABUSE- 2006 INSOMNIA DEPRESSION ASTHMA SEIZURES- STATES SHE HAS HAD A COUP;E OF SEIZURES IN THE PAST STATES SHE IS NOT DIAGNOSED WITH SEIZURE DISORDER CHRONIC NECK PAIN FIBROMYALGIA TRISTIN- DANLOS SYNDROME IBS ALLERGIES CELEXA: HIVES - ALLERGY WELLBUTRIN: SEIZURES - ALLERGY SEASONAL ALLERGIES: RUNNY NOSE, ITCHY EYES, ASTHMA LAMICTAL: NEUROLOGICAL DISRUPTION - ALLERGY SURGICAL HISTORY BACK SURGERY 03/2007 TONSILLECTOMY 1989 ADENOIDECTOMY- TUBES PLACED 1981 BILAT BREAST REDUCTION 2013 FAMILY HISTORY FATHER: ALIVE 61 YRS, DIAGNOSED WITH HYPERTENSION MOTHER: ALIVE 62 YRS, HTN, HYPERTENSION, DIABETES, UNSPECIFIED NONPSYCHOTIC MENTAL DISORDER FOLLOWING ORGANIC BRAIN DAMAGE, SUBSTANCE ABUSE MATERNAL GRAND MOTHER: DIABETES MATERNAL AUNT: CERVICAL CANCER 1 SISTER(S) - HEALTHY. 1 SON(S) - HEALTHY. NO FAMILY HX OF BLADDER OR KIDNEY CA\\NSON HAS TRISTIN-DANLOS SYNDROME. SOCIAL HISTORY GENERAL: TOBACCO USE ARE YOU A:FORMER SMOKER HOW LONG HAS IT BEEN SINCE YOU LAST SMOKED?> 10 YEARS LATEX QUESTIONNAIRE LATEX ALLERGY : HAVE YOU EVER DEVELOPED ANY TYPE OF REACTION AFTER HANDLING LATEX PRODUCTS SUCH RUBBER GLOVES, CONDOMS, DIAPHRAGMS, BALLOONS, SOCKS, OR UNDERWEAR?NO LATEX ALLERGY : HAVE YOU EVER DEVELOPED ANY TYPE OF REACTION DURING OR AFTER DENTAL APPOINTMENT, VAGINAL/RECTAL EXAMINATION, SURGICAL PROCEDURE, OR ANY OTHER EXPOSURE?NO LATEX RISK : HAVE YOU EVER HAD ANY DIFFICULTY BREATHING OR HIVES AFTER EATING OR HANDLING ANY FRUITS, OR VEGETABLES; SUCH KIWI, BANANAS, STONE FRUITS, OR CHESTNUTSNO LATEX RISK : DO YOU HAVE A PREVIOUS PERSONAL HISTORY OF MORE THAN NINE SURGERIES, SPINA BIFIDA, OR REPEATED CATHERIZATIONS? NO LATEX RISK : ARE YOU FREQUENTLY EXPOSED TO LATEX PRODUCTS IN YOUR OCCUPATION?NO DATE ASKED : 08/23/2020 ALCOHOL SCREENING DID YOU HAVE A DRINK CONTAINING ALCOHOL IN THE PAST YEAR?YES HOW OFTEN DID YOU HAVE SIX OR MORE DRINKS ON ONE OCCASION IN THE PAST YEAR?NEVER (0 POINTS) HOW MANY DRINKS DID YOU HAVE ON A TYPICAL DAY WHEN YOU WERE DRINKING IN THE PAST YEAR?1 OR 2 (0 POINTS) HOW OFTEN DID YOU HAVE A DRINK CONTAINING ALCOHOL IN THE PAST YEAR?MONTHLY OR LESS (1 POINT) POINTS1 INTERPRETATIONNEGATIVE RECREATIONAL DRUG USE DENIES- CURRENT. HAD PAST DRUG ADDICTION IN 2006. CAFFEINE NONE. 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 EXERCISE: STRETCHES. MARITAL STATUS: SINGLE X1 CHILD. PAIN CLINIC PFS, CLERGY, PUBLIC HEALTH REFERRALS HAS THE PATIENT BEEN EDUCATED REGARDING HIS/HER PLAN OF CARE?YES HAS THE PATIENT BEEN EDUCATED REGARDING PAIN, THE RISK FOR PAIN, THE IMPORTANCE OF EFFECTIVE PAIN MANAGEMENT, AND THE PAIN ASSESSMENT PROCESS?YES ADVANCE DIRECTIVE ADVANCE DIRECTIVE DISCUSSED WITH PATIENT:YES PT DOES NOT HAVE ANY ADVANCED DIRECTIVES AND SHE DECLINES INFORMATION ON HCP AT THIS TIME. HOSPITALIZATION/MAJOR DIAGNOSTIC PROCEDURE SURGERY RELATED SEIZURES 2003 DETOX 03/2007 FALL/LOW BP 07/2018 IMHU 07/2018 SEIZURE 07/2018 OVERDOSE 07/2019 VITAL SIGNS WT 182.6 LBS, HT 5'3" 11/12, BMI 32.34 INDEX, BP 130/87 MM HG, HR 108 /MIN, RR 18 /MIN, TEMP 98.7 F, OXYGEN SAT % 98%, SAFE IN ENV? (Y/N) Y, NA INITIALS AW 1409, REVIEWED BY: CELESTE. EXAMINATION GENERAL EXAMINATION: THE PATIENT IS ALERT, ORIENTED TIMES THREE AND COOPERATIVE. HEART SHOWS REGULAR RHYTHM, NO MURMURS AND NO GALLOPS. LUNGS ARE CLEAR TO AUSCULTATION. ASSESSMENTS CHRONIC MIGRAINE - G43.709 (PRIMARY) TREATMENT CHRONIC MIGRAINE MEDICATION: VALIUM TAB 10MG ORALLY (DIAZEPAM)NANCIE SEGUNDO 08/23/2020 3:03:34 PM > VERIFIED BILLY BURGOS 08/23/2020 3:05:52 PM > LOT [id number], EXP 01/29 MEDICATION: OXYCODONE HCL TAB 10MG ORALLYJAROCHO SEGUNDOLE 08/23/2020 3:03:52 PM > VERIFIED BILLY BURGOS 08/23/2020 3:07:07 PM > LOT [id number], EXP 12/2021 CLINICAL NOTES: 08/22/20 DENISE MELENDEZ, PC INSTALLATION ENGINEER. PROCEDURES PAIN NURSING RECORD PRE-PROCEDURE IV SITE N/A, PRE-PROCEDURE ORAL MEDICATIONS OXYCODONE 10 MG AND VALIUM 10MG PRESCRIBED PER MD ORDER PATIENT APPLIED LIDOCAINE CREAM TO FORHEAD WITH MD BERRIOS'S PERMISSION PRIOR TO BOTOX INJECTION. PROCEDURE IN ROOM 1350, PHYSICIAN IN ROOM 1546, START 1547, FINISH 1556, PHYSICIAN OUT OF ROOM 1556, OUT OF ROOM 1609, STEROID N/A, O2 RA, ECG N/A, PATIENT SHIELDED NO, SAFETY STRAP NO, PREP ALCOHOL ALCOHOL PREP BY DR BERRIOS, IV INFUSED N/A, DRESSING N/A LOC: BILLY BURGOS 08/23/2020 3:30:34 PM > , 1. ALERT, ORIENTED RESP: BILLY BURGOS 08/23/2020 3:30:39 PM > , 1. REGULAR, NO DYSPNEA COLOR: BILLY BURGOS 08/23/2020 3:30:47 PM > , 1. PINK SKIN: BILLY BURGOS 08/23/2020 3:31:31 PM > , 1. WARM, DRY POSITION: BILLY BURGOS 08/23/2020 3:31:01 PM > , 2. SUPINE,, 4. OTHER VITALS: BILLY BURGOS 08/23/2020 3:59:41 PM > 146/90 HR 82 02 SAT 100%. DISCHARGE: POST PAIN 0/10, DRESSING SITE NO DRESSING, IV N/A, GAIT STEADY, TEACHING COMPLETED, PATIENT ACKNOWLEDGES UNDERSTANDING YES, PATIENT DISCHARGED AT 1609 PN BOTOX INJECTIONS FIRST INJECTION PRE PROCEDURE DIAGNOSIS CHRONIC MIGRAINE HEADACHES POST PROCEDURE DIAGNOSIS CHRONIC MIGRAINE HEADACHES PROCEDURE BOTOX INJECTION AT THE HEAD, NECK AND SHOULDERS SURGEON DR. CAROL BERRIOS FLAVORINGS COMPOUNDER NONE ANESTHESIA NONE PRE PROCEDURE NOTE THE PATIENT HAS HISTORY OF CHRONIC MIGRAINE HEADACHES. I EVALUATED THE PATIENT AND REVIEWED THE CHART. I WENT OVER THE RISKS, ALTERNATIVES, AND BENEFITS ASSOCIATED WITH THIS PROCEDURE. THE PATIENT WOULD LIKE TO PROCEED AND GAVE CONSENT TO PERFORM THE PROCEDURE. THE PATIENT DENIES UNEXPLAINABLE WEIGHT LOSS, FEVER, CHILLS, OR NEW CHANGES IN URINARY OR BOWEL CONTROL. THE PATIENT'S LAST BOTOX INJECTION WAS IN FEBRUARY OF THIS YEAR. SHE WAS HAVING HEADACHES EVERYDAY BEFORE THE INJECTION AND AFTER THE INJECTION WAS HAVING APPROXIMATELY 10 HEADACHES A MONTH. THE PATIENT STATES THAT THE HEADACHES HAVE COME BACK TO EVERY DAY. THE PATIENT HAS USED THE MEDICATIONS LISTED IN THE CHART TO TREAT THE HEADACHES FOR MANY MONTHS BUT THE HEADACHES PERSIST DESCRIBED ABOVE. THE PATIENT IS COVID-19 NEGATIVE. DESCRIPTION OF PROCEDURE THE PATIENT WAS BROUGHT TO THE PROCEDURE ROOM AND PLACED IN THE SUPINE POSITION. I CHECKED LATERALITY AND THE AREAS WHERE THE PROCEDURE WAS GOING TO BE PERFORMED WITH THE PATIENT AND THE SUPPORTING STAFF AT THE MOMENT OF THE TIME OUT IN THE PROCEDURE ROOM. FOR THE PROCEDURE I USED A SOLUTION OF 5 UNITS OF BOTOX PER EACH 0.1 ML OF THE SOLUTION. I USED A 30-GAUGE NEEDLE TO INJECT THE SOLUTION AT THE SELECTED LOCATIONS. I INJECTED FIRST THE RIGHT AND LEFT CLINICAL LAB SPECIALIST MUSCLES. THE LANDMARK FOR BOTH INJECTIONS WAS APPROXIMATELY 1 CM ABOVE THE SUPERIOR MEDIAL EDGE OF THE EYEBROW. AFTER THESE TWO INJECTIONS, I INJECTED THE PROCERUS MUSCLE AT THE MIDLINE POINT BETWEEN THESE FIRST TWO INJECTIONS. THEN I PROCEEDED TO INJECT THE RIGHT AND LEFT FRONTALIS MUSCLE. TWO INJECTIONS WERE DONE IN EACH SIDE. THE FIRST INJECTION WAS DONE APPROXIMATELY 2 CM ABOVE THE FIRST INJECTION OF THE CLINICAL LAB SPECIALIST. THE SECOND INJECTION WAS DONE APPROXIMATELY 1.5 CM LATERAL TO THIS FIST INJECTION OF THE FRONTALIS OF EACH SIDE. AFTER THE INJECTIONS OVER THE FOREHEAD WERE DONE, THE PATIENT'S HEAD WAS TURNED TO THE LEFT SIDE AND WE STARTED TO WORK WITH THE RIGHT TEMPORALIS MUSCLE. FIRST INJECTION WAS DONE IN A VERTICAL LINE OF THE TRAGUS APPROXIMATELY 3 CM ABOVE THE TRAGUS. THE SECOND INJECTION WAS DONE APPROXIMATELY 2 CM ABOVE THE FIRST INJECTION. THE THIRD INJECTION WAS DONE APPROXIMATELY 1 CM FRONTWARD FROM THIS VERTICAL LINE CREATED AT THE LEVEL OF THE TRAGUS, RETIREMENT BETWEEN THESE TWO INJECTIONS. THE FOURTH INJECTION WAS DONE APPROXIMATELY 1.5 CM BACK FROM THE SECOND INJECTION TO THE TEMPORALIS IN LINE TO THE MIDPORTION OF THE EAR. THEN, WE PROCEEDED TO INJECT THE LEFT TEMPORALIS MUSCLE. WE CLEANED THE AREA WITH ALCOHOL AND PROCEEDED TO PERFORM THE SAME FOR INJECTIONS DESCRIBED ABOVE BUT IN THE LEFT TEMPORALIS MUSCLE USING THE SAME LANDMARKS. AFTER THESE INJECTIONS WERE DONE, THE PATIENT WAS SEATED. FIRST, WE STARTED TO INJECT THE LEFT AND RIGHT OCCIPITALIS MUSCLE. I INJECTED AT THE FOLLOWING PLACES IN THE RIGHT AND LEFT MUSCLE. THE FIRST INJECTION WAS DONE AT THE MIDPOINT POSITION BETWEEN THE MASTOID PROCESS AND THE INION OF THE OCCIPITAL PROTUBERANCE. THE SECOND INJECTION WAS DONE APPROXIMATELY 1.5 CM SUPERIOR AND LATERAL OF THIS POINT. THE THIRD INJECTION WAS DONE APPROXIMATELY 1.5 CM SUPERIOR AND MEDIAL TO THIS FIRST INJECTION. NEXT, I PROCEEDED TO INJECT THE RIGHT AND LEFT PARASPINAL MUSCLES. LANDMARK OF THE INJECTION WERE APPROXIMATELY: FIRST INJECTION 3 CM BELOW THE INION AND 1 CM LATERAL TO THE MIDLINE AND SECOND INJECTION AT EACH SIDE WAS DONE APPROXIMATELY 1.5 CM SUPERIOR AND LATERAL OF THE FIRST INJECTION. THE LAST GROUP OF INJECTIONS WAS DONE OVER THE RIGHT AND LEFT TRAPEZIUS MUSCLE OVER THE SHOULDERS AREA. THE FIRST INJECTION WAS DONE AT THE MIDPOINT BETWEEN THE INFLECTION POINT BETWEEN THE NECK AND SHOULDER AND THE ACROMION. THE SECOND AND THIRD INJECTIONS WERE DONE APPROXIMATELY 2.5 CM LATERAL AND MEDIAL FROM THIS FIRST INJECTION. SAME TARGETS WERE USED IN THE RIGHT AND LEFT SIDE. IN TOTAL, I INJECTED 155 UNITS OF BOTOX. THE MEDICATIONS WERE VERIFIED WITH THE NURSE. PROCEDURE WAS DONE WITHOUT EVIDENCE OF PARESTHESIA OR ANY COMPLICATIONS. THE PATIENT TOLERATED THE PROCEDURE VERY WELL. ESTIMATED BLOOD LOSS WAS LESS THAN 5 ML. THE PATIENT WAS SENT TO THE RECOVERY ROOM FOR OBSERVATIONS. INJECTIONS WERE DONE AFTER CLEANING WITH ALCOHOL, USING ASEPTIC TECHNIQUES POST PROCEDURE NOTE THE PROCEDURE DONE WAS DISCUSSED WITH THE PATIENT. THE PATIENT WILL BE SEEN IN A FOLLOW UP IN THE NEXT FEW WEEKS. I AM LOOKING FOR LONG LASTING PAIN RELIEF FOR THE PATIENT WITH THIS INTERVENTION. INSTRUCTIONS WERE GIVEN, QUESTIONS WERE ANSWERED, AND THE PATIENT EXPRESSED UNDERSTANDING AND AGREES WITH THE PLAN. I, ERLIN BEARD, DOCUMENTED THE ABOVE INFORMATION ACTING A SCRIBE FOR DR. BERRIOS. I HAVE REVIEWED THE ABOVE DOCUMENT, WRITTEN BY ERLIN BEARD, RETAIL SALES MERCHANDISER DEVELOPMENT, AND I VERIFY THAT IT IS ACCURATE PROCEDURE CODES 08056 CHEMODENERV MUSC MIGRAINE DISPOSITION & COMMUNICATION FOLLOW UP FOLLOW UP WITH MINT MACHINE OPERATOR (REASON: POST BOTOX ) ELECTRONICALLY SIGNED BY CAROL BERRIOS MD, MD ON 08/24/2020 AT 10:16 AM EDT DISCLAIMER : THIS IS A VISIT SUMMARY EXTRACTED FROM THE [employer] CHART. IT IS NOT A COPY OF THE [employer] PROGRESS NOTE. ANTOINE
== END ==
LOC: M PAIN 14:00
PROVIDERS: ATTEND Anesthesiology
DX: G43.709 Chronic migraine without aura, not intractable, without status migrainosus (principal); M54.5 Low back pain; G62.9 Polyneuropathy, unspecified; G47.00 Insomnia, unspecified; F32.9 Major depressive disorder, single episode, unspecified; J45.909 Unspecified asthma, uncomplicated; M79.7 Fibromyalgia; K58.9 Irritable bowel syndrome, unspecified; Q79.60 Ehlers-Danlos syndrome, unspecified; Z87.891 Personal history of nicotine dependence; Z79.899 Other long term (current) drug therapy; Z88.8 Allergy status to other drugs, medicaments and biological substances
CPT/HCPCS: 64615; J0585

== ENCOUNTER → 2020-10-12 | Outpatient (CLI) | payer MEDICARE, MEDICAID ==
[~2020-10-12] MED LIST changes: -BOTOX THERAPEUTIC 100 UNIT VIAL (J0585 PER 1 UNIT) INJ ONE; +RISP-7 PO; -RISP0.5T3 PO; -diazePAM 5 MG TAB As Ordered ONE; -oxyCODONE 5MG TAB As Ordered ONE
--- NOTE | 2020-10-14 00:33 | ECWPNPC ---
PATIENT NAME: ASHWINI YOUNGBLOOD : 1975 GENDER: FEMALE VISIT DATE: 10/12/2020 DISCHARGE DATE: 10/12/20 1220 VISIT LOCKED DATE TIME: PHYSICIAN: MOOK MACKEY RESOURCE: MOOK MACKEY REASON FOR APPOINTMENT 1. POST BOTOX HISTORY OF PRESENT ILLNESS NURSING NOTE: - - -. GENERAL: HERE FOR POST PROCEDURE FOLLOW-UP. HAD BOTOX FOR CHRONIC MIGRAINE HEADACHE ON 08/23/2020. REPORTING IMPROVEMENT IN INTENSITY AND FREQUENCY OF MIGRAINE HEADACHE SINCE BOTOX. DOES REPORT THAT CERTAIN SMELLS HAVE BEEN TRIGGERING MIGRAINES LATELY. HAD TO STOP TOPAMAX DUE TO KIDNEY STONES LAST MONTH. DISCUSSED MEDICATION AND TREATMENT PLAN. -. FALL RISK SCREENING: SCREENING :ONE FALL WITH INJURY IN THE PAST YEAR STATES FALL APPROX 2 WEEKS AGO DUE TO PAIN ASSOCIATED WITH KIDNEY STONE - BRUISE TO RIGHT EYE PAIN SCREENING: PATIENT HAS A COMPLAINT OF ACUTE OR CHRONIC PAIN :YES LOCATION OF PAIN:HEAD, NECK INTENSITY OF PAIN (SCALE OF 1 TO 10):0 NOT CURRENTLY HAVING A MIGRAINE WHAT DOES YOUR PAIN FEEL LIKE:STABBING, THROBBING WHEN HAVING A MIGRAINE DURATION:INTERMITTENT PAIN IS INCREASED BY:ACTIVITIES LIGHTS, CERTAIN SMELLS PAIN IS DECREASED BY:USE OF PAIN MEDICATIONS, OTHERS BOTOX PAIN CENTER INTAKE QUESTIONS: DO YOU HAVE A HISTORY OF MRSA? :NO DO YOU TAKE A BLOOD THINNERS? :NO DO YOU HAVE ANY BLEEDING DISORDERS? :NO ANY NEW NUMBNESS OR WEAKNESS IN YOUR LEGS OR ARMS? :NO ANY PACEMAKER,DEFIBRILLATOR, OR DORSAL COLUMN STIMULATOR? :NO DO YOU HAVE ANY RASHES OR OPEN SORES? :NO ARE YOU ALLERGIC TO IV DYE? :NO ARE YOU DIABETIC? :NO ANY NEW PROBLEMS WITH YOUR MEDICATIONS? :YES PATIENT HAD KIDNEY STONE RECENTLY - STOPPED TAKING TOPAMAX SHE IS UNSURE IF THE TOPAMAX WOULD HAVE CAUSED THIS HAVE YOU RECEIVED A VACCINE IN THE PAST 30 DAYS? :NO DO YOU PLAN TO RECEIVE A VACCINE IN THE NEXT 21 DAYS? :NO DO YOU NEED ANY PRESCRIPTION? :NO DO YOU TAKE ANY IMMUNOSUPPRESSIVE MEDICATIONS? :NO IS THERE A CHANCE YOU COULD BE ? :NO ARE YOU BREAST FEEDING? :NO CURRENT MEDICATIONS TAKING 1.5-30 MG-MCG TABLET 1 TABLET ORALLY ONCE A DAY TAKING TOPAMAX 100 MG TABLET 1 TABLET ORALLY BID, NOTES: STOPPED TAKING TAKING LIDOCAINE 4 % CREAM SMALL AMOUNT EXTERNALLY DIRECTED, NOTES: BEFORE INJECTIONS TAKING MOBIC 15 MG TABLET 1 TABLET ORALLY ONCE A DAY TAKING ALBUTEROL SULFATE HFA 108 (90 BASE) MCG/ACT AEROSOL SOLUTION 1 PUFF NEEDED INHALATION EVERY 4 HRS NOT-TAKING SUMATRIPTAN SUCCINATE 6 MG/0.5ML SOLUTION AUTO-INJECTOR 0.5 ML NEEDED SUBCUTANEOUS TWICE A DAY IF NEEDED FOR MIGRAINE HEADACHE, NOTES: NEVER USED NOT-TAKING MAY USE DIRECTED TORADOL 50 MG PRN NOT-TAKING TRINTELLIX 20 MG TABLET 1 TABLET ORALLY ONCE A DAY NOT-TAKING SOMA 350 MG 30 350 MG TQBLET ONE TABLET ORALLY EVERY 8 HOURS NEEDED FOR PAIN NOT-TAKING CLONIDINE HCL 0.3 MG TABLET 2 TABLET ORALLY THREE TIMES DAILY NEEDED NOT-TAKING GABAPENTIN 800 MG TABLET 1 TAB ORALLY DIRECTED UP TO 3 TIMES A DAY NOT-TAKING LIDODERM 5 % PATCH 1 PATCH TO INTACT SKIN REMOVE AFTER 12 HOURS EXTERNALLY DIRECTED, NOTES: NONE RECENT NOT-TAKING LYRICA 150 MG CAPSULE 1 CAPSULE ORALLY THREE TIMES A DAY NOT-TAKING DULOXETINE HCL 60 MG CAPSULE DELAYED RELEASE PARTICLES 1 TAB ORALLY BID NOT-TAKING BUTRANS 20 MCG/HR PATCH WEEKLY 1 PATCH TO SKIN TRANSDERMAL EVERY 7 DAYS NOT-TAKING COLACE 100 MG CAPSULE 1 CAPSULE NEEDED ORALLY TID NOT-TAKING XANAX 1 MG TABLET 1 TABLET ORALLY QID NOT-TAKING AMBIEN CR 12.5 MG TABLET EXTENDED RELEASE 1 TABLET AT BEDTIME NEEDED ORALLY PRN NOT-TAKING CELEBREX 100 MG CAPSULE 1 CAPSULE ORALLY TWICE A DAY NOT-TAKING FLEXERIL 10 MG TABLET 1 TABLET ORALLY BID PRN NOT-TAKING SUBOXONE 8.5MG TABLET SUBLINGUAL 1 TABLET UNDER THE TONGUE AND ALLOW TO DISSOLVE SUBLINGUAL TID NOT-TAKING VIIBRYD 40 MG TABLET 1 TAB WITH FOOD PO ONCE DAILY NOT-TAKING PROBIOTIC CAPSULE DIRECTED ORALLY NOT-TAKING VALIUM 10 MG TABLET 1 TABLET NEEDED ORALLY 1 HOUR PRIOR MRI NOT-TAKING OXYCODONE HCL 5 MG TABLET 1 TABLET NEEDED ORALLY 1 HOUR PRIOR MRI UNKNOWN IBUPROFEN 800 MG TABLET 1 TABLET WITH FOOD OR MILK NEEDED ORALLY 3 TIMES A DAY NEEDED, NOTES: 4 DAYS MEDICATION LIST REVIEWED AND RECONCILED WITH THE PATIENT PAST MEDICAL HISTORY CHRONIC MIGRAINE HEADACHES CHRONIC LOW BACK PAIN NEUROPATHY DRUG ABUSE- 2006 INSOMNIA DEPRESSION ASTHMA SEIZURES- STATES SHE HAS HAD A COUP;E OF SEIZURES IN THE PAST STATES SHE IS NOT DIAGNOSED WITH SEIZURE DISORDER CHRONIC NECK PAIN FIBROMYALGIA TRISTIN- DANLOS SYNDROME IBS ALLERGIES CELEXA: HIVES - ALLERGY WELLBUTRIN: SEIZURES - ALLERGY SEASONAL ALLERGIES: RUNNY NOSE, ITCHY EYES, ASTHMA LAMICTAL: NEUROLOGICAL DISRUPTION - ALLERGY SURGICAL HISTORY BACK SURGERY 03/2007 TONSILLECTOMY 1989 ADENOIDECTOMY- TUBES PLACED 1981 BILAT BREAST REDUCTION 2013 FAMILY HISTORY FATHER: ALIVE 61 YRS, DIAGNOSED WITH HYPERTENSION MOTHER: ALIVE 62 YRS, HTN, HYPERTENSION, DIABETES, UNSPECIFIED NONPSYCHOTIC MENTAL DISORDER FOLLOWING ORGANIC BRAIN DAMAGE, SUBSTANCE ABUSE MATERNAL GRAND MOTHER: DIABETES MATERNAL AUNT: CERVICAL CANCER 1 SISTER(S) - HEALTHY. 1 SON(S) - HEALTHY. NO FAMILY HX OF BLADDER OR KIDNEY CA\\NSON HAS TRISTIN-DANLOS SYNDROME. SOCIAL HISTORY GENERAL: TOBACCO USE ARE YOU A:FORMER SMOKER HOW LONG HAS IT BEEN SINCE YOU LAST SMOKED?> 10 YEARS LATEX QUESTIONNAIRE LATEX ALLERGY : HAVE YOU EVER DEVELOPED ANY TYPE OF REACTION AFTER HANDLING LATEX PRODUCTS SUCH RUBBER GLOVES, CONDOMS, DIAPHRAGMS, BALLOONS, SOCKS, OR UNDERWEAR?NO LATEX ALLERGY : HAVE YOU EVER DEVELOPED ANY TYPE OF REACTION DURING OR AFTER DENTAL APPOINTMENT, VAGINAL/RECTAL EXAMINATION, SURGICAL PROCEDURE, OR ANY OTHER EXPOSURE?NO LATEX RISK : HAVE YOU EVER HAD ANY DIFFICULTY BREATHING OR HIVES AFTER EATING OR HANDLING ANY FRUITS, OR VEGETABLES; SUCH KIWI, BANANAS, STONE FRUITS, OR CHESTNUTSNO LATEX RISK : DO YOU HAVE A PREVIOUS PERSONAL HISTORY OF MORE THAN NINE SURGERIES, SPINA BIFIDA, OR REPEATED CATHERIZATIONS? NO LATEX RISK : ARE YOU FREQUENTLY EXPOSED TO LATEX PRODUCTS IN YOUR OCCUPATION?NO DATE ASKED : 08/23/2020 ALCOHOL SCREENING DID YOU HAVE A DRINK CONTAINING ALCOHOL IN THE PAST YEAR?YES HOW OFTEN DID YOU HAVE SIX OR MORE DRINKS ON ONE OCCASION IN THE PAST YEAR?NEVER (0 POINTS) HOW MANY DRINKS DID YOU HAVE ON A TYPICAL DAY WHEN YOU WERE DRINKING IN THE PAST YEAR?1 OR 2 (0 POINTS) HOW OFTEN DID YOU HAVE A DRINK CONTAINING ALCOHOL IN THE PAST YEAR?MONTHLY OR LESS (1 POINT) POINTS1 INTERPRETATIONNEGATIVE RECREATIONAL DRUG USE DENIES- CURRENT. HAD PAST DRUG ADDICTION IN 2006. CAFFEINE NONE. ORTHODOXY [id number] OTHER LANGUAGE LANGUAGES SPOKEN:SWAZI EDUCATION LEVEL OF EDUCATION:PROFESSIONAL SCHOOLS/MASTERS/PHD LEARNING BARRIERS / SPECIAL NEEDS CHANGE FROM LAST VISIT?NO BARRIERS TO LEARNING?NO HEARING IMPAIRED?NO VISION IMPAIRED?YES :CORRECTIVE LENSES COGNITIVELY IMPAIRED?NO READINESS TO LEARN?YES LEARNING PREFERENCES?NO LEARNING CAPABILITIES PRESENT?YES EMOTIONAL BARRIERS?NO SPECIAL DEVICES?YES :[facility] LIAISON NEEDED?NO DOMESTIC VIOLENCE DO YOU FEEL SAFE IN YOUR ENVIRONMENT?YES OCCUPATION: UNEMPLOYED. EXERCISE: STRETCHES. MARITAL STATUS: SINGLE X1 CHILD. PAIN CLINIC PFS, CLERGY, PUBLIC HEALTH REFERRALS HAS THE PATIENT BEEN EDUCATED REGARDING HIS/HER PLAN OF CARE?YES HAS THE PATIENT BEEN EDUCATED REGARDING PAIN, THE RISK FOR PAIN, THE IMPORTANCE OF EFFECTIVE PAIN MANAGEMENT, AND THE PAIN ASSESSMENT PROCESS?YES ADVANCE DIRECTIVE ADVANCE DIRECTIVE DISCUSSED WITH PATIENT:YES PT DOES NOT HAVE ANY ADVANCED DIRECTIVES, PATIENT GIVEN INFORMATION ON HCP AT THIS TIME - DECLINES ASSISTANCE WITH PAPERWORK. HOSPITALIZATION/MAJOR DIAGNOSTIC PROCEDURE SURGERY RELATED SEIZURES 2003 DETOX 03/2007 FALL/LOW BP 07/2018 IMHU 07/2018 SEIZURE 07/2018 OVERDOSE 07/2019 REVIEW OF SYSTEMS CONSTITUTIONAL: ANY RECENT FEVER NO . CHILLS NO . WEIGHT CHANGE OF UNKNOWN REASONS NO . GASTROENTEROLOGY: NEW UNEXPLAINABLE CHANGES IN BOWEL CONTROL NO . CONSTIPATION NO . GENITOURINARY: ANY NEW CHANGE IN BLADDER CONTROL? NO . NEUROLOGY: NEW ONSET DIZZINESS OR NEUROLOGICAL CHANGES NOT MENTIONED NO . NEW NUMBNESS OR PAIN PATTERNS NOT MENTIONED AND PERTINENT TO TODAY'S VISIT NO . CARDIOLOGY: NEW CHEST PRESSURE NO . NEW CHEST PAIN NO . RESPIRATORY: UNEXPLAINABLE COUGH NO . NEW SHORTNESS OF BREATH NO . VITAL SIGNS WT 196.2 LBS, HT 5'3" 1/2, BMI 34.75 INDEX, BP 161/95 MM HG, HR 95 /MIN, RR 18 /MIN, TEMP 99.4 F, OXYGEN SAT % 98%, SAFE IN ENV? (Y/N) Y, REVIEWED BY: JSJ. DARÍO RN. EXAMINATION GENERAL EXAMINATION: GENERAL AWAKE,ALERT ,PLEAASANT .WALKS WITH ASSIST OF CANE WITH LIMP OVER RIGHT LEG. PSYCH AFFECT NORMAL . NECK: NO LYMPHADENOPATHY. LUNGS: LUNG TALLEY ARE CLEAR TO AUSCULTATION BILATERALLY. GOOD MOVEMENT OF AIR . HEART: S1, S2 IN A REGULAR RATE AND RHYTHM. NO SIGNIFICANT MURMURS, RUBS OR GALLOPS NOTED . NEUROLOGIC EXAM: CRANIAL NERVES 7-77-INTOJKT INTACT. ASSESSMENTS OTHER CHRONIC PAIN - G89.29 (PRIMARY) CHRONIC MIGRAINE WITHOUT AURA, NOT INTRACTABLE, WITHOUT STATUS MIGRAINOSUS - G43.709 TREATMENT OTHER CHRONIC PAIN PAIN PROCEDURE LOGDATE OF [id number]/13/2020PROCEDURE:BOTOX TO HEAD, NECK, AND SHOULDERSAMOUNT OF PRE SEDATEVALUM 10 MG & OXYCODONE 10 MGRESULT:REPORTING IMPROVEMENT IN FREQUENCY AND INTENSITY OF MIGRAINE HEADACHE NOTES: SCHEDULE NOVEMBER 232020 FOR EVERY 3 MONTHS BOTOX FOR MIGRAINE HEADACHE PER CLINICAL GUIDELINES TO TREAT AND PREVENT MIGRAINE HEADACHE. FOLLOW-UP POST-BOTOX. REVIEWED INFORMATION ON BOTOX PROCEDURE WITH PATIENT. ALSO REVIEWED PRE-PROCEDURE INSTRUCTIONS. PATIENT VERBALIZED AN UNDERSTANDING. Ana CHANEL RN. PROCEDURE CODES FA211 ESTABILISHED PATIENT [facility] CHARGE DISPOSITION & COMMUNICATION FOLLOW UP POST BOTOX FOLLOW-UP (REASON: SCHEDULE NOVEMBER 232020 FOR EVERY 3 MONTHS BOTOX FOR MIGRAINE HEADACHE) ELECTRONICALLY SIGNED BY IBETH TRUONG ON 10/13/2020 AT 02:24 PM EST DISCLAIMER : THIS IS A VISIT SUMMARY EXTRACTED FROM THE [employer] CHART. IT IS NOT A COPY OF THE [employer] PROGRESS NOTE. ANTOINE
== END ==
LOC: M PAIN 11:30
PROVIDERS: ATTEND Nurse Practitioner Family
DX: G89.29 Other chronic pain (principal); G43.709 Chronic migraine without aura, not intractable, without status migrainosus; G47.00 Insomnia, unspecified; F32.9 Major depressive disorder, single episode, unspecified; J45.909 Unspecified asthma, uncomplicated; M79.7 Fibromyalgia; M54.2 Cervicalgia; K58.9 Irritable bowel syndrome, unspecified; Q79.60 Ehlers-Danlos syndrome, unspecified; Z87.891 Personal history of nicotine dependence; Z79.899 Other long term (current) drug therapy; Z88.8 Allergy status to other drugs, medicaments and biological substances

== ENCOUNTER → 2020-11-16 | Outpatient (CLI) | payer OTHER, MEDICARE ==
--- NOTE | 2020-11-17 23:29 | ECWPNPC ---
PATIENT NAME: ASHWINI YOUNGBLOOD : 1975 GENDER: FEMALE VISIT DATE: 11/16/2020 DISCHARGE DATE: 11/16/20 1504 VISIT LOCKED DATE TIME: PHYSICIAN: MOOK MACKEY RESOURCE: MOOK MACKEY REASON FOR APPOINTMENT 1. NEW BODY PART HISTORY OF PRESENT ILLNESS DEPRESSION SCREENING: PHQ-2 (2015 EDITION) LITTLE INTEREST OR PLEASURE IN DOING THINGS?NOT AT ALL FEELING DOWN, DEPRESSED, OR HOPELESS?NOT AT ALL TOTAL SCORE0 GENERAL: 45-YEAR-OLD FEMALE KNOWN TO OUR PRACTICE RETURNS TO HAVE CHRONIC LOW BACK PAIN EVALUATED. HISTORY OF LUMBAR SURGERY IN 2006. STATES PAIN GOT WORSE AFTER SURGERY . TRIALED DORSAL COLUMN STIMULATOR AT [facility] IN [place] AND STATES THAT WAS A HORRIBLE EXPERIENCE. HAS TRIED INTERVENTIONAL INJECTION THERAPY IN THE PAST WITHOUT IMPROVEMENT. PAIN IS LOCATED ACROSS THE LOWER BACK WITH RIGHT LEG RADICULAR SYMPTOMS. PAIN IS AGGRAVATED BY SIMPLE ACTIVITIES. PATIENT STATES SHE IS NOT ABLE TO ATTEND TO DAILY ACTIVITIES DUE TO BACK PAIN. PATIENT FEELS BACK PAIN HAS INCREASED OVER THE PAST YEAR. DENIES PRECIPITATING EVENT. DENIES CHANGES IN BOWEL OR BLADDER FUNCTION. REVIEWED MRI OF LS SPINE DONE IN 2018. SHOWING DEGENERATIVE CHANGES. -. FALL RISK SCREENING: SCREENING :ONE FALL WITH INJURY IN THE PAST YEAR PATIENT STATES SHE FELL AND HIT FACE RESULTING IN BRUISING AND BLACK EYES. DID NOT SEEK MEDICAL TREATMENT. PAIN SCREENING: PATIENT HAS A COMPLAINT OF ACUTE OR CHRONIC PAIN :YES RIGHT LEG LOCATION OF PAIN:NECK, LOW BACK, LEG(S) INTENSITY OF PAIN (SCALE OF 1 TO 10):6 AVERAGE 6 WHAT DOES YOUR PAIN FEEL LIKE:ACHING, CONTINOUS, SORE, SHOOTING DURATION:CONSTANT, STEADY, ALL DAY, AWAKENS FROM SLEEP PAIN IS INCREASED BY:ACTIVITIES, PROLONGED STANDING, OTHERS LAYING DOWN. EVERYTHING SEEMS TO AGGRAVATE THE PAIN. PAIN IS DECREASED BY:OTHERS ICE AND HEAT. TREATMENT/MEDICATIONS USED TO MANAGE PAIN:OTC PAIN RELIEVERS, NSAIDS, TOPICAL CORTICOSTEROIDS, OPIOIDS, PHYSICAL THERAPY, ACCUPUNCTURE NURSING NOTE: -. PAIN CENTER INTAKE QUESTIONS: DO YOU HAVE A HISTORY OF MRSA? :NO DO YOU TAKE A BLOOD THINNERS? :NO DO YOU HAVE ANY BLEEDING DISORDERS? :NO ANY NEW NUMBNESS OR WEAKNESS IN YOUR LEGS OR ARMS? :NO ANY PACEMAKER,DEFIBRILLATOR, OR DORSAL COLUMN STIMULATOR? :NO DO YOU HAVE ANY RASHES OR OPEN SORES? :NO ARE YOU ALLERGIC TO IV DYE? :NO ARE YOU DIABETIC? :NO ANY NEW PROBLEMS WITH YOUR MEDICATIONS? :NO HAVE YOU RECEIVED A VACCINE IN THE PAST 30 DAYS? :NO DO YOU PLAN TO RECEIVE A VACCINE IN THE NEXT 21 DAYS? :NO DO YOU NEED ANY PRESCRIPTION? :NO DO YOU TAKE ANY IMMUNOSUPPRESSIVE MEDICATIONS? :NO IS THERE A CHANCE YOU COULD BE ? :NO ARE YOU BREAST FEEDING? :NO CURRENT MEDICATIONS TAKING JUNEL 1.5-30 MG-MCG TABLET 1 TABLET ORALLY ONCE A DAY TAKING LIDOCAINE 4 % CREAM SMALL AMOUNT EXTERNALLY DIRECTED, NOTES: BEFORE INJECTIONS TAKING MOBIC 15 MG TABLET 1 TABLET ORALLY ONCE A DAY TAKING ALBUTEROL SULFATE HFA 108 (90 BASE) MCG/ACT AEROSOL SOLUTION 1 PUFF NEEDED INHALATION EVERY 4 HRS TAKING ATARAX TABLET 1 TAB ORALLY BEFORE BEDTIME NOT-TAKING TOPAMAX 100 MG TABLET 1 TABLET ORALLY BID, NOTES: STOPPED TAKING NOT-TAKING SUMATRIPTAN SUCCINATE 6 MG/0.5ML SOLUTION AUTO-INJECTOR 0.5 ML NEEDED SUBCUTANEOUS TWICE A DAY IF NEEDED FOR MIGRAINE HEADACHE, NOTES: NEVER USED NOT-TAKING MAY USE DIRECTED TORADOL 50 MG PRN NOT-TAKING TRINTELLIX 20 MG TABLET 1 TABLET ORALLY ONCE A DAY NOT-TAKING SOMA 350 MG 30 350 MG TQBLET ONE TABLET ORALLY EVERY 8 HOURS NEEDED FOR PAIN NOT-TAKING CLONIDINE HCL 0.3 MG TABLET 2 TABLET ORALLY THREE TIMES DAILY NEEDED NOT-TAKING GABAPENTIN 800 MG TABLET 1 TAB ORALLY DIRECTED UP TO 3 TIMES A DAY NOT-TAKING LIDODERM 5 % PATCH 1 PATCH TO INTACT SKIN REMOVE AFTER 12 HOURS EXTERNALLY DIRECTED, NOTES: NONE RECENT NOT-TAKING LYRICA 150 MG CAPSULE 1 CAPSULE ORALLY THREE TIMES A DAY NOT-TAKING DULOXETINE HCL 60 MG CAPSULE DELAYED RELEASE PARTICLES 1 TAB ORALLY BID NOT-TAKING BUTRANS 20 MCG/HR PATCH WEEKLY 1 PATCH TO SKIN TRANSDERMAL EVERY 7 DAYS NOT-TAKING COLACE 100 MG CAPSULE 1 CAPSULE NEEDED ORALLY TID NOT-TAKING XANAX 1 MG TABLET 1 TABLET ORALLY QID NOT-TAKING AMBIEN CR 12.5 MG TABLET EXTENDED RELEASE 1 TABLET AT BEDTIME NEEDED ORALLY PRN NOT-TAKING CELEBREX 100 MG CAPSULE 1 CAPSULE ORALLY TWICE A DAY NOT-TAKING FLEXERIL 10 MG TABLET 1 TABLET ORALLY BID PRN NOT-TAKING SUBOXONE 8.5MG TABLET SUBLINGUAL 1 TABLET UNDER THE TONGUE AND ALLOW TO DISSOLVE SUBLINGUAL TID NOT-TAKING VIIBRYD 40 MG TABLET 1 TAB WITH FOOD PO ONCE DAILY NOT-TAKING PROBIOTIC CAPSULE DIRECTED ORALLY NOT-TAKING VALIUM 10 MG TABLET 1 TABLET NEEDED ORALLY 1 HOUR PRIOR MRI NOT-TAKING OXYCODONE HCL 5 MG TABLET 1 TABLET NEEDED ORALLY 1 HOUR PRIOR MRI UNKNOWN IBUPROFEN 800 MG TABLET 1 TABLET WITH FOOD OR MILK NEEDED ORALLY 3 TIMES A DAY NEEDED, NOTES: 4 DAYS MEDICATION LIST REVIEWED AND RECONCILED WITH THE PATIENT PAST MEDICAL HISTORY CHRONIC MIGRAINE HEADACHES CHRONIC LOW BACK PAIN NEUROPATHY DRUG ABUSE- 2006 INSOMNIA DEPRESSION ASTHMA SEIZURES- STATES SHE HAS HAD A COUP;E OF SEIZURES IN THE PAST STATES SHE IS NOT DIAGNOSED WITH SEIZURE DISORDER CHRONIC NECK PAIN FIBROMYALGIA TRISTIN- DANLOS SYNDROME IBS ALLERGIES CELEXA: HIVES - ALLERGY WELLBUTRIN: SEIZURES - ALLERGY SEASONAL ALLERGIES: RUNNY NOSE, ITCHY EYES, ASTHMA LAMICTAL: NEUROLOGICAL DISRUPTION - ALLERGY SURGICAL HISTORY BACK SURGERY 03/2007 TONSILLECTOMY 1989 ADENOIDECTOMY- TUBES PLACED 1981 BILAT BREAST REDUCTION 2013 FAMILY HISTORY FATHER: ALIVE 61 YRS, DIAGNOSED WITH HYPERTENSION MOTHER: ALIVE 62 YRS, HTN, HYPERTENSION, DIABETES, UNSPECIFIED NONPSYCHOTIC MENTAL DISORDER FOLLOWING ORGANIC BRAIN DAMAGE, SUBSTANCE ABUSE MATERNAL GRAND MOTHER: DIABETES MATERNAL AUNT: CERVICAL CANCER 1 SISTER(S) - HEALTHY. 1 SON(S) - HEALTHY. NO FAMILY HX OF BLADDER OR KIDNEY CA\\NSON HAS TRISTIN-DANLOS SYNDROME. SOCIAL HISTORY GENERAL: TOBACCO USE ARE YOU A:FORMER SMOKER HOW LONG HAS IT BEEN SINCE YOU LAST SMOKED?> 10 YEARS LATEX QUESTIONNAIRE LATEX ALLERGY : HAVE YOU EVER DEVELOPED ANY TYPE OF REACTION AFTER HANDLING LATEX PRODUCTS SUCH RUBBER GLOVES, CONDOMS, DIAPHRAGMS, BALLOONS, SOCKS, OR UNDERWEAR?NO LATEX ALLERGY : HAVE YOU EVER DEVELOPED ANY TYPE OF REACTION DURING OR AFTER DENTAL APPOINTMENT, VAGINAL/RECTAL EXAMINATION, SURGICAL PROCEDURE, OR ANY OTHER EXPOSURE?NO LATEX RISK : HAVE YOU EVER HAD ANY DIFFICULTY BREATHING OR HIVES AFTER EATING OR HANDLING ANY FRUITS, OR VEGETABLES; SUCH KIWI, BANANAS, STONE FRUITS, OR CHESTNUTSNO LATEX RISK : DO YOU HAVE A PREVIOUS PERSONAL HISTORY OF MORE THAN NINE SURGERIES, SPINA BIFIDA, OR REPEATED CATHERIZATIONS? NO LATEX RISK : ARE YOU FREQUENTLY EXPOSED TO LATEX PRODUCTS IN YOUR OCCUPATION?NO DATE ASKED : 11/16/2020 LUNG CANCER SCREENING SMOKING STATUS:FORMER SMOKER ALCOHOL SCREENING DID YOU HAVE A DRINK CONTAINING ALCOHOL IN THE PAST YEAR?YES HOW OFTEN DID YOU HAVE SIX OR MORE DRINKS ON ONE OCCASION IN THE PAST YEAR?NEVER (0 POINTS) HOW MANY DRINKS DID YOU HAVE ON A TYPICAL DAY WHEN YOU WERE DRINKING IN THE PAST YEAR?1 OR 2 (0 POINTS) HOW OFTEN DID YOU HAVE A DRINK CONTAINING ALCOHOL IN THE PAST YEAR?MONTHLY OR LESS (1 POINT) POINTS1 INTERPRETATIONNEGATIVE RECREATIONAL DRUG USE DENIES- CURRENT. HAD PAST DRUG ADDICTION IN 2006. CAFFEINE NONE. JAINISM [id number] OTHER LANGUAGE LANGUAGES SPOKEN:MALAGASY EDUCATION LEVEL OF EDUCATION:PROFESSIONAL SCHOOLS/MASTERS/PHD LEARNING BARRIERS / SPECIAL NEEDS CHANGE FROM LAST VISIT?NO BARRIERS TO LEARNING?NO HEARING IMPAIRED?NO VISION IMPAIRED?YES :CORRECTIVE LENSES COGNITIVELY IMPAIRED?NO READINESS TO LEARN?YES LEARNING PREFERENCES?NO LEARNING CAPABILITIES PRESENT?YES EMOTIONAL BARRIERS?NO SPECIAL DEVICES?YES :CANE EXTRUSION ENGINEER NEEDED?NO OCCUPATION: UNEMPLOYED. EXERCISE: STRETCHES. MARITAL STATUS: SINGLE X1 CHILD. PAIN CLINIC PFS, CLERGY, PUBLIC HEALTH REFERRALS HAS THE PATIENT BEEN EDUCATED REGARDING HIS/HER PLAN OF CARE?YES HAS THE PATIENT BEEN EDUCATED REGARDING PAIN, THE RISK FOR PAIN, THE IMPORTANCE OF EFFECTIVE PAIN MANAGEMENT, AND THE PAIN ASSESSMENT PROCESS?YES ADVANCE DIRECTIVE ADVANCE DIRECTIVE DISCUSSED WITH PATIENT:YES DOES NOT HAVE ANY ADVANCED DIRECTIVES. PATIENT REFUSED INFORMATION AT THIS TIME STATING SHE "HAS IT AT HOME." PATIENT WANTS TO ASK HER SISTER TO REVIEW PAPERWORK FROM HOME AND ASK HER TO BE HCP. 11/16/20. LICO CAMPBELL HOSPITALIZATION/MAJOR DIAGNOSTIC PROCEDURE SURGERY RELATED SEIZURES 2002 DETOX 03/2007 FALL/LOW BP 07/2018 IMHU 07/2018 SEIZURE 07/2018 OVERDOSE 07/2019 REVIEW OF SYSTEMS CONSTITUTIONAL: ANY RECENT FEVER NO . CHILLS NO . WEIGHT CHANGE OF UNKNOWN REASONS NO . GASTROENTEROLOGY: NEW UNEXPLAINABLE CHANGES IN BOWEL CONTROL NO . CONSTIPATION NO . GENITOURINARY: ANY NEW CHANGE IN BLADDER CONTROL? NO . NEUROLOGY: NEW ONSET DIZZINESS OR NEUROLOGICAL CHANGES NOT MENTIONED NO . NEW NUMBNESS OR PAIN PATTERNS NOT MENTIONED AND PERTINENT TO TODAY'S VISIT NO . CARDIOLOGY: NEW CHEST PRESSURE NO . NEW CHEST PAIN NO . RESPIRATORY: UNEXPLAINABLE COUGH NO . NEW SHORTNESS OF BREATH NO . VITAL SIGNS WT 200.4 LBS, HT 5'3" 1/2, BMI 35.50 INDEX, BP 137/75 MM HG, HR 114 /MIN, RR 18 /MIN, TEMP 97.5 F, OXYGEN SAT % 100%, SAFE IN ENV? (Y/N) YES, NA INITIALS AW 1341, REVIEWED BY: LICO ECKERT. EXAMINATION GENERAL EXAMINATION: GENERAL AWAKE,ALERT ,PLEAASANT . PSYCH AFFECT NORMAL . LUNGS: LUNG TALLEY ARE CLEAR TO AUSCULTATION BILATERALLY. GOOD MOVEMENT OF AIR . HEART: S1, S2 IN A REGULAR RATE AND RHYTHM. NO SIGNIFICANT MURMURS, RUBS OR GALLOPS NOTED . LUMBAR:PALPATION:TENDER OVER BILAT. L4/5-L5/S1 LUMBAR FACETS WITH FACET LOADING.. NEUROLOGIC EXAM:MARKED REDUCTION IN SENSATION TO LIGHT TOUCH RIGHT LEG . DIAGNOSTIC TESTS REVIEWEDMRI L/S SPINE 2018 . ASSESSMENTS FAILED BACK SYNDROME - M96.1 (PRIMARY) OTHER SPONDYLOSIS, LUMBOSACRAL REGION - M47.897 TREATMENT FAILED BACK SYNDROME START METHYLPREDNISOLONE TABLET THERAPY PACK, 4 MG, DIRECTED, ORALLY, DIRECTED, 21 DAY(S), 1, REFILLS 0 NOTES: BILATERAL DIAGNOSTIC LUMBAR FACET BLOCK L4-5, L5-S1 PRINTED MEDICATION AND PROCEDURE INFORMATION AND GAVE TO PATIENT. REVIEWED PREPROCEDURE INSTRUCTIONS AND PATIENT VERBALIZED UNDERSTANDING. LICO CAMPBELL. PROCEDURE CODES 0012M ONC MRNA 5 GEN RSK URTHL [place] FA211 ESTABILISHED PATIENT [facility] CHARGE DISPOSITION & COMMUNICATION FOLLOW UP POST PROCEDURE (REASON: BILATERAL DIAGNOSTIC LUMBAR FACET BLOCK L4-5, L5-S1) ELECTRONICALLY SIGNED BY IBETH TRUONG ON 11/17/2020 AT 03:19 PM EST DISCLAIMER : THIS IS A VISIT SUMMARY EXTRACTED FROM THE [employer] CHART. IT IS NOT A COPY OF THE [employer] PROGRESS NOTE. DANNYD
== END ==
LOC: M PAIN 13:30
PROVIDERS: ATTEND Nurse Practitioner Family
DX: M96.1 Postlaminectomy syndrome, not elsewhere classified (principal); M47.897 Other spondylosis, lumbosacral region; G43.909 Migraine, unspecified, not intractable, without status migrainosus; G47.00 Insomnia, unspecified; J45.909 Unspecified asthma, uncomplicated; M79.7 Fibromyalgia; Z86.59 Personal history of other mental and behavioral disorders; Z87.891 Personal history of nicotine dependence; Z88.8 Allergy status to other drugs, medicaments and biological substances; Z79.899 Other long term (current) drug therapy

== ENCOUNTER → 2020-12-21 | Outpatient (CLI) | payer OTHER, MEDICARE | LOC: M LABSMTC 14:11 | PROVIDERS: ATTEND Anesthesiology | DX: Z20.828 Contact with and (suspected) exposure to other viral communicable diseases (principal) ==

== ENCOUNTER → 2021-01-07 | Outpatient (CLI) | payer OTHER, MEDICARE | LOC: M LABSMTC 15:09 | PROVIDERS: ATTEND Anesthesiology | DX: Z11.52 Encounter for screening for COVID-19 (principal) ==

== ENCOUNTER → 2021-01-12 | Outpatient (CLI) | payer OTHER, MEDICARE ==
[~2021-01-12] MED LIST changes: +BOTOX THERAPEUTIC 100 UNIT VIAL (J0585 PER 1 UNIT) IM ONE; +diazePAM 5MG TABLET As Ordered ONE; +oxyCODONE 5MG TAB As Ordered ONE
--- NOTE | 2021-01-13 03:09 | ECWPNPC ---
PATIENT NAME: ASHWINI YOUNGBLOOD : 1975 GENDER: FEMALE VISIT DATE: 01/12/2021 DISCHARGE DATE: 01/12/21 1307 VISIT LOCKED DATE TIME: PHYSICIAN: CAROL BERRIOS MD RESOURCE: CAROL BERRIOS MD REASON FOR APPOINTMENT 1. BOTOX INJECTIONS TO HEAD, NECK AND SHOULDER AREAS HISTORY OF PRESENT ILLNESS GENERAL: -. FALL RISK SCREENING: SCREENING :NO FALLS REPORTED IN THE LAST YEAR PAIN SCREENING: PATIENT HAS A COMPLAINT OF ACUTE OR CHRONIC PAIN :NO NO PAIN TODAY. HAD LAST MIGRAINE 01/10/21. NURSING NOTE: -. PAIN CENTER INTAKE QUESTIONS: DO YOU HAVE A HISTORY OF MRSA? :NO DO YOU TAKE A BLOOD THINNERS? :NO DO YOU HAVE ANY BLEEDING DISORDERS? :NO ANY NEW NUMBNESS OR WEAKNESS IN YOUR LEGS OR ARMS? :NO ANY PACEMAKER,DEFIBRILLATOR, OR DORSAL COLUMN STIMULATOR? :NO DO YOU HAVE ANY RASHES OR OPEN SORES? :NO ARE YOU ALLERGIC TO IV DYE? :NO ARE YOU DIABETIC? :NO ANY NEW PROBLEMS WITH YOUR MEDICATIONS? :NO HAVE YOU RECEIVED A VACCINE IN THE PAST 30 DAYS? :NO DO YOU PLAN TO RECEIVE A VACCINE IN THE NEXT 21 DAYS? :NO DO YOU TAKE ANY IMMUNOSUPPRESSIVE MEDICATIONS? :NO STARTING SKYRIZI FOR PSORIASIS 01/24/21 ANY HISTORY OF SEIZURES? :YES PATIENT STATES WITH WELBUTRIN AND "COMING OFF XANAX". ANY HISTORY OF CARDIAC ISSUES OR EVENTS? :NO DO YOU HAVE ANY KIDNEY OR LIVER DISEASE? :NO DO YOU HAVE SLEEP APNEA? :NO ANY RECENT HEAD INJURY? :NO DO YOU HAVE ANY NEW INFECTIONS? :NO IS THERE A CHANCE YOU COULD BE ? :NO ARE YOU BREAST FEEDING? :NO WHEN DID YOU LAST EAT? : 0000 WHEN DID YOU LAST DRINK? : 0700 WHAT DID YOU LAST DRINK? : EFRA FERMÍN NAME OF PERSON DRIVING YOU HOME? : -MOM PHIL DO YOU HAVE ANY OTHER QUESTIONS OR CONCERNS? : - CURRENT MEDICATIONS TAKING JUNEL 1.5-30 MG-MCG TABLET 1 TABLET ORALLY ONCE A DAY TAKING LIDOCAINE 4 % CREAM SMALL AMOUNT EXTERNALLY DIRECTED, NOTES: BEFORE INJECTIONS TAKING MOBIC 15 MG TABLET 1 TABLET ORALLY ONCE A DAY, NOTES: 01/12/21 0000 TAKING ALBUTEROL SULFATE HFA 108 (90 BASE) MCG/ACT AEROSOL SOLUTION 1 PUFF NEEDED INHALATION EVERY 4 HRS TAKING ATARAX TABLET 1 TAB ORALLY BEFORE BEDTIME, NOTES: 01/10/21 TAKING BOTOX 100 UNIT SOLUTION RECONSTITUTED FOR IM INJECTION AT THE HEAD, NECK AND SHOULDER MUSCLES ICD G43.709 BOTOX APPOINTMENT ON 12/01/2020 AT 11:00 AM TAKING DIFLUCAN 100 MG TABLET 1 TABLET ORALLY , NOTES: PATIENT UNSURE OF DOSE TAKING BOTOX 100 UNIT SOLUTION RECONSTITUTED FOR IM INJECTION AT THE HEAD, NECK AND SHOULDER MUSCLES ICD G43.709 BOTOX APPOINTMENT ON 01/12/21 AT 10:40 TAKING KRILL & FISH OIL BLEND - CAPSULE DIRECTED ORALLY TAKING LUTEIN 40 MG CAPSULE 1 CAPSULE WITH A MEAL ORALLY ONCE A DAY NOT-TAKING METHYLPREDNISOLONE 4 MG TABLET THERAPY PACK DIRECTED ORALLY DIRECTED NOT-TAKING TOPAMAX 100 MG TABLET 1 TABLET ORALLY BID, NOTES: STOPPED TAKING NOT-TAKING SUMATRIPTAN SUCCINATE 6 MG/0.5ML SOLUTION AUTO-INJECTOR 0.5 ML NEEDED SUBCUTANEOUS TWICE A DAY IF NEEDED FOR MIGRAINE HEADACHE, NOTES: NEVER USED NOT-TAKING MAY USE DIRECTED TORADOL 50 MG PRN NOT-TAKING TRINTELLIX 20 MG TABLET 1 TABLET ORALLY ONCE A DAY NOT-TAKING SOMA 350 MG 30 350 MG TQBLET ONE TABLET ORALLY EVERY 8 HOURS NEEDED FOR PAIN NOT-TAKING CLONIDINE HCL 0.3 MG TABLET 2 TABLET ORALLY THREE TIMES DAILY NEEDED NOT-TAKING GABAPENTIN 800 MG TABLET 1 TAB ORALLY DIRECTED UP TO 3 TIMES A DAY NOT-TAKING LIDODERM 5 % PATCH 1 PATCH TO INTACT SKIN REMOVE AFTER 12 HOURS EXTERNALLY DIRECTED, NOTES: NONE RECENT NOT-TAKING LYRICA 150 MG CAPSULE 1 CAPSULE ORALLY THREE TIMES A DAY NOT-TAKING DULOXETINE HCL 60 MG CAPSULE DELAYED RELEASE PARTICLES 1 TAB ORALLY BID NOT-TAKING BUTRANS 20 MCG/HR PATCH WEEKLY 1 PATCH TO SKIN TRANSDERMAL EVERY 7 DAYS NOT-TAKING COLACE 100 MG CAPSULE 1 CAPSULE NEEDED ORALLY TID NOT-TAKING XANAX 1 MG TABLET 1 TABLET ORALLY QID NOT-TAKING AMBIEN CR 12.5 MG TABLET EXTENDED RELEASE 1 TABLET AT BEDTIME NEEDED ORALLY PRN NOT-TAKING CELEBREX 100 MG CAPSULE 1 CAPSULE ORALLY TWICE A DAY NOT-TAKING FLEXERIL 10 MG TABLET 1 TABLET ORALLY BID PRN NOT-TAKING SUBOXONE 8.5MG TABLET SUBLINGUAL 1 TABLET UNDER THE TONGUE AND ALLOW TO DISSOLVE SUBLINGUAL TID NOT-TAKING VIIBRYD 40 MG TABLET 1 TAB WITH FOOD PO ONCE DAILY NOT-TAKING PROBIOTIC CAPSULE DIRECTED ORALLY NOT-TAKING VALIUM 10 MG TABLET 1 TABLET NEEDED ORALLY 1 HOUR PRIOR MRI NOT-TAKING OXYCODONE HCL 5 MG TABLET 1 TABLET NEEDED ORALLY 1 HOUR PRIOR MRI NOT-TAKING IBUPROFEN 800 MG TABLET 1 TABLET WITH FOOD OR MILK NEEDED ORALLY 3 TIMES A DAY NEEDED, NOTES: 4 DAYS MEDICATION LIST REVIEWED AND RECONCILED WITH THE PATIENT PAST MEDICAL HISTORY CHRONIC MIGRAINE HEADACHES CHRONIC LOW BACK PAIN NEUROPATHY DRUG ABUSE- 2006 INSOMNIA DEPRESSION ASTHMA SEIZURES- STATES SHE HAS HAD A COUP;E OF SEIZURES IN THE PAST STATES SHE IS NOT DIAGNOSED WITH SEIZURE DISORDER CHRONIC NECK PAIN FIBROMYALGIA TRISTIN- DANLOS SYNDROME IBS ALLERGIES CELEXA: HIVES - ALLERGY WELLBUTRIN: SEIZURES - ALLERGY SEASONAL ALLERGIES: RUNNY NOSE, ITCHY EYES, ASTHMA LAMICTAL: NEUROLOGICAL DISRUPTION - ALLERGY SURGICAL HISTORY BACK SURGERY 03/2007 TONSILLECTOMY 1989 ADENOIDECTOMY- TUBES PLACED 1981 BILAT BREAST REDUCTION 2013 FAMILY HISTORY FATHER: ALIVE 61 YRS, DIAGNOSED WITH HYPERTENSION MOTHER: ALIVE 62 YRS, HTN, HYPERTENSION, DIABETES, UNSPECIFIED NONPSYCHOTIC MENTAL DISORDER FOLLOWING ORGANIC BRAIN DAMAGE, SUBSTANCE ABUSE MATERNAL GRAND MOTHER: DIABETES MATERNAL AUNT: CERVICAL CANCER 1 SISTER(S) - HEALTHY. 1 SON(S) - HEALTHY. NO FAMILY HX OF BLADDER OR KIDNEY CA\\NSON HAS TRISTIN-DANLOS SYNDROME. SOCIAL HISTORY GENERAL: TOBACCO USE ARE YOU A:FORMER SMOKER HOW LONG HAS IT BEEN SINCE YOU LAST SMOKED?> 10 YEARS LATEX QUESTIONNAIRE LATEX ALLERGY : HAVE YOU EVER DEVELOPED ANY TYPE OF REACTION AFTER HANDLING LATEX PRODUCTS SUCH RUBBER GLOVES, CONDOMS, DIAPHRAGMS, BALLOONS, SOCKS, OR UNDERWEAR?NO LATEX ALLERGY : HAVE YOU EVER DEVELOPED ANY TYPE OF REACTION DURING OR AFTER DENTAL APPOINTMENT, VAGINAL/RECTAL EXAMINATION, SURGICAL PROCEDURE, OR ANY OTHER EXPOSURE?NO LATEX RISK : HAVE YOU EVER HAD ANY DIFFICULTY BREATHING OR HIVES AFTER EATING OR HANDLING ANY FRUITS, OR VEGETABLES; SUCH KIWI, BANANAS, STONE FRUITS, OR CHESTNUTSNO LATEX RISK : DO YOU HAVE A PREVIOUS PERSONAL HISTORY OF MORE THAN NINE SURGERIES, SPINA BIFIDA, OR REPEATED CATHERIZATIONS? NO LATEX RISK : ARE YOU FREQUENTLY EXPOSED TO LATEX PRODUCTS IN YOUR OCCUPATION?NO DATE ASKED : 01/11/2021 LUNG CANCER SCREENING SMOKING STATUS:FORMER SMOKER ALCOHOL SCREENING DID YOU HAVE A DRINK CONTAINING ALCOHOL IN THE PAST YEAR?YES HOW OFTEN DID YOU HAVE SIX OR MORE DRINKS ON ONE OCCASION IN THE PAST YEAR?NEVER (0 POINTS) HOW MANY DRINKS DID YOU HAVE ON A TYPICAL DAY WHEN YOU WERE DRINKING IN THE PAST YEAR?1 OR 2 (0 POINTS) HOW OFTEN DID YOU HAVE A DRINK CONTAINING ALCOHOL IN THE PAST YEAR?MONTHLY OR LESS (1 POINT) POINTS1 INTERPRETATIONNEGATIVE RECREATIONAL DRUG USE DENIES- CURRENT. HAD PAST DRUG ADDICTION IN 2006. CAFFEINE NONE. 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 EXERCISE: STRETCHES. MARITAL STATUS: SINGLE X1 CHILD. - HAS THE PATIENT BEEN EDUCATED REGARDING HIS/HER PLAN OF CARE?YES HAS THE PATIENT BEEN EDUCATED REGARDING PAIN, THE RISK FOR PAIN, THE IMPORTANCE OF EFFECTIVE PAIN MANAGEMENT, AND THE PAIN ASSESSMENT PROCESS?YES ADVANCE DIRECTIVE ADVANCE DIRECTIVE DISCUSSED WITH PATIENT:YES DOES NOT HAVE ANY ADVANCED DIRECTIVES. PATIENT REFUSED INFORMATION AT THIS TIME STATING SHE "HAS IT AT HOME." PATIENT WANTS TO ASK HER SISTER TO REVIEW PAPERWORK FROM HOME AND ASK HER TO BE HCP. 11/16/20. [facility]/MAJOR DIAGNOSTIC PROCEDURE SURGERY RELATED SEIZURES 2002 DETOX 03/2007 FALL/LOW BP 07/2018 IMHU 07/2018 SEIZURE 07/2018 OVERDOSE 07/2019 VITAL SIGNS WT 201.6 LBS, HT 5'3" 1/, BMI 35.71 INDEX, BP 154/101 MM HG, REPEAT BP 146/104 MANUAL, HR 150 /MIN, RR 20 /MIN, TEMP 98.0 F, OXYGEN SAT % 96%, SAFE IN ENV? (Y/N) YES, NA INITIALS AW 1053, REVIEWED BY: APLET NURSE KNOW ABOUT VITALSDISCUSSED ELEVATED BP AND PULSE WITH PATIENT. PATIENT REPORTS FEELING ANXIOUS REGARDING THE PROCEDURE AND STATES THAT SHE IS ALWAYS ANXIOUS ON PROCEDURE DAYS. PATIENT INSTRUCTED TO LAY DOWN AND TRY TO RELAX. THIS COUNTER SUPERVISOR WILL RE-TAKE PULSE AND BP ONCE PATIENT FEELS MORE CALM. Emma ESPINOSA, RNBP & PULSE RETAKEN MANUALLY. BP 146/104 MANUAL AND 110 BPM RADIAL PULSE. PATIENT APPEARS MORE RELAXED. DR BERRIOS AWARE. Emma ESPINOSA RN.HEART RATE STILL ELEVATED FOLLOWING PROCEDURE. DR. BERRIOS MADE AWARE. DR. BERRIOS IN TO SPEAK WITH THE PATIENT WITH THIS COUNTER SUPERVISOR. DR. BERRIOS ADVISED PATIENT TO SEE HER PRIMARY CARE DOCTOR SOONER THAN 01/25 WHICH IS HER NEXT APPOINTMENT. DR. BERRIOS ASKED THIS COUNTER SUPERVISOR TO CALL HER PRIMARY CARE AT [facility] TO FACILITATE THIS. DR. BERRIOS INSTRUCTED THE PATIENT TO GO TO THE EMERGENCY ROOM OR URGENT CARE IF THE PATIENT STARTS TO FEEL SYMPTOMATIC AT ALL IN THE MEANTIME. THIS COUNTER SUPERVISOR CALLED THE PCP WITH NO ANSWER AND LEFT MESSAGE. DR. BERRIOS STATED THAT THE PATIENT MAY LEAVE. THIS COUNTER SUPERVISOR WILL FOLLOW UP WITH PCP AND CONTACT PATIENT WITH A NEW APPOINTMENT. EXAMINATION GENERAL EXAMINATION: THE PATIENT IS ALERT, ORIENTED TIMES THREE AND COOPERATIVE. LUNGS ARE CLEAR TO AUSCULTATION. HEART SHOWS REGULAR RHYTHM, NO MURMURS AND NO GALLOPS. ASSESSMENTS CHRONIC MIGRAINE - G43.709 (PRIMARY) TREATMENT CHRONIC MIGRAINE MEDICATION: VALIUM TAB 10MG ORALLY (DIAZEPAM)SARAH MELENDEZ 01/12/2021 11:24:00 AM > VERIFIED LUIS ESPINOSAIL R 01/12/2021 11:27:33 AM > ADMINISTERED MEDICATION: OXYCODONE HCL TAB 10MG ORALLYSARAH MELENDEZ 01/12/2021 11:24:13 AM > VERIFIED EVELYN ESPINOSA R 01/12/2021 11:27:52 AM > ADMINISTERED COMPLETION OF PROCEDURAL VISIT WHEN MEETS CRITERIAPEEVELYN ROBERTS R 01/12/2021 1:05:55 PM > CRITERIA MET OTHERS NOTES: PAT COMPLETED 01/11/21 M LORETTA BEVERLY. PROCEDURES PAIN NURSING RECORD PROCEDURE IN ROOM 1045, PHYSICIAN IN ROOM 1203, START 1208, FINISH 1226, PHYSICIAN OUT OF ROOM 1241, OUT OF ROOM 1307, ECG N/A, PATIENT SHIELDED N/A, SAFETY STRAP N/A, PREP ALCOHOL DR. BERRIOS, DRESSING N/A LOC: LUIS ESPINOSAIL R 01/12/2021 12:10:13 PM > 1. ALERT, ORIENTED RESP: ASHA ESPINOSAGAIL R 01/12/2021 12:10:18 PM > 1. REGULAR, NO DYSPNEA COLOR: EVELYN ESPINOSA R 01/12/2021 12:10:22 PM > 1. PINK SKIN: EVELYN ESPINOSA 01/12/2021 12:10:25 PM > 1. WARM, DRY POSITION: EVELYN ESPINOSA 01/12/2021 12:10:28 PM > 2. SUPINE VITALS: EVELYN ESPINOSA 01/12/2021 12:46:37 PM > 138/88, 120, 18, 98% COMPLETION OF PROCEDURE APPOINTMENT: POST PAIN 0, DRESSING SITE NO DRESSING, IV N/A, GAIT STEADY, TEACHING COMPLETED, PATIENT ACKNOWLEDGES UNDERSTANDING YES, PROCEDURE APPOINTMENT COMPLETED AT 1308 BY: Emma ESPINOSA RN PN BOTOX INJECTIONS FIRST INJECTION PRE PROCEDURE DIAGNOSIS CHRONIC MIGRAINE HEADACHES POST PROCEDURE DIAGNOSIS CHRONIC MIGRAINE HEADACHES PROCEDURE BOTOX INJECTION AT THE HEAD, NECK AND SHOULDERS SURGEON DR. CAROL BERRIOS JOB DEVELOPER NONE ANESTHESIA NONE PRE PROCEDURE NOTE THE PATIENT HAS HISTORY OF CHRONIC MIGRAINE HEADACHES. I EVALUATED THE PATIENT AND REVIEWED THE CHART. I WENT OVER THE RISKS, ALTERNATIVES, AND BENEFITS ASSOCIATED WITH THIS PROCEDURE. THE PATIENT WOULD LIKE TO PROCEED AND GAVE CONSENT TO PERFORM THE PROCEDURE. THE PATIENT DENIES UNEXPLAINABLE WEIGHT LOSS, FEVER, CHILLS, OR NEW CHANGES IN URINARY OR BOWEL CONTROL. AFTER THE LAST INJECTION, THE PATIENT REPORTS LESS THAN 14 A MONTH SO WE AGREE ON MOVING FORWARD. IN THE PAST SHE HAS HISTORY OF HAVING HEADACHES EVERY DAY. THE PATIENT HAS USED THE MEDICATIONS LISTED IN THE CHART TO TREAT THE HEADACHES FOR MANY MONTHS BUT THE HEADACHES PERSIST DESCRIBED ABOVE. THE PATIENT IS COVID-19 NEGATIVE DESCRIPTION OF PROCEDURE THE PATIENT WAS BROUGHT TO THE PROCEDURE ROOM AND PLACED IN THE SUPINE POSITION. A TIMEOUT WAS PERFORMED WHERE THE CONSENTED SITE WAS VERIFIED WITH EVERYONE IN THE ROOM FOR THE PROCEDURE I USED A SOLUTION OF 5 UNITS OF BOTOX PER EACH 0.1 ML OF THE SOLUTION. I USED A 30-GAUGE NEEDLE TO INJECT THE SOLUTION AT THE SELECTED LOCATIONS. I INJECTED FIRST THE RIGHT AND LEFT MANAGER OF SUSTAINABILITY MUSCLES. THE LANDMARK FOR BOTH INJECTIONS WAS APPROXIMATELY 1 CM ABOVE THE SUPERIOR MEDIAL EDGE OF THE EYEBROW. AFTER THESE TWO INJECTIONS, I INJECTED THE PROCERUS MUSCLE AT THE MIDLINE POINT BETWEEN THESE FIRST TWO INJECTIONS. THEN I PROCEEDED TO INJECT THE RIGHT AND LEFT FRONTALIS MUSCLE. TWO INJECTIONS WERE DONE IN EACH SIDE. THE FIRST INJECTION WAS DONE APPROXIMATELY 2 CM ABOVE THE FIRST INJECTION OF THE MANAGER OF SUSTAINABILITY. THE SECOND INJECTION WAS DONE APPROXIMATELY 1.5 CM LATERAL TO THIS FIST INJECTION OF THE FRONTALIS OF EACH SIDE. AFTER THE INJECTIONS OVER THE FOREHEAD WERE DONE, THE PATIENT'S HEAD WAS TURNED TO THE LEFT SIDE AND WE STARTED TO WORK WITH THE RIGHT TEMPORALIS MUSCLE. FIRST INJECTION WAS DONE IN A VERTICAL LINE OF THE TRAGUS APPROXIMATELY 3 CM ABOVE THE TRAGUS. THE SECOND INJECTION WAS DONE APPROXIMATELY 2 CM ABOVE THE FIRST INJECTION. THE THIRD INJECTION WAS DONE APPROXIMATELY 1 CM FORWARD FROM THIS VERTICAL LINE CREATED AT THE LEVEL OF THE TRAGUS, CHCF BETWEEN THESE TWO INJECTIONS. THE FOURTH INJECTION WAS DONE APPROXIMATELY 1.5 CM BACK FROM THE SECOND INJECTION TO THE TEMPORALIS IN LINE TO THE MIDPORTION OF THE EAR. THEN, WE PROCEEDED TO INJECT THE LEFT TEMPORALIS MUSCLE. WE CLEANED THE AREA WITH ALCOHOL AND PROCEEDED TO PERFORM THE SAME FOR INJECTIONS DESCRIBED ABOVE BUT IN THE LEFT TEMPORALIS MUSCLE USING THE SAME LANDMARKS. AFTER THESE INJECTIONS WERE DONE, THE PATIENT WAS SEATED. FIRST, WE STARTED TO INJECT THE LEFT AND RIGHT OCCIPITALIS MUSCLE. I INJECTED AT THE FOLLOWING PLACES IN THE RIGHT AND LEFT MUSCLE. THE FIRST INJECTION WAS DONE AT THE MIDPOINT POSITION BETWEEN THE MASTOID PROCESS AND THE INION OF THE OCCIPITAL PROTUBERANCE. THE SECOND INJECTION WAS DONE APPROXIMATELY 1.5 CM SUPERIOR AND LATERAL OF THIS POINT. THE THIRD INJECTION WAS DONE APPROXIMATELY 1.5 CM SUPERIOR AND MEDIAL TO THIS FIRST INJECTION. NEXT, I PROCEEDED TO INJECT THE RIGHT AND LEFT PARASPINAL MUSCLES. LANDMARK OF THE INJECTION WERE APPROXIMATELY: FIRST INJECTION 3 CM BELOW THE INION AND 1 CM LATERAL TO THE MIDLINE AND SECOND INJECTION AT EACH SIDE WAS DONE APPROXIMATELY 1.5 CM SUPERIOR AND LATERAL OF THE FIRST INJECTION. THE LAST GROUP OF INJECTIONS WAS DONE OVER THE RIGHT AND LEFT TRAPEZIUS MUSCLE OVER THE SHOULDERS AREA. THE FIRST INJECTION WAS DONE AT THE MIDPOINT BETWEEN THE INFLECTION POINT BETWEEN THE NECK AND SHOULDER AND THE ACROMION. THE SECOND AND THIRD INJECTIONS WERE DONE APPROXIMATELY 2.5 CM LATERAL AND MEDIAL FROM THIS FIRST INJECTION. SAME TARGETS WERE USED IN THE RIGHT AND LEFT SIDE. IN TOTAL, I INJECTED 155 UNITS OF BOTOX. THE MEDICATIONS WERE VERIFIED WITH THE NURSE. PROCEDURE WAS DONE WITHOUT EVIDENCE OF PARESTHESIA OR ANY COMPLICATIONS. THE PATIENT TOLERATED THE PROCEDURE VERY WELL. ESTIMATED BLOOD LOSS WAS LESS THAN 5 ML. THE PATIENT WAS SENT TO THE RECOVERY ROOM FOR OBSERVATIONS. INJECTIONS WERE DONE AFTER CLEANING WITH ALCOHOL, USING ASEPTIC TECHNIQUES POST PROCEDURE NOTE THE PROCEDURE DONE WAS DISCUSSED WITH THE PATIENT. THE PATIENT WILL BE SEEN IN A FOLLOW UP IN THE NEXT FEW WEEKS. I AM LOOKING FOR LONG LASTING PAIN RELIEF FOR THE PATIENT WITH THIS INTERVENTION. INSTRUCTIONS WERE GIVEN, QUESTIONS WERE ANSWERED, AND THE PATIENT EXPRESSED UNDERSTANDING AND AGREES WITH THE PLAN. I, ERLIN BEARD , DOCUMENTED THE ABOVE INFORMATION ACTING A SCRIBE FOR DR. BERRIOS. I HAVE REVIEWED THE ABOVE DOCUMENT, WRITTEN BY ERLIN BEARD, UMBRELLA REPAIRER, AND I VERIFY THAT IT IS ACCURATE PROCEDURE CODES 38596 CHEMODENERV MUSC MIGRAINE DISPOSITION & COMMUNICATION FOLLOW UP FOLLOW UP WITH TEACHER OF THE EMOTIONALLY DISTURBED (REASON: POST BOTOX INJECTIONS TO HEAD, NECK AND SHOULDER AREAS) ELECTRONICALLY SIGNED BY CAROL BERRIOS MD, MD ON 01/12/2021 AT 04:16 PM EST DISCLAIMER : THIS IS A VISIT SUMMARY EXTRACTED FROM THE [employer] CHART. IT IS NOT A COPY OF THE [employer] PROGRESS NOTE. ANTOINE
== END ==
LOC: M PAIN 10:40
PROVIDERS: ATTEND Anesthesiology
DX: G43.709 Chronic migraine without aura, not intractable, without status migrainosus (principal); M54.5 Low back pain; G62.9 Polyneuropathy, unspecified; G47.00 Insomnia, unspecified; F32.9 Major depressive disorder, single episode, unspecified; J45.909 Unspecified asthma, uncomplicated; M54.2 Cervicalgia; M79.7 Fibromyalgia; K58.9 Irritable bowel syndrome, unspecified; Q79.60 Ehlers-Danlos syndrome, unspecified; Z87.891 Personal history of nicotine dependence; Z79.899 Other long term (current) drug therapy; Z88.8 Allergy status to other drugs, medicaments and biological substances
CPT/HCPCS: 64615; J0585

== ENCOUNTER → 2021-01-13 | Outpatient (CLI) | payer OTHER ==
[~2021-01-13] MED LIST changes: -BOTOX THERAPEUTIC 100 UNIT VIAL (J0585 PER 1 UNIT) IM ONE; -diazePAM 5MG TABLET As Ordered ONE; -oxyCODONE 5MG TAB As Ordered ONE
--- NOTE | 2021-01-13 16:11 | REPMRS ---
Patient History The patient states she had a clinical breast exam in 12/2020 Patient had first child at age 31. Family history of ovarian cancer at age 50 or over in maternal aunt. Cyst aspiration of the left breast, 2019. Reductions of both breasts. Taking hormonal contraceptives for 20 years. 3D TOMOSYNTHESIS WAS PERFORMED. The [facility] lifetime risk for breast cancer is 13.6%. Volpara breast density a. Digital Woman Screen Mammo: January 13, 2021 - Exam #: [id number] Bilateral CC and MLO view(s) were taken. Technologist: Charley Singh, Technologist Prior study comparison: October 14, 2015, digital bilateral screening mammo, performed at [facility]. FINDINGS: There are scattered fibroglandular densities. There has been no change in the appearance of the mammogram from the prior studies. There is a mild amount of residual fibroglandular tissue which is fairly symmetric. There is no interval development of dominant mass, architectural distortion, or clustered microcalcification suggestive of malignancy. Assessment: BI-RADS/ACR category 1 mammogram. Negative Mammogram. Recommendation Routine screening mammogram in 1 year (for women over age 40). This mammogram was interpreted with the aid of an FDA-approved computer-aided dectection system. Electronically Signed By: Shar Flores MD 01/13/21 [id number]
== END ==
LOC: M WHC 15:02
PROVIDERS: ATTEND Obstetrics & Gynecology
DX: Z12.31 Encounter for screening mammogram for malignant neoplasm of breast (principal)

== ENCOUNTER → 2021-02-07 | Outpatient (CLI) | payer OTHER ==
--- NOTE | 2021-02-08 04:14 | REPPI ---
INDICATION: MEDICATION CHECK, PSORIASIS COMPARISON: 10/29/2019 TECHNIQUE: PA and lateral. FINDINGS: The mediastinum and cardiac silhouette are normal. The lung brar are clear and without acute consolidation, effusion, or pneumothorax. The skeletal structures are intact and normal. IMPRESSION: No acute cardiopulmonary process. <Electronically signed by Alf Prieto > 02/08/21 0415
== END ==
LOC: M PLAIMG 15:15
PROVIDERS: ATTEND Nurse Practitioner Family
DX: L40.0 Psoriasis vulgaris (principal)

== ENCOUNTER → 2021-03-22 | Outpatient (CLI) | payer OTHER, MEDICARE ==
[~2021-03-22] MED LIST changes: +GABA-283 PO; -GABA-845 PO
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
== END ==
LOC: M PAIN 11:15
PROVIDERS: ATTEND Nurse Practitioner Family
DX: G43.709 Chronic migraine without aura, not intractable, without status migrainosus (principal); G89.29 Other chronic pain; G47.00 Insomnia, unspecified; J45.909 Unspecified asthma, uncomplicated; M79.7 Fibromyalgia; Z86.59 Personal history of other mental and behavioral disorders; Z87.891 Personal history of nicotine dependence; Z88.8 Allergy status to other drugs, medicaments and biological substances; Z79.899 Other long term (current) drug therapy

== ENCOUNTER → 2021-04-08 | Outpatient (CLI) | payer OTHER, MEDICARE | LOC: M LABSMTC 11:42 | PROVIDERS: ATTEND Anesthesiology | DX: Z01.812 Encounter for preprocedural laboratory examination (principal); Z11.52 Encounter for screening for COVID-19 ==

== ENCOUNTER → 2021-05-12 | Outpatient (CLI) | payer OTHER, MEDICARE | LOC: M LABSMTC 14:07 | PROVIDERS: ATTEND Anesthesiology | DX: Z11.52 Encounter for screening for COVID-19 (principal) ==

== ENCOUNTER 2021-07-05 21:03 | Inpatient (IN) | payer MEDICARE, MEDICAID ==
[~2021-07-05] VITALS: Ht 162.6 cm; Wt 90.9 kg
[2021-07-05] MEDS ORDERED: DERMABOND TOPICAL SKIN ADHESIVE TOP ONE (21:25)
[2021-07-05] MEDS ORDERED: BOOSTRIX/ADACEL VACCINE (DIPHTH/PERTUSS/ACELL/TETANUS) 0.5ML SYR IM ONE (21:25)
[2021-07-05 22:03] LABS: HEMATOCRIT 37.6 % (36.0-47.0); HEMOGLOBIN 12.3 g/dl (12.0-15.5); MEAN CORPUSCULAR HEMOGLOBIN 29.6 pg (27.0-33.0); MEAN CORPUSCULAR HGB CONC 32.7 g/dl (32.0-36.5); MEAN CORPUSCULAR VOLUME 90.6 fl (80.0-96.0); PLATELET COUNT, AUTOMATED 363 10^3/uL (150-450); RED BLOOD COUNT 4.15 10^6/uL (4.00-5.40); WHITE BLOOD COUNT 6.3 10^3/uL (4.0-10.0)
[2021-07-05 22:21] LABS: ACETAMINOPHEN LEVEL < 2.0 UG/ML (10.0-30.0); ALBUMIN 2.8 GM/DL (3.2-5.2); ALT/SGPT 23 U/L (12-78); BILIRUBIN,DIRECT < 0.1 MG/DL (0.0-0.2); BILIRUBIN,TOTAL 0.1 MG/DL (0.2-1.0); BLOOD UREA NITROGEN 8 MG/DL (7-18); CALCIUM LEVEL 8.6 MG/DL (8.5-10.1); CARBON DIOXIDE LEVEL 22 MEQ/L (21-32); CHLORIDE LEVEL 116 MEQ/L (98-107); CREATININE FOR GFR 0.74 MG/DL (0.55-1.30); ETHYL ALCOHOL (ETHANOL) 0.137 % (0.000-0.010); GLOMERULAR FILTRATION RATE > 60.0 (>58); GLUCOSE, FASTING 99 MG/DL (70-100); POTASSIUM SERUM 4.1 MEQ/L (3.5-5.1); SALICYLATE LEVEL < 1.7 MG/DL (5.0-30.0); SODIUM LEVEL 145 MEQ/L (136-145); THYROID STIMULATING HORMONE 0.453 uIU/ML (0.358-3.740); TOTAL PROTEIN 6.3 GM/DL (6.4-8.2)
[2021-07-05 23:26] LABS: RSV AMPLIFICATION NEGATIVE (NEGATIVE)
[2021-07-06 01:40] LABS: AMPHETAMINES LEVEL URINE NEGATIVE (NEGATIVE); BARBITURATES URINE NEGATIVE (NEGATIVE); BENZODIAZEPINES URINE POSITIVE (NEGATIVE); CANNABINOIDS URINE POSITIVE (NEGATIVE); COCAINE METABOLITE URINE NEGATIVE (NEGATIVE); METHADONE URINE NEGATIVE (NEGATIVE); OPIATES URINE NEGATIVE (NEGATIVE); PHENCYCLIDINE URINE NEGATIVE (NEGATIVE)
[2021-07-06] MEDS ORDERED: PREG50CA PO (09:38)
[2021-07-06] MEDS ORDERED: PREG50CA2 PO (12:41)
[2021-07-06] MEDS ORDERED: OZEM2INJ SQ (12:41)
[2021-07-06] MEDS ORDERED: MELO15TA28 PO (12:41)
[2021-07-06] MEDS ORDERED: LUTE20TA2 PO (12:41)
[2021-07-06] MEDS ORDERED: HYDR-3363 PO (12:41)
[2021-07-06] MEDS ORDERED: OMEG10002 PO (12:41)
[2021-07-06] MEDS ORDERED: L-NO1TBD4 PO (12:41)
[2021-07-06] MEDS ORDERED: GLUCTAB31 PO (12:41)
[2021-07-06] MEDS ORDERED: HOME MED LIST COMPLETE! XX SCH (12:45)
--- NOTE | 2021-07-06 18:55 | ECGEPIP ---
[facility] - ED Test Date: 2021-07-06 Pat Name: ASHWINI YOUNGBLOOD Department: Room: - Gender: Female Nba Player: JENAE : 1975 Requested By: HILLARY CRISTINA Order Number: [id number] Reading MD: Tigist Ovalles Measurements Intervals [place] Rate: 95 P: 34 DE: 180 QRS: 35 QRSD: 88 T: -5 QT: 364 QTc: 457 Interpretive Statements Normal sinus rhythm Nonspecific T wave abnormality increased rate 10/29/19 Electronically Signed on 07-06-2021 18:55:21 EDT by Tigist Ovalles
[2021-07-06] MEDS ORDERED: PREGABALIN 50 MG CAP (LYRICA) PO ONE (21:10)
[2021-07-06] MEDS ORDERED: hydrOXYzine 50 MG TAB PO ONE (21:10)
[2021-07-06] MEDS ORDERED: MELOXICAM (MOBIC) 7.5 MG TAB PO ONE (21:10)
[2021-07-07] MEDS ORDERED: OMEPRAZOLE 20 MG CAP PO ONE (01:55)
[2021-07-07 08:56] LABS: HCG, SERUM QUALITATIVE NEGATIVE (NEGATIVE)
[2021-07-07] MEDS ORDERED: traZODone 50 MG TAB PO PRN (14:10)
[2021-07-07] MEDS ORDERED: ACETAMINOPHEN TAB 650MG DOSE (2X325MG) PO PRN (14:10)
[2021-07-07] MEDS ORDERED: MAALOX 30 ML SUSP *UDC PO PRN (14:10)
[2021-07-07] MEDS ORDERED: MOM 30ML SUSPENSION UDC PO PRN (14:10)
[2021-07-07 16:37] VITALS: BP 134/85
[2021-07-07] MEDS: hydrOXYzine 50 MG TAB PO PRN (20:19)
[2021-07-07] MEDS: MELOXICAM (MOBIC) 7.5 MG TAB PO SCH (20:19)
[2021-07-07] MEDS: LEVONORGESTREL PO SCH (20:48)
[2021-07-07] MEDS: ETHINYL ESTRADIOL PO SCH (20:48)
[2021-07-08 06:47] VITALS: BP 117/56
[2021-07-08] MEDS: PREGABALIN 50 MG CAP (LYRICA) PO SCH (09:55)
[2021-07-08] MEDS: LEVONORGESTREL PO SCH (09:55)
[2021-07-08] MEDS: ETHINYL ESTRADIOL PO SCH (09:55)
[2021-07-08] MEDS: MELOXICAM (MOBIC) 7.5 MG TAB PO SCH (09:55)
[2021-07-08] MEDS: OMEGA-3 1000MG CAPSULE PO SCH (09:55)
[2021-07-08 16:23] VITALS: BP 119/74
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
[2021-07-08] MEDS ORDERED: ALBUTEROL 90 MCG/ACT 8GM HFA INHALER INH PRN (16:45)
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
[2021-07-08] MEDS: hydrOXYzine 50 MG TAB PO PRN ×2 (19:17→23:29)
[2021-07-08] MEDS ORDERED: DOXEPIN 25 MG CAP PO SCH (21:00)
[2021-07-09 06:23] VITALS: BP 138/76
[2021-07-09] MEDS: OMEGA-3 1000MG CAPSULE PO SCH (09:58)
[2021-07-09] MEDS: LEVONORGESTREL PO SCH (09:59)
[2021-07-09] MEDS: PREGABALIN 50 MG CAP (LYRICA) PO SCH (09:59)
[2021-07-09] MEDS: ETHINYL ESTRADIOL PO SCH (09:59)
[2021-07-09] MEDS: MELOXICAM (MOBIC) 7.5 MG TAB PO SCH (09:59)
[2021-07-09] MEDS: hydrOXYzine 50 MG TAB PO PRN ×2 (14:44→21:41)
[2021-07-09 19:06] VITALS: BP 134/60
[2021-07-09] MEDS ORDERED: DOXEPIN 25 MG CAP PO SCH (21:00)
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
[2021-07-10 06:21] VITALS: BP 110/65
[2021-07-10] MEDS: LEVONORGESTREL PO SCH (09:24)
[2021-07-10] MEDS: OMEGA-3 1000MG CAPSULE PO SCH (09:24)
[2021-07-10] MEDS: MELOXICAM (MOBIC) 7.5 MG TAB PO SCH (09:24)
[2021-07-10] MEDS: hydrOXYzine 50 MG TAB PO PRN (09:24)
[2021-07-10] MEDS: PREGABALIN 50 MG CAP (LYRICA) PO SCH (09:24)
[2021-07-10] MEDS: ETHINYL ESTRADIOL PO SCH (09:24)
--- NOTE | 2021-07-10 11:26 | MHDS ---
[facility] DISCHARGE SUMMARY DATE OF ADMISSION: 07/07/2021 DATE OF DISCHARGE: 07/10/2021 DIAGNOSES: 1. Depressive disorder, unspecified. 2. Posttraumatic stress disorder. 3. Borderline personality disorder. IDENTIFYING DATA: She is a 45-year-old female, single, mother of a 12-year-old son, was admitted because of self-inflicted injury to her arms. For details of history of present illness (HPI), past psychiatric history, personal history, medical history, substance abuse history, please refer to the initial evaluation. COURSE IN THE HOSPITAL: Patient initially was depressed, isolative. During evaluation, patient told that none of the medication helps her. Either she has side effects or they do not help her. She is complaining of insomnia. Doxepin was prescribed, as per her request, which was titrated upwards. It did not help her. She was attending groups and activities. She interacted will. Her depression resolved. She was stable at the time of discharge. She denied any suicidal or homicidal ideas. Patient did not want to take any medications. MENTAL STATUS EXAMINATION: Casually dressed, somewhat overweight, cooperative. Made good eye contact. Speech: Rate, rhythm and volume are good. Denied any auditory or visual hallucinations. Denied any suicidal or homicidal ideas. Attention and concentration are good. Thought process: Linear and goal-directed. Thought content: No preoccupation or delusions. Insight and judgment is fair to good. Memory: Immediate, remote, recent are good. VITAL SIGNS: Temperature 97.3, pulse 101, respiratory rate 18, blood pressure 110/65, pulse oximetry 97%. LABORATORY DATA: Complete blood count (CBC) within normal limits. Chemistry within normal limits. Toxicology was positive for cannabis and benzodiazepines. PLAN: Discharge to home. Follow up at [facility], as patient has history of significant drug dependence in the past.
== END 2021-07-10 14:44 | disposition home or self-care (01) | DRG 881 ==
LOC: M ED 21:03 → M ED INP 07-07 14:09 → M PSY 07-07 16:35
PROVIDERS: ADMIT Psychiatry & Neurology Psychiatry; ATTEND Psychiatry & Neurology Psychiatry
DX: F32.9 Major depressive disorder, single episode, unspecified (principal); R45.851 Suicidal ideations; F43.10 Post-traumatic stress disorder, unspecified; F60.3 Borderline personality disorder; Z91.5 Personal history of self-harm; Z63.5 Disruption of family by separation and divorce; Z62.810 Personal history of physical and sexual abuse in childhood; J45.909 Unspecified asthma, uncomplicated; L40.9 Psoriasis, unspecified; Z59.8 Other problems related to housing and economic circumstances; Z20.822 Contact with and (suspected) exposure to COVID-19; Z79.899 Other long term (current) drug therapy; M79.7 Fibromyalgia; K58.9 Irritable bowel syndrome, unspecified; E66.9 Obesity, unspecified; Z87.891 Personal history of nicotine dependence; S61.512A Laceration without foreign body of left wrist, initial encounter; X78.8XXA Intentional self-harm by other sharp object, initial encounter; Y92.9 Unspecified place or not applicable; M54.5 Low back pain

== ENCOUNTER → 2021-09-11 | Outpatient (CLI) | payer MEDICARE, MEDICAID ==
[~2021-09-11] MED LIST changes: +GLUCTAB31 PO; +L-NO1TBD4 PO; +LUTE20TA2 PO; +MELO15TA28 PO; +OMEG10002 PO; +OZEM2INJ SQ; +PREG50CA PO; +PREG50CA2 PO
[2021-09-11 07:52] LABS: CHOLESTEROL LEVEL 294 MG/DL (<200); CHOLESTEROL RISK RATIO 5.068 (<5); HDL CHOLESTEROL 58 MG/DL (>40); LDL CHOLESTEROL 208 MG/DL (<100); NON-HDL-C 236 MG/DL; TRIGLYCERIDES LEVEL 138 MG/DL (<150)
--- NOTE | 2021-09-11 08:33 | REPVR ---
PROCEDURE INFORMATION: Exam: MR Lumbar Spine Without Contrast Exam date and time: 09/11/2021 7:58 AM Age: 45 years old Clinical indication: Low back pain and lumbago and lumbago with sciatica; Right; Prior surgery; Surgery date: 6+ months; Surgery type: Lamenectomy disc/fusion; Additional info: Spondylosis- labs first TECHNIQUE: Imaging protocol: Multiplanar magnetic resonance images of the lumbar spine without intravenous contrast. COMPARISON: No relevant prior studies available. FINDINGS: Vertebrae: Vertebral body heights are intact. Alignment is maintained. No pars defect is identified. Spinal cord: The conus is unremarkable in appearance, with its tip at the T12-L1 level. Multilevel findings: There are varying degrees of disc desiccation indicating intervertebral disc degeneration. L1-L2: No significant disc displacement. L2-L3: No significant disc displacement. L3-L4: Very small bulge combining with facet arthrosis to lead to very mild bilateral neural foraminal narrowing without significant spinal stenosis. L4-L5: Diffuse bulge with a central annular tear combining with facet arthrosis to lead to mild right and mild to moderate left neural foraminal narrowing without significant spinal stenosis. L5-S1: Apparent prior right-sided laminotomy. A disc osteophyte complex combines with facet arthrosis to lead to mild bilateral neural foraminal narrowing without significant spinal stenosis. Cannot evaluate for scarring without contrast. Soft tissues: Unremarkable. Stomach and bowel: Note is made of sigmoid colonic diverticulosis. IMPRESSION: Postoperative spine demonstrating multilevel disc desiccation indicating intervertebral disk degeneration with disc displacements as described. COMMENTS: If surgery is considered, recommend level confirmation. Electronically signed by: José Luis Ashton On 09/11/2021 08:33:18 AM
[2021-09-11 10:02] LABS: GC DNA AMPLIFICATION NEGATIVE (NEGATIVE)
[2021-09-11 11:04] LABS: HEMOGLOBIN A1c 5.3 %
[2021-09-11 13:21] LABS: HEPATITIS B CORE ANTIBODY IGM NEGATIVE (NEGATIVE); HEPATITIS C VIRUS ABY INDEX < 0.0 INDEX (<0.8); HIV 1&2 SCREEN CENTAUR NEGATIVE (NEGATIVE)
[2021-09-11 13:22] LABS: HEPATITIS B SURFACE ANTIGEN NEGATIVE (NEGATIVE)
[2021-09-12 04:08] LABS: HSV TYPE I IgG SPECIFIC 6.02 index (0.00-0.90); HSV TYPE II IgG SPECIFIC <0.91 index (0.00-0.90)
== END ==
LOC: M RAD 06:43
PROVIDERS: ATTEND Family Medicine
DX: M47.897 Other spondylosis, lumbosacral region (principal); G89.29 Other chronic pain; M51.36 Other intervertebral disc degeneration, lumbar region

== ENCOUNTER → 2021-09-12 | Outpatient (CLI) | payer MEDICARE, MEDICAID ==
--- NOTE | 2021-09-14 17:51 | SLEEPHOME ---
DATE: 09/12/2021 ORDERED BY: Dr. Bhavik Cardoza Diagnostic home sleep testing was performed due to concern for the obstructive sleep apnea syndrome. For testing, a NOX T3 respiratory monitoring device was used. Continuous record was made of pulse, oxygen saturation, air flow, chest and abdominal strain, and body position. There was 9 hours and 59 minutes of data reviewed. There was 8 hours and 54 minutes marked as time in bed. During the interval marked time in bed, there were only 20 respiratory events identified of 10 seconds in duration. The events were seen in the supine posture and were primarily hypopneic. Baseline pulse rate 96. Pulse rate ranged 80-116. Baseline saturation 91%. Brief desaturation to 85% was seen late in the study. Testing was performed in both the supine and nonsupine positions. IMPRESSION: Equivocal diagnostic home sleep testing with some minor respiratory patterning in the supine posture. RECOMMENDATION: Sleep position retraining for avoidance of the supine posture may be sufficient. If sleep symptoms persist, referral for formal sleep evaluation could be considered.
== END ==
LOC: M SLEEP HO 10:11
PROVIDERS: ATTEND Family Medicine
DX: F43.10 Post-traumatic stress disorder, unspecified (principal)

== ENCOUNTER 2021-12-22 18:04 | Inpatient (IN) | payer MEDICARE, MEDICAID ==
[~2021-12-22 18:04] MED LIST changes: +SUMA6CAR SC; -SUMA6INJ16 PO; -SUMA6INJ16 SC; +SUMA6INJ25 PO; +SUMA6INJ25 SC; -SUMA6KIT SC
[2021-12-22 19:18] LABS: BASO % 0.6 % (0.0-1.0); EOS # 0.1 10^3/uL (0.0-0.5); EOS % 1.2 % (0.0-3.0); HEMATOCRIT 38.6 % (36.0-47.0); HEMOGLOBIN 12.4 g/dl (12.0-15.5); LYMPH # 0.9 10^3/uL (1.5-5.0); LYMPH % 13.5 % (24.0-44.0); MEAN CORPUSCULAR HEMOGLOBIN 29.4 pg (27.0-33.0); MEAN CORPUSCULAR HGB CONC 32.1 g/dl (32.0-36.5); MEAN CORPUSCULAR VOLUME 91.5 fl (80.0-96.0); MONO # 0.6 10^3/uL (0.0-0.8); MONO % 9.2 % (2.0-8.0); NEUTROPHILS % 75.2 % (36.0-66.0); PLATELET COUNT, AUTOMATED 269 10^3/uL (150-450); RED BLOOD COUNT 4.22 10^6/uL (4.00-5.40); WHITE BLOOD COUNT 6.7 10^3/uL (4.0-10.0)
[2021-12-22 19:24] LABS: HCG, SERUM QUALITATIVE NEGATIVE (NEGATIVE)
[2021-12-22 19:28] LABS: AMPHETAMINES LEVEL URINE NEGATIVE (NEGATIVE); BARBITURATES URINE NEGATIVE (NEGATIVE); BENZODIAZEPINES URINE POSITIVE (NEGATIVE); CANNABINOIDS URINE NEGATIVE (NEGATIVE); COCAINE METABOLITE URINE NEGATIVE (NEGATIVE); METHADONE URINE NEGATIVE (NEGATIVE); OPIATES URINE NEGATIVE (NEGATIVE); PHENCYCLIDINE URINE NEGATIVE (NEGATIVE)
[2021-12-22 19:37] LABS: ACETAMINOPHEN LEVEL < 2.0 UG/ML (10.0-30.0); ALBUMIN 2.8 GM/DL (3.2-5.2); ALT/SGPT 46 U/L (12-78); BILIRUBIN,DIRECT 0.1 MG/DL (0.0-0.2); BILIRUBIN,TOTAL 0.2 MG/DL (0.2-1.0); BLOOD UREA NITROGEN 9 MG/DL (7-18); CALCIUM LEVEL 8.7 MG/DL (8.5-10.1); CARBON DIOXIDE LEVEL 22 MEQ/L (21-32); CHLORIDE LEVEL 113 MEQ/L (98-107); CREATININE FOR GFR 0.85 MG/DL (0.55-1.30); ETHYL ALCOHOL (ETHANOL) 0.004 % (0.000-0.010); GLOMERULAR FILTRATION RATE > 60.0 (>58); GLUCOSE, FASTING 107 MG/DL (70-100); POTASSIUM SERUM 3.9 MEQ/L (3.5-5.1); SALICYLATE LEVEL < 1.7 MG/DL (5.0-30.0); SODIUM LEVEL 143 MEQ/L (136-145); THYROID STIMULATING HORMONE 0.824 uIU/ML (0.358-3.740); TOTAL PROTEIN 6.2 GM/DL (6.4-8.2)
[2021-12-23] MEDS ORDERED: FENT1DIS14 TOP (00:03)
[2021-12-23] MEDS ORDERED: RISA150P SUBQ (00:03)
[2021-12-23] MEDS ORDERED: SEMA1PEN2 SUBQ (00:03)
[2021-12-23] MEDS ORDERED: PREG100C PO (00:09)
[2021-12-23] MEDS ORDERED: MED REC COMMENT (00:10)
[2021-12-23] MEDS ORDERED: HOME MED LIST COMPLETE! XX SCH (00:15)
[2021-12-23] MEDS ORDERED: METAL LOCK LOOP XX ONE (03:02)
[2021-12-23] MEDS ORDERED: MAALOX 30 ML SUSP *UDC PO PRN (04:55)
[2021-12-23] MEDS ORDERED: MOM 30ML SUSPENSION UDC PO PRN (04:55)
[2021-12-23] MEDS ORDERED: ACETAMINOPHEN TAB 650MG DOSE (2X325MG) PO PRN (04:55)
[2021-12-23] MEDS ORDERED: LORazepam 2 MG TAB PO PRN (04:55)
[2021-12-23] MEDS ORDERED: traZODone 50 MG TAB PO PRN (04:55)
[2021-12-23] MEDS: THIAMINE 100 MG TAB PO SCH ×2 (06:00→20:33)
[2021-12-23 06:33] VITALS: BP 139/78
[2021-12-23] MEDS ORDERED: MULTIVITAMINS/MINERALS THERAP 1 TAB PO ONE (08:40)
[2021-12-23] MEDS ORDERED: MELOXICAM (MOBIC) 7.5 MG TAB PO SCH (09:00)
[2021-12-23] MEDS: MULTIVITAMINS/MINERALS THERAP 1 TAB PO SCH (09:00)
[2021-12-23] MEDS ORDERED: ALBUTEROL 90 MCG/ACT 8GM HFA INHALER INH PRN (09:05)
[2021-12-23] MEDS: ATORVASTATIN 20 MG TAB PO SCH (09:59)
[2021-12-23] MEDS: FOLIC ACID 1 MG TAB PO SCH (10:00)
[2021-12-23] MEDS ORDERED: NICOTINE 14 MG/24 HR TRANSDERMAL TD PRN (10:10)
[2021-12-23 14:00] VITALS: BP 134/82
[2021-12-23 18:18] VITALS: BP 114/68
[2021-12-23] MEDS: MIRTAZAPINE 7.5MG PER 1/2 TABLET PO SCH (20:33)
[2021-12-23] MEDS: DULoxetine 30MG CAPSULE (CYMBALTA) PO SCH (20:33)
[2021-12-23] MEDS: MELOXICAM (MOBIC) 7.5 MG TAB PO PRN (20:34)
[2021-12-24 06:50] VITALS: BP 115/70
[2021-12-24] MEDS: CONTRACEPTIVE PO SCH ×2 (09:00→17:48)
[2021-12-24] MEDS: [UNRECOGNIZED DRUG - OTHER] PO SCH ×2 (09:00→17:48)
[2021-12-24] MEDS: THIAMINE 100 MG TAB PO SCH ×2 (09:55→22:16)
[2021-12-24] MEDS: ATORVASTATIN 20 MG TAB PO SCH (09:55)
[2021-12-24] MEDS: MULTIVITAMINS/MINERALS THERAP 1 TAB PO SCH (09:56)
[2021-12-24] MEDS: FOLIC ACID 1 MG TAB PO SCH (09:56)
[2021-12-24] MEDS: MELOXICAM (MOBIC) 7.5 MG TAB PO PRN (17:48)
[2021-12-24 18:49] VITALS: BP 134/70
[2021-12-24] MEDS: MIRTAZAPINE 7.5MG PER 1/2 TABLET PO SCH (22:16)
[2021-12-24] MEDS: DULoxetine 30MG CAPSULE (CYMBALTA) PO SCH (22:16)
[2021-12-25 07:09] VITALS: BP 110/63
[2021-12-25] MEDS: [UNRECOGNIZED DRUG - OTHER] PO SCH (09:54)
[2021-12-25] MEDS: CONTRACEPTIVE PO SCH (09:54)
[2021-12-25] MEDS: ATORVASTATIN 20 MG TAB PO SCH (09:54)
[2021-12-25 17:11] VITALS: BP 113/76
[2021-12-25] MEDS: DULoxetine 30MG CAPSULE (CYMBALTA) PO SCH (20:46)
[2021-12-25] MEDS: MIRTAZAPINE 7.5MG PER 1/2 TABLET PO SCH (20:47)
[2021-12-25] MEDS: MELOXICAM (MOBIC) 7.5 MG TAB PO PRN (20:47)
[2021-12-26 06:19] VITALS: BP 127/81
[2021-12-26] MEDS ORDERED: CYMB60CA4 PO (08:15)
[2021-12-26] MEDS ORDERED: MELO7.5T35 PO (08:15)
[2021-12-26] MEDS ORDERED: MIRT-62 PO (08:15)
[2021-12-26] MEDS ORDERED: ATOR1TAB21 PO (08:15)
[2021-12-26] MEDS ORDERED: VENTAER INH (08:15)
[2021-12-26] MEDS ORDERED: ATOR40TA75 PO (09:01)
[2021-12-26] MEDS: ATORVASTATIN 20 MG TAB PO SCH (09:56)
[2021-12-26] MEDS: [UNRECOGNIZED DRUG - OTHER] PO SCH (09:57)
[2021-12-26] MEDS: CONTRACEPTIVE PO SCH (09:57)
== END 2021-12-26 10:36 | disposition home or self-care (01) | DRG 881 ==
LOC: EDBD 18:04 → M ED 18:04 → M ED INP 12-23 05:04 → M PSY 12-23 07:03
PROVIDERS: ADMIT Psychiatry & Neurology Psychiatry; ATTEND Psychiatry & Neurology Psychiatry
DX: F32.9 Major depressive disorder, single episode, unspecified (principal); F43.10 Post-traumatic stress disorder, unspecified; F11.10 Opioid abuse, uncomplicated; F19.10 Other psychoactive substance abuse, uncomplicated; M79.7 Fibromyalgia; K58.9 Irritable bowel syndrome, unspecified; E66.9 Obesity, unspecified; G89.29 Other chronic pain; J45.20 Mild intermittent asthma, uncomplicated; L40.9 Psoriasis, unspecified; Z87.891 Personal history of nicotine dependence; Z62.810 Personal history of physical and sexual abuse in childhood; T42.4X1A Poisoning by benzodiazepines, accidental (unintentional), initial encounter; Z88.8 Allergy status to other drugs, medicaments and biological substances; Z79.899 Other long term (current) drug therapy

== ENCOUNTER → 2022-01-22 | Outpatient (CLI) | payer MEDICARE, MEDICAID ==
[~2022-01-22] MED LIST changes: +ATOR1TAB21 PO; +ATOR40TA75 PO; +CHLO5CAP PO; -CHLOR5CA PO; +CYMB60CA4 PO; +FENT1DIS14 TOP; +MELO7.5T35 PO; +MIRT-62 PO; +PREG100C PO; +RISA150P SUBQ; +SEMA1PEN2 SUBQ; +VENTAER INH
== END ==
LOC: M SOG 11:50
PROVIDERS: ATTEND Orthopaedic Surgery Adult Reconstructive Orthopaedic Surgery
DX: M25.552 Pain in left hip (principal)

== ENCOUNTER 2022-01-23 13:45 | Outpatient (RCR) | payer MEDICARE, MEDICAID | END 2022-02-08 | LOC: M PT 13:45 | PROVIDERS: ATTEND Family Medicine | DX: M25.552 Pain in left hip (principal) ==

== ENCOUNTER → 2022-03-09 | Outpatient (CLI) | payer MEDICARE, MEDICAID ==
[2022-03-09 13:43] LABS: ALBUMIN 3.4 GM/DL (3.2-5.2); ALT/SGPT 21 U/L (12-78); BILIRUBIN,TOTAL 0.6 MG/DL (0.2-1.0); BLOOD UREA NITROGEN 16 MG/DL (7-18); CALCIUM LEVEL 9.4 MG/DL (8.5-10.1); CARBON DIOXIDE LEVEL 27 MEQ/L (21-32); CHLORIDE LEVEL 104 MEQ/L (98-107); CHOLESTEROL LEVEL 245 MG/DL (<200); CHOLESTEROL RISK RATIO 5.833 (<5); CREATININE FOR GFR 0.68 MG/DL (0.55-1.30); GLOMERULAR FILTRATION RATE > 60.0 (>58); GLUCOSE, FASTING 89 MG/DL (70-100); HDL CHOLESTEROL 42 MG/DL (>40); LDL CHOLESTEROL 183 MG/DL (<100); NON-HDL-C 203 MG/DL; POTASSIUM SERUM 3.5 MEQ/L (3.5-5.1); SODIUM LEVEL 138 MEQ/L (136-145); TOTAL PROTEIN 6.9 GM/DL (6.4-8.2); TRIGLYCERIDES LEVEL 98 MG/DL (<150)
== END ==
LOC: M PLALAB 11:45
PROVIDERS: ATTEND Family Medicine
DX: E78.00 Pure hypercholesterolemia, unspecified (principal)

== ENCOUNTER → 2022-05-31 | Outpatient (REF) | payer MEDICARE, MEDICAID ==
[~2022-05-31] MED LIST changes: +ASPI-596 PO; -EXCEDTAB PO; -MICR1TAB18 PO; +NORE1TAB94 PO
[2022-06-08 21:07] LABS: CANNABINOID, URINE Positive (Cutoff=20); CARBOXY THC (GC/MS) 32 ng/mL (Cutoff=10); TAPENTADOL, URINE (GC/MS) Negative (Cutoff=200)
== END ==
LOC: M SFHCPLAZ 16:55
PROVIDERS: ATTEND Family Medicine
DX: G89.29 Other chronic pain (principal); Z79.899 Other long term (current) drug therapy

== ENCOUNTER 2022-10-02 15:13 | Emergency (ER) | payer MEDICARE, MEDICAID ==
[~2022-10-02] VITALS: Ht 162.6 cm; Wt 66.0 kg
[2022-10-02 15:13] VITALS: BP 113/78
[~2022-10-02 15:13] MED LIST changes: -MICR1TAB16 PO; +NORE1TAB86 PO
[2022-10-02] MEDS ORDERED: FLUTISP (15:27)
[2022-10-02] MEDS ORDERED: FENT1DIS14 (15:27)
[2022-10-02] MEDS ORDERED: EZET10TA21 (15:27)
[2022-10-02] MEDS ORDERED: GABA-282 (15:27)
[2022-10-02] MEDS ORDERED: DOCU100C16 (15:27)
[2022-10-02] MEDS ORDERED: DARI25TA (15:27)
== END 2022-10-02 19:57 | disposition left against medical advice (07) ==
LOC: M ED 15:13
DX: Z53.21 Procedure and treatment not carried out due to patient leaving prior to being seen by health care provider (principal)

== ENCOUNTER → 2022-11-23 | Outpatient (CLI) | payer MEDICARE, MEDICAID ==
[~2022-11-23] MED LIST changes: +DARI25TA; +DOCU100C16; +EZET10TA21; +FENT1DIS14; +FLUTISP; +GABA-282
[2022-11-23 15:52] LABS: ALBUMIN 3.7 G/DL (3.2-5.2); ALKALINE PHOSPHATASE 66 U/L (46-116); ALT/SGPT 16 U/L (7.0-40); AST/SGOT 17 U/L (<34); BILIRUBIN,TOTAL 0.4 MG/DL (0.3-1.2); BLOOD UREA NITROGEN 14 MG/DL (9-23); CALCIUM LEVEL 9.2 MG/DL (8.5-10.1); CARBON DIOXIDE LEVEL 23 MMOL/L (20-31); CHLORIDE LEVEL 103 MMOL/L (98-107); CHOLESTEROL LEVEL 202 MG/DL (<200); CHOLESTEROL RISK RATIO 3.95 (<5); CREATININE FOR GFR 0.73 MG/DL (0.55-1.30); GLOMERULAR FILTRATION RATE > 60.0 (>58); GLUCOSE, FASTING 76 MG/DL (60-100); HDL CHOLESTEROL 51.1 MG/DL (>40); LDL CHOLESTEROL 123.9 MG/DL (<100); NON-HDL-C 151 MG/DL; POTASSIUM SERUM 3.8 MMOL/L (3.5-5.1); SODIUM LEVEL 138 MMOL/L (136-145); THYROID STIMULATING HORMONE 0.938 uIU/ML (0.55-4.78); TOTAL PROTEIN 6.7 G/DL (5.7-8.2); TRIGLYCERIDES LEVEL 135 MG/DL (<150)
== END ==
LOC: M PLALAB 14:20
PROVIDERS: ATTEND Family Medicine
DX: E78.00 Pure hypercholesterolemia, unspecified (principal)

== ENCOUNTER → 2023-01-09 | Outpatient (CLI) | payer MEDICARE, MEDICAID | LOC: M PLAIMG 10:13 | PROVIDERS: ATTEND Nurse Practitioner Family | DX: L40.0 Psoriasis vulgaris (principal) ==

== ENCOUNTER → 2023-01-09 | Outpatient (CLI) | payer MEDICARE, MEDICAID | LOC: M PLAIMG 10:15 | PROVIDERS: ATTEND Family Medicine | DX: M50.322 Other cervical disc degeneration at C5-C6 level (principal); M50.321 Other cervical disc degeneration at C4-C5 level; M50.323 Other cervical disc degeneration at C6-C7 level; M47.812 Spondylosis without myelopathy or radiculopathy, cervical region; L40.0 Psoriasis vulgaris ==

== ENCOUNTER → 2023-03-25 | Outpatient (CLI) | payer MEDICARE, MEDICAID ==
[~2023-03-25] MED LIST changes: +FLUT50SP17; -FLUTISP
[2023-03-25 16:10] LABS: BASO # 0.1 10^3/uL (0.0-0.2); BASO % 0.9 % (0.0-1.0); EOS # 0.3 10^3/uL (0.0-0.5); EOS % 4.4 % (0.0-3.0); HEMATOCRIT 40.4 % (36.0-47.0); HEMOGLOBIN 13.1 g/dl (12.0-15.5); LYMPH # 2.5 10^3/uL (1.5-5.0); MEAN CORPUSCULAR HEMOGLOBIN 30.5 pg (27.0-33.0); MEAN CORPUSCULAR HGB CONC 32.4 g/dl (32.0-36.5); MONO # 0.5 10^3/uL (0.0-0.8); MONO % 7.5 % (2.0-8.0); NEUTROPHILS # 3.6 10^3/uL (1.5-8.5); NEUTROPHILS % 50.9 % (36.0-66.0); PLATELET COUNT, AUTOMATED 219 10^3/uL (150-450)
[2023-03-25 16:17] LABS: ERYTHROCYTE SEDIMENTATION RATE 6 mm/hr (0-20)
[2023-03-25 16:23] LABS: COMPLEMENT C3 118.7 MG/DL (90.0-170.0); RHEUMATOID FACTOR QUANT 5.3 IU/ML (<14); TOTAL T3 154.1 NG/DL (60.0-181.0)
[2023-03-26 12:18] LABS: ALBUMIN 3.4 G/DL (3.2-5.2); ALKALINE PHOSPHATASE 51 U/L (46-116); ALT/SGPT 29 U/L (7.0-40); BILIRUBIN,TOTAL 0.4 MG/DL (0.3-1.2); BLOOD UREA NITROGEN 15 MG/DL (9-23); CALCIUM LEVEL 9.2 MG/DL (8.5-10.1); CARBON DIOXIDE LEVEL 26 MMOL/L (20-31); CHLORIDE LEVEL 108 MMOL/L (98-107); CREATININE FOR GFR 0.63 MG/DL (0.55-1.30); GLOMERULAR FILTRATION RATE > 60.0 (>58); GLUCOSE, FASTING 81 MG/DL (60-100); POTASSIUM SERUM 3.9 MMOL/L (3.5-5.1); SODIUM LEVEL 138 MMOL/L (136-145); THYROID PEROXIDASE ANTIBODY 29 U/ML (<60.0); TOTAL PROTEIN 6.2 G/DL (5.7-8.2)
[2023-03-26 14:20] LABS: AST/SGOT 22 U/L (<34)
[2023-04-04 16:08] LABS: ANA (HEP2) Negative (.); COMPLEMENT TOTAL (CH50) 55 U/mL (>41); IGE RECEPTOR ABY 1 <1.0 (<10); THRYOGLOBULIN ANTIBODIES (ATA) < 1.0 IU/mL (0.0-0.9); THYROGLOBULIN QUANTITATIVE 217.6 ng/mL (1.5-38.5)
== END ==
LOC: M PLALAB 12:41
PROVIDERS: ATTEND Allergy & Immunology Allergy
DX: L50.1 Idiopathic urticaria (principal); Z79.899 Other long term (current) drug therapy

== ENCOUNTER → 2023-04-04 | Outpatient (REF) | payer MEDICARE, MEDICAID | LOC: M SFHCPLAZ 16:19 | PROVIDERS: ATTEND Family Medicine | DX: Z13.21 Encounter for screening for nutritional disorder (principal) ==

== ENCOUNTER → 2023-04-17 | Outpatient (CLI) | payer MEDICARE, MEDICAID | LOC: M PLALAB 12:10 | PROVIDERS: ATTEND Allergy & Immunology Allergy | DX: J31.0 Chronic rhinitis (principal); Z13.21 Encounter for screening for nutritional disorder; Z79.899 Other long term (current) drug therapy; Z91.09 Other allergy status, other than to drugs and biological substances ==

== ENCOUNTER → 2023-04-17 | Outpatient (CLI) | payer MEDICARE, MEDICAID | LOC: M PLALAB 12:14 | PROVIDERS: ATTEND Family Medicine | DX: Z13.21 Encounter for screening for nutritional disorder (principal); Z79.899 Other long term (current) drug therapy ==

== ENCOUNTER → 2023-05-03 | Outpatient (CLI) | payer MEDICARE, MEDICAID | LOC: M WHC 14:36 | PROVIDERS: ATTEND Nurse Practitioner Women's Health | DX: Z12.31 Encounter for screening mammogram for malignant neoplasm of breast (principal) ==

== ENCOUNTER → 2023-05-03 | Outpatient (REF) | payer MEDICARE, MEDICAID ==
[2023-05-03 19:30] LABS: GC DNA AMPLIFICATION NEGATIVE (NEGATIVE)
== END ==
LOC: M SFHCWAGY 17:08
PROVIDERS: ATTEND Nurse Practitioner Women's Health
DX: Z12.4 Encounter for screening for malignant neoplasm of cervix (principal); Z87.410 Personal history of cervical dysplasia; Z11.3 Encounter for screening for infections with a predominantly sexual mode of transmission; N93.9 Abnormal uterine and vaginal bleeding, unspecified; N92.1 Excessive and frequent menstruation with irregular cycle; R87.5 Abnormal microbiological findings in specimens from female genital organs
CPT/HCPCS: 87624; 87661; 87810; 87850; G0123

== ENCOUNTER → 2023-06-26 | Outpatient (CLI) | payer MEDICARE, MEDICAID ==
[~2023-06-26] MED LIST changes: -GABA-283 PO; +GABA-284 PO
== END ==
LOC: M PAIN 15:00
PROVIDERS: ATTEND Anesthesiology
DX: G43.709 Chronic migraine without aura, not intractable, without status migrainosus (principal); M54.2 Cervicalgia; F32.9 Major depressive disorder, single episode, unspecified; M54.50 Low back pain, unspecified; M79.7 Fibromyalgia; E78.00 Pure hypercholesterolemia, unspecified; F43.10 Post-traumatic stress disorder, unspecified; J45.20 Mild intermittent asthma, uncomplicated; K58.2 Mixed irritable bowel syndrome; L40.9 Psoriasis, unspecified; Z87.891 Personal history of nicotine dependence; Q79.60 Ehlers-Danlos syndrome, unspecified; Z79.899 Other long term (current) drug therapy; Z88.8 Allergy status to other drugs, medicaments and biological substances

== ENCOUNTER → 2023-07-30 | Outpatient (CLI) | payer MEDICARE, MEDICAID ==
[~2023-07-30] MED LIST changes: -MIRT-62 PO; +MIRT-88 PO; -PREG100C PO; +PREG100C2 PO; -PREG50CA2 PO; +PREG50CA3 PO
[2023-07-30 19:47] LABS: THYROID STIMULATING HORMONE 2.182 uIU/ML (0.55-4.78)
[2023-07-30 19:48] LABS: FREE THYROXINE INDEX 3.2 % (1.3-4.8); T UPTAKE 24.9 % (22.5-37.0)
== END ==
LOC: M PLALAB 15:09
PROVIDERS: ATTEND Allergy & Immunology Allergy
DX: R94.6 Abnormal results of thyroid function studies (principal); L50.1 Idiopathic urticaria

== ENCOUNTER → 2023-09-26 | Outpatient (CLI) | payer MEDICARE, MEDICAID ==
[~2023-09-26] MED LIST changes: +CARI1TAB7; -LUNE2TAB23 PO; +LUNE2TAB28 PO; +MEMA1TAB3; +ROSU10TA6; +TRI-TAB16; +ZOLP12.518
== END ==
LOC: M PAIN 11:30
PROVIDERS: ATTEND Anesthesiology
DX: G43.709 Chronic migraine without aura, not intractable, without status migrainosus (principal); F32.9 Major depressive disorder, single episode, unspecified; M54.2 Cervicalgia; M54.50 Low back pain, unspecified; G89.29 Other chronic pain; M79.7 Fibromyalgia; E78.00 Pure hypercholesterolemia, unspecified; F43.10 Post-traumatic stress disorder, unspecified; J45.20 Mild intermittent asthma, uncomplicated; K58.2 Mixed irritable bowel syndrome; Q79.60 Ehlers-Danlos syndrome, unspecified; L40.9 Psoriasis, unspecified; Z87.891 Personal history of nicotine dependence; Z79.899 Other long term (current) drug therapy; Z88.8 Allergy status to other drugs, medicaments and biological substances

== ENCOUNTER → 2023-11-19 | Outpatient (CLI) | payer MEDICARE, MEDICAID ==
[~2023-11-19] MED LIST changes: -FLUT50SP17; +FLUTISP
[2023-11-19 18:09] LABS: HEMATOCRIT 40.7 % (36.0-47.0); HEMOGLOBIN 13.3 g/dl (12.0-15.5); MEAN CORPUSCULAR HEMOGLOBIN 31.8 pg (27.0-33.0); MEAN CORPUSCULAR HGB CONC 32.7 g/dl (32.0-36.5); MEAN CORPUSCULAR VOLUME 97.4 fl (80.0-96.0); PLATELET COUNT, AUTOMATED 293 10^3/uL (150-450); RED BLOOD COUNT 4.18 10^6/uL (4.00-5.40); WHITE BLOOD COUNT 9.6 10^3/uL (4.0-10.0)
[2023-11-19 18:12] LABS: ALBUMIN 3.5 G/DL (3.2-5.2); ALKALINE PHOSPHATASE 55 U/L (46-116); ALT/SGPT 14 U/L (7.0-40); AST/SGOT 16 U/L (<34); BILIRUBIN,TOTAL 0.4 MG/DL (0.3-1.2); BLOOD UREA NITROGEN 12 MG/DL (9-23); CARBON DIOXIDE LEVEL 27 MMOL/L (20-31); CHLORIDE LEVEL 104 MMOL/L (98-107); CHOLESTEROL LEVEL 188 MG/DL (<200); CHOLESTEROL RISK RATIO 2.08 (<5); CREATININE FOR GFR 0.62 MG/DL (0.55-1.30); GLOMERULAR FILTRATION RATE > 60.0 (>58); GLUCOSE, FASTING 71 MG/DL (60-100); HDL CHOLESTEROL 90.1 MG/DL (>40); LDL CHOLESTEROL 87.1 MG/DL (<100); MAGNESIUM LEVEL 1.8 MG/DL (1.8-2.4); NON-HDL-C 97.9 MG/DL; SODIUM LEVEL 139 MMOL/L (136-145); TOTAL PROTEIN 6.2 G/DL (5.7-8.2); TRIGLYCERIDES LEVEL 54 MG/DL (<150)
== END ==
LOC: M PLALAB 15:19
PROVIDERS: ATTEND Family Medicine
DX: F33.0 Major depressive disorder, recurrent, mild (principal); G43.709 Chronic migraine without aura, not intractable, without status migrainosus; E78.00 Pure hypercholesterolemia, unspecified

== ENCOUNTER → 2023-11-19 | Outpatient (CLI) | payer MEDICARE, MEDICAID ==
[2023-11-19 18:07] LABS: BASO % 0.3 % (0.0-1.0); EOS # 0.2 10^3/uL (0.0-0.5); EOS % 1.8 % (0.0-3.0); HEMATOCRIT 40.8 % (36.0-47.0); HEMOGLOBIN 13.3 g/dl (12.0-15.5); LYMPH # 3.1 10^3/uL (1.5-5.0); LYMPH % 30.8 % (24.0-44.0); MEAN CORPUSCULAR HEMOGLOBIN 31.8 pg (27.0-33.0); MEAN CORPUSCULAR HGB CONC 32.6 g/dl (32.0-36.5); MEAN CORPUSCULAR VOLUME 97.6 fl (80.0-96.0); MONO # 0.5 10^3/uL (0.0-0.8); MONO % 5.2 % (2.0-8.0); NEUTROPHILS # 6.1 10^3/uL (1.5-8.5); NEUTROPHILS % 61.6 % (36.0-66.0); PLATELET COUNT, AUTOMATED 291 10^3/uL (150-450); RED BLOOD COUNT 4.18 10^6/uL (4.00-5.40); WHITE BLOOD COUNT 9.9 10^3/uL (4.0-10.0)
[2023-11-19 18:12] LABS: ALBUMIN 3.5 G/DL (3.2-5.2); ALKALINE PHOSPHATASE 57 U/L (46-116); ALT/SGPT 15 U/L (7.0-40); AST/SGOT 13 U/L (<34); BILIRUBIN,TOTAL 0.4 MG/DL (0.3-1.2); BLOOD UREA NITROGEN 12 MG/DL (9-23); CALCIUM LEVEL 9.2 MG/DL (8.5-10.1); CARBON DIOXIDE LEVEL 27 MMOL/L (20-31); CHLORIDE LEVEL 103 MMOL/L (98-107); CREATININE FOR GFR 0.57 MG/DL (0.55-1.30); GLOMERULAR FILTRATION RATE > 60.0 (>58); GLUCOSE, FASTING 73 MG/DL (60-100); SODIUM LEVEL 137 MMOL/L (136-145); TOTAL PROTEIN 6.4 G/DL (5.7-8.2)
[2023-11-19 18:19] LABS: HEPATITIS B SURFACE ANTIBODY POSITIVE (POSITIVE)
[2023-11-19 18:45] LABS: HIV 1&2 SCREEN NEGATIVE (NEGATIVE)
[2023-11-19 18:52] LABS: HEPATITIS C VIRUS ABY INDEX < 0.02 INDEX (<0.8)
== END ==
LOC: M PLAIMG 15:22
PROVIDERS: ATTEND Nurse Practitioner Family
DX: L40.0 Psoriasis vulgaris (principal); Z51.81 Encounter for therapeutic drug level monitoring; Z79.899 Other long term (current) drug therapy; Z11.59 Encounter for screening for other viral diseases; Z72.89 Other problems related to lifestyle; Z11.3 Encounter for screening for infections with a predominantly sexual mode of transmission; Z20.2 Contact with and (suspected) exposure to infections with a predominantly sexual mode of transmission

== ENCOUNTER → 2023-11-28 | Outpatient (CLI) | payer MEDICARE, MEDICAID ==
[2023-11-28 18:23] LABS: C REACTIVE PROTEIN QUANTITATIV 0.4 MG/DL (<1.0)
[2023-11-28 18:24] LABS: FERRITIN 12.6 NG/ML (7.3-270.7); FOLATE 19.97 NG/ML (>5.4); THYROID STIMULATING HORMONE 1.329 uIU/ML (0.55-4.78); TOTAL 25(OH) VITAMIN D 32.3 NG/ML (20.0-100.0)
== END ==
LOC: M PLALAB 15:28
PROVIDERS: ATTEND Family Medicine
DX: R53.83 Other fatigue (principal); Z79.899 Other long term (current) drug therapy; Z86.39 Personal history of other endocrine, nutritional and metabolic disease

== ENCOUNTER → 2024-02-14 | Outpatient (CLI) | payer MEDICARE, MEDICAID ==
[~2024-02-14] MED LIST changes: +BOTOX THERAPEUTIC 100 UNIT VIAL IM ONE; -RISP-7 PO; +RISP0.5T82 PO; +diazePAM 5MG TABLET As Ordered ONE; +diphenhydrAMINE 25MG CAP As Ordered ONE; +oxyCODONE 5MG TAB As Ordered ONE
== END ==
LOC: M PAIN 10:00
PROVIDERS: ATTEND Anesthesiology
DX: G43.709 Chronic migraine without aura, not intractable, without status migrainosus (principal); M54.2 Cervicalgia; M54.50 Low back pain, unspecified; M79.7 Fibromyalgia; E78.00 Pure hypercholesterolemia, unspecified; J45.20 Mild intermittent asthma, uncomplicated; K58.2 Mixed irritable bowel syndrome; Z87.891 Personal history of nicotine dependence; Z79.899 Other long term (current) drug therapy; Z88.8 Allergy status to other drugs, medicaments and biological substances
CPT/HCPCS: 64615; J0585

== ENCOUNTER → 2024-02-28 | Outpatient (CLI) | payer MEDICARE, MEDICAID ==
[~2024-02-28] MED LIST changes: -BOTOX THERAPEUTIC 100 UNIT VIAL IM ONE; -ROSU10TA6; +ROSU10TA61; -SUMA6INJ25 PO; -SUMA6INJ25 SC; +SUMA6PEN3 PO; +SUMA6PEN3 SC; -ZOLP12.518; +ZOLP12.535; -diazePAM 5MG TABLET As Ordered ONE; -diphenhydrAMINE 25MG CAP As Ordered ONE; -oxyCODONE 5MG TAB As Ordered ONE
[2024-02-28 15:14] LABS: HEMATOCRIT 42.5 % (36.0-47.0); HEMOGLOBIN 13.8 g/dl (12.0-15.5); MEAN CORPUSCULAR HEMOGLOBIN 31.4 pg (27.0-33.0); MEAN CORPUSCULAR HGB CONC 32.5 g/dl (32.0-36.5); MEAN CORPUSCULAR VOLUME 96.8 fl (80.0-96.0); PLATELET COUNT, AUTOMATED 269 10^3/uL (150-450); RED BLOOD COUNT 4.39 10^6/uL (4.00-5.40); WHITE BLOOD COUNT 8.1 10^3/uL (4.0-10.0)
== END ==
LOC: M PLALAB 14:18
PROVIDERS: ATTEND Family Medicine
DX: R53.83 Other fatigue (principal)

== ENCOUNTER → 2024-03-03 | Outpatient (CLI) | payer MEDICARE, MEDICAID ==
[~2024-03-03] MED LIST changes: +ROSU10TA6; -ROSU10TA61; +SUMA6INJ25 PO; +SUMA6INJ25 SC; -SUMA6PEN3 PO; -SUMA6PEN3 SC; +ZOLP12.518; -ZOLP12.535
== END ==
LOC: M WHC 13:15
PROVIDERS: ATTEND Nurse Practitioner Family
DX: N63.11 Unspecified lump in the right breast, upper outer quadrant (principal); N63.14 Unspecified lump in the right breast, lower inner quadrant; N63.24 Unspecified lump in the left breast, lower inner quadrant
CPT/HCPCS: 76642; 77066; G0279

== ENCOUNTER 2024-03-15 19:10 | Emergency (ER) | payer MEDICARE, MEDICAID ==
[~2024-03-15] VITALS: Ht 162.6 cm; Wt 63.6 kg
[~2024-03-15 19:10] MED LIST changes: -ROSU10TA6; +ROSU10TA61; -SUMA6INJ25 PO; -SUMA6INJ25 SC; +SUMA6PEN3 PO; +SUMA6PEN3 SC; -ZOLP12.518; +ZOLP12.535
[2024-03-15] MEDS ORDERED: NALOXONE INJ 0.4MG/1ML VIAL As Ordered ONE (19:23)
[2024-03-15] MEDS ORDERED: NALOXONE 2MG/2ML SYRINGE As Ordered ONE (19:25)
[2024-03-15] MEDS: NALOXONE 2MG/2ML SYRINGE IV STA (19:29)
[2024-03-15 21:03] LABS: VENOUS BASE EXCESS -3.5 (-2.0-2.0); VENOUS HCO3 22.7 MMOL/L (23.0-27.0); VENOUS O2 SATURATION 76.2 % (60.0-80.0); VENOUS PARTIAL PRESSURE CO2 45.2 mmHg (38.0-50.0); VENOUS PARTIAL PRESSURE O2 44.1 mmHg (30.0-50.0); VENOUS PH 7.318 UNITS (7.330-7.430); VENOUS STANDARD HCO3 21.1 MMOL/L
[2024-03-15 21:09] LABS: BASO % 0.4 % (0.0-1.0); EOS # 0.2 10^3/uL (0.0-0.5); EOS % 1.5 % (0.0-3.0); HEMATOCRIT 41.1 % (36.0-47.0); HEMOGLOBIN 13.4 g/dl (12.0-15.5); LYMPH # 3.4 10^3/uL (1.5-5.0); LYMPH % 34.8 % (24.0-44.0); MEAN CORPUSCULAR HEMOGLOBIN 31.4 pg (27.0-33.0); MEAN CORPUSCULAR HGB CONC 32.6 g/dl (32.0-36.5); MEAN CORPUSCULAR VOLUME 96.3 fl (80.0-96.0); MONO # 0.7 10^3/uL (0.0-0.8); NEUTROPHILS # 5.5 10^3/uL (1.5-8.5); PLATELET COUNT, AUTOMATED 261 10^3/uL (150-450); RED BLOOD COUNT 4.27 10^6/uL (4.00-5.40); WHITE BLOOD COUNT 9.8 10^3/uL (4.0-10.0)
[2024-03-15 21:35] LABS: ETHYL ALCOHOL (ETHANOL) < 0.003 % (0.000-0.010)
[2024-03-15 21:36] LABS: CK-MB VALUE MASS < 1.0 NG/ML (<3.6)
[2024-03-15 21:37] LABS: BLOOD UREA NITROGEN 15 MG/DL (9-23); CALCIUM LEVEL 9.2 MG/DL (8.5-10.1); CARBON DIOXIDE LEVEL 25 MMOL/L (20-31); CHLORIDE LEVEL 110 MMOL/L (98-107); CPK CREATINE PHOSPHOKINASE 171 U/L (34-145); CREATININE FOR GFR 0.72 MG/DL (0.55-1.30); GLOMERULAR FILTRATION RATE > 60.0 (>58); GLUCOSE, FASTING 71 MG/DL (60-100); MB/CK RELATIVE INDEX 0.58 (< OR =4); POTASSIUM SERUM 4.3 MMOL/L (3.5-5.1); SODIUM LEVEL 142 MMOL/L (136-145)
[2024-03-15 21:39] LABS: FREE T4 1.04 NG/DL (0.89-1.76); THYROID STIMULATING HORMONE 1.745 uIU/ML (0.55-4.78)
[2024-03-15 21:44] LABS: HCG, SERUM QUALITATIVE NEGATIVE (NEGATIVE)
[2024-03-15] MEDS ORDERED: ISOVUE-370 76% 100ML VIAL As Ordered ONE (21:45)
[2024-03-15 22:21] LABS: AMPHETAMINES LEVEL URINE NEGATIVE (NEGATIVE); BARBITURATES URINE NEGATIVE (NEGATIVE); CANNABINOIDS URINE NEGATIVE (NEGATIVE); COCAINE METABOLITE URINE NEGATIVE (NEGATIVE); METHADONE URINE NEGATIVE (NEGATIVE); OPIATES URINE NEGATIVE (NEGATIVE); PHENCYCLIDINE URINE NEGATIVE (NEGATIVE)
[2024-03-15 22:30] VITALS: TEMP 97.6
[2024-03-15 22:37] LABS: BENZODIAZEPINES URINE POSITIVE (NEGATIVE)
[2024-03-15] MEDS: NS 1,000 ML IV ONE (22:46)
[2024-03-16] VITALS: BP 102/58
[2024-03-16 00:25] VITALS: O2SAT 96
[2024-03-16] MEDS ORDERED: FENT1DIS14 TOP (00:46)
== END 2024-03-16 00:54 | disposition home or self-care (01) ==
LOC: M ED 19:10
DX: R55 Syncope and collapse (principal); E86.0 Dehydration; E11.9 Type 2 diabetes mellitus without complications; E78.5 Hyperlipidemia, unspecified; F19.10 Other psychoactive substance abuse, uncomplicated; F17.210 Nicotine dependence, cigarettes, uncomplicated; Z88.8 Allergy status to other drugs, medicaments and biological substances; Z79.51 Long term (current) use of inhaled steroids; Z79.4 Long term (current) use of insulin; Z79.899 Other long term (current) drug therapy
CPT/HCPCS: 70450; 71045; 71275; 72125; 72190; 80048; 80307; 82077; 82550; 82553; 82803; 83605; 83735; 84439; 84443; 84484; 84703; 85025; 85379; 93005; 93041; 94760; 96361; 96374; 99285; J2310; Q9967

== ENCOUNTER → 2024-03-30 | Outpatient (CLI) | payer MEDICARE, MEDICAID | LOC: M PAIN 15:30 | PROVIDERS: ATTEND Nurse Practitioner Family | DX: G43.919 Migraine, unspecified, intractable, without status migrainosus (principal); G89.29 Other chronic pain; M79.7 Fibromyalgia; E78.00 Pure hypercholesterolemia, unspecified; Z79.02 Long term (current) use of antithrombotics/antiplatelets; Z79.1 Long term (current) use of non-steroidal anti-inflammatories (NSAID); Z79.620 Long term (current) use of immunosuppressive biologic; Z79.899 Other long term (current) drug therapy; Z88.8 Allergy status to other drugs, medicaments and biological substances ==

== ENCOUNTER → 2024-04-17 | Outpatient (CLI) | payer MEDICARE, MEDICAID | LOC: M PAIN 17:00 | PROVIDERS: ATTEND Nurse Practitioner Family | DX: M25.552 Pain in left hip (principal); F32.A Depression, unspecified; G43.709 Chronic migraine without aura, not intractable, without status migrainosus; M54.2 Cervicalgia; M54.50 Low back pain, unspecified; G89.29 Other chronic pain; M79.7 Fibromyalgia; E78.00 Pure hypercholesterolemia, unspecified; F43.12 Post-traumatic stress disorder, chronic; J45.20 Mild intermittent asthma, uncomplicated; K58.2 Mixed irritable bowel syndrome; Z87.891 Personal history of nicotine dependence; Z79.899 Other long term (current) drug therapy; Z88.8 Allergy status to other drugs, medicaments and biological substances ==

== ENCOUNTER → 2024-05-07 | Outpatient (REF) | payer MEDICARE, MEDICAID ==
[2024-05-09 13:37] LABS: HPV APTIMA Not Detected (Not Detected)
== END ==
LOC: M SFHCWAGY 18:04
PROVIDERS: ATTEND Nurse Practitioner Family
DX: Z12.4 Encounter for screening for malignant neoplasm of cervix (principal)
CPT/HCPCS: 87624; G0123

== ENCOUNTER → 2024-05-07 | Outpatient (CLI) | payer MEDICARE, MEDICAID | LOC: M WHC 15:24 | PROVIDERS: ATTEND Nurse Practitioner Family | DX: Z12.31 Encounter for screening mammogram for malignant neoplasm of breast (principal) ==

== ENCOUNTER → 2024-06-12 | Outpatient (CLI) | payer MEDICARE, MEDICAID | LOC: M PAIN 10:45 | PROVIDERS: ATTEND Nurse Practitioner Family | DX: M25.551 Pain in right hip (principal); M25.552 Pain in left hip; M70.61 Trochanteric bursitis, right hip; M70.62 Trochanteric bursitis, left hip; F32.9 Major depressive disorder, single episode, unspecified; G43.709 Chronic migraine without aura, not intractable, without status migrainosus; M54.2 Cervicalgia; M54.50 Low back pain, unspecified; G89.29 Other chronic pain; M79.7 Fibromyalgia; E78.00 Pure hypercholesterolemia, unspecified; F43.12 Post-traumatic stress disorder, chronic; J45.20 Mild intermittent asthma, uncomplicated; K58.2 Mixed irritable bowel syndrome; Q79.60 Ehlers-Danlos syndrome, unspecified; Z87.891 Personal history of nicotine dependence; Z79.899 Other long term (current) drug therapy; Z88.8 Allergy status to other drugs, medicaments and biological substances ==

== ENCOUNTER → 2024-07-21 | Outpatient (CLI) | payer MEDICARE, MEDICAID ==
[~2024-07-21] MED LIST changes: +BOTOX THERAPEUTIC 100 UNIT VIAL IM ONE; +GABA-1172; +GABA-1490 PO; +GABA-1635 PO; -GABA-282; -GABA600T4 PO; -GABA800T4 PO; +NORE-30 PO; -NORE1TAB86 PO; +diazePAM 5MG TABLET As Ordered ONE; +diphenhydrAMINE 25MG CAP As Ordered ONE; +oxyCODONE 5MG TAB As Ordered ONE
== END ==
LOC: M PAIN 15:30
PROVIDERS: ATTEND Anesthesiology
DX: G43.709 Chronic migraine without aura, not intractable, without status migrainosus (principal); M54.2 Cervicalgia; M54.50 Low back pain, unspecified; G89.29 Other chronic pain; M79.7 Fibromyalgia; E78.00 Pure hypercholesterolemia, unspecified; F43.12 Post-traumatic stress disorder, chronic; J45.20 Mild intermittent asthma, uncomplicated; K58.2 Mixed irritable bowel syndrome; L40.9 Psoriasis, unspecified; Z87.891 Personal history of nicotine dependence; Z79.899 Other long term (current) drug therapy; Z88.8 Allergy status to other drugs, medicaments and biological substances
CPT/HCPCS: 64615; J0585

== ENCOUNTER → 2024-10-06 | Outpatient (CLI) | payer MEDICARE, MEDICAID ==
[~2024-10-06] MED LIST changes: -BOTOX THERAPEUTIC 100 UNIT VIAL IM ONE; -diazePAM 5MG TABLET As Ordered ONE; -diphenhydrAMINE 25MG CAP As Ordered ONE; -oxyCODONE 5MG TAB As Ordered ONE
== END ==
LOC: M PAIN 16:00
PROVIDERS: ATTEND Nurse Practitioner Family
DX: G43.709 Chronic migraine without aura, not intractable, without status migrainosus (principal); M54.2 Cervicalgia; M54.50 Low back pain, unspecified; G89.29 Other chronic pain; M79.7 Fibromyalgia; E78.00 Pure hypercholesterolemia, unspecified; J45.20 Mild intermittent asthma, uncomplicated; K58.2 Mixed irritable bowel syndrome; L40.9 Psoriasis, unspecified; Q79.60 Ehlers-Danlos syndrome, unspecified; F43.12 Post-traumatic stress disorder, chronic; Z87.891 Personal history of nicotine dependence; Z79.899 Other long term (current) drug therapy; Z88.8 Allergy status to other drugs, medicaments and biological substances

== ENCOUNTER → 2024-10-21 | Outpatient (CLI) | payer MEDICARE, MEDICAID | LOC: M WHC 12:43 | PROVIDERS: ATTEND Nurse Practitioner Family | DX: N63.11 Unspecified lump in the right breast, upper outer quadrant (principal); N63.14 Unspecified lump in the right breast, lower inner quadrant; N63.24 Unspecified lump in the left breast, lower inner quadrant ==

== ENCOUNTER → 2024-10-29 | Outpatient (CLI) | payer MEDICARE, MEDICAID ==
[~2024-10-29] MED LIST changes: +BOTOX THERAPEUTIC 100 UNIT VIAL IM ONE; +diazePAM 5MG TABLET As Ordered ONE; +diphenhydrAMINE 25MG CAP As Ordered ONE; +oxyCODONE 5MG TAB As Ordered ONE
== END ==
LOC: M PAIN 10:00
PROVIDERS: ATTEND Anesthesiology
DX: G43.709 Chronic migraine without aura, not intractable, without status migrainosus (principal); M54.2 Cervicalgia; M54.50 Low back pain, unspecified; G89.29 Other chronic pain; M79.7 Fibromyalgia; E78.00 Pure hypercholesterolemia, unspecified; J45.20 Mild intermittent asthma, uncomplicated; K58.2 Mixed irritable bowel syndrome; L40.9 Psoriasis, unspecified; Q79.60 Ehlers-Danlos syndrome, unspecified; F43.12 Post-traumatic stress disorder, chronic; Z87.891 Personal history of nicotine dependence; Z79.899 Other long term (current) drug therapy; Z88.8 Allergy status to other drugs, medicaments and biological substances
CPT/HCPCS: 64615; J0585

== ENCOUNTER → 2024-12-10 | Outpatient (CLI) | payer MEDICARE, MEDICAID ==
[~2024-12-10] MED LIST changes: -BOTOX THERAPEUTIC 100 UNIT VIAL IM ONE; -diazePAM 5MG TABLET As Ordered ONE; -diphenhydrAMINE 25MG CAP As Ordered ONE; -oxyCODONE 5MG TAB As Ordered ONE
[2024-12-10 14:33] LABS: BASO # 0.1 10^3/uL (0.0-0.2); BASO % 1.1 % (0.0-1.0); EOS # 0.5 10^3/uL (0.0-0.5); EOS % 8.3 % (0.0-3.0); HEMATOCRIT 40.9 % (36.0-47.0); HEMOGLOBIN 13.1 g/dl (12.0-15.5); LYMPH # 1.8 10^3/uL (1.5-5.0); LYMPH % 32.1 % (24.0-44.0); MEAN CORPUSCULAR VOLUME 93.6 fl (80.0-96.0); MONO # 0.5 10^3/uL (0.0-0.8); MONO % 8.8 % (2.0-8.0); NEUTROPHILS # 2.7 10^3/uL (1.5-8.5); NEUTROPHILS % 49.5 % (36.0-66.0); PLATELET COUNT, AUTOMATED 386 10^3/uL (150-450); RED BLOOD COUNT 4.37 10^6/uL (4.00-5.40); WHITE BLOOD COUNT 5.5 10^3/uL (4.0-10.0)
[2024-12-10 15:12] LABS: ALBUMIN 3.5 G/DL (3.2-5.2); ALKALINE PHOSPHATASE 72 U/L (35-104); ALT/SGPT 11 U/L (7.0-40); AST/SGOT 11 U/L (<34); BILIRUBIN,DIRECT < 0.1 MG/DL (<0.4); BILIRUBIN,TOTAL 0.3 MG/DL (0.3-1.2); BLOOD UREA NITROGEN 12 MG/DL (9-23); CALCIUM LEVEL 9.1 MG/DL (8.5-10.1); CARBON DIOXIDE LEVEL 28 MMOL/L (20-31); CHLORIDE LEVEL 103 MMOL/L (98-107); GLOMERULAR FILTRATION RATE > 60.0 (>51); GLUCOSE, FASTING 131 MG/DL (60-100); PHOSPHORUS LEVEL 2.6 MG/DL (2.5-4.9); POTASSIUM SERUM 3.8 MMOL/L (3.5-5.1); SODIUM LEVEL 143 MMOL/L (136-145); TOTAL PROTEIN 6.8 G/DL (5.7-8.2)
[2024-12-10 15:32] LABS: HEPATITIS B SURFACE ANTIGEN NEGATIVE (NEGATIVE)
[2024-12-10 15:44] LABS: HIV 1&2 SCREEN NEGATIVE (NEGATIVE)
[2024-12-10 15:52] LABS: HEPATITIS C VIRUS ABY INDEX < 0.02 INDEX (<0.8)
[2024-12-12 12:57] LABS: HEPATITIS B CORE ANTIBODY IGG NON-REACTIVE (NON-REACTIVE)
== END ==
LOC: M PLALAB 10:29
PROVIDERS: ATTEND Nurse Practitioner Family
DX: L40.0 Psoriasis vulgaris (principal); Z11.59 Encounter for screening for other viral diseases

== ENCOUNTER → 2024-12-10 | Outpatient (REF) | payer MEDICARE, MEDICAID ==
[~2024-12-10] MED LIST changes: +ALBU8.5H INH; +ALPR1TAB3 PO; +CARI-555 PO; -CARI1TAB7; -CARI1TAB7 PO; +D-101000 PO; -EZET10TA21; +EZET10TA21 PO; +FENT12DI8 TOP; +HYDR50CA2 PO; +MEMA10TA PO; +NABU-73 PO; +NARC1SPR; +NORG0.25 PO; -ROSU10TA61; +ROSU10TA61 PO; -SUMA6PEN3 PO; -SUMA6PEN3 SC; +SUMA6PEN5 PO; +SUMA6PEN5 SC; +TRIA0.2571 PO
== END ==
LOC: M SFHCPLAZ 11:25
PROVIDERS: ATTEND Family Medicine
DX: R21 Rash and other nonspecific skin eruption (principal)

== ENCOUNTER → 2024-12-14 | Outpatient (CLI) | payer MEDICARE, MEDICAID ==
[~2024-12-14] MED LIST changes: -ALBU8.5H INH; -ALPR1TAB3 PO; +CARI-555; -D-101000 PO; +EZET10TA21; -EZET10TA21 PO; -FENT12DI8 TOP; -HYDR50CA2 PO; -MEMA10TA PO; -NABU-73 PO; -NARC1SPR; -NORG0.25 PO; +ROSU10TA61; -ROSU10TA61 PO; -TRIA0.2571 PO
== END ==
LOC: M PAIN 17:00
PROVIDERS: ATTEND Nurse Practitioner Family
DX: G43.709 Chronic migraine without aura, not intractable, without status migrainosus (principal); M54.2 Cervicalgia; M54.50 Low back pain, unspecified; G89.29 Other chronic pain; J45.20 Mild intermittent asthma, uncomplicated; Z87.891 Personal history of nicotine dependence; Z79.899 Other long term (current) drug therapy; Z88.8 Allergy status to other drugs, medicaments and biological substances

== ENCOUNTER 2024-12-30 19:36 | Inpatient (IN) | payer MEDICARE, MEDICAID ==
[~2024-12-30] VITALS: Ht 162.6 cm; Wt 76.5 kg
[~2024-12-30 19:36] MED LIST changes: -CARI-555; -EZET10TA21; +EZET10TA21 PO; -ROSU10TA61; +ROSU10TA61 PO
[2024-12-30] MEDS: NS (Normal Saline) 0.9% 1,000 ML IV ONE ×2 (19:52→22:10)
[2024-12-30 20:48] LABS: KETONE, URINE MANUAL REFLEX NEGATIVE (NEGATIVE); NITRITE, URINE MANUAL RFX NEGATIVE (NEGATIVE); PROTEIN, URINE MANUAL REFLEX NEGATIVE (NEGATIVE); SP GRAVITY,URINE MANUAL REFLEX 1.025 (1.002-1.035); UROBILINOGEN, UA MANUAL REFLEX NORMAL (NORMAL)
[2024-12-30 20:50] LABS: BASO % 0.5 % (0.0-1.0); EOS # 0.3 10^3/uL (0.0-0.5); EOS % 3.4 % (0.0-3.0); HEMATOCRIT 40.7 % (36.0-47.0); HEMOGLOBIN 12.7 g/dl (12.0-15.5); LYMPH # 1.8 10^3/uL (1.5-5.0); LYMPH % 22.1 % (24.0-44.0); MEAN CORPUSCULAR HEMOGLOBIN 30.2 pg (27.0-33.0); MEAN CORPUSCULAR HGB CONC 31.2 g/dl (32.0-36.5); MEAN CORPUSCULAR VOLUME 96.7 fl (80.0-96.0); MONO # 0.4 10^3/uL (0.0-0.8); MONO % 4.7 % (2.0-8.0); NEUTROPHILS # 5.7 10^3/uL (1.5-8.5); NEUTROPHILS % 68.9 % (36.0-66.0); RED BLOOD COUNT 4.21 10^6/uL (4.00-5.40); WHITE BLOOD COUNT 8.3 10^3/uL (4.0-10.0)
[2024-12-30] MEDS: LORazepam 2 MG/ML 1ML VIAL IV STA (21:05)
[2024-12-30 21:12] LABS: CK-MB VALUE MASS < 1.0 NG/ML (<3.6); ETHYL ALCOHOL (ETHANOL) < 0.003 % (0.000-0.010)
[2024-12-30 21:13] LABS: AMPHETAMINES LEVEL URINE NEGATIVE (NEGATIVE); BARBITURATES URINE NEGATIVE (NEGATIVE); COCAINE METABOLITE URINE NEGATIVE (NEGATIVE); METHADONE URINE NEGATIVE (NEGATIVE); OPIATES URINE NEGATIVE (NEGATIVE)
[2024-12-30 21:14] LABS: ALKALINE PHOSPHATASE 60 U/L (35-104); ALT/SGPT 13 U/L (7.0-40); AST/SGOT 15 U/L (<34); BILIRUBIN,DIRECT < 0.1 MG/DL (<0.4); BILIRUBIN,TOTAL 0.2 MG/DL (0.3-1.2); BLOOD UREA NITROGEN 12 MG/DL (9-23); CALCIUM LEVEL 8.6 MG/DL (8.5-10.1); CARBON DIOXIDE LEVEL 20 MMOL/L (20-31); CHLORIDE LEVEL 112 MMOL/L (98-107); CREATININE FOR GFR 0.59 MG/DL (0.55-1.30); GLOMERULAR FILTRATION RATE > 60.0 (>51); GLUCOSE, FASTING 78 MG/DL (60-100); PHENCYCLIDINE URINE NEGATIVE (NEGATIVE); POTASSIUM SERUM 3.8 MMOL/L (3.5-5.1); SALICYLATE LEVEL < 3.0 MG/DL (<30); SODIUM LEVEL 146 MMOL/L (136-145); TOTAL PROTEIN 6.2 G/DL (5.7-8.2)
[2024-12-30 21:15] LABS: BENZODIAZEPINES URINE POSITIVE (NEGATIVE); CANNABINOIDS URINE POSITIVE (NEGATIVE)
[2024-12-30 21:16] LABS: THYROID STIMULATING HORMONE 0.669 uIU/ML (0.55-4.78)
[2024-12-30 21:18] LABS: CPK CREATINE PHOSPHOKINASE 93 U/L (34-145); MB/CK RELATIVE INDEX 1.07 (< OR =4)
[2024-12-30 22:16] LABS: CK-MB VALUE MASS < 1.0 NG/ML (<3.6)
[2024-12-30 22:21] LABS: CPK CREATINE PHOSPHOKINASE 111 U/L (34-145)
[2024-12-30] MEDS ORDERED: HYDR50CA2 PO (23:02)
[2024-12-30] MEDS ORDERED: MEMA10TA PO (23:02)
[2024-12-30] MEDS ORDERED: TRIA0.2571 PO (23:02)
[2024-12-30] MEDS ORDERED: ALBU8.5H INH (23:02)
[2024-12-30] MEDS ORDERED: ALPR1TAB3 PO (23:02)
[2024-12-30] MEDS ORDERED: D-101000 PO (23:02)
[2024-12-30] MEDS ORDERED: FENT12DI8 TOP (23:02)
[2024-12-30] MEDS ORDERED: PREG100C2 PO (23:02)
[2024-12-30] MEDS ORDERED: NORG0.25 PO (23:05)
[2024-12-30] MEDS ORDERED: MED REC IN PROGRESS XX SCH (23:10)
[2024-12-30] MEDS: [UNRECOGNIZED DRUG - OTHER] IV ONE (23:19)
[2024-12-30] MEDS: NS 0.9% IV ONE (23:19)
[2024-12-30] MEDS: PIPERACILLIN/TAZOBACTAM SOD 4.5 GM in DEXTROSE 5% (D5W) ADV/MINI-BAG 50 ML IV ONE (23:45)
[2024-12-31] MEDS ORDERED: LORazepam 2 MG/ML 1ML VIAL IV PRN (00:20)
[2024-12-31] MEDS ORDERED: ALBUTEROL 90 MCG/ACT 8GM HFA INHALER INH PRN ×2 (00:20)
[2024-12-31] MEDS ORDERED: carisoprodoL 350 MG TAB PO PRN (00:20)
[2024-12-31] MEDS ORDERED: MOM 30ML SUSPENSION UDC PO PRN (00:20)
[2024-12-31] MEDS: NS (Normal Saline) 0.9% 1,000 ML IV SCH (00:45)
[2024-12-31] MEDS: NS 500 ML IV ONE (04:15)
[2024-12-31] MEDS: D5W 1,000 ML IV SCH (07:18)
[2024-12-31] MEDS ORDERED: NABU-73 PO (07:56)
[2024-12-31] MEDS: MIDODRINE 5 MG TAB PO SCH (08:00)
[2024-12-31] MEDS ORDERED: HOME MED LIST COMPLETE! XX SCH (08:00)
[2024-12-31 08:22] LABS: HEMATOCRIT 34.6 % (36.0-47.0); HEMOGLOBIN 11.2 g/dl (12.0-15.5); MEAN CORPUSCULAR HEMOGLOBIN 29.8 pg (27.0-33.0); MEAN CORPUSCULAR HGB CONC 32.4 g/dl (32.0-36.5); PLATELET COUNT, AUTOMATED 258 10^3/uL (150-450); RED BLOOD COUNT 3.76 10^6/uL (4.00-5.40); WHITE BLOOD COUNT 8.8 10^3/uL (4.0-10.0)
[2024-12-31] MEDS: HEPARIN SOD (PORCINE) 5000UNITS/ML 1ML VIAL/SYRINGE SC SCH (09:00)
[2024-12-31 09:17] LABS: ALBUMIN 2.8 G/DL (3.2-5.2); ALKALINE PHOSPHATASE 61 U/L (35-104); ALT/SGPT 10 U/L (7.0-40); AST/SGOT 13 U/L (<34); BILIRUBIN,TOTAL 0.3 MG/DL (0.3-1.2); BLOOD UREA NITROGEN 8 MG/DL (9-23); CALCIUM LEVEL 7.6 MG/DL (8.5-10.1); CARBON DIOXIDE LEVEL 20 MMOL/L (20-31); CHLORIDE LEVEL 111 MMOL/L (98-107); CREATININE FOR GFR 0.57 MG/DL (0.55-1.30); GLOMERULAR FILTRATION RATE > 60.0 (>51); GLUCOSE, FASTING 94 MG/DL (60-100); POTASSIUM SERUM 3.9 MMOL/L (3.5-5.1); SODIUM LEVEL 141 MMOL/L (136-145); TOTAL PROTEIN 5.6 G/DL (5.7-8.2)
[2024-12-31] MEDS: ROSUVASTATIN 10 MG TAB (CRESTOR) PO SCH (10:06)
[2024-12-31] MEDS: PREGABALIN 50 MG CAP (LYRICA) PO SCH (10:06)
[2024-12-31] MEDS: MEMANTINE 5MG TABLET (NAMENDA) PO SCH (10:07)
[2024-12-31] MEDS: EZETIMIBE 10MG TABLET (ZETIA) PO SCH (10:07)
[2024-12-31] MEDS: FLUTICASONE PROP 0.05% NASAL SPRAY 16 GM (FLONASE) SCH (10:07)
[2024-12-31 11:59] VITALS: BP 85/43; TEMP 98.6; O2SAT 100
[2024-12-31] MEDS: LR 1,000 ML IV ONE (12:29)
[2024-12-31 13:31] VITALS: BP 127/70
[2024-12-31 15:57] VITALS: BP 128/73
[2024-12-31] MEDS: LR 1,000 ML IV SCH (16:16)
[2024-12-31] MEDS: KETOROLAC 30 MG/ML 1ML VIAL IV SCH (17:06)
[2024-12-31 18:12] VITALS: BP 125/74
[2024-12-31 20:00] VITALS: BP 125/76; TEMP 98.1; O2SAT 96
[2025-01-01 00:36] VITALS: BP 124/68
[2025-01-01] MEDS: ACETAMINOPHEN 325 MG TAB PO PRN (01:21)
[2025-01-01 04:00] VITALS: BP 123/67; TEMP 97.9; O2SAT 93
[2025-01-01] MEDS: FENTANYL REMOVAL DOCUMENTATION MISC XX SCH (09:00)
[2025-01-01] MEDS ORDERED: NARC1SPR (10:38)
== END 2025-01-01 18:15 | disposition home or self-care (01) | DRG 917 ==
LOC: M ED 19:36 → EDBD 19:36 → M ED INP 12-31 00:19 → M MSPAV 12-31 11:53
PROVIDERS: ADMIT Student in an Organized Health Care Education/Training Program; ATTEND Student in an Organized Health Care Education/Training Program
DX: T42.4X1A Poisoning by benzodiazepines, accidental (unintentional), initial encounter (principal); G92.8 Other toxic encephalopathy; M79.7 Fibromyalgia; J45.909 Unspecified asthma, uncomplicated; K58.9 Irritable bowel syndrome, unspecified; I95.2 Hypotension due to drugs; E66.9 Obesity, unspecified; J45.20 Mild intermittent asthma, uncomplicated; L40.9 Psoriasis, unspecified; F43.10 Post-traumatic stress disorder, unspecified; F60.3 Borderline personality disorder; F41.9 Anxiety disorder, unspecified; F32.A Depression, unspecified; G43.909 Migraine, unspecified, not intractable, without status migrainosus; M54.30 Sciatica, unspecified side; G89.29 Other chronic pain; E78.5 Hyperlipidemia, unspecified; Z87.891 Personal history of nicotine dependence; Z79.899 Other long term (current) drug therapy; Z88.8 Allergy status to other drugs, medicaments and biological substances

== ENCOUNTER → 2025-01-20 | Outpatient (CLI) | payer MEDICARE, MEDICAID ==
[~2025-01-20] MED LIST changes: +ALBU8.5H INH; +ALPR1TAB3 PO; +D-101000 PO; +FENT12DI8 TOP; +HYDR50CA2 PO; +MEMA10TA PO; +NABU-73 PO; +NARC1SPR; +NORG0.25 PO; +TRIA0.2571 PO
== END ==
LOC: M PLAIMG 15:19
PROVIDERS: ATTEND Nurse Practitioner Family
DX: L40.0 Psoriasis vulgaris (principal); Z51.81 Encounter for therapeutic drug level monitoring; Z79.899 Other long term (current) drug therapy

== ENCOUNTER → 2025-03-04 | Outpatient (CLI) | payer MEDICARE, MEDICAID ==
[~2025-03-04] MED LIST changes: -AMBI5TAB PO; +KETO120S5 TOP; -KETO2SHA8 TOP; +MAG30ORA18 PO; -MYLASSUD PO; -PREG50CA PO; +PREG50CA87 PO; +TOPI-257 PO; -TOPI100T9 PO; +ZOLP-532 PO
[2025-03-08 15:18] LABS: ANA SCREEN, IFA NEGATIVE (NEGATIVE)
[2025-03-10 10:11] LABS: TRYPTASE 5.1 mcg/L (<11.0)
== END ==
LOC: M PLALAB 13:14
PROVIDERS: ATTEND Family Medicine
DX: M79.10 Myalgia, unspecified site (principal)